=== PATIENT | male | born 1965 | race Caucasian/White ===

== ENCOUNTER → 2023-07-19 06:20 | Day surgery (SDC) | payer OTHER, SELFPAY ==
[2023-07-19 07:23] LABS: Glucose - Point of Care 175 mg/dl (70-99)
== END ==
LOC: GI 06:20
PROVIDERS: ATTENDING PHYSICIAN Internal Medicine Gastroenterology
DX: Z12.11 Encounter for screening for malignant neoplasm of colon (principal); D12.2 Benign neoplasm of ascending colon; D12.3 Benign neoplasm of transverse colon; K57.30 Diverticulosis of large intestine without perforation or abscess without bleeding; K64.8 Other hemorrhoids; Z79.01 Long term (current) use of anticoagulants
CPT/HCPCS: 45385; 88305; 82962

== ENCOUNTER 2024-06-13 08:04 | Emergency (ER) | payer OTHER, SELFPAY ==
[2024-06-13 08:06] VITALS: BP 111/67
--- NOTE | 2024-06-13 08:26 | ED.GENMED ---
Addendum entered and electronically signed by Sadie Hein MD 06/13/24 13:17:
Patient evaluated by hospitalist and oncology. Given that he is on Plavix biopsy cannot be completed inpatient. He does need to hold it for 5 days. Hospitalist gave prescription for outpatient IR biopsy. Patient aware to hold Plavix for 5 days
and to take 81 mg aspirin instead. Will discharge at this time..
Original Note:
History of Present Illness
General
Chief Complaint: Abdominal Pain
Time Seen by Provider: 06/13/24 08:14
History of Present Illness
History of Present Illness:
Patient is a 58-year-old male with history of diabetes, CAD with stent/AICD presenting to the emergency department abdominal pain. Patient states that he traveled back from [place] last week. While he was down there he started develop some vague
abdominal pain. Since then he has not had a bowel movement for the past 5 days. He is not passing gas. No prior abdominal surgeries. He states that the pain is in his right flank and right lower quadrant. He has been having some chills. He did
take Dulcolax without any relief. No issues with constipation. Only drinks 2 bottles of water a day. No new medications. He did take his Mounjaro shot 4 days ago. He has been on it for 1 year. He did notice some trickling of his urine for the
past few days with no dysuria or hematuria. No problems with his thyroid or calcium that he is aware of.
Phy Exam
Physical Exam
Physical Exam:
GENERAL: in no acute distress
HEENT: normocephalic, extraocular movements intact, moist oral mucosa
NECK: normal inspection
RESPIRATORY: no respiratory distress, clear to auscultation bilaterally
CARDIOVASCULAR: regular rate and rhythm
ABDOMEN/: soft, non-distended, mild tenderness right lower quadrant, right flank tenderness no rebound or guarding
EXTREMITIES: non-tender, no edema/swelling
NEUROLOGIC: awake and alert, moves all extremities
SKIN: warm
Course
Orders/Labs/Results
Orders:
Orders
06/13/24 08:24
Complete Blood Count/With Diff Urgent
Comprehensive Metabolic Panel Urgent
Lipase Urgent
Urinalysis Reflex To Culture Urgent
Date Specimen was Collected: 06/13/24
Time Specimen was Collected: 08:09
06/13/24 08:25
CT Abd/pelvis W Iv Cont Urgent
Comment:
Reason For Exam: right flank and RLQ pain
06/13/24 08:33
Ionized Calcium Urgent
Thyroid profile [TSH Reflex To Free T4] Urgent
Abnormal Lab Results
06/13/24
08:24
MCH 25.9 L pg
(27.0-31.0)
MCHC 31.6 L g/dL
(33.0-37.0)
Absolute Neuts (auto) 7.8 H 10^3/uL
(1.4-6.5)
Absolute Monos (auto) 0.8 H 10^3/uL
(0.1-0.6)
Neutrophils % 76.5 H %
(42.2-75.2)
Lymphocytes % 12.4 L %
(20.5-51.1)
Glucose 117 H mg/dl
(70-99)
Total Bilirubin 1.4 H mg/dl
(0.2-1.3)
AST 16 L U/L
(17-59)
Urine Ketones 1+ A
(Negative)
Urine Glucose 4+ A
(Negative)
06/13/24 08:24
06/13/24 08:24
Vital Signs
Initial and Last Documented VS:
Initial Vital Signs
Temp Pulse Resp BP Pulse Ox
97.7 F 83 18 111/67 98
06/13/24 08:06 06/13/24 08:06 06/13/24 08:06 06/13/24 08:06 06/13/24 08:06
Last Documented Vital Signs
Temp Pulse Resp BP Pulse Ox
97.7 F 83 18 110/70 96
06/13/24 08:06 06/13/24 08:06 06/13/24 08:06 06/13/24 09:49 06/13/24 09:50
MDM/Problems Addressed
Differential Diagnosis Includes:
Patient is a 58-year-old man presenting to the emergency department with abdominal pain and 5 days of not having a bowel movement. Vitals unremarkable exam does show tenderness palpation of the right lower quadrant and right flank region.
Differential is broad but consists of your infection versus kidney stone versus metabolic derangement or new onset thyroid problem. Considered obstruction or malignancy. Per chart review patient did have a colonoscopy last year where he did have 2
polyps removed. Will check blood work including thyroid and calcium level, urine and CT scan.
*Critical Care Note
Total Time (30-74mins, 75-104mins- exclusive of procedures): Not Applicable
Update Note
Update Note:
Blood work is otherwise unremarkable. CT scan per my interpretation does show a mass in the right kidney. Per the official read it is highly suspicious for renal cell carcinoma with periaortic and intra aortocaval lymphadenopathy. I did discuss
with oncology regarding the results and they would recommend admission for further evaluation from urology/biopsy. They will also evaluate patient. Discussed with hospitalist who accepted patient to their service.
ED Attending Note
-
Portions of this chart may have been created with voice recognition software.� Occasional wrong word or��sound alike� substitutions may have occurred due to the inherent limitations of voice recognition software.
Discharge Plan
Departure
Patient Disposition: Admit
Date of Disposition: 06/13/24
Time of Disposition: 11:06
Presentation/result/management discussed w/ accepting MD/DO: Hospitalist
Discharge Problem:
Mass of right kidney
Referrals:
Bandar Jimenez MD [Family Provider] -
Interventions
Interventions:
*Risk Screen - Suicide Last Done: 06/13/24 08:06
*General Assessment Last Done: 06/13/24 08:06
*Neglect/Abuse Screening Last Done: 06/13/24 08:06
*ED- Fall Risk Assessment Last Done: 06/13/24 08:29
*ED COVID-19 Vaccine History Last Done: 06/13/24 08:06
CZ-Wfvzuk-Ulatfwalvy Assessment Last Done: 06/13/24 08:29
Discharge Date and Time
Print Language: MALAGASY
[2024-06-13 08:28] VITALS: BP 108/70; BMI 30.6
[2024-06-13 08:32] LABS: % Basophils 0.8 % (0-2); % Eosinophils 2.3 % (0-6); % Immature Granulocytes 0.3 % (0-0.5); % Lymphocytes 12.4 % (20.5-51.1); % Monocytes 7.7 % (1.7-9.3); % Neutrophils 76.5 % (42.2-75.2); Absolute Basophils 0.1 10^3/uL (0-0.2); Absolute Eosinophils 0.2 10^3/uL (0-0.7); Absolute Lymphocytes 1.3 10^3/uL (1.2-3.4); Absolute Monocytes 0.8 10^3/uL (0.1-0.6); Absolute Neutrophils 7.8 10^3/uL (1.4-6.5); Hematocrit 41.5 % (39.0-52.0); Hemoglobin 13.1 g/dL (13.0-18.0); Mean Corp Hgb Conc. 31.6 g/dL (33.0-37.0); Mean Corpuscular Hgb 25.9 pg (27.0-31.0); Mean Corpuscular Volume 82.2 fL (80.0-94.0); Nucleated Red Blood Cells % 0 % (-); Platelet Count 318 10^3/uL (130-400); Red Blood Cell Count 5.05 10^6/uL (4.70-6.10); Red Cell Dist. Width 13.8 % (11.5-14.5); Urine Albumin Negative (Neg - Trace); Urine Bilirubin Negative (Negative); Urine Character Clear (Clear); Urine Color Yellow; Urine Glucose 4+ (Negative); Urine Ketone 1+ (Negative); Urine Leukocyte Negative (Negative); Urine Nitrite Negative (Negative); Urine Occult Blood Negative (Negative); Urine Specific Gravity 1.015 (<1.030); Urine Urobilinogen Negative (Neg - 1+); White Blood Cell Count 10.2 10^3/uL (4.8-10.8)
[2024-06-13 08:44] LABS: ALT (SGPT) 12 U/L (0-50); AST (SGOT) 16 U/L (17-59); Albumin 4.1 g/dl (3.5-5.0); Alkaline Phosphatase 65 U/L (38-126); Blood Urea Nitrogen 19 mg/dl (9-20); Calcium 9.6 mg/dl (8.4-10.2); Carbon Dioxide 24 mmol/L (22-30); Chloride 102 mmol/L (98-107); Estimated Creatinine Clearance 74 ml/min; Glucose 117 mg/dl (70-99); Lipase 40 U/L (23-300); Potassium 4.9 mmol/L (3.5-5.1); Sodium 136 mmol/L (135-145); Total Bilirubin 1.4 mg/dl (0.2-1.3); Total Protein 6.8 g/dl (6.3-8.2); eGFR > 60.00
[2024-06-13 09:26] LABS: TSH Reflex To Free T4 2.12 uIU/ml (0.47-4.68)
[2024-06-13 09:49] VITALS: BP 110/70
[2024-06-13 10:00] VITALS: BP 109/69
--- NOTE | 2024-06-13 11:30 | HPS.HSE ---
Family Physician
-
Family Physician: Bandar Jimenez MD
Chief Complaint
-
Abdominal discomfort for a few days
History of Present Illness
58 years old male came in from home. Patient was not feeling well in last week. He described as abdominal discomfort, intolerance to all her diet. No nausea or vomiting. He also felt constipated and took [id number] Dulcolax, 2 tablets
without passing bowel movement. No fever or chills. No hematuria or dysuria. He presented to the emergency room. CAT scan of the abdomen pelvis showed right kidney mass. No fever or leukocytosis
Medical History
Past Medical History
Past Medical History: Reports Other (Coronary artery disease, status post defibrillator, diabetes, chronic heart failure with reduced ejection fraction, BPH.)
Past Surgical History: Reports Other (No recent major surgery)
Social History
Tobacco: Non-smoker
Alcohol: None
Drug: None
Personal:
Living: With Family
Employment: Employed
Family History
Family History: CAD
Allergies / Home Medications
Allergies reflects when Allergies were last updated in [employer]
Home Medications with original date entered in [employer]
Allergy/Medication List:
Allergies
Allergy/AdvReac Type Severity Reaction Status Date / Time
NKA - No Known Allergies Allergy Unknown Uncoded 06/13/24 08:10
Famotidine
NovoLog
Metoprolol
Bumex
Jardiance
Mounjaro
Flomax
Atorvastatin
Entresto
Review of Systems
-
History Source: Patient
A 12 point ROS was completed and negative except as noted: Yes
Constitutional: Denies Fever or Chills
EENT: Denies Sore Throat
Respiratory: Denies Cough
Cardiac: Denies Chest Pain
Abdomen/GI: Reports Abdominal Pain, Constipated and Anorexia
: Reports Flank Pain (Right); Denies Dysuria
Musculoskeletal: Denies Joint Pain or Joint Swelling
Skin: Denies Rash
Neurological: Denies Numbness
Endocrine: Denies Temp Intolerance
Hematologic/Lymphatic: Denies Bruising
Psych: Denies Panic Disorder
Physical Exam
Vital Signs
Vital Signs
Temp Pulse Resp BP Pulse Ox
97.7 F 83 18 110/70 96
06/13/24 08:06 06/13/24 08:06 06/13/24 08:06 06/13/24 09:49 06/13/24 09:50
Physical Exam
General: No Apparent Distress and Comfortable
HEENT: Anicteric, Moist mucous membranes and Atraumatic
Cardiac: S1/S2 and Regular Rhythm
GI: Soft, Non Tender, Non Distended and Normal Bowel Sounds
Rectal: No Maroon Stools
Genito-urinary: No Pham
Musculoskeletal: No Cyanosis and No Edema
Skin: No Jaundice
Neuro: AO x 3 and Nonfocal/grossly intact
Psych: Calm and Intact Judgment/Insight
Laboratory Results
-
06/13/24 08:24
06/13/24 08:24
Laboratory Results
Total Bilirubin 1.4 mg/dl (0.2-1.3) H 06/13/24 08:24
AST 16 U/L (17-59) L 06/13/24 08:24
ALT 12 U/L (0-50) 06/13/24 08:24
Alkaline Phosphatase 65 U/L (38-126) 06/13/24 08:24
Lipase 40 U/L (23-300) 06/13/24 08:24
Impression/Plan
-
58 years old male presented with right flank pain/abdominal pain
#Right kidney mass with lymphadenopathy
Differential diagnosis include renal cell carcinoma/other
Admit the patient to the hospital
Discussed with urology, appreciate input
Continue with pain control
Consult oncology, appreciate input
# Constipation, low oral intake
Will give IV fluid and laxative regimen. No small bowel obstruction seen on CAT scan
# History of coronary artery disease/chronic heart failure with reduced ejection fraction
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
Patient did not know exactly his medications or dosage
Will try to get records
Patient denied chest pain, palpitations or shortness of breath
# Diabetes, patient takes insulin sliding scale her calorie count. Patient takes Mounjaro.
Will follow-up with insulin sliding scale
# DVT prophylaxis
Total time spent to see the patient, examine the patient, review data and lab results, discuss treatment plan with patient, consultants, ER doctor and nursing staff around 75 minutes
[2024-06-13 11:36] VITALS: BP 107/75
[2024-06-13 12:00] VITALS: BP 118/73
--- NOTE | 2024-06-13 13:01 | CON.ONC ---
Documented by User: [email or web address] Sam 06/13/24 13:13
Impression
Impression
right mid kidney mass 4.2 cmx3.6 cm
Periaortic and interaortocaval lymphadenopathy
splenomegaly 14.2cm
constipation
Plan
Plan
mass is highly suspicious for renal cell carcinoma
IR LN bx next week
Plavix on hold for biopsy
Patient History
History of Present Illness
58yo M presented from home with abdominal discomfort. He reports abdominal discomfort and decreased appetite over the past week. He denies fever, chills, nausea, vomiting, or sick contacts. He has been constipated for which he took a suppository
without relieve which prompted him to seek further evaluation in the ER. His CT ab/pelvis was notable for a mass arising from the medial right mid kidney with periaortic and interaortocaval lymphadenopathy. His CBC and BMP are without significant
abnormalities. His T bili is 1.4 with normal AST, ALT, alk phos.
He reports that he is up to date on routine malginancy screening with last colonoscopy July 2023 showing polyps diagnostic for tubular adenomas.
Afebrile, no hypoxia or hypotension.
Past-Medical/Surgical History
PMH CAD DM2, HFrEF, BPH
PSH ICD
Social non smoker, denies etoh or recreational drugs. lives with
family CAD
Physical Exam
-
General: No Apparent Distress
HEENT: Moist Mucous Membranes; Negative Jaundice
Cardiology: Normal Sinus Rhythm and Other (chest wall defibrillator)
Pulmonary: Other (diminished b/l bases)
GI: Soft
Extremities: Pulses Present; Negative Edema
Neurology: Non Focal
Skin: Warm
Psych: Calm
Labs
Lab Results
WBC 10.2 10^3/uL (4.8-10.8) 06/13/24 08:24
RBC 5.05 10^6/uL (4.70-6.10) 06/13/24 08:24
Hgb 13.1 g/dL (13.0-18.0) 06/13/24 08:24
Hct 41.5 % (39.0-52.0) 06/13/24 08:24
MCV 82.2 fL (80.0-94.0) 06/13/24 08:
MCH 25.9 pg (27.0-31.0) L 06/13/24 08:
MCHC 31.6 g/dL (33.0-37.0) L 06/13/24 08:
RDW 13.8 % (11.5-14.5) 06/13/24 08:
Plt Count 318 10^3/uL (130-400) 06/13/24 08:24
MPV 10.0 fL (7.4-10.4) 06/13/24 08:24
Abs Immat Gran (auto) 0.0 10^3/uL (0-0.05) 06/13/24 08:24
Absolute Neuts (auto) 7.8 10^3/uL (1.4-6.5) H 06/13/24 08:24
Absolute Lymphs (auto) 1.3 10^3/uL (1.2-3.4) 06/13/24 08:24
Absolute Monos (auto) 0.8 10^3/uL (0.1-0.6) H 06/13/24 08:24
Absolute Eos (auto) 0.2 10^3/uL (0-0.7) 06/13/24 08:24
Absolute Basos (auto) 0.1 10^3/uL (0-0.2) 06/13/24 08:
Immature Gran % 0.3 % (0-0.5) 06/13/24 08:
Neutrophils % 76.5 % (42.2-75.2) H 06/13/24 08:
Lymphocytes % 12.4 % (20.5-51.1) L 06/13/24 08:24
Monocytes % 7.7 % (1.7-9.3) 06/13/24 08:24
Eosinophils % 2.3 % (0-6) 06/13/24 08:24
Basophils % 0.8 % (0-2) 06/13/24 08:24
Creatinine 1.2 mg/dL (0.7-1.3) 06/13/24 08:24
Vital Signs
Vital Signs
Temp Pulse Resp BP Pulse Ox
97.7 F 83 18 118/73 98
06/13/24 08:06 06/13/24 08:06 06/13/24 08:06 06/13/24 12:00 06/13/24 12:00

Documented by User: Sherwin Mccoy MD 06/13/24 14:37
Plan
Plan
mass is highly suspicious for renal cell carcinoma
IR LN bx next week
Plavix on hold for biopsy
Oncology Addendum:
Patient seen and evaluated and agree w/ MANAGER OF IT note and plan as outlined
-right kidney mass w/ eriaortic and interaortocaval lymphadenopathy - possible neoplastic lymphadenopathy
-Dr. Damon discussed case w/ urology who felt adenopathy possibly c/w metastatic disease -no role for nephrectomy at this time
-recommend IR guided biopsy of lymph node for pathologic diagnosis
-pt considering outpt biopsy
-will arrange outpt f/u once biopsy has been completed to discuss pathology
-will need additional staging - full CT imaging w/ contrast as well as bone imaging
Will continue to follow with you
--- NOTE | 2024-06-13 13:31 | W.PN.UPDATE ---
Update Note
Progress Note Update
Patient was not admitted to the hospital
Patient felt better after having bowel movement wanted to go home.
Seen by oncologist, outpatient appointment scheduled for for IR to do lymph node biopsy of the abdomen and outpatient appointment with oncologist
Discussed with ER doctor, discharge instructions given to the patient including to hold Plavix and use 81 mg aspirin until the biopsy, patient verbalized understanding
End
== END 2024-06-13 14:27 | disposition home or self-care (01) ==
LOC: EMR 08:04
PROVIDERS: Emergency Medicine; EMERGENCY PHYSICIAN Student in an Organized Health Care Education/Training Program; FAMILY PHYSICIAN Internal Medicine
DX: N28.89 Other specified disorders of kidney and ureter (principal); I25.10 Atherosclerotic heart disease of native coronary artery without angina pectoris; E11.9 Type 2 diabetes mellitus without complications; Z95.810 Presence of automatic (implantable) cardiac defibrillator
CPT/HCPCS: 99284; 74177; 80053; 81003; 82330; 83690; 84443; 85025; Q9967

== ENCOUNTER → 2024-06-19 06:58 | Outpatient (REF) | payer OTHER, SELFPAY ==
[2024-06-19 07:28] LABS: INR 1.12; PT 14.9 Sec (11.4-14.6)
== END ==
LOC: REG 06:58
PROVIDERS: ATTENDING PHYSICIAN Internal Medicine; FAMILY PHYSICIAN Internal Medicine
DX: R59.1 Generalized enlarged lymph nodes (principal)
CPT/HCPCS: 36415; 85610

== ENCOUNTER → 2024-06-23 06:47 | Outpatient (REF) | payer OTHER, SELFPAY ==
[2024-06-23 07:25] VITALS: BP 101/71; BP_SYST 85
[2024-06-23 09:05] VITALS: BP 99/69; BP_SYST 84
[2024-06-23 09:10] VITALS: BP 90/66; BP_SYST 82
[2024-06-23 09:27] VITALS: BP 101/69
== END ==
LOC: RADI 06:47
PROVIDERS: ATTENDING PHYSICIAN Internal Medicine; FAMILY PHYSICIAN Internal Medicine; REFERRING PHYSICIAN Internal Medicine Hematology & Oncology
DX: C77.2 Secondary and unspecified malignant neoplasm of intra-abdominal lymph nodes (principal); C65.1 Malignant neoplasm of right renal pelvis
CPT/HCPCS: 88305; 49180; 77012; 88333; 88341; 88342; 99152; 99153

== ENCOUNTER → 2024-07-07 12:53 | Outpatient (REF) | payer OTHER, SELFPAY | LOC: PET 12:53 | PROVIDERS: ATTENDING PHYSICIAN Nurse Practitioner Acute Care | DX: C80.1 Malignant (primary) neoplasm, unspecified (principal) | CPT/HCPCS: 78815; A9552 ==

== ENCOUNTER → 2024-07-11 08:29 | Outpatient (REF) | payer OTHER, SELFPAY ==
[2024-07-11 09:16] LABS: % Eosinophils 2.7 % (0-6); % Immature Granulocytes 0.7 % (0-0.5); % Lymphocytes 12.9 % (20.5-51.1); % Monocytes 7.6 % (1.7-9.3); % Neutrophils 75.1 % (42.2-75.2); Absolute Basophils 0.1 10^3/uL (0-0.2); Absolute Eosinophils 0.3 10^3/uL (0-0.7); Absolute Immature Granulocytes 0.1 10^3/uL (0-0.05); Absolute Lymphocytes 1.3 10^3/uL (1.2-3.4); Absolute Monocytes 0.7 10^3/uL (0.1-0.6); Absolute Neutrophils 7.3 10^3/uL (1.4-6.5); Hematocrit 35.9 % (39.0-52.0); Hemoglobin 11.4 g/dL (13.0-18.0); Mean Corp Hgb Conc. 31.8 g/dL (33.0-37.0); Mean Corpuscular Hgb 25.4 pg (27.0-31.0); Mean Corpuscular Volume 80.1 fL (80.0-94.0); Mean Platelet Volume 10.7 fL (7.4-10.4); Nucleated Red Blood Cells % 0 % (-); Platelet Count 280 10^3/uL (130-400); Red Blood Cell Count 4.48 10^6/uL (4.70-6.10); Red Cell Dist. Width 14.6 % (11.5-14.5); White Blood Cell Count 9.8 10^3/uL (4.8-10.8)
[2024-07-11 09:57] LABS: ALT (SGPT) 11 U/L (0-50); AST (SGOT) 16 U/L (17-59); Albumin 3.9 g/dl (3.5-5.0); Alkaline Phosphatase 87 U/L (38-126); Blood Urea Nitrogen 24 mg/dl (9-20); Calcium 9.6 mg/dl (8.4-10.2); Carbon Dioxide 22 mmol/L (22-30); Chloride 107 mmol/L (98-107); Glucose 154 mg/dl (70-99); Potassium 4.9 mmol/L (3.5-5.1); Sodium 142 mmol/L (135-145); Total Bilirubin 0.5 mg/dl (0.2-1.3); Total Protein 6.3 g/dl (6.3-8.2); eGFR > 60.00
== END ==
LOC: REG 08:29
PROVIDERS: ATTENDING PHYSICIAN Internal Medicine Hematology & Oncology
DX: C77.5 Secondary and unspecified malignant neoplasm of intrapelvic lymph nodes (principal); D41.11 Neoplasm of uncertain behavior of right renal pelvis; C80.1 Malignant (primary) neoplasm, unspecified
CPT/HCPCS: 36415; 80053; 85025

== ENCOUNTER → 2024-07-21 12:08 | Outpatient (REF) | payer OTHER, SELFPAY ==
[2024-07-21 12:28] VITALS: BP 117/77; BP_SYST 90
[2024-07-21 13:21] VITALS: BP 124/74; BP_SYST 84
== END ==
LOC: RADI 12:08
PROVIDERS: ATTENDING PHYSICIAN Otolaryngology
DX: C77.0 Secondary and unspecified malignant neoplasm of lymph nodes of head, face and neck (principal); C64.9 Malignant neoplasm of unspecified kidney, except renal pelvis
CPT/HCPCS: 88305; 38505; 76942; 88333; 88341; 88342

== ENCOUNTER → 2024-08-13 10:38 | Outpatient (REF) | payer OTHER, SELFPAY ==
[2024-08-13 12:54] LABS: ALT (SGPT) < 10 U/L (0-50); AST (SGOT) 15 U/L (17-59); Alkaline Phosphatase 70 U/L (38-126); Blood Urea Nitrogen 25 mg/dl (9-20); Calcium 9.4 mg/dl (8.4-10.2); Carbon Dioxide 27 mmol/L (22-30); Chloride 98 mmol/L (98-107); Glucose 126 mg/dl (70-99); Potassium 5.5 mmol/L (3.5-5.1); Sodium 137 mmol/L (135-145); Total Bilirubin 0.8 mg/dl (0.2-1.3); Total Protein 6.6 g/dl (6.3-8.2); eGFR > 60.00
[2024-08-14 18:55] LABS: Hepatitis B Surface Antigen Negative (Negative)
[2024-08-14 19:13] LABS: Hepatitis B Core Ab, Total Negative (Negative); Hepatitis B Surface Antibody Negative
[2024-08-15 21:28] LABS: Adrenocorticotropic Hormone 23.9 pg/mL (7.2-63.3)
== END ==
LOC: REG 10:38
PROVIDERS: ATTENDING PHYSICIAN Internal Medicine Hematology & Oncology; FAMILY PHYSICIAN Internal Medicine
DX: C77.5 Secondary and unspecified malignant neoplasm of intrapelvic lymph nodes (principal); D41.11 Neoplasm of uncertain behavior of right renal pelvis; C80.1 Malignant (primary) neoplasm, unspecified; C64.1 Malignant neoplasm of right kidney, except renal pelvis; C77.2 Secondary and unspecified malignant neoplasm of intra-abdominal lymph nodes
CPT/HCPCS: 36415; 80053; 82024; 84443; 86704; 86706; 87340

== ENCOUNTER → 2024-08-22 15:14 | Outpatient (REF) | payer OTHER, SELFPAY | LOC: RAD 15:14 | PROVIDERS: ATTENDING PHYSICIAN Nurse Practitioner Adult Health; FAMILY PHYSICIAN Internal Medicine | DX: C77.5 Secondary and unspecified malignant neoplasm of intrapelvic lymph nodes (principal); D41.11 Neoplasm of uncertain behavior of right renal pelvis; C80.1 Malignant (primary) neoplasm, unspecified; C64.1 Malignant neoplasm of right kidney, except renal pelvis | CPT/HCPCS: 70491; 71260; Q9967 ==

== ENCOUNTER 2024-09-24 18:41 | Inpatient (IN) | payer OTHER, SELFPAY ==
[2024-09-24 13:03] VITALS: BP 129/83
[2024-09-24 13:46] LABS: % Eosinophils 1.9 % (0-6); % Immature Granulocytes 0.5 % (0-0.5); % Lymphocytes 8.1 % (20.5-51.1); % Monocytes 10.3 % (1.7-9.3); % Neutrophils 78.2 % (42.2-75.2); Absolute Basophils 0.1 10^3/uL (0-0.2); Absolute Eosinophils 0.2 10^3/uL (0-0.7); Absolute Immature Granulocytes 0.1 10^3/uL (0-0.05); Absolute Lymphocytes 0.8 10^3/uL (1.2-3.4); Absolute Monocytes 1.1 10^3/uL (0.1-0.6); Absolute Neutrophils 8.2 10^3/uL (1.4-6.5); Hematocrit 35.6 % (39.0-52.0); Hemoglobin 10.8 g/dL (13.0-18.0); Mean Corp Hgb Conc. 30.3 g/dL (33.0-37.0); Mean Corpuscular Hgb 23.1 pg (27.0-31.0); Mean Corpuscular Volume 76.2 fL (80.0-94.0); Mean Platelet Volume 10.5 fL (7.4-10.4); Nucleated Red Blood Cells % 0 % (-); Platelet Count 337 10^3/uL (130-400); Red Blood Cell Count 4.67 10^6/uL (4.70-6.10); Red Cell Dist. Width 16.3 % (11.5-14.5); White Blood Cell Count 10.4 10^3/uL (4.8-10.8)
[2024-09-24 14:06] LABS: ALT (SGPT) < 10 U/L (0-50); AST (SGOT) 16 U/L (17-59); Albumin 3.9 g/dl (3.5-5.0); Alkaline Phosphatase 70 U/L (38-126); Blood Urea Nitrogen 17 mg/dl (9-20); Carbon Dioxide 26 mmol/L (22-30); Chloride 102 mmol/L (98-107); Glucose 164 mg/dl (70-99); Lipase 14 U/L (23-300); Potassium 4.8 mmol/L (3.5-5.1); Sodium 138 mmol/L (135-145); Total Bilirubin 0.9 mg/dl (0.2-1.3); Total Protein 6.8 g/dl (6.3-8.2); eGFR > 60.00
--- NOTE | 2024-09-24 14:36 | ED.GENMED ---
History of Present Illness
General
Chief Complaint: Abdominal Pain
Source: patient
Exam Limitations: none
Time Seen by Provider: 09/24/24 14:17
History of Present Illness
History of Present Illness:
58yoM with a history of renal cell carcinoma receiving chemotherapy, coronary artery disease, and diabetes presenting for evaluation of abdominal pain. He reports generalized abdominal pain for the past week. Pain is described as throbbing. He is
also experiencing pain in his right flank region. He has been vomiting every morning since starting chemotherapy a few months ago. He spoke with his oncologist today who believes he may have a bleeding ulcer so sent him to the ED. Patient denies
any heartburn, blood in stool, melena, fevers, chest pain, shortness of breath. No previous abdominal surgeries. Last chemotherapy treatment was 2 weeks ago.
Phy Exam
General Physical Exam
General Presentation: well appearing and no apparent distress
General Skin: warm and dry
General Habitus: normal
ENT Exam
ENT Exam: normocephalic
Cardiovascular Exam
Cardiovascular Exam: regular rate/rhythm
Pulmonary Exam
Pulmonary Exam: no respiratory distress, no rhonchi, no stridor, no wheezing and other (Bibasilar rales)
Oxygen Status: bagged mask assistance
Gastrointestinal Exam
Gastrointestinal Exam: soft, non distended and other (+Generalized abdominal tenderness. Abdomen soft, non-distended. No rebound or guarding.)
Neurological Exam
Neurological Exam: alert
Coco Coma Scale
Eye Opening: Spontaneous
Verbal Response: Oriented
Motor Response: Obeys Commands
GCS Total Score: 15
Skin Exam
Skin Exam: normal color and warm/dry
Psychiatric Exam
Psychiatric Exam: normal mood/affect
Course
Orders/Labs/Results
Orders:
Orders
09/24/24 13:18
IV Insert/Care/Rem.- Treatment PRN
09/24/24 13:31
Complete Blood Count/With Diff Urgent
Comprehensive Metabolic Panel Urgent
Lipase Urgent
09/24/24 14:35
CT Abd/pelvis W Iv Cont Urgent
Comment:
Reason For Exam: generalized abd pain, R flank pain
0.9% Sodium Chloride 1000 ml [Nss] 1,000 ml IV BOLUS
HYDROmorphone [Dilaudid] 1 mg IV NOW STA
Ondansetron Injectable [Zofran] 4 mg IV NOW STA
09/24/24 Dinner
Cholesterol Lowering
At Your Request: Limited, Universal Grinder Operator Required
Cholesterol Lowering: Sodium, 2 Gram
09/24/24 15:04
Lactate Level [Lactic Acid] Urgent
09/24/24 15:39
CR Chest - 2 Views Urgent
Comment:
Reason For Exam: hypoxia
09/24/24 15:53
Electrocardiogram (*1) Urgent
Reason for Study: Abdominal Pain
EKG- Treatment ONCE
09/24/24 16:17
NT-proBNP Urgent
Troponin I Urgent
09/24/24 17:03
Furosemide [Lasix] 40 mg IV NOW STA
09/24/24 17:19
Urinalysis Reflex To Culture Urgent
Date Specimen was Collected: 09/24/24
Time Specimen was Collected: 17:18
09/24/24 17:21
Admit/Transfer Patient As Directed
Co-Sign Provider:
Level of Care: Inpatient admission
Assign to:: Telemetry
Physician / Group: trevin
Diagnosis: retroperitoneal adenopathy
Reason for Telemetry: Pulmonary Edema
Date to Stop Telemetry: 09/27/24
Time to Stop Telemetry: 11:00
Reason for Hospitalization: retroperitoneal adenopathy
Expected length of stay greater than two midnights?: Yes
ELOS- Estimated Length of Stay in days: 2
I certify the patient meets the requirements for IP care: Yes
09/24/24 17:22
Code Status As Directed
Resuscitation Status: Full Code
PRN Pain Medication Management As Directed
May give lesser potent ordered pain med per pt: Yes
preference::
Protocol:: Medication orders for pain may be administered in a
manner that supports deferring to patient preference
when the pt is:
- Requesting an ordered lesser potent pain medication.
Least to most potent pain medications are defined
as: acetaminophen < NSAID < tramadol < opioids
(morphine, oxycodone, hydromorphone).
- Requesting a lesser dose of the same medication IF
ORDERED.
- Requesting a less intrusive route of administration
if both routes are prescribed by the provider (PO <
IV).
09/24/24 21:09
Dextrose 50%-Water [Dextrose 50% Syringe] 12.5 grams IV [id number] PRN
Glucagon [GlucaGen] 1 mg IM PRN PRN
Heparin 5,000 units SC Q12
09/24/24 21:09
ONCOLOGY CONSULT Routine
Consulting Provider: Pilar Badillo
Was physician already notified: Yes
Activity As Directed
Activity Level: As Tolerated
Bedside Glucose Monitoring As Directed
Frequency: AC&HS
Additional Instructions:: Change to q6h if pt on TPN, tube feeding or not eating
I/O [Intake/ Output] As Directed
Frequency: q12h
Vital Signs As Directed
Frequency: Per unit guidelines
Weight As Directed
Frequency: Daily
DX Deep Vein Thrombosis Video Routine
09/25/24 06:00
Complete Blood Count/With Diff IN AM
Comprehensive Metabolic Panel IN AM
Glycohemoglobin (HgbA1c) IN AM
09/25/24 07:30
Insulin Aspart Corrective Low [Novolog Flexpen-Low Resistance] See Protocol SC AC
09/27/24 11:00
DC Protocol for Telemetry ONCE
Abnormal Lab Results
09/24/24 09/24/24
13:31 17:19
RBC 4.67 L 10^6/uL
(4.70-6.10)
Hgb 10.8 L g/dL
(13.0-18.0)
Hct 35.6 L %
(39.0-52.0)
MCV 76.2 L fL
(80.0-94.0)
MCH 23.1 L pg
(27.0-31.0)
MCHC 30.3 L g/dL
(33.0-37.0)
RDW 16.3 H %
(11.5-14.5)
MPV 10.5 H fL
(7.4-10.4)
Abs Immat Gran (auto) 0.1 H 10^3/uL
(0-0.05)
Absolute Neuts (auto) 8.2 H 10^3/uL
(1.4-6.5)
Absolute Lymphs (auto) 0.8 L 10^3/uL
(1.2-3.4)
Absolute Monos (auto) 1.1 H 10^3/uL
(0.1-0.6)
Neutrophils % 78.2 H %
(42.2-75.2)
Lymphocytes % 8.1 L %
(20.5-51.1)
Monocytes % 10.3 H %
(1.7-9.3)
Glucose 164 H mg/dl
(70-99)
AST 16 L U/L
(17-59)
Lipase 14 L U/L
(23-300)
Urine Ketones 2+ A
(Negative)
Urine Glucose 4+ A
(Negative)
09/24/24 13:31
09/24/24 13:31
Vital Signs
Initial and Last Documented VS:
Initial Vital Signs
Temp Pulse Resp BP Pulse Ox
97.9 F 101 18 129/83 95
09/24/24 13:03 09/24/24 13:03 09/24/24 13:03 09/24/24 13:03 09/24/24 13:03
Last Documented Vital Signs
Temp Pulse Resp BP Pulse Ox
97.9 F 97 21 116/75 93
09/24/24 13:03 09/24/24 21:00 09/24/24 20:00 09/24/24 20:00 09/24/24 20:59
MDM/Problems Addressed
Differential Diagnosis Includes:
58yoM presenting with generalized abd pain and R flank pain x 1 week. Also having intermittent vomiting. Hx of renal cell carcinoma on chemo. VSS. He is non-toxic appearing. No signs of peritonitis on abdominal exam. Differential diagnosis includes
but is not limited to: cancer related pain, pancreatitis, biliary colic, appendicitis, PUD, constipation
Initial ED plan: Labs obtained in triage. White count, renal function, LFTs, lipase unremarkable. Will check lactate and CT abdomen. IV Dilaudid and fluid bolus for symptoms.
*Pulse Oximetry
SaO2: 95
Oxygen Mode of Delivery: Room air
*EKG
Interpreted by ED Provider?: Yes
EKG Intrepretation Date: 09/24/24
Heart Rate: 103
Rate: tachycardiac
Rhythm: sinus
Interval: normal interval
QRS Pattern: right bundle branch block
Ischemia: no ischemia
*Critical Care Note
Total Time (30-74mins, 75-104mins- exclusive of procedures): Not Applicable
Update Note
Update Note:
Lactate WNL. CT shows progressive retroperitoneal lymphadenopathy. There are also small pleural effusions. Patient intermittently hypoxic in the low 80s. He denies any dyspnea or chest pain. He was placed on 2L NC for persistent hypoxemia. BNP added
which is about 6000. 40mg IV Lasix ordered and patient admitted for further management.
ED Attending Note
-
Portions of this chart may have been created with voice recognition software.� Occasional wrong word or��sound alike� substitutions may have occurred due to the inherent limitations of voice recognition software.
Discharge Plan
Departure
Patient Disposition: Admit
Date of Disposition: 09/24/24
Time of Disposition: 17:05
Presentation/result/management discussed w/ accepting MD/DO: Hospitalist
Discharge Problem:
Acute respiratory failure with hypoxia, Bilateral pleural effusion, Abdominal pain
Interventions
Interventions:
*Risk Screen - Suicide Last Done: 09/24/24 13:03
*General Assessment Last Done: 09/24/24 15:33
*Neglect/Abuse Screening Last Done: 09/24/24 13:03
*ED- Fall Risk Assessment Last Done: 09/24/24 15:33
*ED COVID-19 Vaccine History Last Done: 09/24/24 15:33
*Nursing Disposition Last Done: 09/24/24 21:09
ZL-Psgqun-Frzervalzr Assessment Last Done: 09/24/24 20:16
Discharge Date and Time
Discharge Date/Time: 09/24/24 21:10
[2024-09-24] MEDS: NSS 1000 IV (15:05)
[2024-09-24] MEDS: ZOFRAN 4 MG IV (15:05)
[2024-09-24] MEDS: DILAUDID 1 MG IV ×2 (15:06→20:01)
[2024-09-24 15:10] VITALS: BMI 28.5
[2024-09-24 15:31] LABS: Lactic Acid 1.1 mmol/L (0.7-2.0)
[2024-09-24 16:53] LABS: NT-proBNP 6100 pg/ml; Troponin I < 0.012 ng/ml
--- NOTE | 2024-09-24 17:26 | HPS.HSE ---
Family Physician
-
Family Physician: Maru Byers
Chief Complaint
-
abdominal pain
History of Present Illness
58-year-old male past medical history of renal cell carcinoma on chemotherapy, CAD, chronic HFrEF, type 2 diabetes, BPH, presenting with right lower back pain ongoing for the past 2 weeks. Pain is throbbing. Also has some abdominal discomfort that
is generalized with bloating and decreased appetite and dry heaving. No vomiting. He denies any chest pain or shortness of breath or difficulty breathing. He last had chemotherapy 2 weeks ago. Denies constipation.
He denies any blood in the stool or black stool. Denies fevers or chills. Denies any urinary discomfort or burning.
He has lost 20 to 30 pounds recently since being diagnosed with cancer.
His oncologist is Dr. Galeana. His family worker is Dr. Duong from [facility]
He denies smoking or alcohol use.
Medical History
Past Medical History
Past Medical History: Reports Other (renal cell carcinoma on chemotherapy, CAD, chronic HFrEF, type 2 diabetes, BPH,)
Past Surgical History: Reports None
Social History
Tobacco: Non-smoker
Alcohol: None
Drug: None
Family History
Family History: Not pertinent
Allergies / Home Medications
Allergies reflects when Allergies were last updated in [employer]
Home Medications with original date entered in [employer]
Allergy/Medication List:
Allergies
Allergy/AdvReac Type Severity Reaction Status Date / Time
NKA - No Known Allergies Allergy Unknown Uncoded 09/24/24 13:03
Home Medications
atorvastatin 80 mg tablet 80 mg PO HS 06/23/24
clopidogrel 75 mg tablet 75 mg PO DAILY 06/23/24
empagliflozin 25 mg tablet (Jardiance) 25 mg PO DAILY 06/23/24
fenofibrate micronized 200 mg capsule 200 mg PO QPM 06/23/24
repaglinide 2 mg tablet 2 mg PO TID 06/23/24
sacubitril 24 mg-valsartan 26 mg tablet (Entresto) 1 tab PO BID 06/23/24
spironolactone 25 mg tablet 25 mg PO DAILY 06/23/24
tamsulosin 0.4 mg capsule 0.4 mg PO HS 06/23/24
Review of Systems
-
History Source: Patient
A 12 point ROS was completed and negative except as noted: Yes
Constitutional: Reports No Symptoms
EENT: Reports No Symptoms
Respiratory: Reports No Symptoms
Cardiac: Reports No Symptoms
Abdomen/GI: Reports See HPI
: Reports No Symptoms
Musculoskeletal: Reports No Symptoms
Skin: Reports No Symptoms
Neurological: Reports No Symptoms
Endocrine: Reports No Symptoms
Hematologic/Lymphatic: Reports No Symptoms
Psych: Reports No Symptoms
Physical Exam
Vital Signs
Vital Signs
Temp Pulse Resp BP Pulse Ox
97.9 F 102 18 129/83 92
09/24/24 13:03 09/24/24 15:11 09/24/24 13:03 09/24/24 13:03 09/24/24 16:31
Physical Exam
General: Well Developed, Well Nourished and No Apparent Distress
HEENT: NormoCephalic, Moist mucous membranes and Atraumatic
Respiratory: Clear
Cardiac: S1/S2 and Regular Rhythm; No Murmur or Rub
GI: Soft, Non Distended, Normal Bowel Sounds and Tender (diffusely ); No Organomegaly
Rectal: Deferred by Provider
Musculoskeletal: No Clubbing, No Cyanosis and No Edema
Skin: No Rash
Neuro: Nonfocal/grossly intact
Laboratory Results
-
09/24/24 13:31
09/24/24 13:31
Laboratory Results
Lactic Acid 1.1 mmol/L (0.7-2.0) 09/24/24 15:04
Total Bilirubin 0.9 mg/dl (0.2-1.3) 09/24/24 13:31
AST 16 U/L (17-59) L 09/24/24 13:31
ALT < 10 U/L (0-50) 09/24/24 13:31
Alkaline Phosphatase 70 U/L (38-126) 09/24/24 13:31
Troponin I < 0.012 ng/ml 09/24/24 16:17
Lipase 14 U/L (23-300) L 09/24/24 13:31
Data Reviewed
-
Lab Data: Labs Reviewed by me
Old Records: Reviewed
Impression/Plan
-
IMPRESSION:
PLAN:
# Abdominal pain secondary to progressive retroperitoneal adenopathy secondary to renal cell carcinoma
#Renal cell carcinoma on chemotherapy
- CT abdomen pelvis shows progressive retroperitoneal adenopathy, mild slightly increased adenopathy in the portacaval space and kathy hepatis, no significant change in known right renal mass, no obstructive uropathy, slightly small increase
bilateral pleural effusions, mild colonic fecal burden without bowel obstruction
- Oncology consulted
# Mild fluid overload on imaging/CT scan
-Patient without shortness of breath or dyspnea or weight gain so would not diagnose this as CHF exacerbation
- Cardiac BNP of 6000
- Check chest x-ray
- Check I's and O's, daily weights
- 40 IV Lasix given, hold further for now
-Continue dapagliflozin
-Continue Entresto, spironolactone
Chronic anemia
- Hemoglobin stable
CAD
- Continue statin, Plavix
Type 2 diabetes
- Hold repaglinide
- Insulin sliding scale
BPH
- Continue tamsulosin
Hypercholesterolemia
- Continue fenofibrate
Full code
DVT prophylaxis�heparin
Cardiac diet
[2024-09-24 17:27] LABS: Urine Albumin Negative (Neg - Trace); Urine Bilirubin Negative (Negative); Urine Character Clear (Clear); Urine Color Yellow; Urine Glucose 4+ (Negative); Urine Ketone 2+ (Negative); Urine Leukocyte Negative (Negative); Urine Nitrite Negative (Negative); Urine Occult Blood Negative (Negative); Urine Specific Gravity 1.015 (<1.030); Urine Urobilinogen Negative (Neg - 1+)
[2024-09-24] MEDS: LASIX 40 MG IV (18:09)
[2024-09-24 18:10] VITALS: BP 121/74
[2024-09-24 19:00] VITALS: BP 119/74
[2024-09-24 20:00] VITALS: BP 116/75
[2024-09-24 21:45] VITALS: BP 113/68; BMI 29.1
[2024-09-24] MEDS: HEPARIN 5000 UNITS SC (22:21)
[2024-09-24] MEDS: LIPITOR 80 MG PO (22:23)
[2024-09-24] MEDS: FLOMAX 0.4 MG PO (22:24)
[2024-09-24] MEDS: LANTUS 0.14 UNITS SC (22:24)
[2024-09-24 22:31] LABS: Glucose - Point of Care 189 mg/dl (70-99)
[2024-09-24 23:00] VITALS: BP 105/63
[2024-09-25 01:41] VITALS: BP 108/68
[2024-09-25] MEDS: DILAUDID 1 MG IV ×5 (01:46→19:55)
--- NOTE | 2024-09-25 02:23 | PTCARENOTE ---
Patient arrived to [facility] from ED on stretcher. Patient ambulated from stretcher to bed. Patient AAOx3. Patient oriented to room, bed placed in lowest position, call tyler within reach. Will continue to monitor.
[2024-09-25 03:00] VITALS: BP 107/66
[2024-09-25 05:53] LABS: % Basophils 0.6 % (0-2); % Eosinophils 0.7 % (0-6); % Immature Granulocytes 0.5 % (0-0.5); % Monocytes 10.6 % (1.7-9.3); % Neutrophils 80.6 % (42.2-75.2); Absolute Basophils 0.1 10^3/uL (0-0.2); Absolute Eosinophils 0.1 10^3/uL (0-0.7); Absolute Immature Granulocytes 0.1 10^3/uL (0-0.05); Absolute Lymphocytes 0.9 10^3/uL (1.2-3.4); Absolute Monocytes 1.4 10^3/uL (0.1-0.6); Absolute Neutrophils 10.3 10^3/uL (1.4-6.5); Hematocrit 34.1 % (39.0-52.0); Hemoglobin 10.3 g/dL (13.0-18.0); Mean Corp Hgb Conc. 30.2 g/dL (33.0-37.0); Mean Corpuscular Hgb 22.7 pg (27.0-31.0); Mean Corpuscular Volume 75.3 fL (80.0-94.0); Mean Platelet Volume 10.5 fL (7.4-10.4); Nucleated Red Blood Cells % 0 % (-); Platelet Count 315 10^3/uL (130-400); Red Blood Cell Count 4.53 10^6/uL (4.70-6.10); Red Cell Dist. Width 16.3 % (11.5-14.5); White Blood Cell Count 12.8 10^3/uL (4.8-10.8)
[2024-09-25 06:00] VITALS: BMI 28.8
[2024-09-25 06:15] LABS: ALT (SGPT) 10 U/L (0-50); AST (SGOT) 14 U/L (17-59); Albumin 3.8 g/dl (3.5-5.0); Alkaline Phosphatase 69 U/L (38-126); Blood Urea Nitrogen 21 mg/dl (9-20); Calcium 9.9 mg/dl (8.4-10.2); Carbon Dioxide 25 mmol/L (22-30); Chloride 101 mmol/L (98-107); Estimated Creatinine Clearance 79 ml/min; Glucose 158 mg/dl (70-99); Potassium 4.8 mmol/L (3.5-5.1); Sodium 136 mmol/L (135-145); Total Bilirubin 1.1 mg/dl (0.2-1.3); Total Protein 6.6 g/dl (6.3-8.2); eGFR > 60.00
[2024-09-25 07:00] VITALS: BP 103/68
[2024-09-25 07:36] LABS: Glucose - Point of Care 174 mg/dl (70-99)
--- NOTE | 2024-09-25 08:12 | CON.GI ---
Addendum entered and electronically signed by Delmer Griffith MD 09/25/24 16:20:
Cscope Dr. Black 2023 polyps and hemorrhoids
Addendum entered and electronically signed by Delmer Griffith MD 09/25/24 15:43:
The patient was seen and examined by me independently in collaboration with the nurse practitioner.
Past medical history/social history/medications/allergies/family history reviewed.
Lab data and imaging data reviewed.
58-year-old gentleman past medical history renal cell cancer on chemotherapy, AICD, EF 15 to 20%, CAD with history of VA status post stents currently only on aspirin, diabetes presenting with back pain and nausea. There are some reports of
abdominal pain, bloating, decreased appetite but when I asked him today he denied any abdominal pain. He states the nausea was only this morning and the back pain has been going on for the last week. He denies any melena, bright red blood per
rectum, dyspnea on exertion, shortness of breath, chest pain. He was found admission to have slightly worsening of his anemia with hemoglobin 10.3 back in July was 11.4.
Other labs pertinent for normal LFTs, BNP 6100. CT abdomen pelvis shows progressive retroperitoneal adenopathy and mild increased adenopathy in the portacaval space and kathy hepatis, no change in the right renal mass. Mild colonic fecal burden.
During this admission, he has been hypoxic requiring oxygen.
Although it is possible he could have gastritis or peptic ulcer disease, there is no signs or symptoms of overt bleeding at this time. Given the fact that he is high risk for endoscopy given both his cardiac status and pulmonary, I would hold off
on endoscopic procedures unless clinical status changes. I will increase his PPI to twice a day. Okay GI point of view to advance diet as tolerated. Currently on full liquids did have some nausea this morning so we will wait to see if he
tolerates it before advancing in the morning. D/w hospitalist and onc.
Original Note:
Consultation
-
Date/Time Consultation Requested: 09/25/24729
Date/Time Consultation Performed: 6/19/25 0812
Requesting Provider: Dr. Galeana
Performing Provider: Dr. Griffith/SUJIT Tubbs
Reason for Consultation: CARMEN, nausea, gastric inflammation
Medical History
Chief Complaint / HPI
Chief Complaint: Abdominal pain
History of Present Illness:
58-year-old male with past medical history of renal cell carcinoma on chemotherapy, chronic HFpEF, diabetes, BPH, CAD (on aspirin only, stopped Plavix 5-6 weeks ago) presents to the emergency room with abdominal pain, right mid back pain, nausea,
vomiting, decreased appetite and dry heaving. We are asked to evaluate for the same. The patient states that approximately 5-6 weeks ago he started with right mid back pain that would bring on 'nausea with his stomach rolling' without any abdominal
pain. He would have dry heaves and would not be able to eat. The states that at times he would vomit however this would either be the food that he consumes or clear. He would never have any hematemsis or coffee ground material. He has also been
constipated since starting narcotics and anti nausea meds. He denies any F, C, melena, hematochezia, dysphagia or early satiety. He has lost about 20-30 lbs in the past 3 months.
Past Medical History
Past Medical History: CAD (2 years ago s/p stent ([place]) ), Cancer (renal cell Ca), CHF, NIDDM and Other (BPH)
Past Surgical History: None
Social History
Tobacco: Non-Smoker
Alcohol: None
Drug: None
Personal:
Living: With Family
Family History
Family History: Other (No fam hx GI malignancy or IBD)
Allergies / Home Medications
Allergy/AdvReac Type Severity Reaction Status Date / Time
No Known Allergies Allergy Unverified 09/24/24 21:10
�Medication �Instructions �Recorded
atorvastatin 80 mg tablet 80 mg PO HS 06/23/24
empagliflozin 25 mg tablet 25 mg PO DAILY 06/23/24
(Jardiance)
fenofibrate micronized 200 mg 200 mg PO QPM 06/23/24
capsule
repaglinide 2 mg tablet 2 mg PO DAILY 06/23/24
sacubitril 24 mg-valsartan 26 mg 1 tab PO BID 06/23/24
tablet (Entresto)
spironolactone 25 mg tablet 25 mg PO DAILY 06/23/24
tamsulosin 0.4 mg capsule 0.4 mg PO 06/23/24
aspirin 81 mg chewable tablet 81 mg PO DAILY 09/24/24
ergocalciferol (vitamin D2) 1,250 1,250 mcg PO PICKARD 09/24/24
mcg (50,000 unit) capsule
insulin aspart U-100 100 unit/mL 20 sliding scale dose SC AC 09/24/24
(3 mL) subcutaneous pen (Novolog
FlexPen U-100 Insulin aspart)
insulin glargine U-300 conc 300 18 unit SC 09/24/24
unit/mL (3 mL) subcutaneous pen
(Toujeo Max U-300 SoloStar)
repaglinide 2 mg tablet 2 mg PO BID@1200,1700 09/24/24
Review of Systems
-
All other systems: A 12 pt ROS was Negative except as stated above in HPI
Vital Signs
Temp Pulse Resp BP Pulse Ox
98.5 F 103 17 103/68 96
09/25/24 07:00 09/25/24 07:00 09/25/24 07:00 09/25/24 07:00 09/25/24 07:00
Physical Exam
Exam
General: Other (Sitting up in chair, mild dyspnea (no supplemental O2 on, replaced with improvement))
HEENT: Anicteric
Respiratory: Clear (decreased bases B/L R>L )
Cardiac: Regular Rhythm (tachy at 110)
GI: Soft, Non Tender, Non Distended and Normal Bowel Sounds
Musculoskeletal: No Edema
Skin: Warm and Dry
Neuro: Oriented
Psych: Calm
Results
WBC 12.8 10^3/uL (4.8-10.8) H 09/25/24 05:23
Hgb 10.3 g/dL (13.0-18.0) L 09/25/24 05:23
Hct 34.1 % (39.0-52.0) L 09/25/24 05:23
MCV 75.3 fL (80.0-94.0) L 09/25/24 05:23
Plt Count 315 10^3/uL (130-400) 09/25/24 05:23
Absolute Neuts (auto) 10.3 10^3/uL (1.4-6.5) H 09/25/24 05:23
Sodium 136 mmol/L (135-145) 09/25/24 05:23
Potassium 4.8 mmol/L (3.5-5.1) 09/25/24 05:23
Chloride 101 mmol/L (98-107) 09/25/24 05:23
Carbon Dioxide 25 mmol/L (22-30) 09/25/24 05:23
BUN 21 mg/dl (9-20) H 09/25/24 05:23
Creatinine 1.0 mg/dL (0.7-1.3) 09/25/24 05:23
Calcium 9.9 mg/dl (8.4-10.2) 09/25/24 05:23
Total Bilirubin 1.1 mg/dl (0.2-1.3) 09/25/24 05:23
AST 14 U/L (17-59) L 09/25/24 05:23
ALT 10 U/L (0-50) 09/25/24 05:23
Alkaline Phosphatase 69 U/L (38-126) 09/25/24 05:23
Lipase 14 U/L (23-300) L 09/24/24 13:31
Diagnostic Image Results:
CXR 09/25/24:
IMPRESSION:
Tiny bilateral pleural effusions. Associated pneumonia not excluded. Stable.
CT Abd/Pelvis with IV cont 09/24/24:
Progressive retroperitoneal adenopathy. Mild, slightly increased adenopathy in the portacaval space and kathy hepatis.
No significant change in known right renal mass.
No obstructive uropathy.
Small, slightly increased bilateral pleural effusions.
Mild colonic fecal burden. No bowel obstruction.
CT neck and Chest 08/22/24:
IMPRESSION:
1. 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 There are some internal small cystic areas most likely representing necrosis. This exerts mass effect against left carotid and
jugular as above, no thrombosis identified. There is some mass effect against the hypopharynx, larynx, proximal trachea. No signs of advanced airway narrowing. There is additional left cervical, mediastinal, and hilar adenopathy consistent with
metastasis as above.
2. Very small bilateral pleural effusions.
3. Splenomegaly.
Prior GI Procedures:
EGD: never
Colonoscopy: 07/18/24 ([facility]) - One 8 mm polyp in the ascending colon, removed with
a cold snare. Resected and retrieved. Clip was placed.
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 (tubular adenoma)
- One 4 mm polyp in the transverse colon, removed with
a cold snare. Resected and retrieved. (tubular adenoma)
- Diverticulosis in the sigmoid colon.
- Internal hemorrhoids.
Assessment / Plan
-
58-year-old male with past medical history of renal cell carcinoma on chemotherapy, chronic HFpEF, diabetes, BPH, CAD (on aspirin only, stopped Plavix 5-6 weeks ago) presents to the emergency room with abdominal pain, right mid back pain, nausea,
vomiting, decreased appetite and dry heaving. We are asked to evaluate for the same. Patient with nausea, dry heaves, poor po intake with intermittent bilious vomiting or food that he ingested without signs of bleeding that he attributes to his
right mid back pain. Patient also with increased constipation and stool burden with addition of antiemetics and narcotics. Patient on chemo (last dose 2 weeks ago) for past [address] imaging with progressive retroperitoneal adenopathy as
well as around kathy hepatis secondary to RCC. Increase in B/L pleural effusions, decreased O2 sat requiring supplemental oxygen. 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
christy mass. This exerts mass effect against left carotid and jugular. There is some mass effect against the hypopharynx, larynx, proximal trachea. No signs of advanced airway narrowing. There is additional left cervical, mediastinal, and hilar
adenopathy.
Impression:
Nausea/Vomiting
Poor po intake
Weight loss
Constipation
Renal Cell Ca on CTX (last dose 2 weeks ago)
--> progressive retroperitoneal adenopathy, mild slightly increased adenopathy in the portacaval space and kathy hepatis, no significant change in known right renal mass, no obstructive uropathy, slightly small increase bilateral pleural
effusions, mild colonic fecal burden without bowel obstruction. 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 This exerts mass effect against left carotid and jugular. There is
some mass effect against the hypopharynx, larynx, proximal trachea. No signs of advanced airway narrowing. There is additional left cervical, mediastinal, and hilar adenopathy.
Chronic anemia
B/L Pleural effusions
Plan:
-Protonix 40 mg IV daily
-Antiemetics
-Treat constipation, discussed with patient. Would like to start with suppository first. Stool mostly right colon. Will likely need to use enema the trickle Miralax as patient able to take in oral.
-Hold on EGD.
-Patient getting Lasix for fluid overload and supplemental O2.
-Onc consultation pending.
-Further recommendations to be forthcoming.
-
-
Thank you for consultation and allowing me to participate in the patient's care. Please call the inspector repairer [facility] physician during the after hours with any questions or concerns.
--- NOTE | 2024-09-25 09:01 | CON.ONC ---
Consultation
-
Date Consultation Requested: 09/24/24
Date Consultation Performed: 09/25/24
Requesting Provider: Hieu Kulkarni
Performing Provider: Esdras Galeana
Reason for Consultation: Renal cell carcinoma on chemotherapy
Impression
Impression
Renal cell carcinoma on chemo therapy
Hypoxia
Chronic heart failure reduced ejection fraction
History of CAD
Type 2 diabetes
Bilateral small pleural effusion
Plan
Plan
#Renal cell carcinoma on chemotherapy
#Iron deficiency anemia
On chemotherapy with, on Optivo and yervoy, last cycle September 11, did not receive G-CSF at last cycle. Follows Dr. Galeana at [facility]
Unfortunately, while on chemo, CT in ED this visit demonstrated progressive retroperitoneal adenopathy, no significant change in right renal mass. Also demonstrated progressing left supraclavicular mass 6.8 cm likely metastatic confluent christy mass
Will continue to follow along, would like to evaluate chest with imaging in the future
GI consulted for suspected GI bleed as patient is iron deficient on labs in the outpatient setting
Also ordered ultrasound lower extremity to rule out DVT
#Hypoxia
#Small bilateral pleural effusion
Was hypoxic and short of breath, requiring 2 L nasal cannula desatted to 80s in the emergency department
Was noted to be fluid overloaded on CT scan, patient was diuresed with IV Lasix
Not becoming tachycardic and blood pressures are soft. Primary ordered gentle IV fluids at 80 with LR
Also noted to have small bilateral pleural effusions
Patient follows cardiology at [facility], history of heart failure reduced ejection fraction. Cardiology consulted to evaluate if hypoxia is cardiac related
Potential for thoracentesis if fluid is large enough for drainage�would like to evaluate if there are cells present or if it is transudative/exudative in nature
Would like to evaluate lungs/chest with imaging, will hold off as patient recently had scan with IV contrast. Will order CTA after kidneys have time to recover
#Nausea and vomiting
Patient reports constipation, CT demonstrated large stool burden, patient does report passing gas. CT did not demonstrate any bowel obstruction
Intractable nausea and vomiting even with as needed Zofran
Added on as needed Compazine for breakthrough nausea vomiting
Ordered EKG to monitor QT, recommend daily EKGs for QT monitoring
Patient History
History of Present Illness
58-year-old male past medical history CAD, chronic heart failure reduced ejection fraction, type 2 diabetes, BPH, renal cell carcinoma on chemotherapy, on Optivo and yervoy, last cycle September 11. He follows Dr. Galeana at [facility]. He presents
for right lower back pain ongoing the past 2 weeks, throbbing in quality. Patient reports 20-30 pound weight loss since being diagnosed with cancer, nausea and vomiting daily since starting chemo few months prior. He was sent into the emergency
department under suspicion of a bleeding ulcer from his oncologist. In the ED patient received CT abdomen pelvis with IV contrast which demonstrated progressive retroperitoneal adenopathy, slightly increased in the post capsule space and kathy
hepatis. No significant change in known right renal mass, no obstructive uropathy, small slightly increased bilateral pleural effusions, no bone mets. In the ED patient was noted to be hypoxic in the low 80s, found to be fluid overloaded on CT,
elevated BNP�he was admitted for IV Lasix and further management. Oncology was consulted due to his renal cell carcinoma on chemotherapy.
Past-Medical/Surgical History
See HPI
Patient Medication
�Medication �Instructions �Recorded �Confirmed �Last Taken �Type
atorvastatin 80 mg tablet 80 mg PO HS 06/23/24 09/24/24 09/23/24 History
empagliflozin 25 mg tablet 25 mg PO DAILY 06/23/24 09/24/24 09/23/24 History
(Jardiance)
fenofibrate micronized 200 mg 200 mg PO QPM 06/23/24 09/24/24 09/23/24 History
capsule
repaglinide 2 mg tablet 2 mg PO DAILY 06/23/24 09/24/24 09/23/24 History
sacubitril 24 mg-valsartan 26 mg 1 tab PO BID 06/23/24 09/24/24 09/23/24 History
tablet (Entresto)
spironolactone 25 mg tablet 25 mg PO DAILY 06/23/24 09/24/24 09/23/24 History
tamsulosin 0.4 mg capsule 0.4 mg PO HS 06/23/24 09/24/24 09/23/24 History
aspirin 81 mg chewable tablet 81 mg PO DAILY 09/24/24 09/24/24 09/23/24 History
ergocalciferol (vitamin D2) 1,250 1,250 mcg PO PICKARD 09/24/24 09/24/24 09/21/24 History
mcg (50,000 unit) capsule
insulin aspart U-100 100 unit/mL 20 sliding scale dose SC AC 09/24/24 09/24/24 09/23/24 History
(3 mL) subcutaneous pen (Novolog
FlexPen U-100 Insulin aspart)
insulin glargine U-300 conc 300 18 unit SC HS 09/24/24 09/24/24 09/23/24 History
unit/mL (3 mL) subcutaneous pen
(Toujeo Max U-300 SoloStar)
repaglinide 2 mg tablet 2 mg PO BID@1200,1700 09/24/24 09/24/24 09/23/24 History
Active Medications
Generic Name Dose Route Start Last Admin
Trade Name Megaq PRN Reason Stop Dose Admin
Aspirin 81 mg 09/25/24 08:00
Aspirin 81 Mg Chewable Tablet PO 10/23/24 07:59
DAILY RAYMOND
Atorvastatin Calcium 80 mg 09/24/24 22:00 09/24/24 22:23
Atorvastatin (Lipitor) 80 Mg Tablet PO 10/22/24 21:59 80 mg
HS RAYMOND Administration
Dapagliflozin 10 mg 09/25/24 08:00
Dapagliflozin (Farxiga) 10 Mg Tablet PO 10/23/24 07:59
DAILY RAYMOND
Dextrose 12.5 grams 09/24/24 21:09
Dextrose 50% (0.5 Grams/Ml) 50 Ml Syringe IV 10/22/24 21:08
[id number] PRN
hypoglycemia
Protocol
Ergocalciferol 50,000 units 09/28/24 08:00
Ergocalciferol (Vitamin D-2) 86502 Units Capsule PO 10/26/24 07:59
PICKARD RAYMOND
Fenofibrate 145 mg 09/25/24 18:00
Fenofibrate 145 Mg Tablet PO 10/23/24 17:59
QPM RAYMOND
Glucagon 1 mg 09/24/24 21:09
Glucagon 1 Mg Vial IM 10/22/24 21:08
PRN PRN
hypoglycemia
Protocol
Heparin Sodium 5,000 units 09/24/24 21:09 09/24/24 22:21
Heparin 5,000 Units/Ml 1 Ml Vial SC 10/22/24 21:08 5,000 units
Q12 RAYMOND Administration
Hydromorphone HCl 1 mg 09/25/24 01:32 09/25/24 05:54
Hydromorphone 1 Mg/Ml Carpuject IV 10/09/24 01:31 1 mg
Q4HPRN PRN Administration
severe pain
Insulin Glargine 14 units/ 0.14 mls @ 0 mls/hr 09/24/24 22:00 09/24/24 22:24
Device SC 10/22/24 21:59 0.14 mls
HS RAYMOND Administration
As Directed
Insulin Aspart 0 units 09/25/24 07:30
Insulin Aspart Low Resistance 300 Units/3 Ml Pen.Injctr SC 10/23/24 07:29
AC RAYMOND
Protocol
Insulin Aspart 20 units 09/25/24 07:30
Insulin Aspart (Novolog) 100 Units/Ml 3 Ml Flexpen SC 10/23/24 07:29
AC RAYMOND
Sacubitril/Valsartan 1 tab 09/25/24 08:00
Sacubitril 24 Mg/Valsartan 26 Mg (Entresto) Tab PO 10/23/24 07:59
BID RAYMOND
Sodium Chloride 0 flush 09/24/24 22:00
Sodium Chloride 0.9% (Flush) Syringe IV 10/22/24 21:59
PER PROTOCOL RAYMOND
Spironolactone 25 mg 09/25/24 08:00
Spironolactone 25 Mg Tablet PO 10/23/24 07:59
DAILY RAYMOND
Tamsulosin HCl 0.4 mg 09/24/24 22:00 09/24/24 22:24
Tamsulosin 0.4 Mg Capsule PO 10/22/24 21:59 0.4 mg
HS RAYMOND Administration
Review of Systems
-
History Source: Patient
Constitutional: Reports Weight Loss
Respiratory: Reports Trouble Breathing
Cardiac: Reports No Symptoms
GI: Reports Nausea, Vomiting and Constipated
Neuro: Reports No Symptoms
Hematologic/Lymphatic: Reports Other (Left supraclavicular lymphadenopathy)
Physical Exam
-
General: Well Developed, No Apparent Distress and Comfortable
Cardiology: Normal Sinus Rhythm, S1 and S2
Pulmonary: Clear
GI: Soft; Negative Distended
Skin: Warm and Dry
Psych: Calm and Intact Judgement/Insight
Labs
Lab Results
WBC 12.8 10^3/uL (4.8-10.8) H 09/25/24 05:23
RBC 4.53 10^6/uL (4.70-6.10) L 09/25/24 05:23
Hgb 10.3 g/dL (13.0-18.0) L 09/25/24 05:23
Hct 34.1 % (39.0-52.0) L 09/25/24 05:23
MCV 75.3 fL (80.0-94.0) L 09/25/24 05:23
MCH 22.7 pg (27.0-31.0) L 09/25/24 05:23
MCHC 30.2 g/dL (33.0-37.0) L 09/25/24 05:23
RDW 16.3 % (11.5-14.5) H 09/25/24 05:23
Plt Count 315 10^3/uL (130-400) 09/25/24 05:23
MPV 10.5 fL (7.4-10.4) H 09/25/24 05:23
Abs Immat Gran (auto) 0.1 10^3/uL (0-0.05) H 09/25/24 05:23
Absolute Neuts (auto) 10.3 10^3/uL (1.4-6.5) H 09/25/24 05:23
Absolute Lymphs (auto) 0.9 10^3/uL (1.2-3.4) L 09/25/24 05:23
Absolute Monos (auto) 1.4 10^3/uL (0.1-0.6) H 09/25/24 05:23
Absolute Eos (auto) 0.1 10^3/uL (0-0.7) 09/25/24 05:23
Absolute Basos (auto) 0.1 10^3/uL (0-0.2) 09/25/24 05:23
Immature Gran % 0.5 % (0-0.5) 09/25/24 05:23
Neutrophils % 80.6 % (42.2-75.2) H 09/25/24 05:23
Lymphocytes % 7.0 % (20.5-51.1) L 09/25/24 05:23
Monocytes % 10.6 % (1.7-9.3) H 09/25/24 05:23
Eosinophils % 0.7 % (0-6) 09/25/24 05:23
Basophils % 0.6 % (0-2) 09/25/24 05:23
Creatinine 1.0 mg/dL (0.7-1.3) 09/25/24 05:23
Vital Signs
Vital Signs
Temp Pulse Resp BP Pulse Ox
98.5 F 103 17 103/68 96
09/25/24 07:00 09/25/24 07:00 09/25/24 07:00 09/25/24 07:00 09/25/24 07:00
[2024-09-25] MEDS: ZOFRAN 4 MG IV (09:26)
[2024-09-25] MEDS: PROTONIX IV 40 MG IV ×2 (09:27→21:31)
[2024-09-25] MEDS: NSS (PRESERVATIVE FREE) 10 ML IV ×2 (09:27→21:30)
[2024-09-25] MEDS: HEPARIN 5000 UNITS SC ×2 (09:27→21:28)
[2024-09-25] MEDS: NOVOLOG FLEXPEN-LOW RESISTANCE 1 UNITS SC ×3 (09:28→17:57)
[2024-09-25] MEDS: LR 1000 IV (09:29)
[2024-09-25 10:50] LABS: Glycohemoglobin (HgbA1c) 8.6 % (4.0-5.6)
[2024-09-25 11:00] VITALS: BP 105/78
[2024-09-25 11:02] VITALS: BMI 28.8
[2024-09-25] MEDS: COMPAZINE 5 MG IV ×2 (11:07→19:57)
--- NOTE | 2024-09-25 11:23 | CON.CAR ---
Addendum entered and electronically signed by Tyler Menezes MD 09/25/24 13:39:
I saw and examined the patient.
The LEGAL PRACTICE MANAGER's note was reviewed and I agree with the note.
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
evaluation of back pain and abdominal discomfort with nausea. We are consulted due to CHF since patient was hypoxic and received a dose of IV lasix.
Clinically, he does not appear to be in any form of acute heart failure exacerbation. He denies any significant dyspnea on exertion, PND, orthopnea, weight gain, or any significant edema.
Resume heart failure medications.
We will add metoprolol XL 25 twice daily which she can be discharged on.
Original Note:
Consultation
Consultation Request
Date/Time Consultation Requested: 09/25/24 1026
Date/Time Consultation Performed: 09/25/24 1123
Requesting Provider: Jose G Neil
Performing Provider: Alicja BECKETT for Dr. Menezes
Reason for Consultation: CHF
Medical History
-
Chief Complaint: back pain and abominal discomfort/nausea
History of Present Illness:
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
pain and abdominal discomfort with nausea. GI and oncology are both evaluating. We are consulted due to CHF since patient was hypoxic and received a dose of IV lasix. He denies any SOB and appears comfortable on RA to my assessment.
Past Medical History
Past Medical History: CAD, Cancer, CHF and NIDDM
Social History
Tobacco: Non-Smoker
Alcohol: None
Family History
Family History: Reviewed & Not Pertinent
Allergies / Home Medications
Allergy/AdvReac Type Severity Reaction Status Date / Time
No Known Allergies Allergy Unverified 09/24/24 21:10
�Medication �Instructions �Recorded �Confirmed �Type
atorvastatin 80 mg tablet 80 mg PO HS 06/23/24 09/24/24 History
empagliflozin 25 mg tablet 25 mg PO DAILY 06/23/24 09/24/24 History
(Jardiance)
fenofibrate micronized 200 mg 200 mg PO QPM 06/23/24 09/24/24 History
capsule
repaglinide 2 mg tablet 2 mg PO DAILY 06/23/24 09/24/24 History
sacubitril 24 mg-valsartan 26 mg 1 tab PO BID 06/23/24 09/24/24 History
tablet (Entresto)
spironolactone 25 mg tablet 25 mg PO DAILY 06/23/24 09/24/24 History
tamsulosin 0.4 mg capsule 0.4 mg PO HS 06/23/24 09/24/24 History
aspirin 81 mg chewable tablet 81 mg PO DAILY 09/24/24 09/24/24 History
ergocalciferol (vitamin D2) 1,250 1,250 mcg PO PICKARD 09/24/24 09/24/24 History
mcg (50,000 unit) capsule
insulin aspart U-100 100 unit/mL 20 sliding scale dose SC AC 09/24/24 09/24/24 History
(3 mL) subcutaneous pen (Novolog
FlexPen U-100 Insulin aspart)
insulin glargine U-300 conc 300 18 unit SC HS 09/24/24 09/24/24 History
unit/mL (3 mL) subcutaneous pen
(Toujeo Max U-300 SoloStar)
repaglinide 2 mg tablet 2 mg PO BID@1200,1700 09/24/24 09/24/24 History
Review of Systems
-
History Source: Patient
All other systems: Negative unless noted
Abdomen/GI: Abdominal Pain and Nausea
Musculoskeletal: Other (back pain)
Physical Exam
Vital Signs
Temp Pulse Resp BP Pulse Ox
98.5 F 103 17 103/68 96
09/25/24 07:00 09/25/24 07:00 09/25/24 07:00 09/25/24 07:00 09/25/24 07:00
Lab Results
09/25/24 05:23
09/25/24 05:23
Troponin I < 0.012 ng/ml 09/24/24 16:17
Bbe-Q-Wyqlomjwwve Pept 6100 pg/ml 09/24/24 16:17
Physical Exam
General: Well Developed, Well Nourished and No Apparent Distress
HEENT: Normocephalic and Anicteric
Respiratory: Clear and Non Labored Respirations
Cardiac: Regular Rhythm
Musculoskeletal: No Edema
Skin: Warm and Dry
Neuro: AO x 3
Psych: Calm
Impression / Plan
-
Back pain, abdominal discomfort/nausea:
-management per primary, GI, onc
Renal cell carcinoma:
-oncology following
Chronic HFrEF:
-most recent echo available noted
-does not appear volume overloaded to my assessment. He denies SOB, orthopnea, PND, edema. He has been losing weight.
-on Entresto, Jardiance, Spironolactone. Not clear why he's not on BB- team to follow-up on this
-follow-up with OP liner assembler as OP
-BS SQ ICD in place
CAD with hx NC/stenting:
-stable without CP
-continue ASA and statin
Data Reviewed
-
EKG: Tracing Personally Visualized and interpreted (ST RBBB 103 BPM)
Radiology: Report Reviewed by me (CXR: Tiny bilateral pleural effusions. Associated pneumonia not excluded. Stable.)
Medical Tests (Nuc Med, Echo etc): Report Reviewed by me (echo report 11/19/24: EF 15-20%, anteroseptal and apical akinesis, severe global hypokinesis, grade II DD, mild MR, mildly increased RV function, mild TR)
Labs: Labs Reviewed by me
[2024-09-25 12:01] LABS: Glucose - Point of Care 187 mg/dl (70-99)
--- NOTE | 2024-09-25 12:37 | W.PN.HOSP.TC ---
Today's Communication/Plan
-
GI evaluation pending
If nausea improves diet versus procedure per GI
Off oxygen
Assessment / Plan
Assessment / Plan
#Abdominal pain secondary to progressive retroperitoneal adenopathy secondary to renal cell carcinoma
#Persistent nausea and vomiting concern for gastritis versus peptic ulcer disease
#Renal cell carcinoma on chemotherapy
#Constipation
- CT abdomen pelvis shows progressive retroperitoneal adenopathy, mild slightly increased adenopathy in the portacaval space and kathy hepatis, no significant change in known right renal mass, no obstructive uropathy, slightly small increase
bilateral pleural effusions, mild colonic fecal burden without bowel obstruction
-States has not been able to tolerate diet for the past 5 days. Significantly decreased p.o. intake.
-Start patient on PPI. Not able to tolerate even mild mason lydia. Gentle IV fluids which can be stopped later today.
-Dulcolax suppository ordered. If no improvement order enema
- Oncology consulted
- GI consulted
# Chronic HFrEF
-Patient without shortness of breath or dyspnea or weight gain so would not diagnose this as CHF exacerbation
- Cardiac BNP of 6000
- Chest x-ray negative for pulmonary edema.
- Check I's and O's, daily weights
- Oncology consulted cardiology. Will defer diuretics to cardiology. Of note patient has not able to tolerate p.o. intake for the past 5 days.
-Continue dapagliflozin
-Continue Entresto, spironolactone
-Seems to follow-up with Dr. Duong
# Acute hypoxic respiratory insufficiency
O2 sats of 95% on room air during my evaluation
Resolved
Chronic anemia
- Hemoglobin stable
CAD
- Continue statin, Plavix
Type 2 diabetes
- Hold repaglinide
- Insulin sliding scale
BPH
- Continue tamsulosin
Hypercholesterolemia
- Continue fenofibrate
Full code
DVT prophylaxis�heparin
Discussed with spouse at bedside in detail
Discussed with gastroenterology
Anticipated Discharge: > 48 hours
Subjective/Interval History
-
Date of Service: September 25, 2024
States of severe nausea and vomiting
States has been ongoing for the past 5 days maybe longer
Objective Data
-
Labs:
Laboratory Results
09/25/24
05:23
WBC 12.8 H
Hgb 10.3 L
Hct 34.1 L
Plt Count 315
Sodium 136
Potassium 4.8
Chloride 101
Carbon Dioxide 25
BUN 21 H
Creatinine 1.0
Glucose 158 H
Calcium 9.9
Total Bilirubin 1.1
AST 14 L
ALT 10
Alkaline Phosphatase 69
Vital Signs:
Vital Signs
Temp Pulse Resp BP Pulse Ox
97.8 F 102 17 105/78 96
09/25/24 11:00 09/25/24 11:00 09/25/24 11:00 09/25/24 11:00 09/25/24 11:00
I&O
09/24/24 09/25/24 09/26/24
06:59 06:59 06:59
Intake Total 960 / 960
Balance 960 / 960
Physical Exam
-
General: Well Developed and No Apparent Distress
HEENT: Normocephalic, Atraumatic and Moist Mucous Membranes
Respiratory: Clear to Auscultation
Cardiac: Regular Rhythm and S1/S2; Negative Murmur, Rub or Gallop
GI: Soft, Nontender, Nondistended and Normal Bowel Sounds; Negative Organomegaly
Rectal: Deferred by Provider
Musculoskeletal: No Clubbing, No Cyanosis and No Edema
Skin: Negative Rash
Neuro: Awake, AO x 3, No Motor Deficits and Nonfocal/Grossly Intact
Psych: Calm
Data Reviewed
-
Total Time Spent with Patient (in minutes): 55
[2024-09-25] MEDS: ENTRESTO 24 MG/26 MG 1 TAB PO ×2 (13:43→21:27)
[2024-09-25] MEDS: ALDACTONE 25 MG PO (13:44)
[2024-09-25] MEDS: DULCOLAX 10 MG RECTAL (13:44)
[2024-09-25] MEDS: LOW STRENGTH ASPIRIN 81 MG PO (13:44)
[2024-09-25] MEDS: FARXIGA 10 MG PO (13:44)
[2024-09-25 16:35] LABS: Glucose - Point of Care 150 mg/dl (70-99)
[2024-09-25] MEDS: TRICOR 145 MG PO (17:54)
[2024-09-25 19:39] VITALS: BP 121/65
[2024-09-25 20:47] LABS: Glucose - Point of Care 171 mg/dl (70-99)
[2024-09-25] MEDS: TOPROL XL 25 MG PO (21:29)
[2024-09-25] MEDS: LANTUS 0.14 UNITS SC (22:31)
[2024-09-25] MEDS: FLOMAX 0.4 MG PO (22:32)
[2024-09-25] MEDS: LIPITOR 80 MG PO (22:39)
[2024-09-25 23:22] VITALS: BP 103/57
[2024-09-26] MEDS: DILAUDID 1 MG IV ×2 (00:24→04:37)
[2024-09-26 03:08] VITALS: BP 101/59
[2024-09-26] MEDS: COMPAZINE 5 MG IV (04:39)
[2024-09-26 05:48] LABS: % Basophils 0.5 % (0-2); % Immature Granulocytes 0.6 % (0-0.5); % Lymphocytes 8.2 % (20.5-51.1); % Monocytes 10.5 % (1.7-9.3); % Neutrophils 79.2 % (42.2-75.2); Absolute Basophils 0.1 10^3/uL (0-0.2); Absolute Eosinophils 0.1 10^3/uL (0-0.7); Absolute Immature Granulocytes 0.1 10^3/uL (0-0.05); Absolute Lymphocytes 0.9 10^3/uL (1.2-3.4); Absolute Monocytes 1.2 10^3/uL (0.1-0.6); Absolute Neutrophils 8.8 10^3/uL (1.4-6.5); Hematocrit 32.1 % (39.0-52.0); Hemoglobin 9.8 g/dL (13.0-18.0); Mean Corp Hgb Conc. 30.5 g/dL (33.0-37.0); Mean Corpuscular Hgb 22.9 pg (27.0-31.0); Mean Platelet Volume 10.4 fL (7.4-10.4); Nucleated Red Blood Cells % 0 % (-); Platelet Count 304 10^3/uL (130-400); Red Blood Cell Count 4.28 10^6/uL (4.70-6.10); Red Cell Dist. Width 16.4 % (11.5-14.5); White Blood Cell Count 11.1 10^3/uL (4.8-10.8)
[2024-09-26 06:14] LABS: ALT (SGPT) < 10 U/L (0-50); AST (SGOT) 13 U/L (17-59); Albumin 3.4 g/dl (3.5-5.0); Alkaline Phosphatase 67 U/L (38-126); Blood Urea Nitrogen 32 mg/dl (9-20); Calcium 10.1 mg/dl (8.4-10.2); Carbon Dioxide 24 mmol/L (22-30); Chloride 101 mmol/L (98-107); Estimated Creatinine Clearance 65 ml/min; Glucose 146 mg/dl (70-99); Potassium 4.7 mmol/L (3.5-5.1); Sodium 136 mmol/L (135-145); Total Bilirubin 0.9 mg/dl (0.2-1.3); Total Protein 6.1 g/dl (6.3-8.2); eGFR > 60.00
[2024-09-26 06:49] VITALS: BMI 28.7
[2024-09-26 07:00] VITALS: BP 99/56
[2024-09-26 07:30] LABS: Glucose - Point of Care 139 mg/dl (70-99)
[2024-09-26] MEDS: LOW STRENGTH ASPIRIN 81 MG PO (08:24)
[2024-09-26] MEDS: FARXIGA 10 MG PO (08:26)
[2024-09-26] MEDS: HEPARIN 5000 UNITS SC (08:27)
[2024-09-26] MEDS: ENTRESTO 24 MG/26 MG PO (08:30)
[2024-09-26] MEDS: ALDACTONE 25 MG PO (08:31)
[2024-09-26] MEDS: NSS (PRESERVATIVE FREE) 10 ML IV (08:31)
[2024-09-26] MEDS: TOPROL XL PO (08:32)
[2024-09-26] MEDS: PROTONIX IV 40 MG IV (08:32)
[2024-09-26] MEDS: NOVOLOG FLEXPEN-LOW RESISTANCE SC (08:44)
[2024-09-26] MEDS: SENOKOT-S 1 TABLET PO (08:48)
[2024-09-26] MEDS: MIRALAX 17 GRAMS PO (08:48)
[2024-09-26] MEDS: ROXICODONE 10 MG PO ×2 (08:48→15:53)
--- NOTE | 2024-09-26 10:35 | W.PN.ONC2 ---
Documented by User: SUJIT Sam 09/26/24 13:46
Today's Communication / Plan
-
OP follow up with Dr. Galeana upon discharge
Impression
Impression
Renal cell carcinoma on chemo therapy
Hypoxia
Chronic heart failure reduced ejection fraction
History of CAD
Type 2 diabetes
Bilateral small pleural effusion
Plan
Plan
#Renal cell carcinoma on chemotherapy
On Optivo and yervoy, last cycle September 11, Follows Dr. Galeana at [facility]
CT scans retroperitoneal lymph nodes slightly larger with central necrosis suggesting pseudo progression on IO therapy. There is no definitive of evidence of progressive disease. He may need alternate plan to expedite response if no other cause of
discomfort noted. i.e. TKI/Pembro.
#CARMEN
appreciate GI input -holding off on EGD at this time -PPI
#Hypoxia resolved with lasix -hx ICM LVEF 15-20% -appreciate cardiology input
-consider CTA chest if develops recurrent SOB or hypoxia
#Small bilateral pleural effusion-unclear if represents CHF
#Nausea and vomiting, constipation
bowel regimen reviewed
antiemetics prn
at bedside during visit provided updates and questions answered
Subjective/Objective
Subjective
no new complaints
Vital Signs:
Vital Signs
Temp Pulse Resp BP Pulse Ox
99.3 F 96 16 99/56 98
09/26/24 07:00 09/26/24 08:32 09/26/24 07:00 09/26/24 08:32 09/26/24 07:00
Lab Results:
Laboratory Data
WBC 11.1 10^3/uL (4.8-10.8) H 09/26/24 05:26
Hgb 9.8 g/dL (13.0-18.0) L 09/26/24 05:26
Plt Count 304 10^3/uL (130-400) 09/26/24 05:26
eGFR > 60.00 09/26/24 05:26
Physical Exam
HEENT: Moist Mucous Membranes; No Jaundice
Cardiology: Normal Sinus Rhythm and Other (ICD)
Pulmonary: Other (diminished bases)
GI: Soft
Extremities: Pulses Present
Neuro: Non Focal
Orders
Orders
Orders From Last 24 Hours
09/25/24 09:39
Legs, Bilateral US [US Periph Venous LOWER Ext Carlos] Urgent

Documented by User: Lit Mendez MD 09/26/24 16:54
Plan
Plan
#Renal cell carcinoma on chemotherapy
On Optivo and yervoy, last cycle September 11, Follows Dr. Galeana at [facility]
CT scans retroperitoneal lymph nodes slightly larger with central necrosis suggesting pseudo progression on IO therapy. There is no definitive of evidence of progressive disease. He may need alternate plan to expedite response if no other cause of
discomfort noted. i.e. TKI/Pembro.
#CARMEN
appreciate GI input -holding off on EGD at this time -PPI
#Hypoxia resolved with lasix -hx ICM LVEF 15-20% -appreciate cardiology input
-consider CTA chest if develops recurrent SOB or hypoxia
#Small bilateral pleural effusion-unclear if represents CHF
#Nausea and vomiting, constipation
bowel regimen reviewed
antiemetics prn
at bedside during visit provided updates and questions answered
09/26, attending: seen in conjunction with [employer]. Agree with plans.
[2024-09-26 11:24] VITALS: BP 107/65
[2024-09-26 11:49] LABS: Glucose - Point of Care 170 mg/dl (70-99)
--- NOTE | 2024-09-26 12:18 | W.PN.HOSP.TC ---
Today's Communication/Plan
-
Monitor for p.o. diet tolerance
Enema today
Continue with PPI
Await GI recs
Assessment / Plan
Assessment / Plan
#Abdominal pain secondary to progressive retroperitoneal adenopathy secondary to renal cell carcinoma
#Persistent nausea and vomiting concern for gastritis versus peptic ulcer disease
#Renal cell carcinoma on chemotherapy
#Constipation
- CT abdomen pelvis shows progressive retroperitoneal adenopathy, mild slightly increased adenopathy in the portacaval space and kathy hepatis, no significant change in known right renal mass, no obstructive uropathy, slightly small increase
bilateral pleural effusions, mild colonic fecal burden without bowel obstruction
-States has not been able to tolerate diet for the past 5 days. Significantly decreased p.o. intake.
- Was able to tolerate liquids and diets diet advanced
-Dulcolax suppository ordered. Plan for enema today.
- Oncology consulted
- GI consulted
# Chronic HFrEF EF of 15 to 20%
-Patient without shortness of breath or dyspnea or weight gain so would not diagnose this as CHF exacerbation
- Cardiac BNP of 6000
- Chest x-ray negative for pulmonary edema.
- Check I's and O's, daily weights
- Oncology consulted cardiology. Will defer diuretics to cardiology. Of note patient has not able to tolerate p.o. intake for the past 5 days.
-Continue dapagliflozin
-Continue Entresto, spironolactone and Toprol added this admission per cardiology.
-Seems to follow-up with Dr. Duong at [place]
# Acute hypoxic respiratory insufficiency
O2 sats of 95% on room air during my evaluation
Resolved
Chronic anemia
- Hemoglobin stable
CAD status post GUERRERO to LAD
- Continue statin, Plavix
Type 2 diabetes
- Hold repaglinide
- Insulin sliding scale
BPH
- Continue tamsulosin
Hypercholesterolemia
- Continue fenofibrate
Full code
DVT prophylaxis�heparin
Anticipated Discharge: Today
Subjective/Interval History
-
Date of Service: September 26, 2024
Was able to tolerate liquids
Had small BM after suppository yesterday
States the pain has improved
Objective Data
-
Labs:
Laboratory Results
09/26/24
05:26
WBC 11.1 H
Hgb 9.8 L
Hct 32.1 L
Plt Count 304
Sodium 136
Potassium 4.7
Chloride 101
Carbon Dioxide 24
BUN 32 H
Creatinine 1.2
Glucose 146 H
Calcium 10.1
Total Bilirubin 0.9
AST 13 L
ALT < 10
Alkaline Phosphatase 67
Vital Signs:
Vital Signs
Temp Pulse Resp BP Pulse Ox
98.1 F 90 16 107/65 98
09/26/24 11:24 09/26/24 11:24 09/26/24 11:24 09/26/24 11:24 09/26/24 11:24
I&O
09/25/24 09/26/24 09/27/24
06:59 06:59 06:59
Intake Total 960 / 960 1440 / 1440
Balance 960 / 960 1440 / 1440
Physical Exam
-
General: Well Developed and No Apparent Distress
HEENT: Normocephalic, Atraumatic and Moist Mucous Membranes
Respiratory: Clear to Auscultation
Cardiac: Regular Rhythm and S1/S2; Negative Murmur, Rub or Gallop
GI: Soft, Nontender, Nondistended and Normal Bowel Sounds; Negative Organomegaly
Rectal: Deferred by Provider
Musculoskeletal: No Clubbing, No Cyanosis and No Edema
Skin: Negative Rash
Neuro: Awake, AO x 3, No Motor Deficits and Nonfocal/Grossly Intact
Psych: Calm
[2024-09-26] MEDS: NOVOLOG FLEXPEN-LOW RESISTANCE 1 UNITS SC (13:37)
--- NOTE | 2024-09-26 13:56 | W.PN.GI.CBS2 ---
Today's Communication / Plan
-
Okay to advance diet
Continue PPI
Bowel regimen
Assessment / Plan
-
58-year-old male with past medical history of renal cell carcinoma on chemotherapy, chronic HFpEF, diabetes, BPH, CAD (on aspirin only, stopped Plavix 5-6 weeks ago) presents to the emergency room with abdominal pain, right mid back pain, nausea,
vomiting, decreased appetite and dry heaving. We are asked to evaluate for the same. Patient with nausea, dry heaves, poor po intake with intermittent bilious vomiting or food that he ingested without signs of bleeding that he attributes to his
right mid back pain. Patient also with increased constipation and stool burden with addition of antiemetics and narcotics. Patient on chemo (last dose 2 weeks ago) for past [address] imaging with progressive retroperitoneal adenopathy as
well as around kathy hepatis secondary to RCC. Increase in B/L pleural effusions, decreased O2 sat requiring supplemental oxygen. 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
christy mass. This exerts mass effect against left carotid and jugular. There is some mass effect against the hypopharynx, larynx, proximal trachea. No signs of advanced airway narrowing. There is additional left cervical, mediastinal, and hilar
adenopathy.
Impression:
Nausea/Vomiting
Poor po intake
Weight loss
Constipation
Renal Cell Ca on CTX (last dose 2 weeks ago)
--> progressive retroperitoneal adenopathy, mild slightly increased adenopathy in the portacaval space and kathy hepatis, no significant change in known right renal mass, no obstructive uropathy, slightly small increase bilateral pleural
effusions, mild colonic fecal burden without bowel obstruction. 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 This exerts mass effect against left carotid and jugular. There is
some mass effect against the hypopharynx, larynx, proximal trachea. No signs of advanced airway narrowing. There is additional left cervical, mediastinal, and hilar adenopathy.
Chronic anemia
B/L Pleural effusions
Plan:
-Patient is clinically better. Tolerating liquid diet. Okay to advance. No Plan for EGD
-Continue PPI 40 mg twice daily for 4 weeks then daily
-Antiemetics as needed
-Would recommend daily bowel regimen discharge-Metamucil/MiraLAX
-Recommend continue follow-up with oncology
- No further recommendation. Will sign off.
Total Time Spent with Patient (in minutes): 35
Subjective
Subjective
Date of Service: September 26, 2024
Feeling better today. Denies any abdominal pain/nausea/vomiting
Objective
Data Reviewed
Laboratory Data:
Laboratory Results
09/26/24 05:26
09/26/24 05:26
Laboratory Results
Total Bilirubin 0.9 mg/dl (0.2-1.3) 09/26/24 05:26
AST 13 U/L (17-59) L 09/26/24 05:26
ALT < 10 U/L (0-50) 09/26/24 05:26
Alkaline Phosphatase 67 U/L (38-126) 09/26/24 05:26
Lipase 14 U/L (23-300) L 09/24/24 13:31
Vital Signs and I&O:
Vital Signs
Temp Pulse Resp BP Pulse Ox
98.1 F 90 16 107/65 98
09/26/24 11:24 09/26/24 11:24 09/26/24 11:24 09/26/24 11:24 09/26/24 11:24
I&O
09/25/24 09/26/24 09/27/24
06:59 06:59 06:59
Intake Total 960 / 960 1440 / 1440
Balance 960 / 960 1440 / 1440
Physical Exam
Physical Exam
GI: Soft, Non Distended and Non Tender
--- NOTE | 2024-09-26 14:37 | W.DCSUMMARY ---
Discharge Summary
Discharge Data
Date of Admission: 09/24/24
Date of Discharge: 09/26/24
-
Pending Results: No
Hospital Course
59-year-old male past medical history of chronic HFrEF with EF of 15 to 20%, anemia, CAD status post stent, diabetes mellitus, BPH, hyperlipidemia, renal cell carcinoma on chemotherapy is presenting from home with abdominal pain. Patient underwent
CT abdomen pelvis on admission. CT abdomen pelvis shows progressive retroperitoneal adenopathy, mild slightly increased adenopathy in the portacaval space and kathy hepatis, no significant change in known right renal mass, no obstructive uropathy,
slightly small increase bilateral pleural effusions, mild colonic fecal burden without bowel obstruction. Patient was eval by oncology who also consulted gastroenterology and cardiology. Patient with elevated proBNP on admission however patient
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 Patient was not able to tolerate diet for 5 days prior to arrival. Patient received gentle IV fluids. Diet was advanced to full's. Patient was started on PPI. Patient symptomology improved. Liquid diet was advanced to
low-cholesterol. Patient also with constipation and had bowel movement after suppository and enema. Per cardiology no need for additional diuresis as patient received Lasix in the ER. Patient was stable on room air. Toprol was added by
cardiology. Patient was discharged home with recommended to follow-up with his primary oncologist.
Discharge Plan
-
Patient Disposition: Home (Routine Discharge)
Discharge Diagnosis/Procedures: Abdominal pain secondary to progressive retroperitoneal adenopathy secondary to renal cell carcinoma
Persistent nausea and vomiting concern for gastritis versus peptic ulcer disease
Constipation
Acute hypoxic respiratory insuffiency resolved
Condition: Fair
Diet: 2 Gram Sodium and Restrict fluids to 48 oz
Activity: As tolerated
Driving Restrictions: As prior to admission
Referrals:
Maru Byers PA-C [Family Provider, Internal Medicine]
Additional Discharge Medication Instructions: Continue protonix 40 mg twice daily for 4 weeks then daily
Prescriptions:
New
polyethylene glycol 3350 17 gram Powder In Packet
17 g PO DAILY Qty: 30 0RF
psyllium husk [Metamucil] 0.4 gram capsule
0.4 g PO DAILY Qty: 30 0RF
pantoprazole [Protonix] 40 mg tablet,delayed release (DR/EC)
40 mg PO BID Qty: 60 0RF
metoprolol succinate [Toprol XL] 25 mg tablet extended release 24 hr
25 mg PO BID Qty: 60 0RF
Continued
atorvastatin 80 mg Tablet
80 mg PO HS
repaglinide 2 mg Tablet
2 mg PO DAILY
fenofibrate micronized 200 mg Capsule
200 mg PO QPM
spironolactone 25 mg Tablet
25 mg PO DAILY
tamsulosin 0.4 mg Capsule
0.4 mg PO HS
Jardiance 25 mg Tablet
25 mg PO DAILY
Entresto 24-26 mg Tablet
1 tab PO BID
Patient Comments:
no pharmacy fills
repaglinide 2 mg Tablet
2 mg PO BID@1200,1700
aspirin 81 mg Tablet,Chewable
81 mg PO DAILY
ergocalciferol (vitamin D2) 1,250 mcg (50,000 unit) Capsule
1,250 mcg PO PCIKARD
insulin aspart U-100 [Novolog FlexPen U-100 Insulin] 100 unit/mL (3 mL) Insulin Pen
20 sliding scale dose SC AC
insulin glargine U-300 conc [Toujeo Max U-300 SoloStar] 300 unit/mL (3 mL) Insulin Pen
18 unit SC HS
Discharge Orders:
Discharge Patient (As Directed); Ordered 09/26/24
Ordered By: Wicho Zuñiga
Discharge Date and Time
Print Language: ALBANIAN
[2024-09-26 15:00] VITALS: BP 133/65
--- NOTE | 2024-09-26 15:51 | W.[place]-PDMP ---
[place]-PDMP
-
Checked the [place]- Prescription Drug Monitoring Program website, no red flags identified; safe to proceed with prescription.
--- NOTE | 2024-09-26 16:46 | CM ---
CM met with Cong to complete IA. Cong has renal cell carcinoma, currently receiving chemotherapy.
Cong is (I) amb and adls. He lives with his in a 1 story home with 2 entry steps. No hx of SNF, VN, no DME in the home.
Plan: Pt will follow up with Dr. Galeana as an outpatient.
== END 2024-09-26 16:29 | disposition home or self-care (01) | DRG 187 ==
LOC: 3 WEST ACU 18:41
PROVIDERS: Physician Assistant; ADMITTING PHYSICIAN Hospitalist; ATTENDING PHYSICIAN Hospitalist; CONSULT PHYSICIAN Internal Medicine Cardiovascular Disease; CONSULT PHYSICIAN Internal Medicine Gastroenterology; EMERGENCY PHYSICIAN Emergency Medicine; FAMILY PHYSICIAN Physician Assistant; OTHER PHYSICIAN Internal Medicine Hematology & Oncology
DX: J90 Pleural effusion, not elsewhere classified (principal); C64.9 Malignant neoplasm of unspecified kidney, except renal pelvis; I50.22 Chronic systolic (congestive) heart failure; K59.03 Drug induced constipation; T40.605A Adverse effect of unspecified narcotics, initial encounter; R09.02 Hypoxemia; D50.9 Iron deficiency anemia, unspecified; Z95.5 Presence of coronary angioplasty implant and graft; I25.10 Atherosclerotic heart disease of native coronary artery without angina pectoris; E11.9 Type 2 diabetes mellitus without complications; N40.0 Benign prostatic hyperplasia without lower urinary tract symptoms; E78.00 Pure hypercholesterolemia, unspecified; D64.81 Anemia due to antineoplastic chemotherapy; T45.1X5A Adverse effect of antineoplastic and immunosuppressive drugs, initial encounter; I25.2 Old myocardial infarction; Z79.4 Long term (current) use of insulin; Z79.82 Long term (current) use of aspirin; Z79.84 Long term (current) use of oral hypoglycemic drugs; G89.3 Neoplasm related pain (acute) (chronic)
CPT/HCPCS: 71046; 74177; 80053; 81003; 82962; 83036; 83605; 83690; 83880; 84484; 85025; 93005; 93970; 96361; 96374; 96375; 99285; Q9967

== ENCOUNTER → 2024-10-02 13:59 | Outpatient (REF) | payer OTHER, SELFPAY ==
[2024-10-02 09:59] LABS: % Basophils 0.2 % (0-2); % Eosinophils 1.2 % (0-6); % Immature Granulocytes 0.6 % (0-0.5); % Lymphocytes 6.2 % (20.5-51.1); % Monocytes 8.9 % (1.7-9.3); % Neutrophils 82.9 % (42.2-75.2); Absolute Eosinophils 0.1 10^3/uL (0-0.7); Absolute Immature Granulocytes 0.1 10^3/uL (0-0.05); Absolute Lymphocytes 0.6 10^3/uL (1.2-3.4); Absolute Monocytes 0.9 10^3/uL (0.1-0.6); Absolute Neutrophils 8.4 10^3/uL (1.4-6.5); Hemoglobin 11.3 g/dL (13.0-18.0); Mean Corp Hgb Conc. 30.5 g/dL (33.0-37.0); Mean Corpuscular Hgb 22.5 pg (27.0-31.0); Mean Corpuscular Volume 73.6 fL (80.0-94.0); Mean Platelet Volume 9.9 fL (7.4-10.4); Platelet Count 354 10^3/uL (130-400); Red Blood Cell Count 5.03 10^6/uL (4.70-6.10); Red Cell Dist. Width 15.7 % (11.5-14.5); White Blood Cell Count 10.2 10^3/uL (4.8-10.8)
== END ==
LOC: OIDL 13:59
PROVIDERS: ATTENDING PHYSICIAN Internal Medicine Hematology & Oncology
DX: C77.5 Secondary and unspecified malignant neoplasm of intrapelvic lymph nodes (principal); D41.11 Neoplasm of uncertain behavior of right renal pelvis; C80.1 Malignant (primary) neoplasm, unspecified; C64.1 Malignant neoplasm of right kidney, except renal pelvis; C77.2 Secondary and unspecified malignant neoplasm of intra-abdominal lymph nodes; D50.0 Iron deficiency anemia secondary to blood loss (chronic)
CPT/HCPCS: 85025

== ENCOUNTER 2024-10-06 01:42 | Inpatient (IN) | payer OTHER, SELFPAY ==
[2024-10-05 20:58] VITALS: BP 142/96
[2024-10-05 21:35] LABS: Hematocrit 37.5 % (39.0-52.0); Hemoglobin 11.8 g/dL (13.0-18.0); Mean Corp Hgb Conc. 31.5 g/dL (33.0-37.0); Mean Corpuscular Volume 73.5 fL (80.0-94.0); Nucleated Red Blood Cells % 0 % (-); Platelet Count 390 10^3/uL (130-400); Red Cell Dist. Width 15.9 % (11.5-14.5)
[2024-10-05 21:55] LABS: AST (SGOT) 13 U/L (17-59); Albumin 3.6 g/dl (3.5-5.0); Alkaline Phosphatase 80 U/L (38-126); Blood Urea Nitrogen 28 mg/dl (9-20); Calcium 10.1 mg/dl (8.4-10.2); Carbon Dioxide 25 mmol/L (22-30); Chloride 99 mmol/L (98-107); Glucose 283 mg/dl (70-99); Total Protein 6.5 g/dl (6.3-8.2); eGFR > 60.00
[2024-10-05 22:05] LABS: ALT (SGPT) < 10 U/L (0-50); Potassium 5.0 mmol/L (3.5-5.1); Sodium 131 mmol/L (135-145)
--- NOTE | 2024-10-05 23:15 | ED.GENMED ---
History of Present Illness
General
Chief Complaint: Abdominal Symptoms
Time Seen by Provider: 10/05/24 22:45
History of Present Illness
History of Present Illness:
Patient is a 59-year-old male with a history of heart failure with reduced ejection fraction, anemia, CAD, diabetes, renal cell carcinoma on immunotherapy. He presents from home with nausea vomiting and diarrhea. Patient was recently admitted for
similar symptoms. He was discharged after feeling better, however symptoms have returned. Him and his note that he is not able to keep any food down and vomits up after everything. Also is having numerous bouts of diarrhea daily. There has
been some streaks of blood in his stool. Denies abdominal pain. On last admission he did have a CT abdomen pelvis which showed progressive retroperitoneal adenopathy with increased adenopathy in the portacaval space without any significant changes
in the right renal mass and he had bilateral small pleural effusions. Denies fevers or chills.
Phy Exam
Physical Exam
Physical Exam:
GENERAL APPEARANCE: NAD, well developed/ well nourished
EYES lids/conjunctiva normal
EARS/NOSE/THROAT Mucous membranes moist, uvula midline without oral pharyngeal erythema, exudate or swelling
HEAD/NECK normocephalic atraumatic, neck is supple.
RESPIRATORY respiratory effort normal, speaks in full sentences, no accessory muscle use. Lungs clear to auscultation without rhonchi, wheezes, rales
CARDIAC Regular rate and rhythm, no edema.
ABDOMINAL Soft, ND/NT. No pulsatile masses on exam, rebound tenderness, Gerard sign or pain over Mcburney's point.
MUSCLES/EXTREMITIES No abnormal range of motion, no swelling.
SKIN Warm, pink and dry. No rashes
NEUROLOGICAL Speech is clear and appropriate. Normal level of consciousness. 5/5 strength in all extremities.
PSYCH Normal mood and affect. Judgement/competence is appropriate
Course
Orders/Labs/Results
Orders:
Orders
10/05/24 21:22
CMP [Comprehensive Metabolic Panel] Urgent
Complete Blood Count/With Diff Urgent
10/05/24 23:11
0.9% Sodium Chloride 500 ml [Nss] 500 ml IV BOLUS
Ondansetron Injectable [Zofran] 4 mg IV NOW STA
Abnormal Lab Results
10/05/24
21:22
Hgb 11.8 L g/dL
(13.0-18.0)
Hct 37.5 L %
(39.0-52.0)
MCV 73.5 L fL
(80.0-94.0)
MCH 23.1 L pg
(27.0-31.0)
MCHC 31.5 L g/dL
(33.0-37.0)
RDW 15.9 H %
(11.5-14.5)
Abs Immat Gran (auto) 0.1 H 10^3/uL
(0-0.05)
Absolute Neuts (auto) 7.5 H 10^3/uL
(1.4-6.5)
Absolute Lymphs (auto) 0.9 L 10^3/uL
(1.2-3.4)
Absolute Monos (auto) 1.1 H 10^3/uL
(0.1-0.6)
Immature Gran % 1.4 H %
(0-0.5)
Neutrophils % 75.7 H %
(42.2-75.2)
Lymphocytes % 9.1 L %
(20.5-51.1)
Monocytes % 11.3 H %
(1.7-9.3)
Sodium 131 L mmol/L
(135-145)
BUN 28 H mg/dl
(9-20)
Glucose 283 H mg/dl
(70-99)
AST 13 L U/L
(17-59)
10/05/24 21:22
10/05/24 21:22
Vital Signs
Initial and Last Documented VS:
Initial Vital Signs
Temp Pulse Resp BP Pulse Ox
97.9 F 104 20 142/96 98
10/05/24 20:58 10/05/24 20:58 10/05/24 20:58 10/05/24 20:58 10/05/24 20:58
Last Documented Vital Signs
Temp Pulse Resp BP Pulse Ox
97.9 F 81 16 94/61 100
10/05/24 20:58 10/05/24 23:28 10/05/24 23:28 10/05/24 23:28 10/05/24 23:28
*Pulse Oximetry
SaO2: 98
Oxygen Mode of Delivery: Room air
Patient hypoxic: no
*Critical Care Note
Total Time (30-74mins, 75-104mins- exclusive of procedures): Not Applicable
ED Attending Note
ED Attending Note
ED Attending Note:
hx of HFrEF, CAD, DM, renal cell carcinoma on immunotherapy
here with persistent nausea/vomiting/diarrhea
was admitted for same symptoms last week. Had CT scan that was negative for acute pathology -- showed some worsening adenopathy and stool burden
he was feeling better and was discharged
since then he has been unable to tolerate PO and having diarrhea. Has been losing weight, and feels generally unwell
given IVF, IV zofran. He is still not feeling well. Had 1 episode of vomiting in the ER
labs are reassuring
do not feel he needs another CT scan without any new pain or symptoms
will admit for symptomatic relief, gentle rehydration in the setting of CHF
-
Portions of this chart may have been created with voice recognition software.� Occasional wrong word or��sound alike� substitutions may have occurred due to the inherent limitations of voice recognition software.
Discharge Plan
Departure
Prescriptions:
No Action
atorvastatin 80 mg Tablet
80 mg PO HS
repaglinide 2 mg Tablet
2 mg PO DAILY
fenofibrate micronized 200 mg Capsule
200 mg PO QPM
spironolactone 25 mg Tablet
25 mg PO DAILY
tamsulosin 0.4 mg Capsule
0.4 mg PO HS
Jardiance 25 mg Tablet
25 mg PO DAILY
Entresto 24-26 mg Tablet
1 tab PO BID
Patient Comments:
no pharmacy fills
repaglinide 2 mg Tablet
2 mg PO BID@1200,1700
aspirin 81 mg Tablet,Chewable
81 mg PO DAILY
ergocalciferol (vitamin D2) 1,250 mcg (50,000 unit) Capsule
1,250 mcg PO PICKARD
insulin aspart U-100 [Novolog FlexPen U-100 Insulin] 100 unit/mL (3 mL) Insulin Pen
20 sliding scale dose SC AC
insulin glargine U-300 conc [Toujeo Max U-300 SoloStar] 300 unit/mL (3 mL) Insulin Pen
18 unit SC HS
polyethylene glycol 3350 17 gram Powder In Packet
17 g PO DAILY Qty: 30 0RF
psyllium husk [Metamucil] 0.4 gram capsule
0.4 g PO DAILY Qty: 30 0RF
pantoprazole [Protonix] 40 mg tablet,delayed release (DR/EC)
40 mg PO BID Qty: 60 0RF
metoprolol succinate [Toprol XL] 25 mg tablet extended release 24 hr
25 mg PO BID Qty: 60 0RF
oxycodone 5 mg tablet
5 mg PO BID PRN (Reason: severe pain) Qty: 10 0RF
Referrals:
Bandar Jimenez MD [Family Provider, Internal Medicine]
Interventions
Interventions:
*Risk Screen - Suicide Last Done: 10/05/24 23:26
*General Assessment Last Done: 10/05/24 20:58
*Neglect/Abuse Screening Last Done: 10/05/24 23:26
*ED- Fall Risk Assessment Last Done: 10/05/24 23:26
*ED COVID-19 Vaccine History Last Done: 10/05/24 23:26
BY-Uqzyfq-Sbcffbjhuj Assessment Last Done: 10/05/24 23:26
Discharge Date and Time
Print Language: ECUADOREAN
[2024-10-05 23:26] VITALS: BMI 26.1
[2024-10-05 23:28] VITALS: BP 94/61
[2024-10-05] MEDS: NSS 500 IV (23:34)
[2024-10-05] MEDS: ZOFRAN 4 MG IV (23:34)
[2024-10-06] VITALS (10 sets, daily range): BP systolic 90–115; BP diastolic 58–77; PULSE 85–112; BMI 26.0
--- NOTE | 2024-10-06 01:24 | HPS.HSE ---
Family Physician
-
Family Physician: Bandar Jimenez MD
Chief Complaint
-
N/V, Fatigue
History of Present Illness
Patient is a 59y M with PMH significant for ASCVD, HFrEF and renal cell carcinoma on chemotherapy who presents to ED complaining of N/V, anorexia, weight loss and fatigue. Patient was admitted here with similar symptoms 09/24 - 09/26. He was
treated with IVFs and antiemetics and states that he felt improved at discharge. Patient states that he felt fairly well for about 1/2 day before his symptoms returned. Since then he has had continued nausea, anorexia, intermittent emesis (either
food or dry heaves). He notes marked fatigue / generalized weakness. he also reports frequent, very small volume loose stools. He reports streaks of BRB in the stool. No abdominal pain. No rectal pain / burning / etc.
He denies any fevers / chills. No urinary symptoms.
Patient notes that he has not been taking his usual medications at home due to his persistent N/V, etc.
Medical History
Past Medical History
Past Medical History: Reports Other
Additional Past Medical History:
ASCVD
Chronic HFrEF
Paroxysmal Atrial Fibrillation
DM-II
Past Surgical History: Reports Other
Additional Past Surgical History:
PTCA with Stent
AICD Placement
Renal Biopsy
Social History
Tobacco: Non-smoker
Alcohol: None
Drug: None
Family History
Family History: Not pertinent
Allergies / Home Medications
Allergies reflects when Allergies were last updated in [email or web address].
Home Medications with original date entered in [email or web address]
Allergy/Medication List:
Allergies
Allergy/AdvReac Type Severity Reaction Status Date / Time
No Known Allergies Allergy Verified 10/05/24 20:58
Home Medications
empagliflozin 25 mg tablet (Jardiance) 25 mg PO DAILY 06/23/24
fenofibrate micronized 200 mg capsule 200 mg PO QPM 06/23/24
sacubitril 24 mg-valsartan 26 mg tablet (Entresto) 1 tab PO BID 06/23/24
aspirin 81 mg chewable tablet 81 mg PO DAILY 09/24/24
ergocalciferol (vitamin D2) 1,250 mcg (50,000 unit) capsule 1,250 mcg PO PICKARD 09/24/24
insulin aspart U-100 100 unit/mL (3 mL) subcutaneous pen (Novolog FlexPen U-100 Insulin aspart) 20 sliding scale dose SC AC 09/24/24
insulin glargine U-300 conc 300 unit/mL (3 mL) subcutaneous pen (Toujeo Max U-300 SoloStar) 18 unit SC HS 09/24/24
repaglinide 2 mg tablet 2 mg PO BID@1200,1700 09/24/24
metoprolol succinate 25 mg tablet,extended release 24 hr (Toprol XL) 25 mg PO BID #60 tabs 09/26/24
oxycodone 5 mg tablet 5 mg PO BID PRN severe pain #10 tabs 09/26/24
psyllium husk 0.4 gram capsule (Metamucil) 0.4 g PO DAILY #30 caps 09/26/24
Review of Systems
-
History Source: Patient
A 12 point ROS was completed and negative except as noted: Yes
Constitutional: Reports Weight Loss and Fatigue; Denies Fever or Chills
EENT: Denies Sore Throat
Respiratory: Denies Cough or Trouble Breathing
Cardiac: Denies Chest Pain or Palpitations
Abdomen/GI: Reports Nausea, Vomiting, Diarrhea, Bloody Stools and Anorexia; Denies Abdominal Pain or Black Stools
: Denies Dysuria or Frequency
Musculoskeletal: Denies Joint Pain or Edema
Neurological: Reports Dizzy; Denies Headache
Psych: Denies Depression or Anxiety
Physical Exam
Vital Signs
Vital Signs
Temp Pulse Resp BP Pulse Ox
97.9 F 81 16 94/61 100
10/05/24 20:58 10/05/24 23:28 10/05/24 23:28 10/05/24 23:28 10/05/24 23:28
Physical Exam
General: Other (59y M in no acute distress.)
HEENT: Other (Dry MM. Neck supple.)
Respiratory: Clear; No Wheezes, Rales or Rhonchi
Cardiac: S1/S2 and Regular Rhythm; No Murmur
GI: Soft, Non Tender, Non Distended and Normal Bowel Sounds
Musculoskeletal: No Clubbing, No Cyanosis and No Edema
Neuro: AO x 3
Laboratory Results
-
10/05/24 21:22
10/05/24 21:22
Laboratory Results
Total Bilirubin 0.6 mg/dl (0.2-1.3) 10/05/24 21:22
AST 13 U/L (17-59) L 10/05/24 21:22
ALT < 10 U/L (0-50) 10/05/24 21:22
Alkaline Phosphatase 80 U/L (38-126) 10/05/24 21:22
Impression/Plan
-
A/P: Patient is a 59y M with PMH significant for ASCVD, HFrEF and renal cell carcinoma on chemotherapy who presents to ED complaining of intractable N/V.
Intractable N/V
Anorexia
Weight Loss
- Admit for further evaluation and treatment.
- ? symptoms secondary to progressive adenopathy seen on recent CT / sequelae of renal cell carcinoma?
- No similar prior issues with chemotherapy in the past and no changes to chemo regimen per patient.
- Temporary improvement with supportive meds during recent admission.
- IV antiemetics. Gentle IVF support.
- PO diet as tolerated.
- Follow for clinical improvement.
- GI re-evaluation.
BRBPR
- Patient reports streaks of blood in stool / diarrhea x multiple episodes daily - but very small volume.
- Hold ASA acutely.
- IV PPI BID.
- GI eval as noted above.
ASCVD
Chronic HFrEF
- Patient with continued / significant weight loss from last visit.
- Hold diuretic regimen (hold most outpatient meds acutely).
- Follow I/Os, daily weights, etc.
DM-II
- Stable. Hold insulin / repaglinide acutely given poor PO intake, N/V, etc.
- Follow glucose and cover with SSI as needed.
- A1C during recent admission was 8.6%.
Renal Cell Carcinoma
- On chemotherapy with most recent dose on September 11.
- ? if current symptoms are secondary to progressive adenopathy as noted on recent CT (09/24)?
- Follow-up with Oncology after discharge.
DVT Prophylaxis: SCDs
Code Status: Full
[2024-10-06] MEDS: NSS 1000 IV ×2 (02:50→20:25)
[2024-10-06 06:22] LABS: Hematocrit 35.7 % (39.0-52.0); Hemoglobin 10.9 g/dL (13.0-18.0); Mean Corp Hgb Conc. 30.5 g/dL (33.0-37.0); Mean Corpuscular Volume 73.5 fL (80.0-94.0); Platelet Count 349 10^3/uL (130-400); Red Cell Dist. Width 16.0 % (11.5-14.5)
[2024-10-06 06:54] LABS: Blood Urea Nitrogen 23 mg/dl (9-20); Calcium 9.7 mg/dl (8.4-10.2); Carbon Dioxide 23 mmol/L (22-30); Chloride 102 mmol/L (98-107); Estimated Creatinine Clearance 86 ml/min; Glucose 201 mg/dl (70-99); Potassium 4.7 mmol/L (3.5-5.1); Sodium 132 mmol/L (135-145); eGFR > 60.00
[2024-10-06] MEDS: PROTONIX IV 40 MG IV ×2 (08:42→20:06)
[2024-10-06] MEDS: NSS (PRESERVATIVE FREE) 10 ML IV ×2 (08:42→20:06)
[2024-10-06 08:58] LABS: Glucose - Point of Care 209 mg/dl (70-99)
[2024-10-06] MEDS: NOVOLOG FLEXPEN-LOW RESISTANCE SC (09:42)
--- NOTE | 2024-10-06 10:26 | PTCARENOTE ---
pt is aaox within the room. self in the room as well. pt from home and states he is still having intermittent nausea this morning. refused prn antiemetic at this time. pt states no vomiting or diarrhea as well. on clear liquid diet as of now and GI
consulted. pt with no concerns at this time.
--- NOTE | 2024-10-06 11:26 | CM ---
CM following re: discharge planning.
Reviewed pt's chart, met with pt.
Pt is a 59 year old male, admitted with primary dx of GIB, N/V
Pt reports he lives with girlfriend 2SH, 1 step to enter, has 3 supportive children. Pt described himself as independent in all areas [employer], drives, works
PCP: Bandar Jimenez MD
Pharmacy: [facility]
D/C plan: home with anticipated no needs.
CM will follow with discharge plan updates as hospitalization progresses
[2024-10-06 11:47] LABS: Glucose - Point of Care 210 mg/dl (70-99)
[2024-10-06] MEDS: NOVOLOG FLEXPEN-LOW RESISTANCE 2 UNITS SC ×2 (11:55→17:11)
--- NOTE | 2024-10-06 12:19 | W.PN.HOSP.TC ---
Today's Communication/Plan
-
Monitor vital signs see plan
Check stool studies
GI evaluation
Restart insulin at low-dose
Maintain clears for now
Nonbillable note
Assessment / Plan
Assessment / Plan
General:in no acute distress
HEENT: Anicteric, pink conjunctiva
Respiratory: Clear; No Wheezes, Rales or Rhonchi
Cardiac: S1/S2 and Regular Rhythm; No Murmur
GI: Soft, Non Tender, Non Distended and Normal Bowel Sounds
Musculoskeletal: No Edema
Neuro: AO x 3
Intractable N/V
Anorexia
Weight Loss
- ? symptoms secondary to progressive adenopathy seen on recent CT / sequelae of renal cell carcinoma?
- Temporary improvement with supportive meds during recent admission.
- IV antiemetics. Gentle IVF support.
- PO diet as tolerated.
- Follow for clinical improvement.
- GI re-evaluation.
Check stool studies for diarrhea
Per patient Imodium was not effective
BRBPR
- Patient reports streaks of blood in stool / diarrhea x multiple episodes daily - but very small volume.
- Hold ASA acutely. Restart if okay with GI
- IV PPI BID.
- GI eval as noted above.
Maintain clears for now
ASCVD
Chronic HFrEF
- Patient with continued / significant weight loss from last visit.
- Hold diuretic regimen (hold most outpatient meds acutely).
Restart metoprolol with holding parameter
Hyponatremia
Monitor
DM-II
- Stable. Hold repaglinide acutely given poor PO intake, N/V, etc.
Restart insulin at lower dose, Accu-Chek
- A1C during recent admission was 8.6%.
Renal Cell Carcinoma
- On chemotherapy with most recent dose on September 11.
- ? if current symptoms are secondary to progressive adenopathy as noted on recent CT (09/24)?
- Follow-up with Oncology after discharge.
DVT Prophylaxis: SCDs
Code Status: Full
Anticipated Discharge: Within 24 hours
Subjective/Interval History
-
Date of Service: October 06, 2024
has diarrhea
Objective Data
-
Labs:
Laboratory Results
10/06/24
05:48
WBC 8.0
Hgb 10.9 L
Hct 35.7 L
Plt Count 349
Sodium 132 L
Potassium 4.7
Chloride 102
Carbon Dioxide 23
BUN 23 H
Creatinine 0.9
Glucose 201 H
Calcium 9.7
Vital Signs:
Vital Signs
Temp Pulse Resp BP Pulse Ox
98.2 F 83 16 112/69 98
10/06/24 11:10 10/06/24 11:10 10/06/24 11:10 10/06/24 11:10 10/06/24 11:10
I&O
10/05/24 10/06/24 10/07/24
06:59 06:59 06:59
Intake Total 420 / 420
Balance 420 / 420
--- NOTE | 2024-10-06 15:33 | CON.GI ---
Addendum entered and electronically signed by Liliana Munson DO 10/06/24 17:20:
Patient seen and examined early this morning. I agree with ELEONORA Manzo's note with my additions below
Cong is a 59-year-old male with history of renal cell with last chemotherapy on September [address] Galeana, systolic heart failure with an EF of 15% to 20%, CAD with history of RI with LAD 100% occlusion in 2022 status post stenting who presented
with no nausea but instant vomiting with any p.o. intake as well as recurrent diarrhea. Patient was just discharged on 09/26/2024 when he was here for abdominal pain which showed progressive retroperitoneal adenopathy. During that time he had
constipation now he is with diarrhea. He did see some blood streaks in his stools as well.
He was given Zofran and had significant improvement in the symptoms. He has not vomited. He is now on clear liquids and tolerating them well, he has no abdominal cramping. His bowels have also slowed down. Stool studies thus far are negative for
C. difficile and norovirus. Cultures pending. He has many WBCs in the stool.
# Intermittent dry heaving, anorexia without nausea -currently doing well, will advance diet as tolerated
--Did well with Zofran
-- States even pills would come up.
-- Food would come up, but it would be over 30 minutes after eating and looked semidigested
-- If symptoms persist would consider small bowel follow-through to see if the adenopathy is potentially causing obstruction
-- No prior EGD. Last admission his EGD was deferred due to his cardiac/pulmonary status according to the notes. Lungs are clear he has no edema currently. More on the dry side
# Diarrhea -multiple small stools with urgency and even accidents with streaks of blood
-- Culture pending, many WBCs
--Last admission had constipation
-- Last colonoscopy in July with Dr. Black with no signs of inflammation at that time. Small polyps removed
Original Note:
Consultation
-
Date/Time Consultation Requested: 10/06/24 0228
Date/Time Consultation Performed: 10/06/24 3780
Requesting Provider: Dr Montenegro
Performing Provider: Dr Munson / Arti Sebastian PA-C
Reason for Consultation: intractable nausea/vomiting; diarrhea
Medical History
Chief Complaint / HPI
Chief Complaint: Abdominal pain
History of Present Illness:
This is a 58-year-old male with a past medical history of renal cell carcinoma (currently on chemotherapy), chronic HFpEF (with EF 15-20%), DM, BPH, CAD (on aspirin) recently admitted at 09/24-09/26 for abdominal pain, nausea, vomiting who
unfortunately returns complaining of the same symptoms. He did feel better for about a day after discharge, but that his same symptoms did recur. Now in addition to the nausea and vomiting, he has had some loose stools and also reports a few
episodes of bloody diarrhea. No fever, chills. He currently denies any abdominal pain. No sick contacts or recent antibiotic use. Patient endorses a 20-30 lb weight loss in the past 3 months. During his last admission, he had a CT scan of the
abdomen/pelvis which showed progressive retroperitoneal lymphadenopathy and mild, slightly increased adenopathy in the portacaval space and kathy hepatis. Also noted then was mild colonic stool burden. He denies any recent changes in his medications
or chemotherapy regimen. He is followed by Oncology, Dr. Galeana.
During his prior admission, GI was consulted. EGD deferred initially due to his cardiac/pulmonary status. He then improved clinically on twice daily PPI and tolerated diet with resolution of the nausea/vomiting. Of note, he has never had an
endoscopy.
Stool studies have been ordered: negative for C difficile and norovirus, other cx still pending.
Past Medical History
Past Medical History: CAD (2 years ago s/p stent ([place]) ), Cancer (renal cell Ca), CHF, NIDDM and Other (BPH)
Past Surgical History: None
Social History
Tobacco: Non-Smoker
Alcohol: None
Drug: None
Personal:
Living: With Family
Family History
Family History: Other (No fam hx GI malignancy or IBD)
Allergies / Home Medications
Allergy/AdvReac Type Severity Reaction Status Date / Time
No Known Allergies Allergy Verified 10/05/24 20:58
�Medication �Instructions �Recorded
empagliflozin 25 mg tablet 25 mg PO DAILY 06/23/24
(Jardiance)
fenofibrate micronized 200 mg 200 mg PO QPM 06/23/24
capsule
sacubitril 24 mg-valsartan 26 mg 1 tab PO BID 06/23/24
tablet (Entresto)
aspirin 81 mg chewable tablet 81 mg PO DAILY 09/24/24
ergocalciferol (vitamin D2) 1,250 1,250 mcg PO PICKARD 09/24/24
mcg (50,000 unit) capsule
insulin aspart U-100 100 unit/mL 20 sliding scale dose SC AC 09/24/24
(3 mL) subcutaneous pen (Novolog
FlexPen U-100 Insulin aspart)
insulin glargine U-300 conc 300 18 unit SC HS 09/24/24
unit/mL (3 mL) subcutaneous pen
(Toujeo Max U-300 SoloStar)
repaglinide 2 mg tablet 2 mg PO BID@1200,1700 09/24/24
metoprolol succinate 25 mg 25 mg PO BID #60 tabs 09/26/24
tablet,extended release 24 hr
(Toprol XL)
oxycodone 5 mg tablet 5 mg PO BID PRN severe pain #10 09/26/24
tabs
psyllium husk 0.4 gram capsule 0.4 g PO DAILY #30 caps 09/26/24
(Metamucil)
atorvastatin 80 mg tablet mg 10/06/24
mesalamine 10/06/24
ondansetron 8 mg disintegrating 8 mg PO Q12H 10/06/24
tablet
pantoprazole 40 mg tablet,delayed mg PO 10/06/24
release
sucralfate 1 gram tablet 1 g PO AC 10/06/24
Review of Systems
-
History Source: Patient
All other systems: A 12 pt ROS was Negative except as stated above in HPI
Vital Signs
Temp Pulse Resp BP Pulse Ox
98.2 F 83 16 112/69 98
10/06/24 11:10 10/06/24 11:10 10/06/24 11:10 10/06/24 11:10 10/06/24 11:10
Physical Exam
Exam
General: Well Developed, Well Nourished and No Apparent Distress
Respiratory: Clear
Cardiac: Regular Rhythm
GI: Soft, Non Tender, Non Distended and Normal Bowel Sounds
Skin: Warm and Dry
Neuro: AO x 3
Psych: Calm
Results
WBC 8.0 10^3/uL (4.8-10.8) 10/06/24 05:48
Hgb 10.9 g/dL (13.0-18.0) L 10/06/24 05:48
Hct 35.7 % (39.0-52.0) L 10/06/24 05:48
MCV 73.5 fL (80.0-94.0) L 10/06/24 05:48
Plt Count 349 10^3/uL (130-400) 10/06/24 05:48
Absolute Neuts (auto) 7.5 10^3/uL (1.4-6.5) H 10/05/24 21:22
Sodium 132 mmol/L (135-145) L 10/06/24 05:48
Potassium 4.7 mmol/L (3.5-5.1) 10/06/24 05:48
Chloride 102 mmol/L (98-107) 10/06/24 05:48
Carbon Dioxide 23 mmol/L (22-30) 10/06/24 05:48
BUN 23 mg/dl (9-20) H 10/06/24 05:48
Creatinine 0.9 mg/dL (0.7-1.3) 10/06/24 05:48
Calcium 9.7 mg/dl (8.4-10.2) 10/06/24 05:48
Total Bilirubin 0.6 mg/dl (0.2-1.3) 10/05/24 21:22
AST 13 U/L (17-59) L 10/05/24 21:22
ALT < 10 U/L (0-50) 10/05/24 21:22
Alkaline Phosphatase 80 U/L (38-126) 10/05/24 21:22
Diagnostic Image Results:
CT Abdomen/Pelvis 09/24/2024:
Progressive retroperitoneal adenopathy. Mild, slightly increased adenopathy in the portacaval space and kathy hepatis.
No significant change in known right renal mass.
No obstructive uropathy.
Small, slightly increased bilateral pleural effusions.
Mild colonic fecal burden. No bowel obstruction.
CT neck and Chest 08/22/24:
1. 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 There are some internal small cystic areas most likely representing necrosis. This exerts mass effect against left carotid and
jugular as above, no thrombosis identified. There is some mass effect against the hypopharynx, larynx, proximal trachea. No signs of advanced airway narrowing. There is additional left cervical, mediastinal, and hilar adenopathy consistent with
metastasis as above.
2. Very small bilateral pleural effusions.
Prior GI Procedures:
EGD: Never
Colonoscopy:
07/18/24 (Dr Black) - One 8 mm polyp in the ascending colon, removed with
a cold snare. Resected and retrieved. Clip was placed.
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 (tubular adenoma)
- One 4 mm polyp in the transverse colon, removed with
a cold snare. Resected and retrieved. (tubular adenoma)
- Diverticulosis in the sigmoid colon.
- Internal hemorrhoids.
Assessment / Plan
-
58-year-old male with a history of renal cell carcinoma (currently on chemotherapy), chronic HFpEF (with EF 15-20%), DM, BPH, CAD (on aspirin) recently admitted at 09/24-09/26 for abdominal pain, nausea, vomiting who unfortunately returns
complaining of the same symptoms. He did feel better for about a day after discharge, but then states his same symptoms recurred. Now in addition to the nausea and vomiting, he has had some loose stools and also reports a few episodes of bloody
diarrhea. No fever, chills. He currently denies any abdominal pain. No sick contacts or recent antibiotic use. Patient endorses a 20-30 lb weight loss in the past 3 months. During his last admission, he had a CT scan of the abdomen/pelvis which
showed progressive retroperitoneal lymphadenopathy and mild, slightly increased adenopathy in the portacaval space and kathy hepatis. Mild colonic stool burden also noted. No recent medication changes. His chemotherapy regimen remains the same,
followed by Oncology, Dr. Galeana.
During his prior admission, GI was consulted. EGD deferred initially due to his cardiac/pulmonary status. He then improved clinically on twice daily PPI and tolerated diet with resolution of the nausea/vomiting. Patient never had an endoscopy. Stool
studies ordered: negative for C difficile and norovirus, other cx still pending.
IMPRESSION / PLAN:
Intractable nausea, vomiting
- improved with antiemetics
- etiology secondary to adverse effects of chemotherapy vs progressive adenopathy vs gastritis vs PUD vs other
- continue IV fluids
- continue PPI BID
- advance diet as tolerated. He did tolerate clears today.
- will hold on endoscopy at this time as before with significant cardiac/pulmonary risk factors, and with symptomatic improvement -- to discuss further w/ Dr Munson.
- Consider upper GI series with SBFT if the vomiting recurs.
Diarrhea
- await stool cultures
- he did note some episodes of bloody diarrhea; continue to monitor stools closely
- trend Hgb, currently stable at 10.9
Other medical issues managed as per hospitalist. We will follow.
-
-
Thank you for consultation and allowing me to participate in the patient's care. Please call the power station operator GI physician during the after hours with any questions or concerns.
[2024-10-06 16:59] LABS: Glucose - Point of Care 212 mg/dl (70-99)
[2024-10-06] MEDS: NOVOLOG FLEXPEN 3 UNITS SC (17:11)
[2024-10-06] MEDS: CARAFATE 1 GRAM PO (17:12)
[2024-10-06] MEDS: ZOFRAN 4 MG IV ×2 (17:13→23:23)
[2024-10-06 21:48] LABS: Glucose - Point of Care 191 mg/dl (70-99)
[2024-10-06] MEDS: LANTUS 0.1 UNITS SC (22:46)
[2024-10-07] VITALS (7 sets, daily range): BP systolic 97–124; BP diastolic 64–80; PULSE 89–112; BMI 26.0
[2024-10-07 06:50] LABS: Glucose - Point of Care 199 mg/dl (70-99)
[2024-10-07 07:38] LABS: Hematocrit 39.3 % (39.0-52.0); Hemoglobin 11.8 g/dL (13.0-18.0); Mean Corp Hgb Conc. 30.0 g/dL (33.0-37.0); Mean Corpuscular Volume 73.9 fL (80.0-94.0); Nucleated Red Blood Cells % 0 % (-); Platelet Count 400 10^3/uL (130-400); Red Cell Dist. Width 16.3 % (11.5-14.5)
[2024-10-07 07:54] LABS: APTT 31.8 Sec (23.4-35.0); INR 1.21; PT 15.6 Sec (11.4-14.6)
[2024-10-07] MEDS: CARAFATE PO ×2 (07:55→11:21)
[2024-10-07] MEDS: NOVOLOG FLEXPEN-LOW RESISTANCE SC ×2 (07:55→11:30)
[2024-10-07] MEDS: NOVOLOG FLEXPEN SC ×2 (07:55→11:21)
[2024-10-07] MEDS: NSS (PRESERVATIVE FREE) 10 ML IV ×2 (07:58→20:03)
[2024-10-07] MEDS: PROTONIX IV 40 MG IV ×2 (07:58→20:03)
[2024-10-07 08:23] LABS: Blood Urea Nitrogen 18 mg/dl (9-20); Calcium 9.6 mg/dl (8.4-10.2); Carbon Dioxide 20 mmol/L (22-30); Chloride 104 mmol/L (98-107); Estimated Creatinine Clearance 86 ml/min; Glucose 193 mg/dl (70-99); Potassium 5.0 mmol/L (3.5-5.1); Sodium 133 mmol/L (135-145); eGFR > 60.00
--- NOTE | 2024-10-07 10:43 | PTCARENOTE ---
pt npo since midnight. went down this AM for Upper GI series. states he had about 3 episodes of vomiting overnight and about 10 liquid bms. pt was receiving IVF throughout the night and continuously through [facility]. significant other updated on pt going
down this morning.
[2024-10-07 12:27] LABS: Glucose - Point of Care 221 mg/dl (70-99)
--- NOTE | 2024-10-07 12:56 | W.PN.HOSP.TC ---
Today's Communication/Plan
-
Monitor vital signs see plan
Persistent GI symptoms, upper GI series today
Continue to follow stool culture
GI following
NPO
Assessment / Plan
Assessment / Plan
General:in no acute distress
HEENT: Anicteric, pink conjunctiva
Respiratory: Clear; No Wheezes, Rales or Rhonchi
Cardiac: S1/S2 and Regular Rhythm; No Murmur
GI: Soft, Non Tender, Non Distended and Normal Bowel Sounds
Musculoskeletal: No Edema
Neuro: AO x 3
Intractable N/V
Anorexia
Weight Loss
- ? symptoms secondary to progressive adenopathy seen on recent CT / sequelae of renal cell carcinoma?
- Temporary improvement with supportive meds during recent admission.
- IV antiemetics. Gentle IVF support.
- PO diet as tolerated.
- Continues to have diarrhea and nausea with vomiting. Stool studies with many WBC, culture pending. Negative C. difficile, norovirus
- GI following
Plan for upper GI series today
Might need EGD
Per patient Imodium was not effective
BRBPR
- Patient reports streaks of blood in stool / diarrhea x multiple episodes daily - but very small volume.
- Hold ASA acutely. Restart if okay with GI
- IV PPI BID.
- GI eval as noted above.
N.p.o. for now
ASCVD
Chronic HFrEF
- Patient with continued / significant weight loss from last visit.
- Hold diuretic regimen (hold most outpatient meds acutely).
Restart metoprolol with holding parameter
Hyponatremia
Monitor
DM-II
- Stable. Hold repaglinide acutely given poor PO intake, N/V, etc.
Restart insulin at lower dose, Accu-Chek
- A1C during recent admission was 8.6%.
Renal Cell Carcinoma
- On chemotherapy with most recent dose on September 11.
- ? if current symptoms are secondary to progressive adenopathy as noted on recent CT (09/24)?
- Follow-up with Oncology after discharge.
DVT Prophylaxis: SCDs
Code Status: Full
Anticipated Discharge: > 48 hours
Subjective/Interval History
-
Date of Service: October 07, 2024
Could continues to vomit and has diarrhea
Objective Data
-
Labs:
Laboratory Results
10/07/24 10/07/24
06:41 06:42
WBC 9.0
Hgb 11.8 L
Hct 39.3
Plt Count 400
PT 15.6 H
INR 1.21
APTT 31.8
Sodium 133 L
Potassium 5.0
Chloride 104
Carbon Dioxide 20 L
BUN 18
Creatinine 0.9
Glucose 193 H
Calcium 9.6
Vital Signs:
Vital Signs
Temp Pulse Resp BP Pulse Ox
98.3 F 92 16 124/78 98
10/07/24 07:15 10/07/24 07:15 10/07/24 07:15 10/07/24 07:15 10/07/24 07:15
I&O
10/06/24 10/07/24 10/08/24
06:59 06:59 06:59
Intake Total 420 / 420 2650 / 2650
Balance 420 / 420 2650 / 2650
--- NOTE | 2024-10-07 13:57 | W.PN.GI.CBS2 ---
Addendum entered and electronically signed by Joy Kim MD 10/07/24 19:35:
I saw and examined the patient.
The TUBE ROLLER or PA's note was reviewed and I agree with the note.
Comment:
Pt with continued watery diarrhea, intermittent nausea, retching, weight loss.
abd: soft, nontender
UGI SBFT essentiall normal with some slow transit in duodenum
Impression
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
nausea
weight loss
slow duodenal emptying
plan:
egd with flex sig tomorrow (can't tolerate prep)
antiemetics
await stool studies
d/w pt and fiance
Original Note:
Today's Communication / Plan
-
Await stool culture
Await results UGI SBFT
Assessment / Plan
-
58-year-old male with a history of renal cell carcinoma (currently on chemotherapy), chronic HFpEF (with EF 15-20%), DM, BPH, CAD (on aspirin) recently admitted at 09/24-09/26 for abdominal pain, nausea, vomiting who unfortunately returns
complaining of the same symptoms. He did feel better for about a day after discharge, but then states his same symptoms recurred. Now in addition to the nausea and vomiting, he has had some loose stools and also reports a few episodes of bloody
diarrhea. No fever, chills. He currently denies any abdominal pain. No sick contacts or recent antibiotic use. Patient endorses a 20-30 lb weight loss in the past 3 months. During his last admission, he had a CT scan of the abdomen/pelvis which
showed progressive retroperitoneal lymphadenopathy and mild, slightly increased adenopathy in the portacaval space and kathy hepatis. Mild colonic stool burden also noted. No recent medication changes. His chemotherapy regimen remains the same,
followed by Oncology, Dr. Galeana.
During his prior admission, GI was consulted. EGD deferred initially due to his cardiac/pulmonary status. He then improved clinically on twice daily PPI and tolerated diet with resolution of the nausea/vomiting. Patient never had an endoscopy. Stool
studies ordered: negative for C difficile and norovirus, other cx still pending.
IMPRESSION / PLAN:
Intractable nausea, vomiting
- Patient with 3 episodes overnight.
- etiology secondary to adverse effects of chemotherapy vs progressive adenopathy vs gastritis vs PUD vs other
- continue IV fluids
- continue antiemetics
- will hold on endoscopy at this time as before with significant cardiac/pulmonary risk factors
- Await upper GI series with SBFT
Diarrhea
- await stool cultures
-C Diff and norovirus negative
-Bloody diarrhea resolved. Last colonoscopy in July with Dr. Black with no signs of inflammation at that time. Small polyps removed
Subjective
Subjective
Date of Service: October 07, 2024
Patient with 3 episodes of vomiting overnight and 10 episodes of diarrhea. Stool culture pending. CDiff and norovirus negative. Patient returned from UGI with SBFT. Results pending. Some dry heaves, no vomiting after. No BM either.
Objective
Data Reviewed
Laboratory Data:
Laboratory Results
10/07/24 06:41
10/07/24 06:42
Laboratory Results
PT 15.6 Sec (11.4-14.6) H 10/07/24 06:42
INR 1.21 10/07/24 06:42
APTT 31.8 Sec (23.4-35.0) 10/07/24 06:42
Total Bilirubin 0.6 mg/dl (0.2-1.3) 10/05/24 21:22
AST 13 U/L (17-59) L 10/05/24 21:22
ALT < 10 U/L (0-50) 10/05/24 21:22
Alkaline Phosphatase 80 U/L (38-126) 10/05/24 21:22
Vital Signs and I&O:
Vital Signs
Temp Pulse Resp BP Pulse Ox
98.3 F 92 16 124/78 98
10/07/24 07:15 10/07/24 07:15 10/07/24 07:15 10/07/24 07:15 10/07/24 07:15
I&O
10/06/24 10/07/24 10/08/24
06:59 06:59 06:59
Intake Total 420 / 420 2650 / 2650
Balance 420 / 420 2650 / 2650
Physical Exam
Physical Exam
HEENT: Anicteric
Cardiology: Normal Sinus Rhythm
Pulmonary: Clear
GI: Soft, Non Distended, Non Tender and Normal Bowel Sounds
Neuro: Non Focal
--- NOTE | 2024-10-07 15:38 | CM ---
Chart reviewed: Anticipated Discharge: > 48 hours.
Case Management will continue to monitor for needs/services when disposition determined
[2024-10-07] MEDS: NSS 1000 IV (16:22)
[2024-10-07] MEDS: ZOFRAN 4 MG IV ×2 (16:24→22:57)
[2024-10-07 17:27] LABS: Glucose - Point of Care 225 mg/dl (70-99)
[2024-10-07] MEDS: NOVOLOG FLEXPEN-LOW RESISTANCE 2 UNITS SC (18:25)
[2024-10-07] MEDS: NOVOLOG FLEXPEN 3 UNITS SC (18:26)
[2024-10-07] MEDS: CARAFATE 1 GRAM PO (18:27)
[2024-10-07 22:02] LABS: Glucose - Point of Care 143 mg/dl (70-99)
[2024-10-07] MEDS: LANTUS 0.1 UNITS SC (22:56)
[2024-10-08] VITALS (11 sets, daily range): BP systolic 19–109; BP diastolic 59–69; PULSE 80–105; BMI 25.9
[2024-10-08 07:00] LABS: Glucose - Point of Care 175 mg/dl (70-99)
[2024-10-08] MEDS: CARAFATE PO ×4 (07:08→16:08)
[2024-10-08] MEDS: NOVOLOG FLEXPEN SC (07:08)
[2024-10-08 08:15] LABS: Hematocrit 36.2 % (39.0-52.0); Hemoglobin 10.9 g/dL (13.0-18.0); Mean Corp Hgb Conc. 30.1 g/dL (33.0-37.0); Mean Corpuscular Volume 74.3 fL (80.0-94.0); Nucleated Red Blood Cells % 0 % (-); Platelet Count 317 10^3/uL (130-400); Red Cell Dist. Width 16.3 % (11.5-14.5)
[2024-10-08] MEDS: NSS 1000 IV (08:21)
[2024-10-08] MEDS: NOVOLOG FLEXPEN-LOW RESISTANCE 1 UNITS SC ×2 (08:23→12:23)
[2024-10-08] MEDS: NSS (PRESERVATIVE FREE) 10 ML IV ×2 (08:25→20:40)
[2024-10-08] MEDS: PROTONIX IV 40 MG IV ×2 (08:25→20:40)
[2024-10-08 08:33] LABS: Blood Urea Nitrogen 18 mg/dl (9-20); Calcium 9.9 mg/dl (8.4-10.2); Carbon Dioxide 24 mmol/L (22-30); Chloride 103 mmol/L (98-107); Estimated Creatinine Clearance 78 ml/min; Glucose 180 mg/dl (70-99); Potassium 4.7 mmol/L (3.5-5.1); Sodium 133 mmol/L (135-145); eGFR > 60.00
--- NOTE | 2024-10-08 10:17 | W.PN.UPDATE ---
Update Note
Progress Note Update
colonoscopy showed diffuse colitis, biopsied for path and cmv. Probably related to immunotherapy:
plan:
wait for biopsies
oncology consult
if ok with oncology would start IV steroids
[2024-10-08 10:21] LABS: Glucose - Point of Care 166 mg/dl (70-99)
--- NOTE | 2024-10-08 10:31 | CON.ONC ---
Documented by User: [email or web address] Sam 10/08/24 13:24
Consultation
-
Date Consultation Requested: 10/08/24
Date Consultation Performed: 10/08/24
Requesting Provider: Dr. Rogers Stringer
Performing Provider: Dr. Sherwin Mccoy
Reason for Consultation: RCC
Impression
Impression
a/w Intractable nausea, vomiting, diarrhea
Renal cell carcinoma, last immunotherapy 09/11/2024
Chronic HFrEF
History of CAD
Type 2 diabetes
Bilateral small pleural effusion
anemia -Hgb at baseline ~11g/dL
Plan
Plan
Renal cell carcinoma on chemotherapy
On Optivo and yervoy, last cycle September [address] scans retroperitoneal lymph nodes slightly larger with central necrosis suggesting pseudo progression on IO therapy. There is no definitive of evidence of progressive disease.
pain management
OP follow up with Dr. Galeana
Diarrhea
infectious evaluation negative for C. diff, norovirus. Salmonella/shigella, Campylobacter, and Ecoli pending.
EGD with extrinsic compression in the hypopharynx 2 cm proximal to the vocal cords, non-obstructive. Gastritis, biopsied.
Colonoscopy showed diffuse moderate inflammation was found in the entire examined colon. Biopsied.
If infectious work up negative then would treat for IO colitis with prednisone 1mg/kg/day reviewed with pt
appreciate GI assist
Patient History
History of Present Illness
59-year-old male known to Dr. Galeana for management of metastatic renal cell carcinoma on on Optivo and yervoy, last cycle September 11 who presents with intractable nausea, vomiting, and diarrhea. Patient reports 20-30 pound weight loss since being
diagnosed with cancer.
In brief, he was initially diagnosed with RCC June 2024. Staging with a PET CT showed hypermetabolic right renal mass and adenopathy involving the retroperitoneum, posterior mediastium, and left supraclavicular region. His CT CAP September 24, [address] Galeana was suspicious for pseudo progression in the setting of starting immunotherapy 07/31/2024. Since starting immunotherpy, he has developed suspected endocriopathy with a low hyperthyroid and diarrhea.
Past-Medical/Surgical History
PMH CAD, chronic heart failure reduced ejection fraction, type 2 diabetes, BPH, renal cell carcinoma
PSH cyst removal 2023, Defibulation 2023
Social never smoker, denies ETOH or recreational drug use. 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 Lives with significant other
Family non contributory
Patient Medication
�Medication �Instructions �Recorded �Confirmed �Last Taken �Type
empagliflozin 25 mg tablet 25 mg PO DAILY Diabetes 06/23/24 10/06/24 09/29/24 History
(Jardiance)
fenofibrate micronized 200 mg 200 mg PO QPM High Cholesterol 06/23/24 10/06/24 09/29/24 History
capsule
sacubitril 24 mg-valsartan 26 mg 1 tab PO BID Heart 06/23/24 10/06/24 09/29/24 History
tablet (Entresto) Disease/Condition
aspirin 81 mg chewable tablet 81 mg PO DAILY Blood Clot 09/24/24 10/06/24 09/29/24 History
Prevention/Tx
ergocalciferol (vitamin D2) 1,250 1,250 mcg PO PICKARD Supplement 09/24/24 10/06/24 09/29/24 History
mcg (50,000 unit) capsule
insulin aspart U-100 100 unit/mL 20 sliding scale dose SC AC 09/24/24 10/06/24 10/05/24 History
(3 mL) subcutaneous pen (Novolog Diabetes
FlexPen U-100 Insulin aspart)
insulin glargine U-300 conc 300 18 unit SC HS Diabetes 09/24/24 10/06/24 10/05/24 History
unit/mL (3 mL) subcutaneous pen
(Toujeo Max U-300 SoloStar)
repaglinide 2 mg tablet 2 mg PO BID@1200,1700 Diabetes 09/24/24 10/06/2425 History
metoprolol succinate 25 mg 25 mg PO BID #60 tabs 09/26/24 10/06/24 09/29/24 Rx
tablet,extended release 24 hr
(Toprol XL)
oxycodone 5 mg tablet 5 mg PO BID PRN severe pain #10 09/26/24 10/06/24 Unknown Rx
tabs
psyllium husk 0.4 gram capsule 0.4 g PO DAILY #30 caps 09/26/24 10/06/24 Unknown Rx
(Metamucil)
atorvastatin 80 mg tablet mg 10/06/24 09/29/24 History
mesalamine 10/06/24 09/29/24 History
ondansetron 8 mg disintegrating 8 mg PO Q12H N/V 10/06/24 10/06/24 09/29/24 History
tablet
pantoprazole 40 mg tablet,delayed mg PO 10/06/24 09/29/24 History
release
sucralfate 1 gram tablet 1 g PO AC Gastrointestinal Issue 10/06/24 10/06/24 09/29/24 History
Active Medications
Generic Name Dose Route Start Last Admin
Trade Name Freq PRN Reason Stop Dose Admin
Acetaminophen 650 mg 10/06/24 02:28
Acetaminophen 325 Mg Tablet PO 11/03/24 02:27
Q4HPRN PRN
Mild Pain / Temp > 101
Dextrose 12.5 grams 10/06/24 02:28
Dextrose 50% (0.5 Grams/Ml) 50 Ml Syringe IV 11/03/24 02:27
[id number] PRN
hypoglycemia
Protocol
Glucagon 1 mg 10/06/24 02:28
Glucagon 1 Mg Vial IM 11/03/24 02:27
PRN PRN
hypoglycemia
Protocol
Sodium Chloride 1,000 mls @ 60 mls/hr 10/06/24 02:28 10/08/24 08:21
Nss IV 1,000 mls
.[id number] RAYMOND Administration
Insulin Glargine 10 units/ 0.1 mls @ 0 mls/hr 10/06/24 22:00 10/07/24 22:56
Device SC 11/03/24 21:59 0.1 mls
HS RAYMOND Administration
As Directed
Insulin Aspart 0 units 10/06/24 07:30 10/08/24 08:23
Insulin Aspart Low Resistance 300 Units/3 Ml Pen.Injctr SC 11/03/24 07:29 1 units
AC RAYMOND Administration
Protocol
Insulin Aspart 3 units 10/06/24 16:30 10/08/24 07:08
Insulin Aspart (Novolog) 100 Units/Ml 3 Ml Flexpen SC 11/03/24 16:29 Not Given
AC RAYMOND
Metoprolol Succinate 25 mg 10/06/24 20:00 10/08/24 08:24
Metoprolol 25 Mg Extended Release Tablet PO 11/03/24 19:59 Not Given
BID RAYMOND
Ondansetron HCl 4 mg 10/06/24 02:28 10/07/24 22:57
Ondansetron 4 Mg/2 Ml Vial IV 11/03/24 02:27 4 mg
Q6HPRN PRN Administration
nausea and vomiting
Pantoprazole Sodium 40 mg 10/06/24 08:00 10/08/24 08:25
Pantoprazole Sodium 40 Mg/10 Ml Vial IV 11/03/24 07:59 40 mg
BID RAYMOND Administration
Sodium Chloride 0 flush 10/06/24 03:00
Sodium Chloride 0.9% (Flush) Syringe IV 11/03/24 02:59
PER PROTOCOL RAYMOND
Sodium Chloride 10 ml 10/06/24 08:00 10/08/24 08:25
Sodium Chloride 0.9% (Preservative Free) 10 Ml Vial IV 11/03/24 07:59 10 ml
BID RAYMOND Administration
Sucralfate 1 gram 10/06/24 16:30 10/08/24 07:08
Sucralfate 1 Gram Tablet PO 11/03/24 16:29 Not Given
AC RAYMOND
Review of Systems
-
ROS is notable for HPI, otherwise negative
Physical Exam
-
General: Well Developed, No Apparent Distress and Comfortable
Cardiology: Normal Sinus Rhythm, S1 and S2
Pulmonary: diminished b/l bases
GI: Soft; Negative Distended
Skin: Warm and Dry
Psych: Calm and Intact Judgement/Insight
Labs
Lab Results
WBC 6.7 10^3/uL (4.8-10.8) 10/08/24 06:50
RBC 4.87 10^6/uL (4.70-6.10) 10/08/24 06:50
Hgb 10.9 g/dL (13.0-18.0) L 10/08/24 06:50
Hct 36.2 % (39.0-52.0) L 10/08/24 06:50
MCV 74.3 fL (80.0-94.0) L 10/08/24 06:50
MCH 22.4 pg (27.0-31.0) L 10/08/24 06:50
MCHC 30.1 g/dL (33.0-37.0) L 10/08/24 06:50
RDW 16.3 % (11.5-14.5) H 10/08/24 06:50
Plt Count 317 10^3/uL (130-400) D 10/08/24 06:50
MPV 10.2 fL (7.4-10.4) 10/08/24 06:50
Abs Immat Gran (auto) 0.1 10^3/uL (0-0.05) H 10/08/24 06:50
Absolute Neuts (auto) 4.3 10^3/uL (1.4-6.5) 10/08/24 06:50
Absolute Lymphs (auto) 1.0 10^3/uL (1.2-3.4) L 10/08/24 06:50
Absolute Monos (auto) 1.0 10^3/uL (0.1-0.6) H 10/08/24 06:50
Absolute Eos (auto) 0.3 10^3/uL (0-0.7) 10/08/24 06:50
Absolute Basos (auto) 0.1 10^3/uL (0-0.2) 10/08/24 06:50
Immature Gran % 0.9 % (0-0.5) H 10/08/24 06:50
Neutrophils % 63.7 % (42.2-75.2) 10/08/24 06:50
Lymphocytes % 15.0 % (20.5-51.1) L 10/08/24 06:50
Monocytes % 14.9 % (1.7-9.3) H 10/08/24 06:50
Eosinophils % 4.1 % (0-6) 10/08/24 06:50
Basophils % 1.4 % (0-2) 10/08/24 06:50
Creatinine 1.0 mg/dL (0.7-1.3) 10/08/24 06:50
Vital Signs
Vital Signs
Temp Pulse Resp BP Pulse Ox
98.3 F 75 20 101/65 96
10/08/24 10:28 10/08/24 10:28 10/08/24 10:28 10/08/24 10:28 10/08/24 10:28

Documented by User: Sherwin Mccoy MD 10/08/24 13:57
Plan
Plan
Renal cell carcinoma on chemotherapy
On Optivo and yervoy, last cycle September [address] scans retroperitoneal lymph nodes slightly larger with central necrosis suggesting pseudo progression on IO therapy. There is no definitive of evidence of progressive disease.
pain management
OP follow up with Dr. Galeana
Diarrhea
infectious evaluation negative for C. diff, norovirus. Salmonella/shigella, Campylobacter, and Ecoli pending.
EGD with extrinsic compression in the hypopharynx 2 cm proximal to the vocal cords, non-obstructive. Gastritis, biopsied.
Colonoscopy showed diffuse moderate inflammation was found in the entire examined colon. Biopsied.
If infectious work up negative then would treat for IO colitis with prednisone 1mg/kg/day reviewed with pt
appreciate GI assist
Oncology Addendum:
Patient seen and evaluated and agree w/ RATING SPECIALIST note and plan as outlined
-infectious w/u for diarrhea pending
-if infectious w/u negative - steroids tx would seem reasonable - prednisone 1mg/kg/day
Will continue to follow with you.
[2024-10-08 11:43] LABS: Glucose - Point of Care 167 mg/dl (70-99)
--- NOTE | 2024-10-08 11:58 | W.PN.HOSP.TC ---
Today's Communication/Plan
-
Monitor vital signs and see plan
Ccope with colitis; defer steroids to GI
Oncology consulted
Continue with fulls
Assessment / Plan
Assessment / Plan
General:in no acute distress
HEENT: Anicteric, pink conjunctiva
Respiratory: Clear; No Wheezes, Rales or Rhonchi
Cardiac: S1/S2 and Regular Rhythm; No Murmur
GI: Soft, Non Tender, Non Distended and Normal Bowel Sounds
Musculoskeletal: No Edema
Neuro: AO x 3
Intractable N/V
Anorexia
Weight Loss
- ? symptoms secondary to progressive adenopathy seen on recent CT / sequelae of renal cell carcinoma?
- Temporary improvement with supportive meds during recent admission.
- IV antiemetics. Gentle IVF support.
- PO diet as tolerated.
- Continues to have diarrhea and nausea with vomiting. Stool studies with many WBC, culture pending. Negative C. difficile, norovirus
- GI following
Upper GI series noted, 10/08 EGD with flex sig consistent with diffuse colitis. Could be secondary to immunotherapy. Oncology consulted. Defer steroids to GI
BRBPR
- Patient reports streaks of blood in stool / diarrhea x multiple episodes daily - but very small volume.
- Hold ASA acutely. Restart if okay with GI
- IV PPI BID.
- GI eval as noted above.
ASCVD
Chronic HFrEF
- Patient with continued / significant weight loss from last visit.
- Hold diuretic regimen (hold most outpatient meds acutely).
Restart metoprolol with holding parameter
Hyponatremia
Monitor
DM-II
- Stable. Hold repaglinide acutely given poor PO intake, N/V, etc.
Restart insulin at lower dose, Accu-Chek
- A1C during recent admission was 8.6%.
Renal Cell Carcinoma
- On chemotherapy with most recent dose on Dianna 5.
- ? if current symptoms are secondary to progressive adenopathy as noted on recent CT (09/24)?
Oncology consult
DVT Prophylaxis: SCDs
Code Status: Full
Anticipated Discharge: > 48 hours
Subjective/Interval History
-
Date of Service: October 08, 2024
Does have diarrhea
Objective Data
-
Labs:
Laboratory Results
10/08/24
06:50
WBC 6.7
Hgb 10.9 L
Hct 36.2 L
Plt Count 317 D
Sodium 133 L
Potassium 4.7
Chloride 103
Carbon Dioxide 24
BUN 18
Creatinine 1.0
Glucose 180 H
Calcium 9.9
Vital Signs:
Vital Signs
Temp Pulse Resp BP Pulse Ox
98.2 F 90 18 98/60 97
10/08/24 11:22 10/08/24 11:22 10/08/24 11:22 10/08/24 11:22 10/08/24 11:22
I&O
10/07/24 10/08/24 10/09/24
06:59 06:59 06:59
Intake Total 2650 / 2650 3020 / 3020
Balance 2650 / 2650 3020 / 3020
[2024-10-08 12:12] LABS: Total Iron Binding Capacity 218 ug/dl (261-462)
[2024-10-08 12:14] LABS: Iron < 20 ug/dl (49-181)
[2024-10-08] MEDS: NOVOLOG FLEXPEN 3 UNITS SC ×2 (12:23→17:36)
[2024-10-08 12:35] LABS: Ferritin 344.0 ng/ml (17.9-464.0)
[2024-10-08] MEDS: SOLU-MEDROL PF 20 MG IV (16:03)
[2024-10-08 17:37] LABS: Glucose - Point of Care 204 mg/dl (70-99)
[2024-10-08] MEDS: NOVOLOG FLEXPEN-LOW RESISTANCE 2 UNITS SC (17:38)
--- NOTE | 2024-10-08 19:46 | PTCARENOTE ---
Patient tolerating full liquid diet s/p EGD this AM, states occ nausea throughout shift with no vomiting, no abd pain but frequent diarrhea, states 8 small loose brown BMs in bathroom throughout this shift. IVF infusing, patient ambulatory in room,
orthos negative, patient denies lightheadedness/dizziness with position changes. First dose of IV solumedrol given this afternoon - see MAR. Patient and patient's partner updated on plan of care at bedside.
[2024-10-08 21:52] LABS: Glucose - Point of Care 222 mg/dl (70-99)
[2024-10-08] MEDS: LANTUS 0.1 UNITS SC (21:56)
[2024-10-09] VITALS (8 sets, daily range): BP systolic 91–109; BP diastolic 56–70; PULSE 74–93; BMI 26.2
[2024-10-09] MEDS: SOLU-MEDROL PF 20 MG IV ×3 (00:25→16:31)
[2024-10-09] MEDS: NSS 1000 IV (05:11)
[2024-10-09 06:48] LABS: Hematocrit 34.9 % (39.0-52.0); Hemoglobin 10.8 g/dL (13.0-18.0); Mean Corp Hgb Conc. 30.9 g/dL (33.0-37.0); Mean Corpuscular Volume 74.1 fL (80.0-94.0); Platelet Count 330 10^3/uL (130-400); Red Cell Dist. Width 16.2 % (11.5-14.5)
[2024-10-09 07:12] LABS: Nucleated Red Blood Cells % 0 % (-)
[2024-10-09 07:20] LABS: Blood Urea Nitrogen 16 mg/dl (9-20); Calcium 9.7 mg/dl (8.4-10.2); Carbon Dioxide 21 mmol/L (22-30); Chloride 102 mmol/L (98-107); Estimated Creatinine Clearance 78 ml/min; Glucose 214 mg/dl (70-99); Potassium 5.1 mmol/L (3.5-5.1); Sodium 132 mmol/L (135-145); eGFR > 60.00
[2024-10-09 07:28] LABS: Glucose - Point of Care 214 mg/dl (70-99)
[2024-10-09] MEDS: CARAFATE PO ×3 (08:30→16:30)
[2024-10-09] MEDS: NOVOLOG FLEXPEN 3 UNITS SC ×2 (08:31→12:41)
[2024-10-09] MEDS: NOVOLOG FLEXPEN-LOW RESISTANCE 2 UNITS SC ×2 (08:32→17:27)
[2024-10-09] MEDS: NSS (PRESERVATIVE FREE) 10 ML IV ×2 (08:33→20:11)
[2024-10-09] MEDS: PROTONIX IV 40 MG IV ×2 (08:33→20:11)
--- NOTE | 2024-10-09 11:18 | W.PN.ONC ---
Today's Communication / Plan
-
Unfortunately appears to be toxicities related to IO therapy
Initiated steroids
Continue PPI
Iron replaced in the office
Continue to monitor CBC which shows microcytosis and anemia
Convert to prednisone 60 mg daily with PPI
May need Remicade if diarrhea persists
Continue to monitor CBC and electrolytes
Impression
Impression
Pangastritis
Pancolitis
Renal cell carcinoma, last immunotherapy 09/11/2024
Chronic HFrEF
Iron deficiency anemia
History of CAD
Type 2 diabetes
Bilateral small pleural effusion
Subjective/Objective
Subjective/Objective
Stool frequency somewhat improved. Less nausea.
Vital Signs:
Vital Signs
Temp Pulse Resp BP Pulse Ox
97.8 F 90 16 109/70 97
10/09/24 07:20 10/09/24 08:35 10/09/24 07:20 10/09/24 08:35 10/09/24 10:49
Physical exam remarkable for improvement in the left supraclavicular mass
Lab Results:
Laboratory Data
WBC 6.9 10^3/uL (4.8-10.8) 10/09/24 05:57
Hgb 10.8 g/dL (13.0-18.0) L 10/09/24 05:57
Plt Count 330 10^3/uL (130-400) 10/09/24 05:57
PT 15.6 Sec (11.4-14.6) H 10/07/24 06:42
INR 1.21 10/07/24 06:42
APTT 31.8 Sec (23.4-35.0) 10/07/24 06:42
eGFR > 60.00 10/09/24 05:57
[2024-10-09 11:22] LABS: Glucose - Point of Care 257 mg/dl (70-99)
--- NOTE | 2024-10-09 11:31 | W.PN.GI.CBS2 ---
Today's Communication / Plan
-
continue steroids
Assessment / Plan
-
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 EGD essentially normal with just gastritis.
IMPRESSION / PLAN:
- f/u biopsies
- advance diet to low residue
- IV steroids and conversion to oral steroids as per oncology. he has improved quickly and hopefully won't need infliximab
- PPI
will sign off call with questions
Subjective
Subjective
Date of Service: October 09, 2024
Pt feels remarkably better after less than a day of IV steroids, hungry, much less diarrhea
Objective
Data Reviewed
Laboratory Data:
Laboratory Results
10/09/24 05:57
10/09/24 05:57
Laboratory Results
PT 15.6 Sec (11.4-14.6) H 10/07/24 06:42
INR 1.21 10/07/24 06:42
APTT 31.8 Sec (23.4-35.0) 10/07/24 06:42
Total Bilirubin 0.6 mg/dl (0.2-1.3) 10/05/24 21:22
AST 13 U/L (17-59) L 10/05/24 21:22
ALT < 10 U/L (0-50) 10/05/24 21:22
Alkaline Phosphatase 80 U/L (38-126) 10/05/24 21:22
Vital Signs and I&O:
Vital Signs
Temp Pulse Resp BP Pulse Ox
98.2 F 74 16 94/56 95
10/09/24 11:10 10/09/24 11:10 10/09/24 11:10 10/09/24 11:10 10/09/24 11:10
I&O
10/08/24 10/09/24 10/10/24
06:59 06:59 06:59
Intake Total 3020 / 3020 3360 / 3360
Balance 3020 / 3020 3360 / 3360
Physical Exam
Physical Exam
HEENT: No Lymphadenopathy (left neck lymph node less pronounced)
GI: Soft, Non Distended and Non Tender
[2024-10-09] MEDS: NOVOLOG FLEXPEN-LOW RESISTANCE 3 UNITS SC (12:41)
--- NOTE | 2024-10-09 12:41 | W.PN.HOSP.TC ---
Today's Communication/Plan
-
Monitor vital signs see plan
Increase insulin
Continue with Solu-Medrol
Continue PPI
Transition to p.o. prednisone when okay with oncology
Monitor diarrhea
IV iron
Assessment / Plan
Assessment / Plan
General:in no acute distress
HEENT: Anicteric, pink conjunctiva
Respiratory: Clear; No Wheezes, Rales or Rhonchi
Cardiac: S1/S2 and Regular Rhythm; No Murmur
GI: Soft, Non Tender, Non Distended and Normal Bowel Sounds
Musculoskeletal: No Edema
Neuro: AO x 3
Intractable N/V
Anorexia
Weight Loss
- ? symptoms secondary to progressive adenopathy seen on recent CT / sequelae of renal cell carcinoma?
- Temporary improvement with supportive meds during recent admission.
- IV antiemetics. Gentle IVF support.
- PO diet as tolerated.
- Continues to have diarrhea and nausea with vomiting. Stool studies with many WBC, culture negative for Salmonella, Shigella. Negative C. difficile, norovirus
- GI following
Upper GI series noted, 10/08 EGD with flex sig consistent with diffuse colitis. Could be secondary to immunotherapy. Oncology following. Started on IV Solu-Medrol. Transition to p.o. prednisone when okay with oncology
BRBPR
- Patient reports streaks of blood in stool / diarrhea x multiple episodes daily - but very small volume.
- Hold ASA acutely. Restart if okay with GI
- IV PPI BID.
- GI eval as noted above.
ASCVD
Chronic HFrEF
- Patient with continued / significant weight loss from last visit.
- Hold diuretic regimen (hold most outpatient meds acutely).
Restart metoprolol with holding parameter
Iron deficiency anemia
Chronic IV iron with hematology
Give IV iron today
Hyponatremia
Monitor
DM-II
- Stable. Hold repaglinide acutely given poor PO intake, N/V, etc.
Restart insulin at lower dose, Accu-Chek
- A1C during recent admission was 8.6%.
Renal Cell Carcinoma
- On chemotherapy with most recent dose on September 11.
- ? if current symptoms are secondary to progressive adenopathy as noted on recent CT (09/24)?
Oncology consult
DVT Prophylaxis: SCDs
Code Status: Full
I spent a total of 52 minutes with the patient or on the floor. More than 50% of this time involved counseling and coordination of care.
Anticipated Discharge: 24 - 48 hours
Subjective/Interval History
-
Date of Service: October 09, 2024
Denies nausea however still has diarrhea
Objective Data
-
Labs:
Laboratory Results
10/09/24
05:57
WBC 6.9
Hgb 10.8 L
Hct 34.9 L
Plt Count 330
Sodium 132 L
Potassium 5.1
Chloride 102
Carbon Dioxide 21 L
BUN 16
Creatinine 1.0
Glucose 214 H
Calcium 9.7
Vital Signs:
Vital Signs
Temp Pulse Resp BP Pulse Ox
98.2 F 74 16 94/56 95
10/09/24 11:10 10/09/24 11:10 10/09/24 11:10 10/09/24 11:10 10/09/24 11:10
I&O
10/08/24 10/09/24 10/10/24
06:59 06:59 06:59
Intake Total 3020 / 3020 3360 / 3360
Balance 3020 / 3020 3360 / 3360
--- NOTE | 2024-10-09 12:57 | PTCARENOTE ---
Patient tolerating low residue well. Po intake 90-100%. denies nausea/pain at this time. plan of care ongoing.
[2024-10-09] MEDS: FERRLECIT 110 MG IV (13:35)
--- NOTE | 2024-10-09 14:08 | PN.CDI ---
CDI
- -
CDI:
Physician Documentation Request
Admit Date: 10/06/24 01:42
Dear Doctor Myke,
Please review the following and provide your response in the progress notes.
Clinical Indicators:
Management Analyst, 10/09
#Review of records shows weight of 194 lbs 8 oz from 09-26-24; 176 lbs 3 oz on 10-07-24;
#...pt appears to have lost 18 lbs (>5% in 1 month)-significant.
#...Weight on 10-09=177 lbs 2 oz (BMI 26.2-overwt)-will monitor.
#Due to weight loss of >5% in 1 month and decreased intakes of less than or equal
#...to 50% estimated energy needs for >5 days, pt meeting criteria for
#...severe protein/calorie malnutrition (ASPEN/AND guidelines, acute illness).
Based on the above information and your clinical assessment, which of the following most accurately represents the patient's nutritional status?
Severe Protein Calorie Malnutrition of acute illness
Other (please specify)
[place] Criteria (ACP Hospitalist 2017)
2 or more criteria must be present for either
non severe or severe malnutrition
Note that the criteria differs related to the
presence of an acute or chronic illness
Acute Illness
Energy Intake Non Severe: <75% for >7 days
Severe: <50% for >5 days
Weight Loss Non Severe: 1-2% over 1 week
5% over 1 month
7.5% over 3 months
1 year N/A
Severe: >2% over 1 week
>5% over 1 month
>7.5% over 3 months
1 year N/A
Body Fat Non Severe: Mild Decrease
Severe: Moderate Decrease
Muscle Mass Non Severe: Mild Decrease
Severe: Moderate Decrease
Use of terms such as suspected, likely, concern for, or probable (associated with a specific diagnosis that is being evaluated, monitored, or treated as if it exists) are acceptable and can be coded in the inpatient setting, when documented at the
time of discharge.
Thank you,
Monae Tinoco RN BSN CCDS
CDI Specialist
Please contact via tiger text
Please use your independent medical judgment in providing your response.
--- NOTE | 2024-10-09 14:17 | PN.CDI ---
CDI
- -
CDI:
Physician Documentation Request
Admit Date: 10/06/24 01:42
Dear Doctor Myke,
Please review the following and provide your response in the progress notes.
Clinical Indicators:
PN, 10/09
#BRBPR
#...- Patient reports streaks of blood in stool / diarrhea x multiple episodes daily
#.../- but very small volume.
#- Hold ASA acutely.
#...Restart if okay with GI
Laboratory Tests
10/07/24
06:42
PT 15.6 H
INR 1.21
APTT 31.8
Please clarify the relationship, if any, between these conditions:
Yes, BRBPR is contributed to/associated with/due to ASA.
No, BRBPR is not contributed to/associated with/due to ASA but it is due to ___. (Please specify)
Other (please specify)
Use of terms such as suspected, likely, concern for, or probable (associated with a specific diagnosis that is being evaluated, monitored, or treated as if it exists) are acceptable and can be coded in the inpatient setting, when documented at the
time of discharge.
Thank you,
Monae Tinoco RN BSN CCDS
CDI Specialist
Please contact via tiger text
Please use your independent medical judgment in providing your response.
--- NOTE | 2024-10-09 14:59 | CM ---
CM following re: discharge planning.
Reviewed pt's chart, met with pt.
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
D/C plan: home with anticipated no needs.
CM will follow with discharge plan updates as hospitalization progresses
[2024-10-09 16:37] LABS: Glucose - Point of Care 237 mg/dl (70-99)
[2024-10-09] MEDS: NOVOLOG FLEXPEN 5 UNITS SC (17:27)
[2024-10-09 21:41] LABS: Glucose - Point of Care 320 mg/dl (70-99)
[2024-10-09] MEDS: LANTUS 0.15 UNITS SC (22:08)
[2024-10-09] MEDS: NOVOLOG FLEXPEN 4 UNITS SC (22:08)
[2024-10-10] MEDS: SOLU-MEDROL PF 20 MG IV ×2 (00:01→07:21)
--- NOTE | 2024-10-10 00:07 | PTCARENOTE ---
Patients blood sugar at 21:39 was 320. Messaged SCIENTIFIC PROGRAMMER ANALYST. 4 Units Novolog given at 22:08. Also given scheduled 15 Units of Lantus. At 00:05 accu check 238.
[2024-10-10 00:08] LABS: Glucose - Point of Care 238 mg/dl (70-99)
[2024-10-10 03:39] VITALS: BP 92/57
[2024-10-10 05:29] VITALS: BMI 26.2
[2024-10-10 07:19] LABS: Glucose - Point of Care 232 mg/dl (70-99)
[2024-10-10] MEDS: CARAFATE PO ×2 (07:21→12:09)
[2024-10-10] MEDS: PROTONIX IV 40 MG IV (07:22)
[2024-10-10] MEDS: LOW STRENGTH ASPIRIN 81 MG PO (07:22)
[2024-10-10] MEDS: NSS (PRESERVATIVE FREE) 10 ML IV (07:22)
[2024-10-10] MEDS: NOVOLOG FLEXPEN 5 UNITS SC (07:23)
[2024-10-10] MEDS: NOVOLOG FLEXPEN-LOW RESISTANCE 2 UNITS SC (07:24)
[2024-10-10 07:25] VITALS: BP 109/75
[2024-10-10 07:28] LABS: Hematocrit 35.7 % (39.0-52.0); Hemoglobin 11.0 g/dL (13.0-18.0); Mean Corp Hgb Conc. 30.8 g/dL (33.0-37.0); Mean Corpuscular Volume 72.7 fL (80.0-94.0); Nucleated Red Blood Cells % 0 % (-); Platelet Count 363 10^3/uL (130-400); Red Cell Dist. Width 16.3 % (11.5-14.5)
[2024-10-10 08:01] LABS: Blood Urea Nitrogen 19 mg/dl (9-20); Calcium 10.0 mg/dl (8.4-10.2); Carbon Dioxide 24 mmol/L (22-30); Chloride 100 mmol/L (98-107); Estimated Creatinine Clearance 86 ml/min; Glucose 246 mg/dl (70-99); Potassium 4.6 mmol/L (3.5-5.1); Sodium 132 mmol/L (135-145); eGFR > 60.00
--- NOTE | 2024-10-10 10:31 | W.PN.HOSP.TC ---
Addendum entered and electronically signed by Rogers Stringer MD 10/10/24 11:16:
Discussed with oncology. They sent prednisone and Protonix prescription to the pharmacy. Patient for discharge today
Time of discharge 38 minutes
Original Note:
Today's Communication/Plan
-
Monitor vital signs see plan
Slowly improving; still with some loose stools however no nausea and vomiting
Transition to prednisone when okay with oncology
Possible discharge today if okayed by oncology
Increase insulin
Assessment / Plan
Assessment / Plan
General:in no acute distress
HEENT: Anicteric, pink conjunctiva
Respiratory: Clear; No Wheezes, Rales or Rhonchi
Cardiac: S1/S2 and Regular Rhythm; No Murmur
GI: Soft, Non Tender, Non Distended and Normal Bowel Sounds
Musculoskeletal: No Edema
Neuro: AO x 3
Intractable N/V
Anorexia
Weight Loss
- ? symptoms secondary to progressive adenopathy seen on recent CT / sequelae of renal cell carcinoma?
- Temporary improvement with supportive meds during recent admission.
- IV antiemetics prn
- No low res
- Continues to have diarrhea which is improved however no nausea and vomiting anymore. Stool studies with many WBC, culture negative for Salmonella, Shigella. Negative C. difficile, norovirus
- GI following
Upper GI series noted, 10/08 EGD with flex sig consistent with diffuse colitis. Could be secondary to immunotherapy. Oncology following. Started on IV Solu-Medrol. Transition to p.o. prednisone when okay with oncology.
BRBPR likely secondary to colitis
No bright red blood per rectum is not associated due to aspirin
- Patient reports streaks of blood in stool / diarrhea x multiple episodes daily - but very small volume.
- Asthma restart
- PPI BID.
- GI eval as noted above.
ASCVD
Chronic HFrEF
- Patient with continued / significant weight loss from last visit.
- Hold diuretic regimen (hold most outpatient meds acutely).
Restart metoprolol with holding parameter
Iron deficiency anemia
Chronic IV iron with hematology
IV iron
Hyponatremia
Monitor
DM-II
- Stable. Hold repaglinide acutely given poor PO intake, N/V, etc.
Restart insulin at lower dose, Accu-Chek
- A1C during recent admission was 8.6%.
Renal Cell Carcinoma
- On chemotherapy with most recent dose on September 11.
- ? if current symptoms are secondary to progressive adenopathy as noted on recent CT (09/24)?
Oncology consult
Severe Protein Calorie Malnutrition of acute illness
DVT Prophylaxis: SCDs
Code Status: Full
Anticipated Discharge: Today
Subjective/Interval History
-
Date of Service: October 10, 2024
feeling better
Objective Data
-
Labs:
Laboratory Results
10/10/24
06:47
WBC 9.9
Hgb 11.0 L
Hct 35.7 L
Plt Count 363
Sodium 132 L
Potassium 4.6
Chloride 100
Carbon Dioxide 24
BUN 19
Creatinine 0.9
Glucose 246 H
Calcium 10.0
Vital Signs:
Vital Signs
Temp Pulse Resp BP Pulse Ox
98.3 F 89 16 109/75 98
10/10/24 07:25 10/10/24 07:25 10/10/24 07:25 10/10/24 07:25 10/10/24 07:25
I&O
10/09/24 10/10/24 10/11/24
06:59 06:59 06:59
Intake Total 3360 / 3360 1560 / 1560
Balance 3360 / 3360 1560 / 1560
--- NOTE | 2024-10-10 11:05 | W.PN.ONC ---
Today's Communication / Plan
-
Continue steroids for immune colitis/diarrhea
Rx sent to his [facility] for Pred 60mg/d x5days, then 40mg/d until tapered further
Rx sent for Protonix 40mg/d
Discussed risks for gastritis/ulcers on Pred, and the need for PPI.
Told to watch for thrush on pred
Monitor sugars, ISS
Will arrange f/u with Dr. Galeana to plan further mgmt
Okay for d/c
Impression
Impression
Pangastritis
Pancolitis
Renal cell carcinoma, last immunotherapy 09/11/2024
Chronic HFrEF
Iron deficiency anemia
History of CAD
Type 2 diabetes
Bilateral small pleural effusion
Plan
Plan
Continue steroids for immune colitis/diarrhea
Rx sent to his [facility] for Pred 60mg/d x5days, then 40mg/d until tapered further
Rx sent for Protonix 40mg/d
Discussed risks for gastritis/ulcers on Pred, and the need for PPI.
Told to watch for thrush on pred
Monitor sugars, ISS
Will arrange f/u with Dr. Galeana to plan further mgmt
Okay for d/c
Subjective/Objective
Subjective/Objective
feelig better, diarrhea much improved, eager to go home
Vital Signs:
Vital Signs
Temp Pulse Resp BP Pulse Ox
98.3 F 89 16 109/75 98
10/10/24 07:25 10/10/24 07:25 10/10/24 07:25 10/10/24 07:25 10/10/24 07:25
Lab Results:
Laboratory Data
WBC 9.9 10^3/uL (4.8-10.8) 10/10/24 06:47
Hgb 11.0 g/dL (13.0-18.0) L 10/10/24 06:47
Plt Count 363 10^3/uL (130-400) 10/10/24 06:47
PT 15.6 Sec (11.4-14.6) H 10/07/24 06:42
INR 1.21 10/07/24 06:42
APTT 31.8 Sec (23.4-35.0) 10/07/24 06:42
eGFR > 60.00 10/10/24 06:47
--- NOTE | 2024-10-10 11:15 | W.DCSUMMARY ---
Discharge Summary
Discharge Data
Date of Admission: 10/06/24
Date of Discharge: 10/10/24
-
Pending Results: Yes
Hospital Course
59-year-old male with past medical history of diabetes mellitus, renal cell carcinoma came to the hospital with intractable nausea vomiting and diarrhea secondary to colitis. Patient was initially seen by GI who performed a colonoscopy which showed
colitis. It was determined the patient colitis likely was secondary to immunotherapy. Bacterial cultures were negative. Patient was then started on IV steroids which was transitioned to p.o. prednisone per oncology recommendation on discharge.
Over time patient symptoms continue to improve after initiation of steroids and he was able to tolerate low residue diet. Since his symptoms improved, he was then discharged home with instructions to follow-up with all his physicians outpatient.
Discharge Plan
-
Patient Disposition: Home (Routine Discharge)
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
Gastritis
Iron deficiency anemia
Hyponatremia
Diabetes mellitus
Diet: Low Residue and Diabetic, Carb Controlled
Activity: As tolerated
Driving Restrictions: As prior to admission
Bathing Restrictions: None
Activity Restrictions/Additional Instructions:
Pred 60mg/d x5days, then 40mg/d until tapered further by oncology
Per oncology:
Rx sent to his [facility] for Pred 60mg/d x5days, then 40mg/d until tapered further
Rx sent for Protonix 40mg/d
Referrals:
Esdras Galeana DO [Active, Hematology / Oncology] - in one week
Bandar Jimenez MD [Family Provider, Internal Medicine] - in less than 1 week
Liliana Munson DO [Active, Gastroenterology]
Prescriptions:
New
prednisone 10 mg tablet
60 mg PO DAILY Qty: 1 0RF
Continued
fenofibrate micronized 200 mg Capsule
200 mg PO QPM
Jardiance 25 mg Tablet
25 mg PO DAILY
Entresto 24-26 mg Tablet
1 tab PO BID
Patient Comments:
no pharmacy fills
repaglinide 2 mg Tablet
2 mg PO BID@1200,1700
aspirin 81 mg Tablet,Chewable
81 mg PO DAILY
ergocalciferol (vitamin D2) 1,250 mcg (50,000 unit) Capsule
1,250 mcg PO PICKARD
insulin glargine U-300 conc [Toujeo Max U-300 SoloStar] 300 unit/mL (3 mL) Insulin Pen
18 unit SC HS
metoprolol succinate [Toprol XL] 25 mg tablet extended release 24 hr
25 mg PO BID Qty: 60 0RF
oxycodone 5 mg tablet
5 mg PO BID PRN (Reason: severe pain) Qty: 10 0RF
atorvastatin 80 mg Tablet
pantoprazole 40 mg Tablet,Delayed Release (Dr/Ec)
PO
sucralfate 1 gram Tablet
1 g PO AC
ondansetron 8 mg Tablet,Disintegrating
8 mg PO Q12H
mesalamine
Changed
insulin aspart U-100 [Novolog FlexPen U-100 Insulin] 100 unit/mL (3 mL) Insulin Pen
12 sliding scale dose SC AC Qty: 0 0RF
Held
psyllium husk [Metamucil] 0.4 gram capsule
0.4 g PO DAILY Qty: 30 0RF
Hold Instructions: Until instructed to retake by physician
Discharge Orders:
Discharge Patient (As Directed); Ordered 10/10/24
Ordered By: Rogers Stringer
Discharge Date and Time
Discharge Date/Time: 10/10/24 12:50
Print Language: JAPANESE
[2024-10-10 11:26] VITALS: BP 105/70
[2024-10-10 11:43] LABS: Glucose - Point of Care 269 mg/dl (70-99)
[2024-10-10] MEDS: NOVOLOG FLEXPEN-LOW RESISTANCE 3 UNITS SC (12:08)
[2024-10-10] MEDS: NOVOLOG FLEXPEN 7 UNITS SC (12:08)
== END 2024-10-10 12:50 | disposition home or self-care (01) | DRG 686 ==
LOC: 2 NORTH 01:42
PROVIDERS: Emergency Medicine; Internal Medicine; ADMITTING PHYSICIAN Hospitalist; ATTENDING PHYSICIAN Internal Medicine; CONSULT PHYSICIAN Internal Medicine; CONSULT PHYSICIAN Internal Medicine Hematology & Oncology; EMERGENCY PHYSICIAN Emergency Medicine; FAMILY PHYSICIAN Internal Medicine
PROC: 0DB68ZX Excision of Stomach, Via Natural or Artificial Opening Endoscopic, Diagnostic (ICD-10-PCS; 2024-10-08)
PROC: 0DBE8ZX Excision of Large Intestine, Via Natural or Artificial Opening Endoscopic, Diagnostic (ICD-10-PCS; 2024-10-08)
PROC: 0DB98ZX Excision of Duodenum, Via Natural or Artificial Opening Endoscopic, Diagnostic (ICD-10-PCS; 2024-10-08)
DX: C64.9 Malignant neoplasm of unspecified kidney, except renal pelvis (principal); E43 Unspecified severe protein-calorie malnutrition; E87.1 Hypo-osmolality and hyponatremia; I50.22 Chronic systolic (congestive) heart failure; K52.9 Noninfective gastroenteritis and colitis, unspecified; K29.70 Gastritis, unspecified, without bleeding; D50.9 Iron deficiency anemia, unspecified; E11.9 Type 2 diabetes mellitus without complications; Z79.84 Long term (current) use of oral hypoglycemic drugs; Z79.4 Long term (current) use of insulin; Z79.899 Other long term (current) drug therapy; I25.10 Atherosclerotic heart disease of native coronary artery without angina pectoris; I48.0 Paroxysmal atrial fibrillation; Z95.810 Presence of automatic (implantable) cardiac defibrillator; Z95.5 Presence of coronary angioplasty implant and graft; Z79.82 Long term (current) use of aspirin; E78.00 Pure hypercholesterolemia, unspecified; N40.0 Benign prostatic hyperplasia without lower urinary tract symptoms; Z68.26 Body mass index [BMI] 26.0-26.9, adult; R59.0 Localized enlarged lymph nodes
CPT/HCPCS: 74240; 74248; 80048; 80053; 82728; 82962; 83540; 83550; 85025; 85027; 85610; 85730; 87045; 87046; 87324; 87427; 87449; 87798; 88305; 88342; 89055; 99285; J2916

== ENCOUNTER → 2024-10-21 11:05 | Outpatient (REF) | payer OTHER, SELFPAY | LOC: RAD 11:05 | PROVIDERS: ATTENDING PHYSICIAN Internal Medicine Hematology & Oncology | DX: C77.5 Secondary and unspecified malignant neoplasm of intrapelvic lymph nodes (principal); D41.11 Neoplasm of uncertain behavior of right renal pelvis; C80.1 Malignant (primary) neoplasm, unspecified; C64.1 Malignant neoplasm of right kidney, except renal pelvis; C77.2 Secondary and unspecified malignant neoplasm of intra-abdominal lymph nodes | CPT/HCPCS: 93971 ==

== ENCOUNTER → 2024-10-24 11:12 | Outpatient (REF) | payer OTHER, SELFPAY ==
[2024-10-24 11:22] LABS: Hematocrit 35.9 % (39.0-52.0); Hemoglobin 11.0 g/dL (13.0-18.0); Mean Corp Hgb Conc. 30.6 g/dL (33.0-37.0); Mean Corpuscular Volume 74.8 fL (80.0-94.0); Platelet Count 278 10^3/uL (130-400); Red Cell Dist. Width 18.6 % (11.5-14.5)
[2024-10-24 11:23] LABS: Nucleated Red Blood Cells % 0 % (-)
== END ==
LOC: CLAB 11:12
PROVIDERS: ATTENDING PHYSICIAN Internal Medicine Hematology & Oncology
DX: C77.5 Secondary and unspecified malignant neoplasm of intrapelvic lymph nodes (principal); D41.11 Neoplasm of uncertain behavior of right renal pelvis; C80.1 Malignant (primary) neoplasm, unspecified; C64.1 Malignant neoplasm of right kidney, except renal pelvis; C77.2 Secondary and unspecified malignant neoplasm of intra-abdominal lymph nodes; D50.0 Iron deficiency anemia secondary to blood loss (chronic); K51.90 Ulcerative colitis, unspecified, without complications
CPT/HCPCS: 36415; 85025

== ENCOUNTER → 2024-11-25 15:04 | Outpatient (REF) | payer OTHER, SELFPAY | LOC: RAD 15:04 | PROVIDERS: ATTENDING PHYSICIAN Internal Medicine; FAMILY PHYSICIAN Internal Medicine | DX: C77.5 Secondary and unspecified malignant neoplasm of intrapelvic lymph nodes (principal); D41.11 Neoplasm of uncertain behavior of right renal pelvis; C80.1 Malignant (primary) neoplasm, unspecified; C64.1 Malignant neoplasm of right kidney, except renal pelvis | CPT/HCPCS: 70491; 71260; 74177; Q9967 ==

== ENCOUNTER 2025-02-05 15:27 | Inpatient (IN) | payer OTHER, SELFPAY ==
[2025-02-05] VITALS (7 sets, daily range): BP systolic 110–140; BP diastolic 68–93; BMI 32.6; BMI 31.1
--- NOTE | 2025-02-05 10:01 | ED.GENMED ---
History of Present Illness
<Damien Xiao PA-C - Last Filed: 02/05/25 14:02>
General
Chief Complaint: Abdominal Symptoms
Source: patient
Exam Limitations: none
Time Seen by Provider: 02/05/25 09:48
History of Present Illness
History of Present Illness:
59-year-old male with history of renal cell cancer stopped his daily chemotherapy about 1 to 2 weeks ago as he thought he was developing symptoms from it. He was developing nausea fluid retention abdominal distention and weight gain. He notes he
has gained 20 pounds in about a week. He notes shortness of breath. He denies chest pain. He denies significant abdominal pain other than a bloated sensation. He notes decreased urine output. No fevers. No other complaints at this time.
Phy Exam
<Damien Xiao PA-C - Last Filed: 02/05/25 14:02>
Physical Exam
Physical Exam:
General: Well-appearing male no acute respiratory distress
HEENT normal cephalic atraumatic
Heart: Regular rate and rhythm no audible rubs
Lungs clear no wheeze or rails abdomen is distended but nontender with fluid wave noted
Extremities significant edema bilateral lower extremities
Skin is warm no rash
Course
<Damien Xiao PA-C - Last Filed: 02/05/25 14:02>
Orders/Labs/Results
Orders:
Orders
02/05/25 09:58
Bladder Scan- Treatment ONCE
CR Chest - 2 Views Urgent
Comment:
Reason For Exam: sob
US Abdomen Complete/Upper Urgent
Comment:
Reason For Exam: distention, history of renal CA
02/05/25 10:19
Complete Blood Count/With Diff Urgent
Comprehensive Metabolic Panel Urgent
PTT Urgent
Prothrombin Time Urgent
02/05/25 11:07
NT-proBNP Urgent
Abnormal Lab Results
02/05/25
10:19
MCHC 31.0 L g/dL
(33.0-37.0)
RDW 18.0 H %
(11.5-14.5)
Absolute Lymphs (auto) 1.1 L 10^3/uL
(1.2-3.4)
Lymphocytes % 16.3 L %
(20.5-51.1)
Sodium 134 L mmol/L
(135-145)
Carbon Dioxide 32 H mmol/L
(22-30)
BUN 21 H mg/dl
(9-20)
Glucose 147 H mg/dl
(70-99)
Total Protein 5.6 L g/dl
(6.3-8.2)
Albumin 3.1 L g/dl
(3.5-5.0)
02/05/25 10:19
02/05/25 10:19
Vital Signs
Initial and Last Documented VS:
Initial Vital Signs
Temp Pulse Resp BP Pulse Ox
98.7 F 90 16 130/87 98
02/05/25 09:10 02/05/25 09:10 02/05/25 09:10 02/05/25 09:10 02/05/25 09:10
Last Documented Vital Signs
Temp Pulse Resp BP Pulse Ox
98.7 F 92 19 132/82 98
02/05/25 09:10 02/05/25 10:30 02/05/25 10:30 02/05/25 10:00 02/05/25 10:30
<Carmenza Martins, DO - Last Filed: 02/05/25 14:23>
Orders/Labs/Results
Orders:
Orders
02/05/25 09:58
Bladder Scan- Treatment ONCE
CR Chest - 2 Views Urgent
Comment:
Reason For Exam: sob
US Abdomen Complete/Upper Urgent
Comment:
Reason For Exam: distention, history of renal CA
02/05/25 10:19
Complete Blood Count/With Diff Urgent
Comprehensive Metabolic Panel Urgent
PTT Urgent
Prothrombin Time Urgent
02/05/25 11:07
NT-proBNP Urgent
Abnormal Lab Results
02/05/25
10:19
MCHC 31.0 L g/dL
(33.0-37.0)
RDW 18.0 H %
(11.5-14.5)
Absolute Lymphs (auto) 1.1 L 10^3/uL
(1.2-3.4)
Lymphocytes % 16.3 L %
(20.5-51.1)
Sodium 134 L mmol/L
(135-145)
Carbon Dioxide 32 H mmol/L
(22-30)
BUN 21 H mg/dl
(9-20)
Glucose 147 H mg/dl
(70-99)
Total Protein 5.6 L g/dl
(6.3-8.2)
Albumin 3.1 L g/dl
(3.5-5.0)
02/05/25 10:19
02/05/25 10:19
Vital Signs
Initial and Last Documented VS:
Initial Vital Signs
Temp Pulse Resp BP Pulse Ox
98.7 F 90 16 130/87 98
02/05/25 09:10 02/05/25 09:10 02/05/25 09:10 02/05/25 09:10 02/05/25 09:10
Last Documented Vital Signs
Temp Pulse Resp BP Pulse Ox
98.7 F 92 19 132/82 98
02/05/25 09:10 02/05/25 10:30 02/05/25 10:30 02/05/25 10:00 02/05/25 10:30
<Damien Xiao PA-C - Last Filed: 02/05/25 14:02>
MDM/Problems Addressed
Differential Diagnosis Includes:
Fluid retention and weight gain. Question medication side effect versus liver dysfunction versus heart failure versus progression of underlying illness.
Check labs. Ultrasound ordered of the abdomen x-ray ordered of the chest.
<Damien Xiao PA-C - Last Filed: 02/05/25 14:02>
*Pulse Oximetry
SaO2: 98
Oxygen Mode of Delivery: Room air
Patient hypoxic: no
*Critical Care Note
Total Time (30-74mins, 75-104mins- exclusive of procedures): Not Applicable
<Damien Xiao PA-C - Last Filed: 02/05/25 14:02>
Update Note
Update Note:
Ultrasound demonstrates ascites with bilateral pleural effusions and known renal mass. Chest x-ray shows pulmonary edema. BNP over 2100. Patient has gained 20 pounds in just over a week. Discussed with emergency room attending. Will admit for
volume overload
ED Attending Note
<Damien Xiao PA-C - Last Filed: 02/05/25 14:02>
-
Portions of this chart may have been created with voice recognition software.� Occasional wrong word or��sound alike� substitutions may have occurred due to the inherent limitations of voice recognition software.
<Carmenza Martins DO - Last Filed: 02/05/25 14:23>
ED Attending Note
Patient seen and examined by attending physician: Yes
I performed the substantive portion of visit, reviewed & personally made and approve the management plan that is documented in note by myself or DAVI.: Yes
I performed a history and physical exam of patient and discussed management with resident, I reviewed resident's note and agree with documented findings and plan of care.: Yes
ED Attending Note:
59-year-old male with prior history of renal cell carcinoma presenting to the emergency department for concern of dyspnea and weight gain. Patient notes that he was recently started on new oral chemotherapeutic agent about 2 months ago. However
medication was stopped 2 weeks ago with concern for fluid retention. He reports that he started to develop nausea, abdominal distention, weight gain. Reports that he has gained about 20 pounds in the past week with associated dyspnea. Denies any
chest pain or fever.
Vital signs on arrival are normal. On exam, patient in no acute respiratory distress. Minimal crackles at the bases of the lungs. Mild abdominal distention without focal reproducible tenderness. Bilateral lower extremity pitting edema. Concern
for volume overloaded state, likely medication reaction. Patient had laboratory analysis obtained prior to my assessment. Labs unremarkable. Patient however also had an ultrasound which shows new ascites and bilateral pleural effusions,
consistent with volume overload. At this time feel patient warrants admission for symptomatic volume overload. Likely plan for diuresis, possible therapeutic paracentesis
Discharge Plan
Departure
Patient Disposition: Admit
Date of Disposition: 02/05/25
Time of Disposition: 14:02
Presentation/result/management discussed w/ accepting MD/DO: Hospitalist
Discharge Problem:
Volume overload
Prescriptions:
No Action
Jardiance 25 mg Tablet
25 mg PO DAILY
repaglinide 2 mg Tablet
2 mg PO AC
aspirin 81 mg Tablet,Chewable
81 mg PO DAILY
ergocalciferol (vitamin D2) 1,250 mcg (50,000 unit) Capsule
1,250 mcg PO TUTH
insulin glargine U-300 conc [Toujeo Max U-300 SoloStar] 300 unit/mL (3 mL) Insulin Pen
20 unit SC HS
atorvastatin 80 mg Tablet
80 mg PO QPM
pantoprazole 40 mg Tablet,Delayed Release (Dr/Ec)
40 mg PO DAILY
bumetanide [Bumex] 2 mg Tablet
2 mg PO DAILY
tamsulosin [Flomax] 0.4 mg Capsule
0.4 mg PO HS
Cabometyx 40 mg Tablet
40 mg PO DAILY
insulin aspart U-100 [Novolog FlexPen U-100 Insulin] 100 unit/mL (3 mL) insulin pen
10 sliding scale dose SC AC
Referrals:
Bandar Jimenez MD [Family Provider, Internal Medicine]
Interventions
Interventions:
*Risk Screen - Suicide Last Done: 02/05/25 09:12
*General Assessment Last Done: 02/05/25 10:05
*Neglect/Abuse Screening Last Done: 02/05/25 09:12
*ED- Fall Risk Assessment Last Done: 02/05/25 10:05
*ED COVID-19 Vaccine History Last Done: 02/05/25 10:05
*ED Influenza Vaccine History Last Done: 02/05/25 10:05
PJ-Lyxhkl-Zyxjaqcdyi Assessment Last Done: 02/05/25 10:05
Discharge Date and Time
Print Language: NAMIBIAN
[2025-02-05 10:32] LABS: Hematocrit 43.2 % (39.0-52.0); Hemoglobin 13.4 g/dL (13.0-18.0); Mean Corp Hgb Conc. 31.0 g/dL (33.0-37.0); Mean Corpuscular Volume 90.0 fL (80.0-94.0); Nucleated Red Blood Cells % 0 % (-); Platelet Count 171 10^3/uL (130-400); Red Cell Dist. Width 18.0 % (11.5-14.5)
[2025-02-05 10:42] LABS: INR 1.01; PT 13.8 Sec (11.4-14.6)
[2025-02-05 10:43] LABS: APTT 29.0 Sec (23.4-35.0)
[2025-02-05 10:49] LABS: ALT (SGPT) 12 U/L (0-50); AST (SGOT) 18 U/L (17-59); Albumin 3.1 g/dl (3.5-5.0); Alkaline Phosphatase 59 U/L (38-126); Blood Urea Nitrogen 21 mg/dl (9-20); Calcium 8.5 mg/dl (8.4-10.2); Carbon Dioxide 32 mmol/L (22-30); Chloride 103 mmol/L (98-107); Estimated Creatinine Clearance 90 ml/min; Glucose 147 mg/dl (70-99); Potassium 4.4 mmol/L (3.5-5.1); Sodium 134 mmol/L (135-145); Total Protein 5.6 g/dl (6.3-8.2); eGFR > 60.00
--- NOTE | 2025-02-05 14:05 | HPS.HSE ---
Addendum entered and electronically signed by Hieu Kulkarni MD 02/05/25 16:43:
This is an addendum to H&P written by Aury Juarez on 02/05/2025. �Patient seen and examined independently with HUMAN RELATIONS MANAGER.
59-year-old male past medical history of type 2 diabetes, renal cell carc on chemotherapy, iron deficiency anemia, CAD, Afib, chronic HFrEF, hyponatremia, presenting with nausea, fluid retention with abdominal distention and weight gain. �He gained
20 pounds in 1 week. �He has shortness of breath and increased lower extremity inomaedema. �Denies chest pain. �Denies abdominal pain. �He has decreased urine output. �No fever.
Started new chemotherapy 2 months ago cabozantinib and stopped taking all of his medications 2 weeks ago including Bumex which she takes as needed and diabetic medications.
Vital signs unremarkable. �Bladder scan protocol revealed 800 cc but 50 cc urine came out.
Labs show cardiac BNP of 2100.
Abdominal ultrasound shows small amount of intraperitoneal ascites, largest pocket within the right lower quadrant measuring 9 x 8.5 x 6.6 cm. �Bilateral pleural effusions. �Solid mass in the mid pole of the right kidney measuring 4.8 cm.
Chest x-ray pending.
Patient with volume overload/ascites/bilateral pleural effusions likely secondary to cabozantinib which is a known side effect versus CHF related to chemotherapy.
Bumex 2 mg IV daily. �Check I's and O's, bladder scan protocol. �Consider thoracentesis. �Check echocardiogram, cardiology consulted. �Hold diabetic medications for now, insulin sliding scale.
Original Note:
Family Physician
-
Family Physician: Bandar Jimenez MD
Chief Complaint
-
abdominal bloating and exertional dyspnea
History of Present Illness
Patient is a 59-year-old male with past medical history significant for ASCVD, chronic HFrEF, paroxysmal atrial fibrillation, DM-II and CKD III who presented to [facility] ED for evaluation of abdominal bloating and exertional dyspnea. Patient reports
that he has had abdominal bloating slowly increasing over the past 2 weeks with exertional dyspnea. Stating he can not take another ounce in because of the discomfort. Patient reports minimal urine output over the past week. He has had nausea and
vomiting in the mornings since starting new chemo medication approximately 2 months ago. He stated that he stopped all his medications approximately 1-2 weeks ago thinking it would help him feel better. Denies fever, chills, cough, chest pain,
palpitations, constipation or diarrhea.
Medical History
Past Medical History
Past Medical History: Reports Other
Additional Past Medical History:
ASCVD
Chronic HFrEF
Paroxysmal Atrial Fibrillation
DM-II
CKD III
Past Surgical History: Reports Other
Additional Past Surgical History:
PTCA with Stent
AICD Placement
Renal Biopsy
Social History
Tobacco: Non-smoker
Alcohol: None
Drug: None
Family History
Family History: Not pertinent
Allergies / Home Medications
Allergies reflects when Allergies were last updated in [employer].
Home Medications with original date entered in [employer]
Allergy/Medication List:
Allergies
Allergy/AdvReac Type Severity Reaction Status Date / Time
No Known Allergies Allergy Verified 02/05/25 09:12
Home Medications
empagliflozin 25 mg tablet (Jardiance) 25 mg PO DAILY Diabetes 06/23/24
aspirin 81 mg chewable tablet 81 mg PO DAILY Blood Clot Prevention/Tx 09/24/24
ergocalciferol (vitamin D2) 1,250 mcg (50,000 unit) capsule 1,250 mcg PO TUTH Supplement 09/24/24
insulin glargine U-300 conc 300 unit/mL (3 mL) subcutaneous pen (Toujeo Max U-300 SoloStar) 20 unit SC HS Diabetes 09/24/24
repaglinide 2 mg tablet 2 mg PO AC Diabetes 09/24/24
atorvastatin 80 mg tablet 80 mg PO QPM High Cholesterol 10/06/24
pantoprazole 40 mg tablet,delayed release 40 mg PO DAILY gerd 10/06/24
bumetanide 2 mg tablet 2 mg PO DAILY Fluid Retention/Swelling 02/05/25
cabozantinib 40 mg tablet (Cabometyx) 40 mg PO DAILY 02/05/25
insulin aspart U-100 100 unit/mL (3 mL) subcutaneous pen (Novolog FlexPen U-100 Insulin aspart) 10 sliding scale dose SC AC Diabetes 02/05/25
tamsulosin 0.4 mg capsule (Flomax) 0.4 mg PO HS Urinary Issue 02/05/25
Review of Systems
-
History Source: Patient
Constitutional: Reports Weight Gain (20 pounds ); Denies Fever or Chills
EENT: Denies Sore Throat
Respiratory: Reports Trouble Breathing (exertional dyspnea ); Denies Cough or Hemoptysis
Cardiac: Denies Chest Pain or Palpitations
Abdomen/GI: Reports Other (abdominal bloating and distention ); Denies Abdominal Pain, Nausea, Vomiting or Diarrhea
: Reports Difficulty Voiding (voiding only small amounts ); Denies Dysuria, Frequency or Urgency
Skin: Denies Rash
Neurological: Denies Dizzy, Headache, Weakness or Numbness
Endocrine: Denies Polyuria or Polydipsia
Hematologic/Lymphatic: Denies Bleeding
Physical Exam
Vital Signs
Vital Signs
Temp Pulse Resp BP Pulse Ox
98.7 F 92 19 132/82 98
02/05/25 09:10 02/05/25 10:30 02/05/25 10:30 02/05/25 10:00 02/05/25 10:30
Physical Exam
General: Well Developed, Well Nourished, Comfortable and Conversant
HEENT: NormoCephalic, PERRLA, Nose Appears Normal and Ears Appear Normal
Respiratory: Clear and Non Labored Respirations
Cardiac: S1/S2, Regular Rhythm and Peripheral Edema (mild BLLE edema ); No Murmur
GI: Soft, Non Tender, Normal Bowel Sounds and Distended
Musculoskeletal: No Clubbing and No Cyanosis
Skin: Warm and IV/Catheter Site
Neuro: Awake and AO x 3
Psych: Calm
Laboratory Results
-
02/05/25 10:19
02/05/25 10:19
Laboratory Results
PT 13.8 Sec (11.4-14.6) 02/05/25 10:19
INR 1.01 02/05/25 10:19
APTT 29.0 Sec (23.4-35.0) 02/05/25 10:19
APTT Cancelled 02/05/25 10:19
Total Bilirubin 1.0 mg/dl (0.2-1.3) 02/05/25 10:19
AST 18 U/L (17-59) 02/05/25 10:19
ALT 12 U/L (0-50) 02/05/25 10:19
Alkaline Phosphatase 59 U/L (38-126) 02/05/25 10:19
Data Reviewed
-
Ultrasound: Report Reviewed by me (Abd: 1. Small amount of intraperitoneal ascites. Largest pocket is within the right lower quadrant, measuring 9.1 x 8.5 x 6.6 cm. 2. Bilateral pleural effusions. 3. Solid mass within the midpole of the right
kidney, measuring 4.8 cm in diameter, likely corresponding to the patient's known renal cell)
Lab Data: Labs Reviewed by me (pBNP 2169)
Impression/Plan
-
IMPRESSION/PLAN:
#fluid overload likely 2/2 cabozantinib (known side effect)
pBNP 2169
CXR: Findings suggestive of mild central pulmonary vascular congestion.
ABD US: 1. Small amount of intraperitoneal ascites. Largest pocket is within the right lower quadrant, measuring 9.1 x 8.5 x 6.6 cm.
2. Bilateral pleural effusions.
3. Solid mass within the midpole of the right kidney, measuring 4.8 cm in diameter, likely corresponding to the patient's known renal cell carcinoma.
- Admit to telemetry
- IV Bumex 2mg
- consider thoracentesis
#Acute on Chronic HFrEF
- daily weights
- I & Os
- IV Bumex 2mg daily
- Consult cardiology
- ECHO
#renal cell carcinoma
Patient follows at [place], Dr. Vu
- hold cabozantinib as patient has not been taking
#left eye stye
- warm compress PRN
#ASCVD
- continue aspirin and atorvastatin
#Paroxysmal Atrial Fibrillation
#DM-II
- AccuCheck AC & HS
- SSI
- hold insulin glargine, Jardiance and repaglinide as patient has not been taking
#CKD III
BUN 21, creat 1.0, est CrCl 90, eGFR >60.00
- stable, monitor BMP
Code status: full code
DVT prophylaxis: Lovenox sq
--- NOTE | 2025-02-05 15:22 | CON.CAR ---
Addendum entered and electronically signed by Manuel Parker MD 02/05/25 17:31:
I saw and examined the patient independently and performed majority of MDM.
The FILTERER's note was reviewed and I agree with the note with changes/additions below.
Comment: 59 yo male chronic HFrEF, ICM EF 15-20% admitted with 20lb weight gain.No chest pain. Exam with RRR, no murmurs, distended abdomen, trace LE edema. Cr 1.0. Tele: sinus 80s.
Acute on chronic HFrEF. Severe, requiring IV lasix and close monitoring of labs and tele. Was only taking bumex as needed at home. Start lasix 40mg IV bid.
ICM EF 15-20%. Echo. Add back GDMT as tolerated.
Original Note:
Consultation
Consultation Request
Date/Time Consultation Requested: 02/05/25 1517
Date/Time Consultation Performed: 02/05/25 1530
Requesting Provider: Shirin Juarez FILTERER
Performing Provider: Alicja BECKETT for Dr. Parker
Reason for Consultation: CHF
Medical History
-
Chief Complaint: abdominal distension
History of Present Illness:
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 He was started on a
chemotherapy agent (cabometyx) about 2.5 months ago and since then has been having issues with nausea, vomiting, abdominal distension, and weight gain. His oncologist had him hold off on it for the past two weeks, but symptoms continued. He reports
a 20 lb weight gain over the week. He does have some SHIN. He is in no distress at the time of my assessment. He started taking bumex, which he only uses PRN over the past few days, but it did not help. Notably, when we saw him last, he was on GDMT
with Entresto and spironolactone, and we added metoprolol. He is not on any of those now. He does not think he has had any issues, they just 'fell off' he thinks.
Past Medical History
Past Medical History: CAD, Cancer, CHF and NIDDM
Social History
Tobacco: Non-Smoker
Alcohol: None
Family History
Family History: Reviewed & Not Pertinent
Allergies / Home Medications
Allergy/AdvReac Type Severity Reaction Status Date / Time
No Known Allergies Allergy Verified 02/05/25 09:12
�Medication �Instructions �Recorded �Confirmed �Type
empagliflozin 25 mg tablet 25 mg PO DAILY Diabetes 06/23/24 02/05/25 History
(Jardiance)
aspirin 81 mg chewable tablet 81 mg PO DAILY Blood Clot 09/24/24 02/05/25 History
Prevention/Tx
ergocalciferol (vitamin D2) 1,250 1,250 mcg PO TUTH Supplement 09/24/24 02/05/25 History
mcg (50,000 unit) capsule
insulin glargine U-300 conc 300 20 unit SC HS Diabetes 09/24/24 02/05/25 History
unit/mL (3 mL) subcutaneous pen
(Toujeo Max U-300 SoloStar)
repaglinide 2 mg tablet 2 mg PO AC Diabetes 09/24/24 02/05/25 History
atorvastatin 80 mg tablet 80 mg PO QPM High Cholesterol 10/06/24 02/05/25 History
pantoprazole 40 mg tablet,delayed 40 mg PO DAILY gerd 10/06/24 02/05/25 History
release
bumetanide 2 mg tablet 2 mg PO DAILY Fluid 02/05/25 02/05/25 History
Retention/Swelling
cabozantinib 40 mg tablet 40 mg PO DAILY 02/05/25 02/05/25 History
(Cabometyx)
insulin aspart U-100 100 unit/mL 10 sliding scale dose SC AC 02/05/25 02/05/25 History
(3 mL) subcutaneous pen (Novolog Diabetes
FlexPen U-100 Insulin aspart)
tamsulosin 0.4 mg capsule (Flomax) 0.4 mg PO HS Urinary Issue 02/05/25 02/05/25 History
Review of Systems
-
History Source: Patient
Constitutional: Weight Gain
Respiratory: Trouble Breathing
Abdomen/GI: Nausea, Vomiting and Other (abdominal distention)
Physical Exam
Vital Signs
Temp Pulse Resp BP Pulse Ox
98.7 F 90 22 117/76 95
02/05/25 09:10 02/05/25 15:11 02/05/25 15:11 02/05/25 15:06 02/05/25 15:11
Lab Results
02/05/25 10:19
02/05/25 10:19
Pga-H-Hnlypqdmlvs Pept 2170 pg/ml 02/05/25 11:07
Physical Exam
General: Well Developed, Well Nourished and No Apparent Distress
HEENT: Normocephalic and Anicteric
Respiratory: Crackles (b/l bases) and Non Labored Respirations
Cardiac: Regular Rhythm
GI: Distended
Musculoskeletal: Edema (mild BLE edema)
Skin: Warm and Dry
Neuro: AO x 3
Psych: Calm
Impression / Plan
-
Zpwnz-ce-Zuczhbq HFrEF:
-severe, requiring hospitalization
-most recent echo available noted EF 15-20%- see below- will update
-IV diuresis, which requires intensive monitoring. Of note, only takes PRN Bumex as OP.
-on Jardiance. Was formerly on metoprolol, Entresto, and spironolactone- does not think he had trouble with these meds and thinks they just 'fell off'- will try and layer back on this admit. Needs to follow-up with his cardiologists as OP.
-Hx BS SQ ICD- should follow-up with his OP device clinic
CAD with hx IA/stenting:
-stable without CP
-continue ASA and statin
Renal cell carcinoma:
-follows with oncology
Nausea/vomiting:
-per primary
Data Reviewed
-
EKG: Tracing Personally Visualized and interpreted (NSR with RBBB 87 BPM)
Radiology: Report Reviewed by me (CXR: Findings suggestive of mild central pulmonary vascular congestion.)
Ultrasound: Report Reviewed by me (Small amount of intraperitoneal ascites. Largest pocket is within the right lower quadrant, measuring 9.1 x 8.5 x 6.6 cm. 2. Bilateral pleural effusions. 3. Solid mass within the midpole of the right kidney,
measuring 4.8 cm in diameter, likely corresponding to the patient's known renal cell carcin)
Medical Tests (Nuc Med, Echo etc): Report Reviewed by me (echo report 11/20/23: EF 15-20%, anteroseptal and apical akinesis, severe global hypokinesis, grade II DD, mild MR, mildly increased RV function, mild TR)
Labs: Labs Reviewed by me
[2025-02-05] MEDS: LASIX 40 MG IV (17:35)
[2025-02-05] MEDS: LIPITOR 80 MG PO (17:36)
[2025-02-05] MEDS: ALDACTONE 25 MG PO (17:36)
[2025-02-05] MEDS: LOVENOX 40 MG SC (17:37)
--- NOTE | 2025-02-05 17:44 | PTCARENOTE ---
pt new admission from ED via stretcher. pt is AAO*3, Vss, room air. pt denies any pain or sob. HF packet provided. pt is oriented to the room. call tyler within the reach. plan of care ongoing.
[2025-02-05] MEDS: FLOMAX 0.4 MG PO (20:26)
[2025-02-06 03:46] VITALS: BP 104/65
[2025-02-06 06:00] VITALS: BMI 30.9
[2025-02-06 07:00] VITALS: BP 111/74
[2025-02-06 07:23] LABS: Blood Urea Nitrogen 22 mg/dl (9-20); Calcium 8.4 mg/dl (8.4-10.2); Carbon Dioxide 31 mmol/L (22-30); Chloride 101 mmol/L (98-107); Estimated Creatinine Clearance 88 ml/min; Glucose 157 mg/dl (70-99); Potassium 4.2 mmol/L (3.5-5.1); Sodium 133 mmol/L (135-145); eGFR > 60.00
--- NOTE | 2025-02-06 08:16 | W.PN.CD ---
Today's Communication / Plan
-
Increase lasix to 80 bid
Add farxiga and metop
Consider Entresto tomorrow
Impression / Plan
-
Xwkus-xk-Epjglwz HFrEF:
-severe, requiring hospitalization
-most recent echo available noted EF 15-20%- see below- will update
-IV diuresis, which requires intensive monitoring. Of note, only takes PRN Bumex as OP.
-GDMT: Was formerly on metoprolol, Entresto, and spironolactone- does not think he had trouble with these meds and thinks they just 'fell off'- will try and layer back on this admit. Needs to follow-up with his cardiologists as OP.
- add farxiga today --> TOOK JARDIANCE at home
- add metop today
- if BP OK low-dose Entresto tomorrow
-Hx BS SQ ICD- should follow-up with his OP device clinic
CAD with hx GA/stenting:
-stable without CP
-continue ASA and statin
Renal cell carcinoma:
-follows with oncology
Nausea/vomiting:
-per primary
Subjective: abdominal bloating
Physical Exam
Vital Signs/Labs
Vital Signs
Temp Pulse Resp BP Pulse Ox
98 F 85 16 111/74 97
02/06/25 07:00 02/06/25 07:00 02/06/25 07:00 02/06/25 07:00 02/06/25 07:00
02/05/25 02/06/25 02/07/25
06:59 06:59 06:59
Actual Weight 209 lb 3 oz
02/05/25 10:19
02/06/25 06:34
PT 13.8 Sec (11.4-14.6) 02/05/25 10:19
INR 1.01 02/05/25 10:19
APTT 29.0 Sec (23.4-35.0) 02/05/25 10:19
APTT Cancelled 02/05/25 10:19
02/05/25
11:07
Ojj-Z-Bbesugpwdra Pept 2170
Physical Exam
Constitutional: No acute distress
EENT: Anicteric
Cardiovascular: Rhythm & rate is regular and Pedal edema present
Respiratory: Respiratory effort normal and Crackles Present
GI: Soft
Neuro/Psych: AO x 3
Data Reviewed
-
Date of Service: February 06, 2025
EKG: Tracing Personally Visualized and interpreted (sr)
Echo: Report Reviewed by me
Labs: Labs Reviewed by me
--- NOTE | 2025-02-06 08:42 | CON.ONC ---
Documented by User: SUJIT Sam 02/06/25 12:14
Consultation
-
Date Consultation Requested: 02/06/25
Date Consultation Performed: 02/06/25
Requesting Provider: Dr. Miles Damon
Performing Provider: Dr. Sherwin Mccoy
Reason for Consultation: RCC
Impression
Impression
a/w acute on chronic HFrEF
Renal cell carcinoma on Cabometyx x 2 months, however, held for the past 2 weeks d/t n/v, edema, and abdominal distention
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
pain management
continue to hold Cabometyx until OP follow up with Dr. Vu
Plan
Plan
HFrEF per cardiology
continue to hold Cabometyx until OP follow up with Dr. Vu
Patient History
History of Present Illness
59-year-old male with metastatic renal cell carcinoma on Cabometyx who presents with nausea, peripheral edema, 20lb weight gain, and abdominal distention. His symptoms have not improved since holding his Cabometyx for the past 2 weeks. His CBC and
shows no significant abnormalities. His BMP is 2170. His ab US showed Small amount of intraperitoneal ascites, Bilateral pleural effusions, and known right RCC. CXR showed mild central pulmonary vascular congestion. He has been admitted for
management of acute on chronic HFrEF, ICM EF 15-20%. Echo pending.
In brief, he was initially diagnosed with RCC June 2024. Staging with a PET CT showed hypermetabolic right renal mass and adenopathy involving the retroperitoneum, posterior mediastinum, and left supraclavicular region. His CT CAP September 24, 2024 was
suspicious for pseudo progression in the setting of starting immunotherapy 07/31/2024. His immunotherapy course was complicated by endocrinopathy with a low TSH and diarrhea. He was hospitalized in October 2024 and treated with steroid for immune
mediated colitis. He did not have an adequate response to steroids so has been receiving Remicade since November 2024.
Afebrile, no hypoxia or hypotension.
Past-Medical/Surgical History
PMH CAD, chronic heart failure reduced ejection fraction, type 2 diabetes, BPH, renal cell carcinoma
PSH cyst removal 2023, Defibulation 2023
Social never smoker, denies ETOH or recreational drug use. 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 Lives with significant other
Family non contributory
Patient Medication
�Medication �Instructions �Recorded �Confirmed �Last Taken �Type
empagliflozin 25 mg tablet 25 mg PO DAILY Diabetes 06/23/24 02/05/25 7 Days Ago History
(Jardiance) ~01/29/25
aspirin 81 mg chewable tablet 81 mg PO DAILY Blood Clot 09/24/24 02/05/25 7 Days Ago History
Prevention/Tx ~01/29/25
ergocalciferol (vitamin D2) 1,250 1,250 mcg PO TUTH Supplement 09/24/24 02/05/25 09/29/24 History
mcg (50,000 unit) capsule
insulin glargine U-300 conc 300 20 unit SC HS Diabetes 09/24/24 02/05/25 02/04/25 History
unit/mL (3 mL) subcutaneous pen
(Toujeo Max U-300 SoloStar)
repaglinide 2 mg tablet 2 mg PO AC Diabetes 09/24/24 02/05/25 7 Days Ago History
~01/29/25
atorvastatin 80 mg tablet 80 mg PO QPM High Cholesterol 10/06/24 02/05/25 7 Days Ago History
~01/29/25
pantoprazole 40 mg tablet,delayed 40 mg PO DAILY gerd 10/06/24 02/05/25 7 Days Ago History
release ~01/29/25
bumetanide 2 mg tablet 2 mg PO DAILY Fluid 02/05/25 02/05/25 7 Days Ago History
Retention/Swelling ~01/29/25
cabozantinib 40 mg tablet 40 mg PO DAILY 02/05/25 02/05/25 7 Days Ago History
(Cabometyx) ~01/29/25
insulin aspart U-100 100 unit/mL 10 sliding scale dose SC AC 02/05/25 02/05/25 02/04/25 History
(3 mL) subcutaneous pen (Novolog Diabetes
FlexPen U-100 Insulin aspart)
tamsulosin 0.4 mg capsule (Flomax) 0.4 mg PO HS Urinary Issue 02/05/25 02/05/25 7 Days Ago History
~01/29/25
Active Medications
Generic Name Dose Route Start Last Admin
Trade Name Freq PRN Reason Stop Dose Admin
Aspirin 81 mg 02/06/25 08:00
Aspirin 81 Mg Chewable Tablet PO 03/06/25 07:59
DAILY RAYMOND
Atorvastatin Calcium 80 mg 02/05/25 18:00 02/05/25 17:36
Atorvastatin (Lipitor) 80 Mg Tablet PO 03/05/25 17:59 80 mg
QPM RAYMOND Administration
Enoxaparin Sodium 40 mg 02/05/25 18:00 02/05/25 17:37
Enoxaparin Sodium 40 Mg/0.4 Ml Syringe SC 03/05/25 17:59 40 mg
QPM RAYMOND Administration
Furosemide 40 mg 02/05/25 17:00 02/05/25 17:35
Furosemide 40 Mg (10 Mg/Ml) 4 Ml Vial IV 03/05/25 16:59 40 mg
BID AT 0800,1600 RAYMOND Administration
Ondansetron HCl 4 mg 02/05/25 16:24
Ondansetron 4 Mg/2 Ml Vial IV 03/05/25 16:23
Q6HPRN PRN
NAUSEA/VOMITING
Pantoprazole Sodium 40 mg 02/06/25 08:00
Pantoprazole 40 Mg Delayed Release Tablet PO 03/06/25 07:59
DAILY RAYMOND
Sodium Chloride 0 flush 02/05/25 17:00
Sodium Chloride 0.9% (Flush) Syringe IV 03/05/25 16:59
PER PROTOCOL RAYMOND
Spironolactone 25 mg 02/05/25 17:00 02/05/25 17:36
Spironolactone 25 Mg Tablet PO 03/05/25 16:59 25 mg
DAILY RAYOMND Administration
Tamsulosin HCl 0.4 mg 02/05/25 22:00 02/05/25 20:26
Tamsulosin 0.4 Mg Capsule PO 03/05/25 21:59 0.4 mg
HS RAYMOND Administration
Review of Systems
-
ROS is notable for HPI, otherwise negative
Physical Exam
-
General: Well Developed, No Apparent Distress and Comfortable
Cardiology: Normal Sinus Rhythm, S1 and S2
Pulmonary: diminished b/l bases
GI: Soft; Negative Distended
Skin: Warm and Dry
Psych: Calm and Intact Judgement/Insight
Labs
Lab Results
WBC 6.6 10^3/uL (4.8-10.8) 02/05/25 10:19
RBC 4.80 10^6/uL (4.70-6.10) 02/05/25 10:19
Hgb 13.4 g/dL (13.0-18.0) 02/05/25 10:19
Hct 43.2 % (39.0-52.0) 02/05/25 10:19
MCV 90.0 fL (80.0-94.0) 02/05/25 10:19
MCH 27.9 pg (27.0-31.0) 02/05/25 10:19
MCHC 31.0 g/dL (33.0-37.0) L 02/05/25 10:19
RDW 18.0 % (11.5-14.5) H 02/05/25 10:19
Plt Count 171 10^3/uL (130-400) 02/05/25 10:19
MPV 9.3 fL (7.4-10.4) 02/05/25 10:19
Abs Immat Gran (auto) 0.0 10^3/uL (0-0.05) 02/05/25 10:19
Absolute Neuts (auto) 4.6 10^3/uL (1.4-6.5) 02/05/25 10:19
Absolute Lymphs (auto) 1.1 10^3/uL (1.2-3.4) L 02/05/25 10:19
Absolute Monos (auto) 0.5 10^3/uL (0.1-0.6) 02/05/25 10:19
Absolute Eos (auto) 0.3 10^3/uL (0-0.7) 02/05/25 10:19
Absolute Basos (auto) 0.1 10^3/uL (0-0.2) 02/05/25 10:19
Immature Gran % 0.5 % (0-0.5) 02/05/25 10:19
Neutrophils % 69.8 % (42.2-75.2) 02/05/25 10:19
Lymphocytes % 16.3 % (20.5-51.1) L 02/05/25 10:19
Monocytes % 7.9 % (1.7-9.3) 02/05/25 10:19
Eosinophils % 4.7 % (0-6) 02/05/25 10:19
Basophils % 0.8 % (0-2) 02/05/25 10:19
Creatinine 1.0 mg/dL (0.7-1.3) 02/06/25 06:34
Vital Signs
Vital Signs
Temp Pulse Resp BP Pulse Ox
98 F 85 16 111/74 97
02/06/25 07:00 02/06/25 07:00 02/06/25 07:00 02/06/25 07:00 02/06/25 07:00

Documented by User: Sherwin Mccoy MD 02/06/25 13:33
Plan
Plan
HFrEF per cardiology
continue to hold Cabometyx until OP follow up with Dr. Vu
Oncology Addendum:
Patient seen and evaluated and agree w/ SAW SUPERINTENDENT note and plan as outlined
-renal cell carcinoma - cabometyx on hold
-heart failure management as per cardiology
f/u w/ med onc - Dr. Vu as outpt
[2025-02-06] MEDS: ALDACTONE 25 MG PO (09:00)
[2025-02-06] MEDS: LASIX 40 MG IV (09:00)
[2025-02-06] MEDS: FLUSH (NSS) 2 FLUSH IV (09:01)
[2025-02-06] MEDS: PROTONIX 40 MG PO (09:01)
[2025-02-06] MEDS: LOW STRENGTH ASPIRIN 81 MG PO (09:01)
--- NOTE | 2025-02-06 09:32 | W.PN.HOSP.TC ---
Today's Communication/Plan
-
IV diuretics
f/w cardiology recommendations
Echo
Assessment / Plan
Assessment / Plan
Physical Exam
General: Well Developed, Well Nourished, Comfortable and Conversant
HEENT: NormoCephalic, PERRLA, Nose Appears Normal and Ears Appear Normal
Respiratory: Clear and Non Labored Respirations
Cardiac: S1/S2, Regular Rhythm and Peripheral Edema (mild BLLE edema ); No Murmur
GI: Soft, Non Tender, Normal Bowel Sounds and Distended
Musculoskeletal: No Clubbing and No Cyanosis
Skin: Warm and IV/Catheter Site
Neuro: Awake and AO x 3
Psych: Calm
#Lysuc-qn-Qiushbp HFrEF:
He still feels bloated
No son while sitting but exertional
No chest pain
c/w IV Lasix
f/w echo
will titrate up medications for GDMT for HF as BP/ renal function tolerate
Appreciate cardiology help
#renal cell carcinoma
Patient follows at [place], Dr. Vu
- hold cabozantinib as patient has not been taking
Consult oncology
# hyponatremia
mild, no confusion
#CAD
No chest pain
- continue aspirin and atorvastatin
# Paroxysmal Atrial Fibrillation
#DM-II
- AccuCheck AC & HS
- SSI
- hold insulin glargine, Jardiance and repaglinide as patient has not been taking
#CKD IIIb
BUN 21, creat 1.0, est CrCl 90, eGFR >60.00
- stable, monitor BMP
Code status: full code
DVT prophylaxis: Lovenox sq
Total time spent to see the patient, examine the patient, review data and lab results, discuss treatment plan with patient, nursing staff around 55 minutes
Anticipated Discharge: > 48 hours
Subjective/Interval History
-
Date of Service: February 06, 2025
No chest pain
no sob
He feels bloated
Objective Data
-
Labs:
Laboratory Results
02/06/25
06:34
Sodium 133 L
Potassium 4.2
Chloride 101
Carbon Dioxide 31 H
BUN 22 H
Creatinine 1.0
Glucose 157 H
Calcium 8.4
Vital Signs:
Vital Signs
Temp Pulse Resp BP Pulse Ox
98 F 85 16 111/74 97
02/06/25 07:00 02/06/25 09:00 02/06/25 07:00 02/06/25 09:00 02/06/25 07:00
I&O
02/05/25 02/06/25 02/07/25
06:59 06:59 06:59
Output Total 750 / 750
Balance -750 / -750
[2025-02-06] MEDS: TOPROL XL 50 MG PO (10:55)
[2025-02-06] MEDS: FARXIGA 10 MG PO (10:56)
[2025-02-06 11:05] VITALS: BP 110/73
[2025-02-06 15:00] VITALS: BP 101/64
[2025-02-06] MEDS: LASIX 80 MG IV (15:49)
--- NOTE | 2025-02-06 16:13 | CM ---
IA completed. Met with pt at bedside. Reviewed chart. Pt lives in 2 story home with 2 steps at the entrance. Lives with his . Independent in ADLs and IADLs. No hx of DME, home O2, SNF or HH. No insecurities identified. Confirmed PCP, RX,
insurance and drug plan.
PCP: Bandar Roach
RX: [facility]
Plan: HOme with no needs
[2025-02-06] MEDS: LOVENOX 40 MG SC (18:12)
[2025-02-06] MEDS: LIPITOR 80 MG PO (18:12)
[2025-02-06 19:38] VITALS: BP 104/65
[2025-02-06] MEDS: FLOMAX 0.4 MG PO (19:46)
[2025-02-06 23:07] VITALS: BP 105/62
[2025-02-07 04:00] VITALS: BP 98/70
[2025-02-07 06:00] VITALS: BMI 30.6
[2025-02-07 06:53] LABS: Blood Urea Nitrogen 25 mg/dl (9-20); Calcium 8.5 mg/dl (8.4-10.2); Carbon Dioxide 34 mmol/L (22-30); Chloride 100 mmol/L (98-107); Estimated Creatinine Clearance 73 ml/min; Glucose 170 mg/dl (70-99); Magnesium 1.9 mg/dl (1.6-2.3); Potassium 4.9 mmol/L (3.5-5.1); Sodium 136 mmol/L (135-145); eGFR > 60.00
[2025-02-07 07:43] VITALS: BP 92/64
[2025-02-07 08:17] LABS: Glucose - Point of Care 217 mg/dl (70-99)
--- NOTE | 2025-02-07 09:29 | W.PN.HOSP.TC ---
Today's Communication/Plan
-
- Resume insulin glargine, pre-meal insulin.
IV Lasix. Seems challenging to use GDMT with low BP
Assessment / Plan
Assessment / Plan
Physical Exam
General: Well Developed, Well Nourished, Comfortable and Conversant
HEENT: NormoCephalic, PERRLA, Nose Appears Normal and Ears Appear Normal
Respiratory: Clear and Non Labored Respirations
Cardiac: S1/S2, Regular Rhythm and Peripheral Edema (mild BLLE edema ); No Murmur
GI: Soft, Non Tender, Normal Bowel Sounds and still Distended
Musculoskeletal: No Clubbing and No Cyanosis
Skin: Warm and IV/Catheter Site
Neuro: Awake and AO x 3
Psych: Calm
#Kicfp-ed-Rvjhhcw HFrEF:
He still feels less bloated
No SOB while sitting but exertional
No chest pain
c/w IV Lasix. Lost weight since admission.
Echo 02/06 showed LVEF 15 to 20%, mild to moderate TR, estimated PAP 41 mmHg.
will titrate up medications for GDMT for HF as BP/ renal function tolerate.
Appreciate cardiology help
#renal cell carcinoma
Patient follows at [place], Dr. Vu
- hold cabozantinib as patient has not been taking
Consulted oncology : continue to hold Cabometyx until OP follow up with Dr. Vu
# hyponatremia
mild, no confusion
#CAD
No chest pain
- continue aspirin and atorvastatin
# Paroxysmal Atrial Fibrillation
#DM-II
- AccuCheck AC & HS
- SSI
- Resume insulin glargine, pre-meal insulin.
#CKD IIIb
monitor BMP while on IV Lasix.
Code status: full code
DVT prophylaxis: Lovenox sq
Total time spent to see the patient, examine the patient, review data and lab results, discuss treatment plan with patient, nursing staff around 55 minutes
Anticipated Discharge: > 48 hours
Subjective/Interval History
-
Date of Service: February 07, 2025
No chest pain
No sob, he feels better, less bloated/ abd distension
Objective Data
-
Labs:
Laboratory Results
02/07/25
05:32
Sodium 136
Potassium 4.9
Chloride 100
Carbon Dioxide 34 H
BUN 25 H
Creatinine 1.2
Glucose 170 H
Calcium 8.5
Vital Signs:
Vital Signs
Temp Pulse Resp BP Pulse Ox
98.6 F 80 16 92/64 92
02/07/25 07:43 02/07/25 07:43 02/07/25 07:43 02/07/25 07:43 02/07/25 07:43
I&O
02/06/25 02/07/25 02/08/25
06:59 06:59 05:59
Intake Total 1260 / 1260
Output Total 750 / 750 2900 / 2900
Balance -750 / -750 -1640 / -1640
[2025-02-07] MEDS: LOW STRENGTH ASPIRIN 81 MG PO (09:50)
[2025-02-07] MEDS: FARXIGA 10 MG PO (09:50)
[2025-02-07] MEDS: ALDACTONE PO (10:22)
[2025-02-07] MEDS: LASIX 80 MG IV ×2 (10:30→17:22)
[2025-02-07 11:00] VITALS: BP 106/70
[2025-02-07 11:00] LABS: Glucose - Point of Care 185 mg/dl (70-99)
[2025-02-07] MEDS: NOVOLOG FLEXPEN-MODERATE RESISTANCE 1 UNITS SC ×2 (12:49→17:25)
[2025-02-07] MEDS: PROTONIX 40 MG PO (12:49)
[2025-02-07] MEDS: NOVOLOG FLEXPEN 10 UNITS SC ×2 (12:49→17:24)
--- NOTE | 2025-02-07 14:40 | W.PN.CD ---
Today's Communication / Plan
-
SOB improving. Patient with abdominal distention but only a small amoun tof ascites by US
Continue diuresis and montior renal function
Impression / Plan
-
Hmmdn-me-Ouodmmi HFrEF:
-severe, requiring hospitalization
-most recent echo available noted EF 15-20%- see below- will update
-IV diuresis, which requires intensive monitoring. Of note, only takes PRN Bumex as OP.
-GDMT: Was formerly on metoprolol, Entresto, and spironolactone- does not think he had trouble with these meds and thinks they just 'fell off'- will try and layer back on this admit. Needs to follow-up with his cardiologists as OP.
- add farxiga today --> TOOK JARDIANCE at home
- add metop today
- BP limitting addtion of Entresto at this time
-Hx BS SQ ICD- should follow-up with his OP device clinic
abdmoinal distension
US abdomen with small amount of ascities
CAD with hx KS/stenting:
-stable without CP
-continue ASA and statin
Renal cell carcinoma:
-follows with oncology
Physical Exam
Vital Signs/Labs
Vital Signs
Temp Pulse Resp BP Pulse Ox
98.8 F 77 16 106/70 94
02/07/25 11:00 02/07/25 11:00 02/07/25 11:00 02/07/25 11:00 02/07/25 11:00
02/06/25 02/07/25 02/08/25
06:59 06:59 05:59
Actual Weight 94.886 kg 94.064 kg
02/05/25 10:19
02/07/25 05:32
PT 13.8 Sec (11.4-14.6) 02/05/25 10:19
INR 1.01 10/30/25 10:19
APTT 29.0 Sec (23.4-35.0) 02/05/25 10:19
APTT Cancelled 02/05/25 10:19
Magnesium 1.9 mg/dl (1.6-2.3) 02/07/25 05:32
02/05/25
11:07
Ovj-Z-Xhlhwnorchf Pept 2170
Physical Exam
Constitutional: No acute distress
Cardiovascular: Rhythm & rate is regular
Respiratory: Wheeze Absent, Rhonchi Absent and Other (few crackles at bases )
GI: Soft, Non tender and Other (disctended abdomen. no mass detected )
Neuro/Psych: Alert
Data Reviewed
-
Date of Service: February 07, 2025
Medical Decision Making: Reviewed Test Results
X-Ray/CT/US/MRI/NUC/PET: Report Reviewed by me
Medical Tests (PFT, Pathology etc): Report Reviewed by me
Labs: Labs Reviewed by me
[2025-02-07 15:18] VITALS: BP 96/67
[2025-02-07 16:52] LABS: Glucose - Point of Care 161 mg/dl (70-99)
[2025-02-07] MEDS: LOVENOX 40 MG SC (17:24)
[2025-02-07] MEDS: LIPITOR 80 MG PO (17:24)
[2025-02-07 19:42] VITALS: BP 111/69
[2025-02-07] MEDS: KCL 20 MEQ PO (21:00)
[2025-02-07 21:21] LABS: Glucose - Point of Care 129 mg/dl (70-99)
[2025-02-07] MEDS: FLOMAX 0.4 MG PO (21:30)
--- NOTE | 2025-02-07 21:39 | PTCARENOTE ---
Patient had a PM blood sugar of 129 and 20 units of lantus ordered for his evening dose. Pt. is refusing the 20 units, saying that the dose is too high for that blood sugar reading and is requesting to take only 10 units of lantus this evening.
Provider notified, awaiting new orders.
[2025-02-07] MEDS: LANTUS 0.1 UNITS SC (22:15)
[2025-02-07 23:21] VITALS: BP 104/69
[2025-02-08 03:40] VITALS: BP 103/70
[2025-02-08 06:00] VITALS: BMI 30.3
[2025-02-08 07:29] VITALS: BP 105/72
[2025-02-08] MEDS: NOVOLOG FLEXPEN-MODERATE RESISTANCE SC ×2 (08:53→13:00)
[2025-02-08 08:54] LABS: Glucose - Point of Care 147 mg/dl (70-99)
[2025-02-08] MEDS: LOW STRENGTH ASPIRIN 81 MG PO (08:55)
[2025-02-08] MEDS: NOVOLOG FLEXPEN 10 UNITS SC ×3 (08:55→18:06)
[2025-02-08] MEDS: ALDACTONE 25 MG PO (08:55)
[2025-02-08 08:56] LABS: Hematocrit 43.0 % (39.0-52.0); Hemoglobin 13.6 g/dL (13.0-18.0); Mean Corp Hgb Conc. 31.6 g/dL (33.0-37.0); Mean Corpuscular Volume 90.3 fL (80.0-94.0); Platelet Count 182 10^3/uL (130-400); Red Cell Dist. Width 17.0 % (11.5-14.5)
[2025-02-08] MEDS: LASIX 80 MG IV ×2 (08:56→18:05)
[2025-02-08] MEDS: PROTONIX 40 MG PO (08:56)
[2025-02-08] MEDS: FARXIGA 10 MG PO (08:56)
[2025-02-08] MEDS: KCL 20 MEQ PO ×2 (08:56→19:48)
--- NOTE | 2025-02-08 09:25 | W.PN.HOSP.TC ---
Addendum entered and electronically signed by Miles Damon MD 02/08/25 14:20:
Addendum
I was notified that patient might be having hematuria. Patient is voiding well but seems bloody. Patient denied prior history of hematuria. He has renal cell cancer. HGB this morning was stable. No pain issues/ no dysuria. BP & HR are normal.
Will hold subcu Lovenox. Will recheck hemoglobin today. If he continues to have hematuria, will consult urology.
d/w nursing staff
End
Original Note:
Today's Communication/Plan
-
IV Lasix
Will consult IR on Sunday for paracentesis
lower Lantus dose
Assessment / Plan
Assessment / Plan
Physical Exam
General: Well Developed, Well Nourished, Comfortable and Conversant
HEENT: NormoCephalic, PERRLA, Nose Appears Normal and Ears Appear Normal
Respiratory: Clear and Non Labored Respirations
Cardiac: S1/S2, Regular Rhythm and Peripheral Edema (mild BLLE edema ); No Murmur
GI: Soft, Non Tender, Normal Bowel Sounds and still Distended
Musculoskeletal: No Clubbing and No Cyanosis
Skin: Warm and IV/Catheter Site
Neuro: Awake and AO x 3
Psych: Calm
#Ajtlo-yt-Kxdjibe HFrEF:
Ischemic CMP. Had PR while vacationing in [place] 2 years ago.
Primary toolmaker helper Dr Duong at [facility]
No sob but abdomen is distended
No SOB while sitting but exertional
No chest pain
c/w IV Lasix. Lost weight since admission.
Echo 02/06 showed LVEF 15 to 20%, mild to moderate TR, estimated PAP 41 mmHg.
will titrate up medications for GDMT for HF as BP/ renal function tolerate. Seems challenging to use GDMT with low BP
Appreciate cardiology help
# Mild ascites
Abdominal distention did not improve. Patient still feels uncomfortable and bloated. Will consult IR on Sunday for paracentesis
#renal cell carcinoma
Patient follows at [facility], Dr. Vu
- hold cabozantinib as patient has not been taking
Consulted oncology : continue to hold Cabometyx until OP follow up with Dr. Vu
# hyponatremia
mild, no confusion
#CAD
No chest pain
- continue aspirin and atorvastatin
# Paroxysmal Atrial Fibrillation
#DM-II
- AccuCheck AC & HS
- SSI
- Resume insulin glargine but pt wanted to lower it to 10 from 20 , pre-meal insulin.
#CKD IIIb
monitor BMP while on IV Lasix.
Code status: full code
DVT prophylaxis: Lovenox sq
Total time spent to see the patient, examine the patient, review data and lab results, discuss treatment plan with patient, nursing staff around 55 minutes
Anticipated Discharge: > 48 hours
Subjective/Interval History
-
Date of Service: February 08, 2025
Feels abd is distended, no pain or nausea
No chest pain or sob
Objective Data
-
Labs:
Laboratory Results
02/08/25
07:19
WBC 6.9
Hgb 13.6
Hct 43.0
Plt Count 182
Sodium Pending
Potassium Pending
Chloride Pending
Carbon Dioxide Pending
BUN Pending
Creatinine Pending
Glucose Pending
Calcium Pending
Vital Signs:
Vital Signs
Temp Pulse Resp BP Pulse Ox
98.1 F 87 16 105/72 94
02/08/25 07:29 02/08/25 07:29 02/08/25 07:29 02/08/25 07:29 02/08/25 07:29
I&O
02/07/25 02/08/25 02/09/25
06:59 05:59 06:59
Intake Total 1260 / 1260 720 / 720
Output Total 2900 / 2900 2325 / 2325
Balance -1640 / -1640 -1605 / -1605
[2025-02-08 09:31] LABS: Blood Urea Nitrogen 29 mg/dl (9-20); Calcium 8.4 mg/dl (8.4-10.2); Carbon Dioxide 32 mmol/L (22-30); Chloride 98 mmol/L (98-107); Estimated Creatinine Clearance 73 ml/min; Glucose 132 mg/dl (70-99); Potassium 4.7 mmol/L (3.5-5.1); Sodium 134 mmol/L (135-145); eGFR > 60.00
[2025-02-08 11:16] LABS: Glycohemoglobin (HgbA1c) 7.5 % (4.0-5.9)
[2025-02-08 11:33] VITALS: BP 119/75
[2025-02-08 12:14] LABS: Glucose - Point of Care 136 mg/dl (70-99)
--- NOTE | 2025-02-08 14:18 | PTCARENOTE ---
Patient voided 900ml of bloody urine in urinal. When emptied into the toilette there were multiple small blood clots. Patient has no c/o pain and no difficulty voiding. Patient states, 'My urine was yellow yesterday.' RN asked patient if he has had
bloody urine before. Patient states, 'I have never had blood in my urine.' Physician made aware.
[2025-02-08 15:38] VITALS: BP 114/71
--- NOTE | 2025-02-08 15:56 | W.PN.CD ---
Today's Communication / Plan
-
Respiratory status stable.
Optimizing GDMT as BP tolerates.
Consider transition to oral diuretic in a.m.
Impression / Plan
-
Zdxjc-uy-Ohgmall HFrEF:
-severe, requiring hospitalization
-most recent echo available noted EF 15-20%- see below- will update
-IV diuresis, which requires intensive monitoring. Of note, only takes PRN Bumex as OP.
-GDMT: Was formerly on metoprolol, Entresto, and spironolactone- does not think he had trouble with these meds and thinks they just 'fell off'- will try and layer back on this admit. Needs to follow-up with his cardiologists as OP.
- add farxiga this admit--> TOOK JARDIANCE at home
- add metoprolol this admit.
- BP was limitting addtion of Entresto. BP appears a bit better. Will add low-dose valsartan
-Hx BS SQ ICD- should follow-up with his OP device clinic
abdmoinal distension
US abdomen with small amount of ascities
CAD with hx [place]/stenting:
-stable without CP
-continue ASA and statin
Renal cell carcinoma:
-follows with oncology
.
Hematuria. Patient had reported dark urine. Reviewed hospitalist note suspicion for some degree of hematuria. Apoorva ISLAS'derrick Will be followed by hospitalist.
Physical Exam
Vital Signs/Labs
Vital Signs
Temp Pulse Resp BP Pulse Ox
98.2 F 88 16 119/75 96
02/08/25 11:33 02/08/25 11:33 02/08/25 11:33 02/08/25 11:33 02/08/25 11:33
02/07/25 02/08/25 02/09/25
06:59 05:59 06:59
Actual Weight 94.064 kg 93.015 kg
02/08/25 07:19
PT 13.8 Sec (11.4-14.6) 02/05/25 10:19
INR 1.01 02/05/25 10:19
APTT 29.0 Sec (23.4-35.0) 02/05/25 10:19
APTT Cancelled 02/05/25 10:19
Magnesium 1.9 mg/dl (1.6-2.3) 02/07/25 05:32
02/05/25
11:07
Wnm-N-Nyqxybxftgj Pept 2170
Physical Exam
Constitutional: No acute distress
Cardiovascular: Rhythm & rate is regular
Respiratory: Wheeze Absent and Rhonchi Absent
GI: Soft and Other (Distended. Nontender)
Neuro/Psych: Alert
Other: Other (Mild residual edema)
Data Reviewed
-
Date of Service: February 08, 2025
Medical Decision Making: Reviewed Test Results
X-Ray/CT/US/MRI/NUC/PET: Report Reviewed by me
Medical Tests (PFT, Pathology etc): Report Reviewed by me
Labs: Labs Reviewed by me
[2025-02-08] MEDS: DIOVAN 20 MG PO (18:04)
[2025-02-08] MEDS: LIPITOR 80 MG PO (18:04)
[2025-02-08 18:07] LABS: Glucose - Point of Care 197 mg/dl (70-99)
[2025-02-08] MEDS: NOVOLOG FLEXPEN-MODERATE RESISTANCE 1 UNITS SC (18:16)
[2025-02-08 19:35] VITALS: BP 112/70
[2025-02-08] MEDS: FLOMAX 0.4 MG PO (19:48)
[2025-02-08 20:04] LABS: Hemoglobin 14.2 g/dL (13.0-18.0)
[2025-02-08 21:19] LABS: Glucose - Point of Care 140 mg/dl (70-99)
[2025-02-08] MEDS: LANTUS SC (22:55)
[2025-02-08 23:36] VITALS: BP 93/65
[2025-02-09] VITALS (12 sets, daily range): BP systolic 83–97; BP diastolic 52–64; BMI 30.2
[2025-02-09 07:15] LABS: ALT (SGPT) < 10 U/L (0-50); AST (SGOT) 15 U/L (17-59); Albumin 3.0 g/dl (3.5-5.0); Alkaline Phosphatase 57 U/L (38-126); Blood Urea Nitrogen 29 mg/dl (9-20); Calcium 8.3 mg/dl (8.4-10.2); Carbon Dioxide 32 mmol/L (22-30); Chloride 99 mmol/L (98-107); Estimated Creatinine Clearance 67 ml/min; Glucose 154 mg/dl (70-99); Sodium 136 mmol/L (135-145); Total Protein 5.3 g/dl (6.3-8.2); eGFR > 60.00
[2025-02-09 07:20] LABS: Potassium 4.3 mmol/L (3.5-5.1)
[2025-02-09 07:34] LABS: Glucose - Point of Care 145 mg/dl (70-99)
[2025-02-09] MEDS: NOVOLOG FLEXPEN-MODERATE RESISTANCE SC ×2 (09:04→11:58)
[2025-02-09] MEDS: NOVOLOG FLEXPEN 10 UNITS SC ×3 (09:04→17:10)
[2025-02-09] MEDS: LASIX 80 MG IV ×2 (09:07→17:26)
[2025-02-09] MEDS: FARXIGA 10 MG PO (09:08)
[2025-02-09] MEDS: ALDACTONE 25 MG PO (09:08)
[2025-02-09] MEDS: KCL 20 MEQ PO (09:08)
[2025-02-09] MEDS: PROTONIX 40 MG PO (09:08)
[2025-02-09] MEDS: DIOVAN 20 MG PO (09:09)
[2025-02-09] MEDS: LOW STRENGTH ASPIRIN 81 MG PO (09:09)
--- NOTE | 2025-02-09 09:19 | PTCARENOTE ---
Spoke with Dr. Zamudio on the phone, ordered to administer 80 of IV lasix with BP of 93/63. Dr. Zamudio to adjust parameters.
--- NOTE | 2025-02-09 11:37 | W.PN.CD ---
Today's Communication / Plan
-
IV diuresis
Dx/therapeutic paracentesis
Slowly increase GDMT
Impression / Plan
-
Card: [facility]
Rcxtg-py-Jtqqqyl HFrEF, severe LV dysfunction from an ischemic cardiomyopathy s/p -maker [place] (per pt)
- Adding back and increasing GDMT
- Going for diagnostic and therapeutic paracentesis
ICD in place, [employer] subcutaneous device
CAD with hx [place]/stenting, no angina, on secondary prevention
Renal cell carcinoma:
- follows with oncology
- On study here this admit: Solid mass within the midpole of the right kidney, measuring 4.8 cm in diameter
Suspected hematuria, off Lovenox, per hospitalist, given renal cell Ca hx should have elective urologic evaluation
Mixed hyperlipidemia: Statin
Subjective: Still with leg edema and abdominal distension
Data:
Echo 02/09/2025:
SUMMARY
1. Contrast was used.
2. Severely reduced LV systolic function. Ejection fraction is 15-20% by Zapien's method of discs.
3. Mild/moderate tricuspid regurgitation. Estimated pulmonary artery pressure of 41 mmHg assuming a right atrial pressure of 3 mmHg. Mildly elevated PASP.
4. No prior study for comparison.
Abdominal U/S 02/05/2025:
IMPRESSION:
1. Small amount of intraperitoneal ascites. Largest pocket is within the right lower quadrant, measuring 9.1 x 8.5 x 6.6 cm.
2. Bilateral pleural effusions.
3. Solid mass within the midpole of the right kidney, measuring 4.8 cm in diameter, likely corresponding to the patient's known renal cell carcinoma.
Physical Exam
Vital Signs/Labs
Vital Signs
Temp Pulse Resp BP Pulse Ox
98.1 F 85 18 85/63 94
02/09/25 11:32 02/09/25 11:32 02/09/25 11:32 02/09/25 11:32 02/09/25 11:32
02/08/25 02/09/25 02/10/25
05:59 06:59 06:59
Actual Weight 93.015 kg 92.675 kg
02/08/25 19:42
02/09/25 06:22
PT 13.8 Sec (11.4-14.6) 02/05/25 10:19
INR 1.01 02/05/25 10:19
APTT 29.0 Sec (23.4-35.0) 02/05/25 10:19
APTT Cancelled 02/05/25 10:19
Magnesium 1.9 mg/dl (1.6-2.3) 02/07/25 05:32
02/05/25
11:07
Trb-X-Uvkxgskurbv Pept 2170
Physical Exam
Constitutional: No acute distress
EENT: Anicteric
Cardiovascular: Rhythm & rate is regular and Pedal edema present
Respiratory: Respiratory effort normal and Lungs clear to auscul.
GI: Soft, Distention absent and Distention present
Neuro/Psych: AO x 3
Data Reviewed
-
Date of Service: February 09, 2025
[2025-02-09 11:47] LABS: Glucose - Point of Care 149 mg/dl (70-99)
--- NOTE | 2025-02-09 14:19 | W.PN.HOSP.TC ---
Today's Communication/Plan
-
continue diuresis
Tx/Dx paracentesis today
Assessment / Plan
Assessment / Plan
Assessment:
Jsgts-gn-Ssfkjiu HFrEF
- hx of ICD and ischemic cardiomyopathy
- Echo 02/06 showed LVEF 15 to 20%, mild to moderate TR, estimated PAP 41 mmHg.
- continue IV Lasix; requires intensive monitoring of I/Os, weights, lytes
- GMDT per Cardiology
- appreciate CBC Cardiology
Mild ascites
- Abd distention
- for diagnostic/therapeutic paracentesis today
renal cell carcinoma
Patient follows at [facility], Dr. Vu
- hold cabozantinib as patient has not been taking; appreciate Oncology input
hyponatremia
- mild, no confusion
CAD with hx [place]/stenting
- No chest pain
- continue aspirin and atorvastatin
Paroxysmal Atrial Fibrillation
DM-II
- AccuCheck AC & HS
- SSI
- Resume insulin glargine but pt wanted to lower it to 10 from 20 , pre-meal insulin.
CKD IIIb
- monitor BMP while on IV Lasix.
Hematuria likely in setting of Lovenox (underlying hx of RCC)
- monitor
DVT ppx: Lovenox
Code: Full
Anticipated Discharge: > 48 hours
Subjective/Interval History
-
Date of Service: February 09, 2025
reports abd distention, LE edema (which is improving)
Objective Data
-
Labs:
Laboratory Results
02/09/25
06:22
Sodium 136
Potassium 4.3
Chloride 99
Carbon Dioxide 32 H
BUN 29 H
Creatinine 1.3
Glucose 154 H
Calcium 8.3 L
Total Bilirubin 0.9
AST 15 L
ALT < 10
Alkaline Phosphatase 57
Vital Signs:
Vital Signs
Temp Pulse Resp BP Pulse Ox
97.6 F 83 18 83/52 96
02/09/25 14:00 02/09/25 14:00 02/09/25 14:00 02/09/25 14:00 02/09/25 14:00
I&O
02/08/25 02/09/25 02/10/25
05:59 06:59 06:59
Intake Total 720 / 720 1140 / 1140
Output Total 2325 / 2325 2550 / 2550
Balance -1605 / -1605 -1410 / -1410
Physical Exam
-
General: No Apparent Distress
HEENT: Normocephalic and Atraumatic
Respiratory: Negative Wheezes
Cardiac: Regular Rhythm and S1/S2
GI: Distended
Musculoskeletal: Edema, Right Lower Extrem and Edema, Left Lower Extrem
Neuro: AO x 3
Psych: Calm
Data Reviewed
-
Total Time Spent with Patient (in minutes): 51
Labs: Labs Reviewed by me
[2025-02-09 15:14] LABS: Body Fluid Second Tech FB
--- NOTE | 2025-02-09 15:32 | PTCARENOTE ---
Return to floor post paracentesis with band aid to RLQ intact. Patient reports he is 'feeling so much better.' BP is low 88/53. Instructed to ring for assistance standing.
--- NOTE | 2025-02-09 16:28 | CM ---
Chart reviewed. Met with pt bedside. Continues on IV lasix and is on room air.
Plan: Home with no needs
[2025-02-09 16:50] LABS: Glucose - Point of Care 159 mg/dl (70-99)
[2025-02-09] MEDS: FLEXBUMIN 100 IV ×3 (16:54→23:51)
[2025-02-09] MEDS: NOVOLOG FLEXPEN-MODERATE RESISTANCE 1 UNITS SC (17:12)
[2025-02-09] MEDS: LIPITOR 80 MG PO (17:14)
[2025-02-09] MEDS: STERILE WATER FOR INJECTION 20 ML IV (17:16)
[2025-02-09] MEDS: ROCEPHIN 2000 MG IV (17:17)
[2025-02-09] MEDS: FLOMAX 0.4 MG PO (20:09)
[2025-02-09 21:52] LABS: Glucose - Point of Care 132 mg/dl (70-99)
[2025-02-09] MEDS: LANTUS SC (22:27)
[2025-02-09] MEDS: LANTUS 0.05 UNITS SC (22:41)
[2025-02-10] VITALS (12 sets, daily range): BP systolic 90–116; BP diastolic 51–73; BMI 29.3
[2025-02-10] MEDS: FLEXBUMIN 100 IV ×3 (03:58→12:49)
[2025-02-10 08:12] LABS: Glucose - Point of Care 149 mg/dl (70-99)
[2025-02-10 08:25] LABS: Hematocrit 37.2 % (39.0-52.0); Hemoglobin 11.8 g/dL (13.0-18.0); Mean Corp Hgb Conc. 31.7 g/dL (33.0-37.0); Mean Corpuscular Volume 88.8 fL (80.0-94.0); Platelet Count 165 10^3/uL (130-400); Red Cell Dist. Width 16.9 % (11.5-14.5)
[2025-02-10] MEDS: NOVOLOG FLEXPEN-MODERATE RESISTANCE SC ×3 (08:48→16:43)
[2025-02-10] MEDS: LOW STRENGTH ASPIRIN 81 MG PO (08:49)
[2025-02-10] MEDS: PROTONIX 40 MG PO (08:49)
[2025-02-10] MEDS: FARXIGA 10 MG PO (08:49)
[2025-02-10] MEDS: NOVOLOG FLEXPEN 10 UNITS SC ×3 (08:52→16:37)
[2025-02-10 08:53] LABS: ALT (SGPT) < 10 U/L (0-50); AST (SGOT) 15 U/L (17-59); Albumin 3.7 g/dl (3.5-5.0); Alkaline Phosphatase 44 U/L (38-126); Blood Urea Nitrogen 28 mg/dl (9-20); Calcium 8.5 mg/dl (8.4-10.2); Carbon Dioxide 32 mmol/L (22-30); Chloride 99 mmol/L (98-107); Estimated Creatinine Clearance 78 ml/min; Glucose 149 mg/dl (70-99); Potassium 4.4 mmol/L (3.5-5.1); Sodium 136 mmol/L (135-145); Total Protein 5.7 g/dl (6.3-8.2); eGFR > 60.00
[2025-02-10] MEDS: DIOVAN 20 MG PO (09:09)
[2025-02-10] MEDS: ALDACTONE 25 MG PO (09:11)
[2025-02-10] MEDS: LASIX 80 MG IV (09:14)
--- NOTE | 2025-02-10 09:27 | W.PN.CD ---
Today's Communication / Plan
-
Stop IV Lasix
Move to PO diuretic tomorrow
I added serum LDH but ascites seems EXUDATIVE
Consider if Oncology input or GI input will be helpful
Cardiology will sign off
He should see his corporate officer at [facility] within 1 week
Impression / Plan
-
Card: [facility]
Oncologist: at [facility]
Ojsxy-oq-Xnyxgzc HFrEF, severe LV dysfunction from an ischemic cardiomyopathy s/p -maker [place] (per pt)
- Adding back and increasing GDMT Now on Aldactone 25 daily, valsartan 20 mg daily, dapagliflozin 10 mg daily, and moving to PO Lasix 80 mg one time daily.
- Later increase valsartan and add HF BB, not now
- Still with IV diuresis underway
- Had diagnostic and therapeutic paracentesis on 02/09/2025 for 3 L of clear sarita ascitic fluid => sent for analysis
- Cabozantinib is on hold per patient
Ascites
- Analysis c/w EXUDATE => Pathology pending
ICD in place, [employer] subcutaneous device
CAD with hx [place]/stenting, no angina, on secondary prevention
Renal cell carcinoma:
- follows with oncology at [facility] and he is no Cabozantinib (a TKI, tyrosine kinase inhibitor that also blocks VEGF), currently on hold
- On study here this admit: Solid mass within the midpole of the right kidney, measuring 4.8 cm in diameter
Suspected hematuria, off Lovenox, per hospitalist, given renal cell Ca hx should have elective urologic evaluation
Mixed hyperlipidemia: Statin
Subjective: Edema improved. Feels much better
Data:
Echo 02/09/2025:
SUMMARY
1. Contrast was used.
2. Severely reduced LV systolic function. Ejection fraction is 15-20% by Zapien's method of discs.
3. Mild/moderate tricuspid regurgitation. Estimated pulmonary artery pressure of 41 mmHg assuming a right atrial pressure of 3 mmHg. Mildly elevated PASP.
4. No prior study for comparison.
Abdominal U/S 02/05/2025:
IMPRESSION:
1. Small amount of intraperitoneal ascites. Largest pocket is within the right lower quadrant, measuring 9.1 x 8.5 x 6.6 cm.
2. Bilateral pleural effusions.
3. Solid mass within the midpole of the right kidney, measuring 4.8 cm in diameter, likely corresponding to the patient's known renal cell carcinoma.
Physical Exam
Vital Signs/Labs
Vital Signs
Temp Pulse Resp BP Pulse Ox
98.2 F 74 18 98/60 95
02/10/25 07:53 02/10/25 09:09 02/10/25 07:53 02/10/25 09:09 02/10/25 07:53
02/09/25 02/10/25 02/11/25
06:59 06:59 06:59
Actual Weight 92.675 kg 89.981 kg 90.066 kg
02/10/25 07:37
02/10/25 07:37
PT 13.8 Sec (11.4-14.6) 02/05/25 10:19
INR 1.01 02/05/25 10:19
APTT 29.0 Sec (23.4-35.0) 02/05/25 10:19
APTT Cancelled 02/05/25 10:19
Magnesium 1.9 mg/dl (1.6-2.3) 02/07/25 05:32
02/05/25
11:07
Gru-V-Hvstqlgikqq Pept 2170
Physical Exam
Constitutional: No acute distress
EENT: Anicteric
Cardiovascular: Rhythm & rate is regular, Pedal edema present (improved) and S1S2 is normal
Respiratory: Respiratory effort normal and Lungs clear to auscul.
GI: Soft and Distention present (much improved s/p 3 L paracentesis yesterday)
Data Reviewed
-
Date of Service: February 10, 2025
--- NOTE | 2025-02-10 09:48 | W.PN.HOSP.TC ---
Today's Communication/Plan
-
continue Rocephin, day 2
continue Albumin sequence for SBP
oral Lasix
dc planning in 24 hours
Assessment / Plan
Assessment / Plan
Assessment:
Loaub-fb-Pfmfaqv HFrEF
- hx of ICD and ischemic cardiomyopathy
- Echo 02/06 showed LVEF 15 to 20%, mild to moderate TR, estimated PAP 41 mmHg.
- s/p IV Lasix course; transition to Lasix 80mg daily tomorrow
- GMDT per Cardiology (Aldactone/Farxiga/Valsartan)
- outpatient f/u with Dr. Ad Trevizo with BMP in 1 week
Mild ascites
- Abd distention
- s/p paracentesis 02/09 with 3L removed
- SBP by analysis; start Rocephin x 7 total days
- Albumin day 1 and 3 - dosing reviewed and entered with pharmacy assistance
- path pending; patients oncologist will need to follow this up
renal cell carcinoma
Patient follows at [place], Dr. Vu
- hold cabozantinib as patient has not been taking; appreciate Oncology input
hyponatremia
- mild, no confusion
CAD with hx PR/stenting
- No chest pain
- continue aspirin and atorvastatin
Paroxysmal Atrial Fibrillation
DM-II
- AccuCheck AC & HS
- SSI
- Resume insulin glargine but pt wanted to lower it to 10 from 20 pre-meal insulin.
- A1c 7.5%
CKD IIIb
- BMP stable
Hematuria likely in setting of Lovenox (underlying hx of RCC)
- monitor
DVT ppx: SCDs
Code: Full
Anticipated Discharge: Within 24 hours
Subjective/Interval History
-
Date of Service: February 10, 2025
feels much improved after 3L fluid removed
path pending
Objective Data
-
Labs:
Laboratory Results
02/10/25
07:37
WBC 6.1
Hgb 11.8 L
Hct 37.2 L
Plt Count 165
Sodium 136
Potassium 4.4
Chloride 99
Carbon Dioxide 32 H
BUN 28 H
Creatinine 1.0
Glucose 149 H
Calcium 8.5
Total Bilirubin 1.0
AST 15 L
ALT < 10
Alkaline Phosphatase 44
Vital Signs:
Vital Signs
Temp Pulse Resp BP Pulse Ox
98.2 F 74 18 98/60 95
02/10/25 07:53 02/10/25 09:09 02/10/25 07:53 02/10/25 09:09 02/10/25 07:53
I&O
02/09/25 02/10/25 02/11/25
06:59 06:59 06:59
Intake Total 1140 / 1140 720 / 720 240 / 240
Output Total 2550 / 2550 650 / 650 1375 / 1375
Balance -1410 / -1410 70 / 70 -1135 / -1135
Physical Exam
-
General: No Apparent Distress
HEENT: Normocephalic and Atraumatic
Respiratory: Negative Wheezes
Cardiac: Regular Rhythm and S1/S2
GI: Soft and Nontender
Neuro: AO x 3
Psych: Calm
Data Reviewed
-
Total Time Spent with Patient (in minutes): 45
Labs: Labs Reviewed by me
[2025-02-10 10:23] LABS: LDH 173 U/L (120-246)
[2025-02-10 12:02] LABS: Glucose - Point of Care 142 mg/dl (70-99)
[2025-02-10] MEDS: ROCEPHIN 2000 MG IV (12:21)
[2025-02-10] MEDS: STERILE WATER FOR INJECTION 20 ML IV (12:22)
[2025-02-10 16:23] LABS: Glucose - Point of Care 128 mg/dl (70-99)
--- NOTE | 2025-02-10 16:32 | CM ---
Spoke with patient in room.
He said he will be discharge tomorrow.
His son Carlos Enrique will drive him home at dc.
Offered Vn he declined need.
PLAN Home no needs
[2025-02-10] MEDS: LIPITOR 80 MG PO (17:03)
[2025-02-10] MEDS: FLOMAX 0.4 MG PO (19:48)
[2025-02-10 21:05] LABS: Glucose - Point of Care 211 mg/dl (70-99)
[2025-02-10] MEDS: LANTUS 0.1 UNITS SC (21:11)
[2025-02-11] VITALS (8 sets, daily range): BP systolic 86–114; BP diastolic 56–71; BMI 29.1
[2025-02-11 07:06] LABS: Hematocrit 42.6 % (39.0-52.0); Hemoglobin 13.2 g/dL (13.0-18.0); Mean Corp Hgb Conc. 31.0 g/dL (33.0-37.0); Mean Corpuscular Volume 93.0 fL (80.0-94.0); Platelet Count 187 10^3/uL (130-400); Red Cell Dist. Width 16.4 % (11.5-14.5)
[2025-02-11 07:23] LABS: ALT (SGPT) < 10 U/L (0-50); AST (SGOT) 17 U/L (17-59); Albumin 3.8 g/dl (3.5-5.0); Alkaline Phosphatase 44 U/L (38-126); Blood Urea Nitrogen 28 mg/dl (9-20); Calcium 9.0 mg/dl (8.4-10.2); Carbon Dioxide 35 mmol/L (22-30); Chloride 99 mmol/L (98-107); Estimated Creatinine Clearance 65 ml/min; Glucose 168 mg/dl (70-99); Potassium 4.6 mmol/L (3.5-5.1); Sodium 138 mmol/L (135-145); Total Protein 5.8 g/dl (6.3-8.2); eGFR > 60.00
[2025-02-11 07:41] LABS: Glucose - Point of Care 163 mg/dl (70-99)
[2025-02-11] MEDS: NOVOLOG FLEXPEN-MODERATE RESISTANCE 1 UNITS SC (08:14)
[2025-02-11] MEDS: NOVOLOG FLEXPEN 10 UNITS SC ×3 (08:14→17:17)
[2025-02-11] MEDS: LOW STRENGTH ASPIRIN 81 MG PO (08:16)
[2025-02-11] MEDS: PROTONIX 40 MG PO (08:16)
[2025-02-11] MEDS: FARXIGA 10 MG PO (08:16)
[2025-02-11] MEDS: DIOVAN 20 MG PO (08:17)
[2025-02-11] MEDS: ALDACTONE 25 MG PO (08:18)
[2025-02-11] MEDS: LASIX 80 MG PO (08:19)
--- NOTE | 2025-02-11 09:50 | W.PN.HOSP.TC ---
Today's Communication/Plan
-
dc after 3rd Albumin bag this evening
Assessment / Plan
Assessment / Plan
Assessment:
Llymq-al-Xlzjnqv HFrEF
- hx of ICD and ischemic cardiomyopathy
- Echo 02/06 showed LVEF 15 to 20%, mild to moderate TR, estimated PAP 41 mmHg.
- s/p IV Lasix course; continue Lasix 80mg daily tomorrow
- GMDT per Cardiology (Aldactone/Farxiga/Valsartan)
- outpatient f/u with Dr. Ad Trevizo with BMP in 1 week
Mild ascites
- Abd distention
- s/p paracentesis 02/09 with 3L removed
- SBP by analysis; dc on Cefdinir to complete 4 further days
- Albumin day 1 and 3 - dosing reviewed and entered with pharmacy assistance
- path pending; patients oncologist will need to follow this up; he has an appointment with Dr. Vu on 02/19
renal cell carcinoma
Patient follows at [place], Dr. Vu
- hold cabozantinib as patient has not been taking; appreciate Oncology input
hyponatremia
- mild, no confusion
CAD with hx [place]/stenting
- No chest pain
- continue aspirin and atorvastatin
Paroxysmal Atrial Fibrillation
DM-II
- AccuCheck AC & HS
- SSI
- Resume insulin glargine but pt wanted to lower it to 10 from 20 pre-meal insulin.
- A1c 7.5%
CKD IIIb
- BMP stable
Hematuria likely in setting of Lovenox (underlying hx of RCC)
- monitor
DVT ppx: SCDs
Code: Full
Anticipated Discharge: Today
Subjective/Interval History
-
Date of Service: February 11, 2025
resting comfortably, no complaints
Objective Data
-
Labs:
Laboratory Results
02/11/25
06:39
WBC 6.6
Hgb 13.2
Hct 42.6
Plt Count 187
Sodium 138
Potassium 4.6
Chloride 99
Carbon Dioxide 35 H
BUN 28 H
Creatinine 1.2
Glucose 168 H
Calcium 9.0
Total Bilirubin 0.7
AST 17
ALT < 10
Alkaline Phosphatase 44
Vital Signs:
Vital Signs
Temp Pulse Resp BP Pulse Ox
97.9 F 89 18 105/64 93
02/11/25 03:57 02/11/25 08:17 02/11/25 03:57 02/11/25 08:17 02/11/25 03:57
I&O
02/10/25 02/11/25 02/12/25
06:59 06:59 06:59
Intake Total 720 / 720 480 / 480
Output Total 650 / 650 2275 / 2275
Balance 70 / 70 -1795 / -1795
Physical Exam
-
General: No Apparent Distress
HEENT: Normocephalic and Atraumatic
Respiratory: Negative Wheezes
Cardiac: Regular Rhythm and S1/S2
GI: Soft
Genito-urinary: No Costovertebral Tender
Neuro: AO x 3
Psych: Calm
Data Reviewed
-
Total Time Spent with Patient (in minutes): 42
Labs: Labs Reviewed by me
--- NOTE | 2025-02-11 09:52 | W.DCSUMMARY ---
Discharge Summary
Discharge Data
Date of Admission: 02/05/25
Date of Discharge: 02/11/25
-
Pending Results: No
Hospital Course
59 y/o M, type 2 diabetes, renal cell carc on chemotherapy, iron deficiency anemia, CAD, Afib, chronic HFrEF, hyponatremia presented to ER on 02/05 with Abd distention and 20 lbs weight gain along with SOB And LE edema. He ruled in for acute CHF. HE
was evaluated by Cardiology and started on IV Diuretics. He also had a paracentesis on 02/09 with finding of SBP and received Rocephin x 3 days (7 total days planned at discharge) along with Albumin on day 1 and 3. Pathology/cytology from ascites
fluid is still pending. He was discharged home on oral Lasix and follow up with his Vending Route Driver (Dr. Duong) in 1 week with repeat BMP.
He will follow up with Oncologist (Dr. Vu) next week.
He was discharged home on 02/11.
Discharge Plan
-
Patient Disposition: Home (Routine Discharge)
Discharge Diagnosis/Procedures: acute on chronic CHF, ascites requiring paracentesis on 02/09. SBP requiring antibiotics and albumin course. hx of RCC
Condition: Fair
Diet: Low Cholesterol, 2 Gram Sodium and Restrict fluids to 48 oz
Activity: As tolerated
Blood Work: repeat BMP in 1 week - script given
Instructions: *PCP/Other Vending Route Driver Heart Failure Instructions
Referrals:
Bandar Jimenez MD [Family Provider, Internal Medicine]
Watson Duong MD [Non-Admitting Privileges, Internal Medicine] - 02/23/25
Boy Vu MD [Non-Admitting Privileges, Hematology / Oncology] - 02/19/25
Prescriptions:
New
cefdinir 300 mg capsule
300 mg PO BID Qty: 8 0RF
Rx Instructions:
start 11/6 AM
spironolactone 25 mg Tablet
25 mg PO DAILY Qty: 30 0RF
furosemide 80 mg Tablet
80 mg PO DAILY Qty: 30 0RF
valsartan 40 mg Tablet
20 mg PO DAILY Qty: 30 0RF
Continued
Jardiance 25 mg Tablet
25 mg PO DAILY
repaglinide 2 mg Tablet
2 mg PO AC
aspirin 81 mg Tablet,Chewable
81 mg PO DAILY
ergocalciferol (vitamin D2) 1,250 mcg (50,000 unit) Capsule
1,250 mcg PO TUTH
insulin glargine U-300 conc [Toujeo Max U-300 SoloStar] 300 unit/mL (3 mL) Insulin Pen
20 unit SC HS
atorvastatin 80 mg Tablet
80 mg PO QPM
pantoprazole 40 mg Tablet,Delayed Release (Dr/Ec)
40 mg PO DAILY
tamsulosin [Flomax] 0.4 mg Capsule
0.4 mg PO HS
insulin aspart U-100 [Novolog FlexPen U-100 Insulin] 100 unit/mL (3 mL) insulin pen
10 sliding scale dose SC AC
Held
Cabometyx 40 mg Tablet
40 mg PO DAILY
Hold Instructions: discuss with Oncologist about resumption date
Discontinued
bumetanide [Bumex] 2 mg Tablet
2 mg PO DAILY
Discharge Orders:
Discharge Patient (As Directed); Ordered 02/11/25
Ordered By: Gallo Hussein
Discharge Date and Time
Print Language: ETHIOPIAN
[2025-02-11] MEDS: FLEXBUMIN 100 IV ×3 (10:00→17:18)
--- NOTE | 2025-02-11 10:47 | CM ---
Pt discharged home, no needs. Son will transport patient,
[2025-02-11] MEDS: ROCEPHIN 2000 MG IV (11:20)
[2025-02-11] MEDS: STERILE WATER FOR INJECTION 20 ML IV (11:20)
[2025-02-11 12:11] LABS: Glucose - Point of Care 91 mg/dl (70-99)
[2025-02-11] MEDS: NOVOLOG FLEXPEN-MODERATE RESISTANCE SC (12:23)
[2025-02-11] MEDS: LASIX 20 MG IV (15:50)
[2025-02-11 16:54] LABS: Glucose - Point of Care 202 mg/dl (70-99)
[2025-02-11] MEDS: NOVOLOG FLEXPEN-MODERATE RESISTANCE 3 UNITS SC (17:17)
[2025-02-11] MEDS: LIPITOR 80 MG PO (17:17)
== END 2025-02-11 19:22 | disposition home or self-care (01) | DRG 291 ==
LOC: 4 EAST ACU 15:27
PROVIDERS: Internal Medicine; Nurse Practitioner Family; Physician Assistant; Radiology Diagnostic Radiology; ADMITTING PHYSICIAN Hospitalist; ATTENDING PHYSICIAN Internal Medicine; CONSULT PHYSICIAN Internal Medicine; EMERGENCY PHYSICIAN Student in an Organized Health Care Education/Training Program; FAMILY PHYSICIAN Internal Medicine; OTHER PHYSICIAN Internal Medicine Hematology & Oncology
PROC: 0W9G3ZZ Drainage of Peritoneal Cavity, Percutaneous Approach (ICD-10-PCS; 2025-02-09)
DX: I50.23 Acute on chronic systolic (congestive) heart failure (principal); K65.2 Spontaneous bacterial peritonitis; C64.9 Malignant neoplasm of unspecified kidney, except renal pelvis; R18.8 Other ascites; E87.1 Hypo-osmolality and hyponatremia; J90 Pleural effusion, not elsewhere classified; I25.10 Atherosclerotic heart disease of native coronary artery without angina pectoris; I48.0 Paroxysmal atrial fibrillation; E11.22 Type 2 diabetes mellitus with diabetic chronic kidney disease; Z79.84 Long term (current) use of oral hypoglycemic drugs; Z79.82 Long term (current) use of aspirin; N18.32 Chronic kidney disease, stage 3b; Z79.899 Other long term (current) drug therapy; Z91.128 Patient's intentional underdosing of medication regimen for other reason; Z92.21 Personal history of antineoplastic chemotherapy; E87.70 Fluid overload, unspecified
CPT/HCPCS: 49083; 51701; 51798; 71046; 76700; 80048; 80053; 82042; 82150; 82962; 83036; 83615; 83735; 83880; 84157; 85018; 85025; 85027; 85610; 85730; 87205; 88112; 88305; 88342; 89051; 93005; 93306; 99285; P9047; Q9950

== ENCOUNTER 2025-02-16 15:40 | Inpatient (IN) | payer OTHER, SELFPAY ==
[2025-02-16] VITALS (14 sets, daily range): BP systolic 76–118; BP diastolic 51–98; BMI 32.2; BMI 29.2
--- NOTE | 2025-02-16 09:55 | ED.GENMED ---
History of Present Illness
<Segundo Pedro PA-C - Last Filed: 02/16/25 14:25>
General
Chief Complaint: Abdominal Symptoms
Source: patient and records
Time Seen by Provider: 02/16/25 09:37
History of Present Illness
History of Present Illness:
59-year-old male with past medical history renal cell carcinoma status post recent admission here for volume overload/ascites status post paracentesis diagnosis of SBP, previous AR status postcardiac arrest, insulin-dependent diabetes presenting to
the emergency department for reevaluation of a 12 pound weight gain over the last 4 days associated with increased abdominal distention. Patient completed the IV antibiotics for SBP without difficulty. He endorses some mild shortness of breath and
fatigue. Denies fevers, chills, rigors, nausea, vomiting but does state he has had a lack of p.o. intake to both solids and liquid. Last chemo regimen was about 3 weeks ago, he states that he has not had this due to complications from his ascites.
No other concerns presently.
Past History
<Segundo Pedro PA-C - Last Filed: 02/16/25 14:25>
Past History
ED Past Medical History: Cancer, IDDM and AR
ED Past Surgical History: Cardiac
Social History
Tobacco: Non-smoker
Alcohol: None
Drug: None
Personal:
Living: with family
Review of Systems
<Segundo Pedro PA-C - Last Filed: 02/16/25 14:25>
Review of Systems
All Other Systems: ROS reviewed and negative except as documented in HPI and ROS
Phy Exam
<Segundo Pedro PA-C - Last Filed: 02/16/25 14:25>
Physical Exam
Physical Exam:
GENERAL: Alert , in no apparent distress
HEAD: Normocephalic atraumatic
EYE: Clear conjunctiva, anicteric
NECK: Supple
ENT: o/p clr, mmm.
CARDIAC: Regular rate and rhythm .
LUNGS: Clear breath sounds bilaterally, no acute respiratory distress, no wheezes/rales/rhonchi
ABDOMEN: Firm, distended, no focal tenderness, positive fluid wave
NEUROLOGICAL: Alert and oriented
SKIN: Warm and dry, skin intact.
MUSCULOSKELETAL: Trace ankle edema bilateral, well perfused.
PSYCH: Normal and appropriate interaction.
Scores
<Segundo Pedro PA-C - Last Filed: 02/16/25 14:25>
Heart Failure Risk
Heart Failure Risk Score: Not Applicable
Heart Score for Chest Pain Patients
STEMI patient?: Not applicable
Withdrawal Assessment of Alcohol
Withdrawal Assessment Completed?: Not applicable
Course
<Segundo Pedro PA-C - Last Filed: 02/16/25 14:25>
Orders/Labs/Results
Orders:
Orders
02/16/25 09:51
[facility] CONSULT Routine
Consulting Provider: Jay Gregory
Was physician already notified: Yes
Procedure being ordered, including laterality if applicable: Paracentesis
Acknowledgement that appropriate orders are entered: Yes
02/16/25 09:53
Complete Blood Count/With Diff Urgent
Comprehensive Metabolic Panel Urgent
NT-proBNP Urgent
PTT Urgent
Prothrombin Time Urgent
Serum Osmolality Urgent
Comment: ADD ON
02/16/25 11:18
Body Fluid Cell Count Routine
What is the Body Fluid: peritoneal fluid
Date Specimen was Collected: 02/16/25
Time Specimen was Collected: 11:17
Comment: post procedure
Body Fluid LDH Routine
Fluid Source: Peritoneal (Ascites)
Date Specimen was Collected: 02/16/25
Time Specimen was Collected: 11:17
Body Fluid Protein Routine
Fluid Source: Peritoneal (Ascites)
Date Specimen was Collected: 02/16/25
Time Specimen was Collected: 11:17
Fluid Culture with Gram Stain Routine
TOMI Source: Peritoneal Fluid
Specimen Description:
Date Specimen was Collected: 02/16/25
Time Specimen was Collected: 11:17
Comment: Post Procedure
02/16/25 12:56
CefTRIAXone [Rocephin] 1,000 mg IV NOW STA
02/16/25 13:40
Urinalysis Reflex To Culture Urgent
Date Specimen was Collected: 02/16/25
Time Specimen was Collected: 13:35
Urine Microscopic Reflex Cult Urgent
Urine Culture Urgent
TOMI Source: U
Specimen Description:
Date Specimen was Collected: 02/16/25
Time Specimen was Collected: 13:35
02/16/25 14:01
Albumin Human 25% 100 ml [Flexbumin] 25 grams in 100 ml IV TODAY
02/16/25 14:05
Add On- LAB Stat
Tests Added?: serum Osm
Urine Osmolality Random [Osmolality, Random Urine] Stat
Urine Sodium Stat
Abnormal Lab Results
02/16/25 02/16/25
09:53 13:40
MCHC 31.3 L g/dL
(33.0-37.0)
RDW 15.9 H %
(11.5-14.5)
Abs Immat Gran (auto) 0.1 H 10^3/uL
(0-0.05)
Absolute Neuts (auto) 6.9 H 10^3/uL
(1.4-6.5)
Absolute Monos (auto) 1.1 H 10^3/uL
(0.1-0.6)
Immature Gran % 0.6 H %
(0-0.5)
Lymphocytes % 12.5 L %
(20.5-51.1)
Monocytes % 11.6 H %
(1.7-9.3)
Sodium 128 L mmol/L
(135-145)
Chloride 93 L mmol/L
(98-107)
BUN 44 H mg/dl
(9-20)
Creatinine 1.8 H mg/dL
(0.7-1.3)
Glucose 232 H mg/dl
(70-99)
Urine Ketones 1+ A
(Negative)
Ur Occult Blood Reflex 4+ A
(Negative)
Leukocyte Esterase Rfl 1+ A
(Negative)
Urine RBC 90-100 A /HPF
(0-2)
Urine Bacteria (Reflex) Few A
(Negative)
Urine Glucose 4+ A
(Negative)
Urine Albumin (Reflex) 3+ A
(Neg - Trace)
02/16/25 09:53
02/16/25 09:53
Vital Signs
Initial and Last Documented VS:
Initial Vital Signs
Temp Pulse Resp BP Pulse Ox
98.0 F 90 16 100/61 98
02/16/25 09:26 02/16/25 09:26 02/16/25 09:26 02/16/25 09:26 02/16/25 09:26
Last Documented Vital Signs
Temp Pulse Resp BP Pulse Ox
98 F 75 15 92/58 94
02/16/25 10:58 02/16/25 13:00 02/16/25 11:51 02/16/25 13:00 02/16/25 13:00
<Christos Tolliver, DO - Last Filed: 02/16/25 13:13>
Orders/Labs/Results
Orders:
Orders
02/16/25 09:51
[facility] CONSULT Routine
Consulting Provider: Jay Gregory
Was physician already notified: Yes
Procedure being ordered, including laterality if applicable: Paracentesis
Acknowledgement that appropriate orders are entered: Yes
02/16/25 09:53
Complete Blood Count/With Diff Urgent
Comprehensive Metabolic Panel Urgent
NT-proBNP Urgent
PTT Urgent
Prothrombin Time Urgent
Serum Osmolality Urgent
Comment: ADD ON
02/16/25 11:18
Body Fluid Cell Count Routine
What is the Body Fluid: peritoneal fluid
Date Specimen was Collected: 02/16/25
Time Specimen was Collected: 11:17
Comment: post procedure
Body Fluid LDH Routine
Fluid Source: Peritoneal (Ascites)
Date Specimen was Collected: 02/16/25
Time Specimen was Collected: 11:17
Body Fluid Protein Routine
Fluid Source: Peritoneal (Ascites)
Date Specimen was Collected: 02/16/25
Time Specimen was Collected: 11:17
Fluid Culture with Gram Stain Routine
TOMI Source: Peritoneal Fluid
Specimen Description:
Date Specimen was Collected: 02/16/25
Time Specimen was Collected: 11:17
Comment: Post Procedure
02/16/25 12:56
CefTRIAXone [Rocephin] 1,000 mg IV NOW STA
02/16/25 13:40
Urinalysis Reflex To Culture Urgent
Date Specimen was Collected: 02/16/25
Time Specimen was Collected: 13:35
Urine Microscopic Reflex Cult Urgent
Urine Culture Urgent
TOMI Source: U
Specimen Description:
Date Specimen was Collected: 02/16/25
Time Specimen was Collected: 13:35
02/16/25 14:01
Albumin Human 25% 100 ml [Flexbumin] 25 grams in 100 ml IV TODAY
02/16/25 14:05
Add On- LAB Stat
Tests Added?: serum Osm
Urine Osmolality Random [Osmolality, Random Urine] Stat
Urine Sodium Stat
Abnormal Lab Results
02/16/25 02/16/25
09:53 13:40
MCHC 31.3 L g/dL
(33.0-37.0)
RDW 15.9 H %
(11.5-14.5)
Abs Immat Gran (auto) 0.1 H 10^3/uL
(0-0.05)
Absolute Neuts (auto) 6.9 H 10^3/uL
(1.4-6.5)
Absolute Monos (auto) 1.1 H 10^3/uL
(0.1-0.6)
Immature Gran % 0.6 H %
(0-0.5)
Lymphocytes % 12.5 L %
(20.5-51.1)
Monocytes % 11.6 H %
(1.7-9.3)
Sodium 128 L mmol/L
(135-145)
Chloride 93 L mmol/L
(98-107)
BUN 44 H mg/dl
(9-20)
Creatinine 1.8 H mg/dL
(0.7-1.3)
Glucose 232 H mg/dl
(70-99)
Urine Ketones 1+ A
(Negative)
Ur Occult Blood Reflex 4+ A
(Negative)
Leukocyte Esterase Rfl 1+ A
(Negative)
Urine RBC 90-100 A /HPF
(0-2)
Urine Bacteria (Reflex) Few A
(Negative)
Urine Glucose 4+ A
(Negative)
Urine Albumin (Reflex) 3+ A
(Neg - Trace)
02/16/25 09:53
02/16/25 09:53
Vital Signs
Initial and Last Documented VS:
Initial Vital Signs
Temp Pulse Resp BP Pulse Ox
98.0 F 90 16 100/61 98
02/16/25 09:26 02/16/25 09:26 02/16/25 09:26 02/16/25 09:26 02/16/25 09:26
Last Documented Vital Signs
Temp Pulse Resp BP Pulse Ox
98 F 75 15 92/58 94
02/16/25 10:58 02/16/25 13:00 02/16/25 11:51 02/16/25 13:00 02/16/25 13:00
<Segundo Pedro PA-C - Last Filed: 02/16/25 14:25>
MDM/Problems Addressed
Differential Diagnosis Includes:
Recurring SBP
Recurring Ascites 2/2 known cancer
Bowel perforation/obstruction
Volume overload
Electrolyte imbalance
JOSEPH/CKD
MDM/Problems Addressed:
59-year-old male presenting back to the emergency department for reevaluation of 12 pound weight gain, abdominal distention, concern for recurring ascites. Recent admission here where he was diagnosed with SBP after paracentesis was performed. He
received Rocephin IV while here and completed additional days at home, also received albumin on day 1 and day 3. He is afebrile here and in no acute distress., Hemodynamically stable. Will recheck labs, consult with interventional radiology about
repeat paracentesis. Will order labs assuming paracentesis able to be completed today. Disposition pending.
Chronic conditions affecting care: Cancer
Acute Exacerbation and/or Progression of Chronic Illness: Cancer
<Segundo Pedro PA-C - Last Filed: 02/16/25 14:25>
*Pulse Oximetry
SaO2: 95
Oxygen Mode of Delivery: Room air
Patient hypoxic: no
*Critical Care Note
Total Time (30-74mins, 75-104mins- exclusive of procedures): Not Applicable
Data Reviewed
Review of Other/Old Records Reveals: Labs, Records, Radiology Studies and Discharge Summary
<Segundo Pedro PA-C - Last Filed: 02/16/25 14:25>
Patient Management
Discussion with other providers: Hospitalist
Escalation/DeEscalation of care consider admission/obs:
Patient had 5-1/2 L of ascites drained off the abdomen. Patient's ascitic fluid And cytology Concerning for continued SBP. Will reinitiate patient on IV antibiotics with plan to admit back to the hospital. Hospitalist team notified and accepts.
Additional albumin also ordered.
ED Attending Note
<Segundo Pedro PA-C - Last Filed: 02/16/25 14:25>
-
Portions of this chart may have been created with voice recognition software.� Occasional wrong word or��sound alike� substitutions may have occurred due to the inherent limitations of voice recognition software.
<Christos Tolliver DO - Last Filed: 02/16/25 13:13>
ED Attending Note
Patient seen and examined by attending physician: Yes
ED Attending Note:
I have reviewed and agree with history treatment plan by Chavez Myles PA-C. My exam revealed 59-year-old male with ascites. Concerning for SBP. Increased leukocytes in peritoneal fluid. IV Rocephin given. Admit to hospitalist
Discharge Plan
Departure
Patient Disposition: Admit
Date of Disposition: 02/16/25
Time of Disposition: 12:56
Presentation/result/management discussed w/ accepting MD/DO: Hospitalist
Discharge Problem:
Abdominal ascites
Prescriptions:
No Action
Jardiance 25 mg Tablet
25 mg PO DAILY
repaglinide 2 mg Tablet
2 mg PO AC
aspirin 81 mg Tablet,Chewable
81 mg PO DAILY
ergocalciferol (vitamin D2) 1,250 mcg (50,000 unit) Capsule
1,250 mcg PO TUTH
insulin glargine U-300 conc [Toujeo Max U-300 SoloStar] 300 unit/mL (3 mL) Insulin Pen
20 unit SC HS
atorvastatin 80 mg Tablet
80 mg PO QPM
pantoprazole 40 mg Tablet,Delayed Release (Dr/Ec)
40 mg PO DAILY
insulin aspart U-100 [Novolog FlexPen U-100 Insulin] 100 unit/mL (3 mL) insulin pen
10 sliding scale dose SC AC
spironolactone 25 mg Tablet
25 mg PO DAILY Qty: 30 0RF
furosemide 80 mg Tablet
80 mg PO DAILY Qty: 30 0RF
valsartan 40 mg Tablet
20 mg PO DAILY Qty: 30 0RF
Cabometyx 40 mg Tablet
40 mg PO DAILY
tamsulosin [Flomax] 0.4 mg Capsule
0.4 mg PO HS
morphine 15 mg Tablet Extended Release
15 mg PO [id number] PRN (Reason: severe pains)
Referrals:
Bandar Jimenez MD [Family Provider, Internal Medicine]
Interventions
Interventions:
*Risk Screen - Suicide Last Done: 02/16/25 09:26
*General Assessment Last Done: 02/16/25 09:26
*Neglect/Abuse Screening Last Done: 02/16/25 09:26
*ED- Fall Risk Assessment Last Done: 02/16/25 09:38
*ED COVID-19 Vaccine History Last Done: 02/16/25 09:38
*ED Influenza Vaccine History Last Done: 02/16/25 09:38
XF-Qcaons-Wtdhwtpcto Assessment Last Done: 02/16/25 09:38
Discharge Date and Time
Print Language: LITHUANIAN
[2025-02-16 10:00] LABS: Hematocrit 42.2 % (39.0-52.0); Hemoglobin 13.2 g/dL (13.0-18.0); Mean Corp Hgb Conc. 31.3 g/dL (33.0-37.0); Mean Corpuscular Volume 89.8 fL (80.0-94.0); Nucleated Red Blood Cells % 0 % (-); Platelet Count 259 10^3/uL (130-400); Red Cell Dist. Width 15.9 % (11.5-14.5)
[2025-02-16 10:14] LABS: APTT 29.5 Sec (23.4-35.0); INR 1.07; PT 14.2 Sec (11.4-14.6)
[2025-02-16 10:45] LABS: ALT (SGPT) 13 U/L (0-50); AST (SGOT) 18 U/L (17-59); Albumin 3.8 g/dl (3.5-5.0); Alkaline Phosphatase 55 U/L (38-126); Blood Urea Nitrogen 44 mg/dl (9-20); Calcium 8.7 mg/dl (8.4-10.2); Carbon Dioxide 26 mmol/L (22-30); Chloride 93 mmol/L (98-107); Estimated Creatinine Clearance 50 ml/min; Glucose 232 mg/dl (70-99); Potassium 4.6 mmol/L (3.5-5.1); Sodium 128 mmol/L (135-145); Total Protein 6.3 g/dl (6.3-8.2); eGFR 42.30
[2025-02-16 12:49] LABS: Body Fluid Second Tech CF
[2025-02-16] MEDS: ROCEPHIN 1000 MG IV (13:35)
--- NOTE | 2025-02-16 13:41 | W.PN.UPDATE ---
Update Note
Progress Note Update
I personally performed a history and physical exam of the patient and discussed management with the resident. I reviewed the resident's note and agree with the documented findings and plan of care HPI/CC.
92.58, 75, 15, 98.0 F, 94% RA
Gen: NAD, AAOx3.
Eyes: EOMI, PERRLA, no scleral icterus.
Neck: supple.
CV: RRR, +S1/S2, no m/r/g.
Resp: CTAB, no rales, wheezes, or rhonchi.
Abd: +BS, soft, NT, moderate distention with ascites
Skin: No rashes.
Neuro: CN 2-12 intact, non-focal.
Psych: Normal mood and affect.
Allergies
Allergy/AdvReac Type Severity Reaction Status Date / Time
No Known Allergies Allergy Verified 02/05/25 09:12
Home Medications
empagliflozin 25 mg tablet (Jardiance) 25 mg PO DAILY Diabetes 06/23/24
aspirin 81 mg chewable tablet 81 mg PO DAILY Blood Clot Prevention/Tx 09/24/24
ergocalciferol (vitamin D2) 1,250 mcg (50,000 unit) capsule 1,250 mcg PO TUTH Supplement 09/24/24
insulin glargine U-300 conc 300 unit/mL (3 mL) subcutaneous pen (Toujeo Max U-300 SoloStar) 20 unit SC HS Diabetes 09/24/24
repaglinide 2 mg tablet 2 mg PO AC Diabetes 09/24/24
atorvastatin 80 mg tablet 80 mg PO QPM High Cholesterol 10/06/24
pantoprazole 40 mg tablet,delayed release 40 mg PO DAILY gerd 10/06/24
insulin aspart U-100 100 unit/mL (3 mL) subcutaneous pen (Novolog FlexPen U-100 Insulin aspart) 10 sliding scale dose SC AC Diabetes 02/05/25
furosemide 80 mg tablet 80 mg PO DAILY #30 tabs 02/11/25
spironolactone 25 mg tablet 25 mg PO DAILY #30 tabs 02/11/25
valsartan 40 mg tablet 20 mg (1/2 x 40 mg) PO DAILY #30 tabs 02/11/25
cabozantinib 40 mg tablet (Cabometyx) 40 mg PO DAILY 02/16/25
morphine 15 mg tablet,extended release 15 mg PO [id number] PRN severe pains 02/16/25
tamsulosin 0.4 mg capsule 0.4 mg PO HS Urinary Issue 02/16/25
Lab Results
02/16/25 02/16/25
09:53 11:18
WBC 9.6
RBC 4.70
Hgb 13.2
Hct 42.2
MCV 89.8
MCH 28.1
MCHC 31.3 L
RDW 15.9 H
Plt Count 259 D
MPV 10.2
Abs Immat Gran (auto) 0.1 H
Absolute Neuts (auto) 6.9 H
Absolute Lymphs (auto) 1.2
Absolute Monos (auto) 1.1 H
Absolute Eos (auto) 0.2
Absolute Basos (auto) 0.1
Immature Gran % 0.6 H
Neutrophils % 72.3
Lymphocytes % 12.5 L
Monocytes % 11.6 H
Eosinophils % 2.3
Basophils % 0.7
Nucleated RBC % 0
PT 14.2
INR 1.07
APTT 29.5
Sodium 128 L
Potassium 4.6
Chloride 93 L
Carbon Dioxide 26
BUN 44 H
Creatinine 1.8 H
Estimated Creat Clear 50
eGFR 42.30
Glucose 232 H
Calcium 8.7
Total Bilirubin 0.7
AST 18
ALT 13
Alkaline Phosphatase 55
Omk-G-Zeiigovlvzk Pept 2009
Total Protein 6.3
Albumin 3.8
Fluid WBC 1123
Fluid Mononuclear Cell 60.1
Fl Polymorphonucl Cell 39.9
Fluid Other Cells Not Reportable
Fluid Diff Path Review Not Reportable
Fluid Total Protein 5.1
Fluid LDH 762
Possible recurrent SBP:
-recently discharge 02/11/25 on Cefdinir to complete 4 further days (pt was compliant)
-paracentesis today for 5.5L with 1123 WBC
-give 25g IV albumin
-Rocephin started in ER
-follow FCx
-cytology from paracentesis 02/10 positive for malignancy, metastatic carcinoma. At this point I suspect the elevated WBC in the pt's ascitic fluid is more likely related to malignant ascites as opposed to recurrent SBP. Will ask infectious disease
to weigh in.
Hyponatremia:
-check serum/urine Osm, Ana María
-FR 1200cc/day
Hypotension:
-start Midodrine 5mg TID
-hold Jardiance/lasix/aldactone/ARB
JOSEPH:
-c/s renal
-trend Cr s/p paracentesis
-difficult to give volume with chronic HFrEF and recurrent ascites
-hold Jardiance/lasix/aldactone/ARB until seen by renal (also with hypotension)
Other problems:
Chronic HFrEF: hold Jardiance/lasix/aldactone/ARB. FR/daily wts/I/Os
RCC
CAD with h/o AR/stenting: cont ASA/statin
PAF: not on AC [employer]
DM2: cont Lantus/premeal Novolog/SSI/accuchecks/diabetic diet
Considering the pt's malignancy and advanced HFrEF in the setting of JOSEPH and possible recurrent SBP, reasonable to c/s palliative care.
[2025-02-16 13:52] LABS: Urine Character Cloudy (Clear)
[2025-02-16] MEDS: FLEXBUMIN 100 IV ×2 (14:10→19:57)
[2025-02-16 14:16] LABS: Urine Red Blood Cell 90-100 /HPF (0-2); Urine Squamous Cell 0-2 /LPF (Few); Urine White Cell 0-2 /HPF (0-5)
--- NOTE | 2025-02-16 14:43 | HPS.HSE ---
Family Physician
-
Family Physician: Bandar Jimenez MD
Chief Complaint
-
Abdominal fullness due to ascites reaccumulation
History of Present Illness
Mr. Cong Pennington is a 59-year-old man with PMH notable for metastatic renal cell carcinoma, myocardial infarction (s/p stents), HFrEF (EF 15 to 20%), IDDM, and recurrent hyponatremia, who presents with abdominal distention and for 12 pound weight
gain shortly after discharge for spontaneous bacterial peritonitis 5 days prior.
Patient said that he felt the fluid reaccumulate in his abdomen shortly after discharge. He was admitted 02/05/25 to 02/11/2025 and was found to have spontaneous bacterial peritonitis. He was treated with Rocephin and discharged on cefdinir for a
combined total of 7 days. He had just finished his antibiotic course.
Since discharge, he has also had decreased appetite due to the abdominal ascension. He has had nausea and vomiting. In the morning, he said he he feels nauseous and will dry heave as he does not have stomach contents to vomit.
He also states he feels short of breath, which he believes is due to the abdominal surgeon pressing up on his diaphragm.
Medical History
Past Medical History
Past Medical History: Reports CAD, Cancer (Metastatic renal cell carcinoma), CHF (HFrEF with EF 15-20%), Hypercholesterolemia, IDDM, [place] (Status post stents) and Other (BPH)
Past Surgical History: Reports Cardiac (Stents, defibrillator placement, cardiac catheterization)
Social History
Tobacco: Non-smoker
Alcohol: None
Drug: None
Personal:
Living: With Family
Family History
Family History: Cancer (Ovarian cancer in aunt)
Allergies / Home Medications
Allergies reflects when Allergies were last updated in [facility].
Home Medications with original date entered in [facility]
Allergy/Medication List:
Allergies
Allergy/AdvReac Type Severity Reaction Status Date / Time
No Known Allergies Allergy Verified 02/05/25 09:12
Home Medications
empagliflozin 25 mg tablet (Jardiance) 25 mg PO DAILY Diabetes 06/23/24
aspirin 81 mg chewable tablet 81 mg PO DAILY Blood Clot Prevention/Tx 09/24/24
ergocalciferol (vitamin D2) 1,250 mcg (50,000 unit) capsule 1,250 mcg PO TUTH Supplement 09/24/24
insulin glargine U-300 conc 300 unit/mL (3 mL) subcutaneous pen (Toujeo Max U-300 SoloStar) 20 unit SC HS Diabetes 09/24/24
repaglinide 2 mg tablet 2 mg PO AC Diabetes 09/24/24
atorvastatin 80 mg tablet 80 mg PO QPM High Cholesterol 10/06/24
pantoprazole 40 mg tablet,delayed release 40 mg PO DAILY gerd 10/06/24
insulin aspart U-100 100 unit/mL (3 mL) subcutaneous pen (Novolog FlexPen U-100 Insulin aspart) 10 sliding scale dose SC AC Diabetes 02/05/25
furosemide 80 mg tablet 80 mg PO DAILY #30 tabs 02/11/25
spironolactone 25 mg tablet 25 mg PO DAILY #30 tabs 02/11/25
valsartan 40 mg tablet 20 mg (1/2 x 40 mg) PO DAILY #30 tabs 02/11/25
cabozantinib 40 mg tablet (Cabometyx) 40 mg PO DAILY 02/16/25
morphine 15 mg tablet,extended release 15 mg PO [id number] PRN severe pains 02/16/25
tamsulosin 0.4 mg capsule 0.4 mg PO HS Urinary Issue 02/16/25
Review of Systems
-
History Source: Patient
A 12 point ROS was completed and negative except as noted: Yes
Constitutional: Reports Weight Gain; Denies Fever or Chills
Respiratory: Reports Trouble Breathing
Cardiac: Denies Chest Pain, Palpitations or Syncope
Abdomen/GI: Reports Nausea, Vomiting and Constipated; Denies Abdominal Pain or Bloody Stools
: Reports Bleeding (2 days before admission and in the middle of last admission a week ago)
Neurological: Denies Dizzy
Psych: Reports Calm
Physical Exam
Vital Signs
Vital Signs
Temp Pulse Resp BP Pulse Ox
98 F 90 15 82/51 96
02/16/25 10:58 02/16/25 14:12 02/16/25 11:51 02/16/25 14:12 02/16/25 14:12
Physical Exam
General: Well Developed, Well Nourished, No Apparent Distress, Comfortable and Conversant
HEENT: NormoCephalic, Anicteric, Atraumatic, No Ptosis, Nose Appears Normal and Ears Appear Normal; No Oxygen
Respiratory: Clear
Cardiac: S1/S2 and Regular Rhythm
GI: Soft, Non Tender, Normal Bowel Sounds and Distended
Musculoskeletal: Clubbing, No Clubbing, Edema, Left Lower Extremity (Minimal bilateral lower extremity edema) and Edema, Right Lower Extremity (Minimal)
Skin: Warm and Dry
Neuro: Awake, Alert, Nonfocal/grossly intact and No Sensory Deficits
Psych: Calm and Intact Judgment/Insight
Laboratory Results
-
02/16/25 09:53
02/16/25 09:53
Laboratory Results
PT 14.2 Sec (11.4-14.6) 02/16/25 09:53
INR 1.07 02/16/25 09:53
APTT 29.5 Sec (23.4-35.0) 02/16/25 09:53
Total Bilirubin 0.7 mg/dl (0.2-1.3) 02/16/25 09:53
AST 18 U/L (17-59) 02/16/25 09:53
ALT 13 U/L (0-50) 02/16/25 09:53
Alkaline Phosphatase 55 U/L (38-126) 02/16/25 09:53
Impression/Plan
-
IMPRESSION:
Mr. Cong Pennington is a 59-year-old man with PMH notable for metastatic renal cell carcinoma, myocardial infarction (s/p stents), HFrEF (EF 15 to 20%), IDDM, and recurrent hyponatremia, who presents with abdominal distention and for 12 pound weight
gain shortly after discharge for spontaneous bacterial peritonitis 5 days prior.
Patient said that he felt the fluid reaccumulate in his abdomen shortly after discharge. He was admitted 02/05/25 to 02/11/2025 and was found to have spontaneous bacterial peritonitis. He was treated with Rocephin and discharged on cefdinir for a
combined total of 7 days. He had just finished his antibiotic course. Since discharge, he has also had decreased appetite due to the abdominal ascension. He has had nausea and vomiting. In the morning, he said he he feels nauseous and will dry
heave as he does not have stomach contents to vomit. He also states he feels short of breath, which he believes is due to the abdominal surgeon pressing up on his diaphragm.
ED COURSE:
CBC unremarkable
CMP with hyponatremia to 128, creatinine 1.8 (baseline 1-1.2), BUN 44, chloride 93 glucose 232
proBNP 2009
UA with 0-2 squamous epithelial cells, 0-2 WBCs, few bacteria, 90-100 RBCs, 4+ occult blood, leukocyte Estrace positive, nitrite negative, 4+ glucose, 3+ albumin
Paracentesis: 5.5 L ascites fluid
� 1123 WBCs: 40% PMNs (4-50 PMNs), 60% Pitkin sites
� Total protein 5.1. Serum protein 6.3. SAAG 0.8, <1.1. Ascites due to portal hypertension, consistent with malignant ascites.
� LDH 762
Rocephin x 1
Albumin 25g
PLAN:
#JOSEPH
� Hold furosemide 80 mg p.o. daily, spironolactone 25 mg p.o. daily, valsartan 20 mg p.o. daily, Jardiance 25 mg p.o. daily
� Trend creatinine
Nephrology consulted
#Ascites, more likely from malignancy than SBP
#Nausea and vomiting
#Recent Dx SBP
Cytology from paracentesis 03/03 positive for malignancy/metastatic carcinoma
Paracentesis 02/16/2025: 5.5 L ascites fluid
:: 1123 WBCs: 40% PMNs (4-50 PMNs), 60% Pitkin sites
:: Total protein 5.1. Serum protein 6.3. SAAG 0.8, <1.1. Ascites due to portal hypertension, consistent with malignant ascites.
:: LDH 762
:: Ascitic fluid analysis consistent with malignant ascites or continued or new SBP. Afebrile/no constitutional symptoms of infection
� S/p 25 g albumin 02/16/2025
� Rocephin IV 2 g every 24 hours
� Zofran IV. QTc 505 ms on 02/05/2025
ID consulted: As this is continued, new, or no SBP?
#Hyponatremia
:: NA 128 on admission
� Fluid restriction 1200 cc/day
Pending serum osmolality, urine osmolality, urine sodium
#Metastatic renal cell carcinoma
#Hematuria (off-and-on)
#Constipation on as needed opioid
� Bowel regimen started
� Palliative care consult for symptomatic management of pain and constipation
#IDDM
� Hold Jardiance 25 mg p.o. daily until JOSEPH resolves
� Continue home glargine 20 units nightly and 10 units SSI AC
Diabetes MANUSCRIPTS ARCHIVIST consulted
#HFrEF
EF 15-20% 02/06/2025
BNP 2010. 2170 on 02/05/2025. 6100 on 09/24/2024
� Hold furosemide 80 mg p.o. daily, spironolactone 25 mg p.o. daily, valsartan 20 mg p.o. daily, Jardiance 25 mg p.o. daily until JOSEPH resolves
#Hx myocardial infarction s/p stent
� Continue aspirin 81 mg p.o. daily
#HLD
� Continue atorvastatin 80 mg every afternoon
#BPH
� Continue tamsulosin 0.4 mg nightly
A-fib: Although A-fib is noted in his diagnoses and in some notes, patient may not have it. He is not on anticoagulation and does not recall hearing he has A-fib. He was in sinus rhythm on exam. He denies palpitations, tachycardia, chest pain,
syncope/presyncope.
DVT prophylaxis: Enoxaparin 40 mg subcutaneous every afternoon
CODE STATUS: Full code
Diet: Diabetic, 1200 cc/day fluid restriction, low-cholesterol
--- NOTE | 2025-02-16 15:10 | CON.ID ---
Consultation
-
Date/Time Consultation Requested: February 16, 2025 1500
Date/Time Consultation Performed: February 16, 2025 1510
Requesting Provider: Dr. Myron Frances
Performing Provider: Dr. Jasmina Pickett
Reason for Consultation: Malignant ascites versus SBP
Chief Complaint / Past History
Chief Complaint
Increased abdominal distention
History of Present Illness
59-year-old male with history of diabetes mellitus, CAD, heart failure/AICD, metastatic renal cell carcinoma on Cabometyx last received 3 weeks ago who presented to the ED today due to rapid recurrence of abdominal distention. Patient was recently
hospitalized February 05 to February 11 with weight gain, increased abdominal girth. Ultrasound showed ascites. February 09, he underwent paracentesis 3 L, fluid showed 270 polys, cytology pending at the time. He received 3 days of IV ceftriaxone
then discharged on cefdinir for another 4 days. While at home patient gained 4 pounds each day unintentionally. He was on fluid restriction. His abdomen became very distended. No fevers or chills. No abdominal pain or diarrhea. Positive lower
extremity edema. In ER afebrile, no leukocytosis. Today he underwent paracentesis 5.5 L sarita ascitic fluid; 1123 white blood cells, 60% monos, 40% polys. He received a dose of ceftriaxone in the ER. Patient feels much improved after large
paracentesis. He was unaware until I told him that the February 09 ascitic fluid was positive for malignant cells consistent with metastatic carcinoma.
Past History
Additional Past Medical History:
R Renal cell carcinoma with metastases to retroperitoneal, mediastinal and supraclavicular lymph nodes, peritoneum, on Cabometyx
Diabetes mellitus
CADs/p stent
Paroxysmal atrial fibrillation
HFrEF s/p AICD
CKD 3
BPH
Allergy History:
No Known Allergies Allergy (Verified 02/05/25 09:12)
Medications Reviewed: Yes
Current Antibiotics:
Ceftriaxone x 1
Social History
Tobacco: Non-Smoker
Alcohol: None
Drug: None
Personal:
Living: With Family
Family History
Family History: Not Pertinent
Review of Systems
Review of Systems
General: Negative Fever, Chills or Change in Appetite
HEENT: Negative Sinus Problems or Headache
Cardiovascular: Negative Chest Pain or Dyspnea
Respiratory: Negative Dyspnea or Cough
Gasteroenterology: Negative Nausea, Vomiting or Diarrhea
Genital / Urological: Negative Dysuria or Flank Pain
Endocrine: Negative Weakness
Neurological: Negative Dizziness
All systems: All other systems were reviewed and were negative
Vital Signs
Temp Pulse Resp BP Pulse Ox
98 F 90 15 82/51 96
02/16/25 10:58 02/16/25 14:12 02/16/25 11:51 02/16/25 14:12 02/16/25 14:12
Physical Exam
Physical Exam
Constitutional: No Acute Distress and Comfortable
Head: Other (No sinus tenderness)
Eyes: No Conjunctival Hemorrhage and Sclera Anicteric
Cardiovascular: Regular Rate and S1/S2
Pulmonary: Clear
Gastrointestinal: Soft, Non Tender, Distended (mild-mod) and Normal Bowel Sounds
Extremities: Edema (1+BLE)
Skin: Negative Jaundice
Neurological: AO x 3
Lab / Diagnostic Study Results
02/16/25 09:53
02/16/25 09:53
Abs Immat Gran (auto) 0.1 10^3/uL (0-0.05) H 02/16/25 09:53
Absolute Neuts (auto) 6.9 10^3/uL (1.4-6.5) H 02/16/25 09:53
Absolute Lymphs (auto) 1.2 10^3/uL (1.2-3.4) 02/16/25 09:53
Absolute Monos (auto) 1.1 10^3/uL (0.1-0.6) H 02/16/25 09:53
Absolute Basos (auto) 0.1 10^3/uL (0-0.2) 02/16/25 09:53
Immature Gran % 0.6 % (0-0.5) H 02/16/25 09:53
Neutrophils % 72.3 % (42.2-75.2) 02/16/25 09:53
Lymphocytes % 12.5 % (20.5-51.1) L 02/16/25 09:53
Monocytes % 11.6 % (1.7-9.3) H 02/16/25 09:53
Eosinophils % 2.3 % (0-6) 02/16/25 09:53
Basophils % 0.7 % (0-2) 02/16/25 09:53
PT 14.2 Sec (11.4-14.6) 02/16/25 09:53
INR 1.07 02/16/25 09:53
Ur Squamous Epith Cells 0-2 /LPF (Few) 02/16/25 13:40
Microbiology Results
Micro:
02/16/25 11:18 Body Fluid Culture - Pending
Peritoneal Fluid Gram Stain - Preliminary
02/16/25 13:40 Urine Culture - Pending
Urine
Assessment / Plan
# Malignant ascites with rapid reaccumulation ascites
# Metastatic R RCC on chemo last received 3 weeks ago
-02/09/25 Ascites 845wbc, 68% mono, 32% polys (270), gram stain neg, cytology +malignant cell s/p 7d abx
-02/16/25 Ascites 1123 WBC, 60%mono, 40% polys (449), cx pending.
- Elevated WBC/polys in ascites is not unusual in setting of malignant peritoneal carcinomatous.
- Favor malignant ascites over SBP (no F/C/abd pain/leukocytosis)
- Recommend observe off abx.
ID will sign off.
Conditions present on admission:
R Renal cell carcinoma with metastases to retroperitoneal, mediastinal and supraclavicular lymph nodes, peritoneum on Cabometyx
Diabetes mellitus
CADs/p stent
Paroxysmal atrial fibrillation
HFrEF s/p AICD
CKD 3
BPH
--- NOTE | 2025-02-16 15:18 | CM ---
Chart reviewed and spoke with patient at ED bedside
Was here at for ascities . Chemo on hold
Lives with in [address] [facility] Independent with ADLs
no DME
PCP Dr. Bandar Espitia
Pharmacy Save on
no hx of VN nor SNF
DCP is to return home
will continue to follow up for any dcp needs
--- NOTE | 2025-02-16 16:55 | W.CON.NEPH ---
Consultation
-
Date/Time Consultation Requested: 02/16/25 1530
Date/Time Consultation Performed: 02/16/25 1700
Requesting Provider: Myron Palafox
Performing Provider: Tatiana Vazquez
Reason for Consultation: JOSEPH
Medical History
-
Chief Complaint: SOB, abd distension
History of Present Illness:
59-year-old man with PMH notable for metastatic renal cell carcinoma on Carbometyx, chr anemia, myocardial infarction (s/p stents), HFrEF (EF 15 to 20%) on lasix and spironolactone, Low-dose valsartan, IDDM on Jardiance,repaglinide, hyperlipidemia
on high-dose atorvastatin, chronic pain on morphine,BPH on Flomax, and recurrent hyponatremia, who presents with abdominal distention and for 12 pound weight gain in 3days shortly after discharge for spontaneous bacterial peritonitis 5 days prior on
02/11.
Patient said that he felt the fluid reaccumulate in his abdomen shortly after discharge. He was admitted 02/05/25 to 02/11/2025 and was found to have spontaneous bacterial peritonitis. He was treated with Rocephin and discharged on cefdinir for a
combined total of 7 days. He had just finished his antibiotic course. Since discharge, Reports compliant with the medications however urine output has not been great. he has also had decreased appetite, Mild shortness of breath due to the
abdominal ascension. He has had nausea and vomiting. no diarrhea.
Today he had 5.5 L of paracentesis and feels much better, no shortness of breath currently. No chest pain. No reported fever or chills.
His creatinine noted to be at 1.8 with a baseline of 1-1.3, Sodium is also low at 128, blood sugar 232, corrected 131 hence nephrology consulted. he denies use of NSAIDs. he reports compliant with a 48 ounces of fluid restriction.
Past Medical History
Reports CAD, Metastatic renal cell carcinoma, CHF (HFrEF with EF 15-20%), Hypercholesterolemia, IDDM, [place] (Status post stents) and Other (BPH)
Past Surgical History: Other (Stents, defibrillator placement, cardiac catheterization)
Social History
Tobacco: Non-Smoker
Alcohol: None
Drug: None
Personal:
Living: With Family
Family History
no CKD
Allergies / Home Medications
Allergy/AdvReac Type Severity Reaction Status Date / Time
No Known Allergies Allergy Verified 02/05/25 09:12
�Medication �Instructions �Recorded �Confirmed �Type
empagliflozin 25 mg tablet 25 mg PO DAILY Diabetes 06/23/24 02/16/25 History
(Jardiance)
aspirin 81 mg chewable tablet 81 mg PO DAILY Blood Clot 09/24/24 02/16/25 History
Prevention/Tx
ergocalciferol (vitamin D2) 1,250 1,250 mcg PO TUTH Supplement 09/24/24 02/16/25 History
mcg (50,000 unit) capsule
insulin glargine U-300 conc 300 20 unit SC HS Diabetes 09/24/24 02/16/25 History
unit/mL (3 mL) subcutaneous pen
(Toujeo Max U-300 SoloStar)
repaglinide 2 mg tablet 2 mg PO AC Diabetes 09/24/24 02/16/25 History
atorvastatin 80 mg tablet 80 mg PO QPM High Cholesterol 10/06/24 02/16/25 History
pantoprazole 40 mg tablet,delayed 40 mg PO DAILY gerd 10/06/24 02/16/25 History
release
insulin aspart U-100 100 unit/mL 10 sliding scale dose SC AC 02/05/25 02/16/25 History
(3 mL) subcutaneous pen (Novolog Diabetes
FlexPen U-100 Insulin aspart)
furosemide 80 mg tablet 80 mg PO DAILY #30 tabs 02/11/25 02/16/25 Rx
spironolactone 25 mg tablet 25 mg PO DAILY #30 tabs 02/11/25 02/16/25 Rx
valsartan 40 mg tablet 20 mg (1/2 x 40 mg) PO DAILY #30 02/11/25 02/16/25 Rx
tabs
cabozantinib 40 mg tablet 40 mg PO DAILY 02/16/25 02/16/25 History
(Cabometyx)
morphine 15 mg tablet,extended 15 mg PO [id number] PRN severe pains 02/16/25 02/16/25 History
release
tamsulosin 0.4 mg capsule 0.4 mg PO HS Urinary Issue 02/16/25 02/16/25 History
Review of Systems
-
All other systems: Negative unless noted
Physical Exam
Vital Signs
Vital Signs
Temp Pulse Resp BP Pulse Ox
98 F 79 15 103/66 94
02/16/25 10:58 02/16/25 15:01 02/16/25 11:51 02/16/25 16:00 02/16/25 15:00
Lab Results
WBC 9.6 10^3/uL (4.8-10.8) 02/16/25 09:53
RBC 4.70 10^6/uL (4.70-6.10) 02/16/25 09:53
Hgb 13.2 g/dL (13.0-18.0) 02/16/25 09:53
Hct 42.2 % (39.0-52.0) 02/16/25 09:53
Plt Count 259 10^3/uL (130-400) D 02/16/25 09:53
Sodium 128 mmol/L (135-145) L 02/16/25 09:53
Potassium 4.6 mmol/L (3.5-5.1) 02/16/25 09:53
Chloride 93 mmol/L (98-107) L 02/16/25 09:53
Carbon Dioxide 26 mmol/L (22-30) 02/16/25 09:53
BUN 44 mg/dl (9-20) H 02/16/25 09:53
Creatinine 1.8 mg/dL (0.7-1.3) H 02/16/25 09:53
eGFR 42.30 02/16/25 09:53
Glucose 232 mg/dl (70-99) H 02/16/25 09:53
Calcium 8.7 mg/dl (8.4-10.2) 02/16/25 09:53
Jai-W-Wljnqeafxkz Pept 2010 pg/ml 02/16/25 09:53
Albumin 3.8 g/dl (3.5-5.0) 02/16/25 09:53
Physical Exam
General: Awake, Alert, Oriented, AOx3 and No Distress
HEENT: EOMI, Conjunctivae Clear, Dentition Intact and Facial Symmetry
Respiratory: Normal Excursion, Nonlabored Respirations and Other ( Decreased breath sounds)
Cardiac: S1/S2 and Regular Rate/Rhythm
Breast: Deferred by me
Abdomen: Soft, Nontender and Other ( mild distention)
Rectal: Deferred by Provider
Musculoskeletal: No Cyanosis and Edema ( trace)
Skin: No Rash
Neuro: Nonfocal/Grossly Intact
Psych: Mood/afflect pleasant, Insight/judgement good and Appropriate
Data Reviewed
-
Labs: Labs Reviewed by me and Discussed with Patient
Assessment/Plan
-
IMP:
Abd distension and sob from ascites
h/o SBP
JOSEPH-baseline cr 1-1.3
Hyponatremia
Hypotension
Chronic HFrEF
RCC-Patient follows at [facility], Dr. Vu
CAD with h/o NC/stenting
PAF
DM2
Plan:
A/w sob, worsening ascites causing sob -now s/p 5.5 lit of paracentesis
recent d/c with diuretics and abx for SBP
JOSEPH-suspect hemodynamic related with low BPs, diuretics, ascites
UA microhematuria with known RCC, check U PCR for 3+alb
US on 02/05 shows no hydro, 4.8cm right renal mass, follow bladder scan and cotn flomax
agree with holding diuretics, JArdiance and Valsartan, avoid nephrotoxins
will start Alb course and cont midodrine
Hyponatremia likely hypervolemia, check U osmo. corrected sodium 131
labs in am
d/w pt
[2025-02-16 17:54] LABS: Glucose - Point of Care 144 mg/dl (70-99)
[2025-02-16] MEDS: NOVOLOG FLEXPEN 10 UNITS SC (18:15)
[2025-02-16] MEDS: PRANDIN 2 MG PO (18:15)
[2025-02-16] MEDS: LIPITOR 80 MG PO (18:16)
[2025-02-16] MEDS: LOVENOX 40 MG SC (18:16)
[2025-02-16 20:51] LABS: Glucose - Point of Care 132 mg/dl (70-99)
[2025-02-16] MEDS: FLOMAX 0.4 MG PO (22:36)
[2025-02-16] MEDS: LANTUS 0.16 UNITS SC (22:36)
[2025-02-17] MEDS: FLEXBUMIN 100 IV ×2 (03:12→12:57)
[2025-02-17 06:00] VITALS: BMI 29.3
[2025-02-17 07:43] VITALS: BP 100/66
[2025-02-17 07:43] LABS: Glucose - Point of Care 133 mg/dl (70-99)
[2025-02-17] MEDS: PROTONIX 40 MG PO (07:44)
[2025-02-17] MEDS: NOVOLOG FLEXPEN 10 UNITS SC ×2 (07:44→12:19)
[2025-02-17] MEDS: PRANDIN 2 MG PO ×2 (07:44→12:21)
[2025-02-17] MEDS: LOW STRENGTH ASPIRIN 81 MG PO (07:45)
--- NOTE | 2025-02-17 07:52 | W.PN.HOSP.TC ---
Today's Communication/Plan
-
Patient's creatinine improved from 1.8-1.5. JOSEPH is resolving. He is tolerating p.o. intake much better after the paracentesis.
Since ascites seems to be due to in the malignancy based on the ascitic fluid analysis, antibiotics were discontinued.
Discharging patient with midodrine 3 times daily and resumption of Lasix, but holding Jardiance, spironolactone, and valsartan. Instructed the patient to keep his appointment on Sunday with his director corporate compliance to monitor the resolution of his JOSEPH and
discuss when to restart GDMT meds. Also started the patient to follow-up with his PCP in 1 to 2 days to get a basic metabolic panel in 2 days to follow-up on JOSEPH resolution.
Assessment / Plan
Assessment / Plan
IMPRESSION:
Mr. Cong Pennington is a 59-year-old man with PMH notable for metastatic renal cell carcinoma, myocardial infarction (s/p stents), HFrEF (EF 15 to 20%), IDDM, and recurrent hyponatremia, who presents with abdominal distention and for 12 pound weight
gain shortly after discharge for spontaneous bacterial peritonitis 5 days prior.
Patient said that he felt the fluid reaccumulate in his abdomen shortly after discharge. He was admitted 02/05/25 to 02/11/2025 and was found to have spontaneous bacterial peritonitis. He was treated with Rocephin and discharged on cefdinir for a
combined total of 7 days. He had just finished his antibiotic course. Since discharge, he has also had decreased appetite due to the abdominal ascension. He has had nausea and vomiting. In the morning, he said he he feels nauseous and will dry
heave as he does not have stomach contents to vomit. He also states he feels short of breath, which he believes is due to the abdominal surgeon pressing up on his diaphragm.
ED COURSE:
CBC unremarkable
CMP with hyponatremia to 128, creatinine 1.8 (baseline 1-1.2), BUN 44, chloride 93 glucose 232
proBNP 2009
UA with 0-2 squamous epithelial cells, 0-2 WBCs, few bacteria, 90-100 RBCs, 4+ occult blood, leukocyte Estrace positive, nitrite negative, 4+ glucose, 3+ albumin
Paracentesis: 5.5 L ascites fluid
� 1123 WBCs: 40% PMNs (4-50 PMNs), 60% [place] sites
� Total protein 5.1. Serum protein 6.3. SAAG 0.8, <1.1. Ascites due to portal hypertension, consistent with malignant ascites.
� LDH 762
Rocephin x 1
Albumin 25g
PLAN:
#JOSEPH
� Hold furosemide 80 mg p.o. daily, spironolactone 25 mg p.o. daily, valsartan 20 mg p.o. daily, Jardiance 25 mg p.o. daily
� Trend creatinine
Nephrology consulted:
- recent d/c with diuretics and abx for SBP
- JOSEPH-suspect hemodynamic related with low BPs, diuretics, ascites
- UA microhematuria with known RCC, check U PCR for 3+alb
- US on 02/05 shows no hydro, 4.8cm right renal mass, follow bladder scan and cotn flomax
- agree with holding diuretics, JArdiance and Valsartan, avoid nephrotoxins
- will start Alb course and cont midodrine
- Hyponatremia likely hypervolemia, check U osmo. corrected sodium 131
#Soft blood pressures
� Started midodrine 5 mg p.o. 3 times daily
#Ascites, more likely from malignancy than SBP
#Nausea and vomiting
#Recent Dx SBP
Cytology from paracentesis 03/03 positive for malignancy/metastatic carcinoma
Paracentesis 02/16/2025: 5.5 L ascites fluid
:: 1123 WBCs: 40% PMNs (4-50 PMNs), 60% Monocytes
:: Total protein 5.1. Serum protein 6.3. SAAG 0.8, <1.1. Ascites due to portal hypertension, consistent with malignant ascites.
:: LDH 762
:: Ascitic fluid analysis consistent with malignant ascites or continued or new SBP. Afebrile/no constitutional symptoms of infection
� S/p 25 g albumin 02/16/2025
� Planned to continue Rocephin IV 2 g every 24 hours in case of SBP, but discontinued it per IDs recommendations.
� If continued nausea/vomiting after paracentesis, consider Zofran 4 mg IV every 6 as needed. QTc 505 ms on 02/05/2025
ID consulted: Believe there is malignant ascites. Recommended discontinuing antibiotics and signed off
#Hyponatremia
:: NA 128 on admission
:: Serum normotonic 297. urine osmolality, urine sodium pending
� Fluid restriction 1200 cc/day
#Metastatic renal cell carcinoma
#Hematuria (off-and-on)
#Constipation on as needed opioid
� Bowel regimen started
� Palliative care consult for symptomatic management of pain and constipation
#IDDM
� Hold Jardiance 25 mg p.o. daily until JOSEPH resolves
� Continue home glargine 20 units nightly and 10 units SSI AC
Diabetes ETHICS OFFICER consulted
#HFrEF
EF 15-20% 02/06/2025
BNP 2010. 2170 on 02/05/2025. 6100 on 09/24/2024
� Hold furosemide 80 mg p.o. daily, spironolactone 25 mg p.o. daily, valsartan 20 mg p.o. daily, Jardiance 25 mg p.o. daily until JOSEPH resolves
#Hx myocardial infarction s/p stent
� Continue aspirin 81 mg p.o. daily
#HLD
� Continue atorvastatin 80 mg every afternoon
#BPH
� Continue tamsulosin 0.4 mg nightly
A-fib: Although A-fib is noted in his diagnoses and in some notes, patient may not have it. He is not on anticoagulation and does not recall hearing he has A-fib. He was in sinus rhythm on exam. He denies palpitations, tachycardia, chest pain,
syncope/presyncope.
DVT prophylaxis: Enoxaparin 40 mg subcutaneous every afternoon
CODE STATUS: Full code
Diet: Diabetic, 1200 cc/day fluid restriction, low-cholesterol
Anticipated Discharge: Today
Subjective/Interval History
-
Date of Service: February 17, 2025
No acute events overnight. Patient had dry heaves again this morning. He tolerated his breakfast, which included solid foods, without nausea or vomiting.
Objective Data
-
Labs:
Microbiology Results - Entire Visit
02/16/25 13:40 Urine Urine Culture - Final
NO GROWTH
02/16/25 11:18 Peritoneal Fluid Body Fluid Culture - Preliminary
No Growth After 18-24 Hours
02/16/25 11:18 Peritoneal Fluid Gram Stain - Preliminary
Hematology and Coagulation - Last 24 hours
02/17/25 Range/Units
07:20
WBC 8.4 (4.8-10.8) 10^3/uL
RBC 4.22 L (4.70-6.10) 10^6/uL
Hgb 11.9 L (13.0-18.0) g/dL
Hct 36.8 L (39.0-52.0) %
MCV 87.2 (80.0-94.0) fL
MCH 28.2 (27.0-31.0) pg
MCHC 32.3 L (33.0-37.0) g/dL
RDW 15.7 H (11.5-14.5) %
Plt Count 215 (130-400) 10^3/uL
MPV 10.6 H (7.4-10.4) fL
Abs Immat Gran (auto) 0.1 H (0-0.05) 10^3/uL
Absolute Neuts (auto) 5.8 (1.4-6.5) 10^3/uL
Absolute Lymphs (auto) 1.2 (1.2-3.4) 10^3/uL
Absolute Monos (auto) 1.0 H (0.1-0.6) 10^3/uL
Absolute Eos (auto) 0.3 (0-0.7) 10^3/uL
Absolute Basos (auto) 0.1 (0-0.2) 10^3/uL
Immature Gran % 0.7 H (0-0.5) %
Neutrophils % 69.2 (42.2-75.2) %
Lymphocytes % 14.2 L (20.5-51.1) %
Monocytes % 11.7 H (1.7-9.3) %
Eosinophils % 3.3 (0-6) %
Basophils % 0.9 (0-2) %
Nucleated RBC % 0 (-) %
Blood Gas and Chemistry - Last 24 hours
02/16/25 02/17/25 Range/Units
09:53 07:20
Sodium 131 L (135-145) mmol/L
Potassium 4.9 (3.5-5.1) mmol/L
Chloride 97 L (98-107) mmol/L
Carbon Dioxide 29 (22-30) mmol/L
BUN 44 H (9-20) mg/dl
Creatinine 1.5 H (0.7-1.3) mg/dL
Estimated Creat Clear 52 ml/min
eGFR 52.64
Glucose 126 H (70-99) mg/dl
Serum Osmolality 297 (275-300) mOsm/kg
Calcium 8.4 (8.4-10.2) mg/dl
Magnesium 2.4 H (1.6-2.3) mg/dl
Total Bilirubin 0.8 (0.2-1.3) mg/dl
AST 18 (17-59) U/L
ALT 11 (0-50) U/L
Alkaline Phosphatase 38 (38-126) U/L
Total Protein 5.3 L (6.3-8.2) g/dl
Albumin 3.5 (3.5-5.0) g/dl
Other lab results - Last 24 hours
02/16/25 02/16/25 02/17/25 Range/Units
11:18 13:40 09:47
Urine Color Brown
Urine Clarity Cloudy (Clear)
Urine pH 5.0 (5.0-9.0)
Ur Specific [place] 1.020 (<1.030)
Urine Ketones 1+ A (Negative)
Ur Occult Blood Reflex 4+ A (Negative)
Urine Nitrite (Reflex) Negative (Negative)
Urine Bilirubin Negative (Negative)
Urine Urobilinogen Negative (Neg - 1+)
Leukocyte Esterase Rfl 1+ A (Negative)
Urine RBC 90-100 A (0-2) /HPF
Urine WBC (Reflex) 0-2 (0-5) /HPF
Ur Squamous Epith Cells 0-2 (Few) /LPF
Urine Bacteria (Reflex) Few A (Negative)
Urine Osmolality 601 (300-900) mOsm/kg
U Random Total Protein 142 mg/dl
Urine Creatinine mg/dl
Urine Creatinine 2 mg/dl
Protein/Creatinin Ratio
Urine Sodium (30-90) mmol/L
Urine Glucose 4+ A (Negative)
Urine Albumin (Reflex) 3+ A (Neg - Trace)
Fluid Total Protein 5.1 g/dl
Fluid LDH 762 U/L
02/17/25 02/17/25 02/17/25 Range/Units
09:47 09:47 09:47
Urine Color
Urine Clarity (Clear)
Urine pH (5.0-9.0)
Ur Specific [place] (<1.030)
Urine Ketones (Negative)
Ur Occult Blood Reflex (Negative)
Urine Nitrite (Reflex) (Negative)
Urine Bilirubin (Negative)
Urine Urobilinogen (Neg - 1+)
Leukocyte Esterase Rfl (Negative)
Urine RBC (0-2) /HPF
Urine WBC (Reflex) (0-5) /HPF
Ur Squamous Epith Cells (Few) /LPF
Urine Bacteria (Reflex) (Negative)
Urine Osmolality (300-900) mOsm/kg
U Random Total Protein Cancelled mg/dl
Urine Creatinine 168.200 Cancelled mg/dl
Urine Creatinine 2 168.200 Cancelled mg/dl
Protein/Creatinin Ratio 0.8
Urine Sodium (30-90) mmol/L
Urine Glucose (Negative)
Urine Albumin (Reflex) (Neg - Trace)
Fluid Total Protein g/dl
Fluid LDH U/L
02/17/25 Range/Units
09:47
Urine Color
Urine Clarity (Clear)
Urine pH (5.0-9.0)
Ur Specific [place] (<1.030)
Urine Ketones (Negative)
Ur Occult Blood Reflex (Negative)
Urine Nitrite (Reflex) (Negative)
Urine Bilirubin (Negative)
Urine Urobilinogen (Neg - 1+)
Leukocyte Esterase Rfl (Negative)
Urine RBC (0-2) /HPF
Urine WBC (Reflex) (0-5) /HPF
Ur Squamous Epith Cells (Few) /LPF
Urine Bacteria (Reflex) (Negative)
Urine Osmolality (300-900) mOsm/kg
U Random Total Protein mg/dl
Urine Creatinine mg/dl
Urine Creatinine 2 mg/dl
Protein/Creatinin Ratio Cancelled
Urine Sodium 18 L (30-90) mmol/L
Urine Glucose (Negative)
Urine Albumin (Reflex) (Neg - Trace)
Fluid Total Protein g/dl
Fluid LDH U/L
Miscellaneous Lab Results - Last 24 hours
02/16/25 02/16/25 02/17/25 Range/Units
17:52 20:50 07:41
POC Glucose 144 H 132 H 133 H (70-99) mg/dl
02/17/25 Range/Units
11:44
POC Glucose 92 (70-99) mg/dl
Vital Signs:
Vital Signs
Temp Pulse Resp BP Pulse Ox
98.3 F 83 20 100/66 99
02/17/25 07:43 02/17/25 07:43 02/17/25 07:43 02/17/25 07:43 02/17/25 07:43
Review of Systems
-
History Source: Patient
All other systems: Reviewed and negative
Cardiac: Denies Chest Pain or Palpitations
Physical Exam
-
General: Well Developed, Well Nourished, No Apparent Distress, Comfortable and Conversant
HEENT: Normocephalic, Atraumatic, Anicteric, No Ptosis, Nose Appears Normal and Ears Appear Normal
Respiratory: Clear to Auscultation
Cardiac: S1/S2 and Irregular Rhythm (Sounded like PVCs)
[2025-02-17 07:54] LABS: Hematocrit 36.8 % (39.0-52.0); Hemoglobin 11.9 g/dL (13.0-18.0); Mean Corp Hgb Conc. 32.3 g/dL (33.0-37.0); Mean Corpuscular Volume 87.2 fL (80.0-94.0); Nucleated Red Blood Cells % 0 % (-); Platelet Count 215 10^3/uL (130-400); Red Cell Dist. Width 15.7 % (11.5-14.5)
[2025-02-17 08:25] LABS: ALT (SGPT) 11 U/L (0-50); AST (SGOT) 18 U/L (17-59); Albumin 3.5 g/dl (3.5-5.0); Blood Urea Nitrogen 44 mg/dl (9-20); Carbon Dioxide 29 mmol/L (22-30); Chloride 97 mmol/L (98-107); Estimated Creatinine Clearance 52 ml/min; Glucose 126 mg/dl (70-99); Magnesium 2.4 mg/dl (1.6-2.3); Potassium 4.9 mmol/L (3.5-5.1); Total Protein 5.3 g/dl (6.3-8.2); eGFR 52.64
[2025-02-17 08:34] LABS: Alkaline Phosphatase 38 U/L (38-126); Calcium 8.4 mg/dl (8.4-10.2); Sodium 131 mmol/L (135-145)
--- NOTE | 2025-02-17 09:56 | W.PN.UPDATE ---
Addendum entered and electronically signed by Myron Frances MD 02/17/25 12:01:
Total time spent on d/c = 34 min. This included today's physical exam, progress note, review of laboratory and diagnostic data, preparation of discharge documents and prescriptions, and discussions about the pt's hospital course and discharge plan
with the patient and other medical lab specialist involved in the patient's care.
Original Note:
Update Note
Progress Note Update
I saw and evaluated the patient. I reviewed the resident�s note and agree with findings and plan as documented in the resident�s note.
No new complaints.
Gen: NAD, AAOx3.
Eyes: EOMI, PERRLA, no scleral icterus.
Neck: supple.
CV: remains RRR, +S1/S2, no m/r/g.
Resp: CTAB anteriorly, no rales, wheezes, or rhonchi.
Abd: remains +BS, soft, NT, moderate distention with ascites
Skin: No rashes.
Neuro: CN 2-12 intact, non-focal.
Psych: Normal mood and affect.
Elevated WBCs in ascitic fluid:
-recently discharge 02/11/25 on Cefdinir to complete 4 further days (pt was compliant)
-paracentesis 02/16 for 5.5L with 1123 WBC
-given 25g IV albumin
-Rocephin started in ER
-cytology from paracentesis 02/10 positive for malignancy, metastatic carcinoma. At this point I suspect the elevated WBC in the pt's ascitic fluid is more likely related to malignant ascites as opposed to recurrent SBP. As per ID unlikely to be SBP
and abx stopped.
Hyponatremia:
-serum Osm 297
-UOsm/Ana María pending
-FR 1200cc/day
-improving
Hypotension:
-started on Midodrine 5mg TID
-holding Jardiance/lasix/aldactone/ARB
JOSEPH:
-renal following
-Cr improving s/p paracentesis and initiation of midodrine
-Jardiance/lasix/aldactone/ARB held with hypotension
Other problems:
Chronic HFrEF: holding Jardiance/lasix/aldactone/ARB as above. FR/daily wts/I/Os
RCC, noted
CAD with h/o [place]/stenting: cont ASA/statin
PAF: not on AC ACID FILLER
DM2: cont Lantus/premeal Novolog/SSI/accuchecks/diabetic diet
Considering the pt's malignancy and advanced HFrEF in the setting of JOSEPH and possible recurrent SBP, reasonable to c/s palliative care.
Medically cleared for d/c.
--- NOTE | 2025-02-17 11:39 | CM ---
Patient to return to home when stable.
Plan; Home no needs
[2025-02-17 11:45] LABS: Glucose - Point of Care 92 mg/dl (70-99)
--- NOTE | 2025-02-17 12:18 | W.CON.PAL ---
Consultation
-
Date/Time Consultation Requested: 02/16
Date/Time Consultation Performed: 02/17
Requesting Provider: Ronni Frances
Performing Provider: Halima Felder
Reason for Consult: Goals of Care Discussion
Primary Diagnosis: metastatic rcc
Reason for Admission
Illness Course/HPI
59 year old M with metastatic RCC on treatment admitted with ascites. Recent admit last week for same s/p paracentesis and treated for possible SBP. Returns with rapid reaccumulation s/p para. Cytology positive for malignant cells.
Follows [facility] for cancer therapy - initial treatment not tolerated and now on new treatment and tolerating well per patient. Due for PET scan after Thanks. Planned for dc home today.
Seen at bedside with no family. Introduced role of PCS. He is treatment oriented at this time and states he is tolerating current treatment with plans for PET after Thanks. I gave him our office contact info if he is interested in seeing us as
an outpatient. At this time there are no unmanaged symptoms. He will call us if he is interested in starting services.
Objective Data
-
Objective Data:
Vital Signs
Temp Pulse Resp BP Pulse Ox
98.3 F 83 20 100/66 99
02/17/25 07:43 02/17/25 07:43 02/17/25 07:43 02/17/25 07:43 02/17/25 07:43
Laboratory Results
02/17/25 07:20
02/17/25 07:20
PT 14.2 Sec (11.4-14.6) 02/16/25 09:53
INR 1.07 02/16/25 09:53
APTT 29.5 Sec (23.4-35.0) 02/16/25 09:53
Total Protein 5.3 g/dl (6.3-8.2) L 02/17/25 07:20
Albumin 3.5 g/dl (3.5-5.0) 02/17/25 07:20
Urine Color Brown 02/16/25 13:40
Urine Clarity Cloudy (Clear) 02/16/25 13:40
Urine pH 5.0 (5.0-9.0) 02/16/25 13:40
Ur Specific [place] 1.020 (<1.030) 02/16/25 13:40
Urine Ketones 1+ (Negative) A 02/16/25 13:40
Urine Bilirubin Negative (Negative) 02/16/25 13:40
Palliative Performance Scale
Palliative Performance Scale:
PPS Level Ambulation Activity & Evidence of Disease Self Care Intake Conscious Level
100% Full Normal Activity & Work; Full Intake Full
No Evidence of Disease
90% Full Normal Activity & Work; Full Normal Full
Some Evidence of Disease
80% Full Normal Activity with Effort Full Normal or Full
Some Evidence of Disease Reduced
70% Reduced Unable Normal Job/Work Full Normal or Full
Significant Disease Reduced
60% Reduced Unable Hobby/Housework Occasional Normal or Full or Confusion
Significant Disease Assistance Reduced
50% Mainly Sit/Lie Unable to do Any Work Considerable Normal or Full or Confusion
Extensive Disease Assistance Req'd Reduced
40% Mainly in Bed Unable to do Most Activity Mainly Assistance Normal or Full or Drowsy;
Extensive Disease Reduced +/- Confusion
30% Totally Bed Unable to do Any Activity Total Care Normal or Full or Drowsy;
Bound Extensive Disease Reduced +/- Confusion
20% Totally Bed Bound Unable to do Any Activity Total Care Minimal to Full or Drowsy;
Extensive Disease Sips +/- Confusion
10% Totally Bed Bound Unable to do Any Activity Total Care Mouth Care Drowsy or Coma;
Extensive Disease Only +/- Confusion
0%
PPS Score Level:
Physical Exam
-
General: No Apparent Distress and Comfortable
HEENT: Normocephalic
Respiratory: Clear to Auscultation
Cardiac: Regular Rhythm
Peripheral Vascular: No Edema
GI: Soft and Nondistended
Skin: Warm
Neuro: AO x 3
Psych: Calm
Assessment / Plan
-
Assessment/Plan:
59 year old M with metastatic rcc admitted with ascites s/p para
- currently on treatment for metastatic rcc with [facility]
- goals are treatment oriented and wishes to be a full code at ths time
- planned for PET after thanksgiving
- contact info for our office given if interested in seeing us outpatient - right now no unmanaged symptoms
Care Reviewed
Data Reviewed
Echocardiogram: Report Reviewed
Radiology procedure: Report Reviewed
Reviewed with: Patient and Family
[2025-02-17] MEDS: ZOFRAN 4 MG IV (12:19)
--- NOTE | 2025-02-17 13:03 | PN.DE.MGMTRT ---
Insulin Management
- -
02/17/2025 Diabetes management Consult
Patient admitted 02/16 with abdominal distention and 12 pound weight gain shortly after discharge for spontaneous bacterial peritonitis 5 days ago. PMH metastatic renal cell carcinoma, myocardial infarction (s/p stents), cardiac arrest, HFrEF (EF
15 to 20%), IDDM, and recurrent hyponatremia, paracentesis last admission. Prior to admission was taking novolog 10 units AC, Toujeo 20 units @ HS, Jardiance 25 mg daily and repaglinide 2 mg AC. A1C 7.5%, cr 1.5, eGFR 52.64.
Patient is awake alert and oriented able to discuss diabetes care. States he has had diabetes ~ 15 years and sees jannette Garcia for ongoing diabetes care. He uses the Xopik CGM.
Patient received 16 units lantus @ hs with novolog 10 units AC and repaglinide 2 mg AC. Glucose range yesterday 132 to 144, fasting glucose today 133. Will make no change to current regimen.
Discussed with nurse.
Will follow.
Diabetes History
- -
Type of Diabetes: 2 requiring insulin
Pre-Admission Diabetes Regimen
02/17/25
07:20
Creatinine 1.5 H
Insulin Pump Settings
IP Diabetes Regimen
02/16/25 02/16/25 02/17/25
17:52 20:50 07:20
Glucose 126 H
POC Glucose 144 H 132 H
02/17/25 02/17/25
07:41 11:44
Glucose
POC Glucose 133 H 92
Meal type: Breakfast
Amount consumed: 100%
Patient Education
--- NOTE | 2025-02-17 13:33 | W.PN.NEPH.PH ---
Today's Communication / Plan
-
see plan
Assessment/Plan
-
IMP:
Abd distension and sob from ascites
h/o SBP
JOSEPH-baseline cr 1-1.3
Hyponatremia
Hypotension
Chronic HFrEF
RCC-Patient follows at [facility], Dr. Vu
CAD with h/o [place]/stenting
PAF
DM2
Plan:
A/w sob, worsening ascites causing sob - s/p 5.5 lit of paracentesis
recent d/c with diuretics and abx for SBP
JOSEPH-suspect hemodynamic related with low BPs, diuretics, ascites
UA microhematuria with known RCC, U PCR 0.8gm/gm of cr possible from DM, Fena is low
US on 02/05 shows no hydro, 4.8cm right renal mass, follow bladder scan and cotn flomax
cr better today at 1.5 s/p IV alb
ok to resume lasix, hold Aldactone, JArdiance and Valsartan, avoid nephrotoxins
Hyponatremia likely hypervolemia, U osmo 601. na low 18-prerenal
primary team plan to d/c , follow labs this week with his oncologist at [facility]
he is been off chemo almost 3weeks now
Bp stable on midodirne and off ARB
d/w pt in detail
nephro f/u if needed
-
-
Date of Service: February 17, 2025
CC / HPI / ROS
-
Chief Complaint:
JOSEPH
History of Present Illness:
cr better at 1.5
BP stable on midodrine
still with hematuria
sodium better at 131
Review of Systems:
feels well
no n/v
no cp or sob
Labs
-
Labs:
WBC 8.4 10^3/uL (4.8-10.8) 02/17/25 07:20
RBC 4.22 10^6/uL (4.70-6.10) L 02/17/25 07:20
Hgb 11.9 g/dL (13.0-18.0) L 02/17/25 07:20
Hct 36.8 % (39.0-52.0) L 02/17/25 07:20
Plt Count 215 10^3/uL (130-400) 02/17/25 07:20
Sodium 131 mmol/L (135-145) L 02/17/25 07:20
Potassium 4.9 mmol/L (3.5-5.1) 02/17/25 07:20
Chloride 97 mmol/L (98-107) L 02/17/25 07:20
Carbon Dioxide 29 mmol/L (22-30) 02/17/25 07:20
BUN 44 mg/dl (9-20) H 02/17/25 07:20
Creatinine 1.5 mg/dL (0.7-1.3) H 02/17/25 07:20
eGFR 52.64 02/17/25 07:20
Glucose 126 mg/dl (70-99) H 02/17/25 07:20
Calcium 8.4 mg/dl (8.4-10.2) 02/17/25 07:20
Nul-S-Ilkijjtkciq Pept 2010 pg/ml 02/16/25 09:53
Albumin 3.5 g/dl (3.5-5.0) 02/17/25 07:20
Physical Exam
-
Vital Signs:
Vital Signs
Temp Pulse Resp BP Pulse Ox
98.3 F 83 20 100/66 99
02/17/25 07:43 02/17/25 07:43 02/17/25 07:43 02/17/25 07:43 02/17/25 07:43
Cardiovascular:: Regular rate and rhythm
Lung Excursion:: Normal
Abdomen:: Distended (mild), Nontender and Soft
Extremity Edema:: None: Bilateral:
Pham Catheter: No
--- NOTE | 2025-02-17 14:08 | W.DCSUMMARY ---
Discharge Summary
Discharge Data
Date of Admission: 02/16/25
Date of Discharge: 02/17/25
-
Pending Results: No
Hospital Course
Discharging Physician : Dr. Frances and Dr. Loyd
Disposition : Home
Primary care physician : Dr. Jimenez
Principal Discharge diagnosis : JOSEPH
Chronic Discharge diagnosis : Ascites due to metastatic renal cell carcinoma, insulin-dependent diabetes mellitus, hypertension, hyponatremia, HFrEF, history of myocardial infarction, HLD, BPH
Hospital Course :
Mr. Cong Pennington is a 59-year-old man with PMH notable for metastatic renal cell carcinoma, myocardial infarction (s/p stents), HFrEF (EF 15 to 20%), IDDM, and recurrent hyponatremia, who presents with abdominal distention and for 12 pound weight
gain shortly after discharge for spontaneous bacterial peritonitis 5 days prior.
Patient said that he felt the fluid reaccumulate in his abdomen shortly after discharge. He was admitted 02/05/25 to 02/11/2025 and was found to have spontaneous bacterial peritonitis. He was treated with Rocephin and discharged on cefdinir for a
combined total of 7 days. He had just finished his antibiotic course. Since discharge, he has also had decreased appetite due to the abdominal ascension. He has had nausea and vomiting. In the morning, he said he he feels nauseous and will dry
heave as he does not have stomach contents to vomit. He also states he feels short of breath, which he believes is due to the abdominal surgeon pressing up on his diaphragm.
ED COURSE:
CBC unremarkable
CMP with hyponatremia to 128, creatinine 1.8 (baseline 1-1.2), BUN 44, chloride 93 glucose 232
proBNP 2009
UA with 0-2 squamous epithelial cells, 0-2 WBCs, few bacteria, 90-100 RBCs, 4+ occult blood, leukocyte Estrace positive, nitrite negative, 4+ glucose, 3+ albumin
Paracentesis: 5.5 L ascites fluid
� 1123 WBCs: 40% PMNs (4-50 PMNs), 60% Hidalgo sites
� Total protein 5.1. Serum protein 6.3. SAAG 0.8, <1.1. Ascites due to portal hypertension, consistent with malignant ascites.
� LDH 762
Rocephin x 1
Albumin 25g
Problem #1: Ascites due to metastatic renal cell carcinoma
He received a paracentesis in the ED, that drained 5.5 L of fluid. The ascitic fluid analysis suggested malignant etiology, versus recurrent/continued SBP. ID was consulted for the question whether this is recurrent/continue SBP. ID believe this
was due to malignancy, and recommended discontinue antibiotics. Rocephin was discontinued after 1 dose in the ED.
The patient stated he felt much better after the paracentesis. He had less abdominal distention, which helped increase his appetite.
He still had dry heaves upon waking a day after the paracentesis. He was given 1 dose of Zofran. He has a prolonged QTc of 505 ms, per his EKG during his last recent mission 1 week ago.
He received albumin in the ED.
Problem #2: JOSEPH
Creatinine was 1.8 on admission, his baseline creatinine has been 1 to 1.2. Furosemide, spironolactone, valsartan, and Jardiance were held. Nephrology was consulted.
Creatinine decreased to 1.5 the following day. He tolerated his breakfast which included solids and liquids. He he felt less nauseous after the paracentesis.
He was discharged with instructions to obtain a basic metabolic panel 2 days after discharge with his PCP or oncologist. He was instructed to resume furosemide 80 mg p.o. daily on discharge, and stop taking spironolactone, valsartan, and Jardiance
while his JOSEPH is resolving.
Problem #3: Chronic HFrEF
Since his spironolactone, valsartan, and Jardiance are being held while his JOSEPH is resolving, he instructed to keep his appointment with his insecticide mixer on Sunday and monitor for when he is JOSEPH has resolved, such that he can resume some/all of his
GDMT medications.
He was started and discharged on midodrine 5 mg p.o. 3 times daily, due to soft blood pressures in the 90s over 50s
Problem #4: Hyponatremia
Sodium improved from 128-131. His hyponatremia is likely due to hypervolemia with a normal serum osmolality 297, urine osmolality of 601, and low urine sodium of 18.
He was placed on a fluid restriction of 1200 ml per day.
Problem #5: IDDM
No changes were made to his insulin regimen. His Jardiance was stopped at discharge due to his JOSEPH still resolving.
Important imaging findings : See paracentesis/procedure findings
Procedure findings :
Paracentesis 02/16/2025
5500 cc of clear sarita ascitic fluid was evacuated. Samples sent for analysis as requested.
Successful ultrasound guided diagnostic and therapeutic paracentesis.
Discharge Plan
-
Patient Disposition: Home (Routine Discharge)
Discharge Diagnosis/Procedures: JOSEPH
Malignant ascites
Metastatic renal cell carcinoma
Nausea vomiting
Hypotension
History of myocardial infarction
HFrEF
Insulin-dependent diabetes mellitus
Condition: Fair
Diet: Low Cholesterol, Low Sodium, Diabetic, Carb Controlled and Restrict fluids to 48 oz
Activity: As tolerated
Driving Restrictions: As prior to admission
Bathing Restrictions: None
Specialty Instructions: Weigh Daily- Call MD for wt gain/loss 3 lbs overnight/5 lbs in 1 week
Referrals:
Bandar Jimenez MD [Family Provider, Internal Medicine] - in one to two days
Referral Note: Please follow-up with your PCP regarding your hospitalization for an acute kidney injury, as well as ascites. Please get your blood drawn for labs 2 days after discharge. Please ask your PCP for a BMP lab order.
Watson Duong MD [Non-Admitting Privileges] - in three to four days
Referral Note: Please keep your Sunday appointment with your insecticide mixer Dr. Duong to discuss the heart failure medication changes (whether you should resume some GDMT that were stopped due to JOSEPH).
Boy Vu MD [Non-Admitting Privileges, Hematology / Oncology] - in one to two weeks
Referral Note: Recurrent malignant ascites
Additional Discharge Medication Instructions: Please follow-up with your PCP Dr. Jimenez in 1 to 2 days for this hospitalization for an JOSEPH and recurrent ascites.
Please keep your Sunday02/20/2025 appointment with your insecticide mixer Dr. Duong at [facility] to discuss the heart failure medication changes (whether you should resume some GDMT that were stopped due to JOSEPH). Please continue taking furosemide, but
stop taking spironolactone, valsartan, and Jardiance until your insecticide mixer decides whether you should resume any of them.
You may also follow-up with your oncologist regarding your ascites returning.
Prescriptions:
New
midodrine 5 mg Tablet
5 mg PO TID@0800,1300,1800 Qty: 12 0RF
Continued
repaglinide 2 mg Tablet
2 mg PO AC
aspirin 81 mg Tablet,Chewable
81 mg PO DAILY
ergocalciferol (vitamin D2) 1,250 mcg (50,000 unit) Capsule
1,250 mcg PO TUTH
insulin glargine U-300 conc [Toujeo Max U-300 SoloStar] 300 unit/mL (3 mL) Insulin Pen
20 unit SC HS
atorvastatin 80 mg Tablet
80 mg PO QPM
pantoprazole 40 mg Tablet,Delayed Release (Dr/Ec)
40 mg PO DAILY
insulin aspart U-100 [Novolog FlexPen U-100 Insulin] 100 unit/mL (3 mL) insulin pen
10 sliding scale dose SC AC
furosemide 80 mg Tablet
80 mg PO DAILY Qty: 30 0RF
Cabometyx 40 mg Tablet
40 mg PO DAILY
tamsulosin 0.4 mg Capsule
0.4 mg PO HS
morphine 15 mg Tablet Extended Release
15 mg PO [id number] PRN (Reason: severe pains)
Discontinued
Jardiance 25 mg Tablet
25 mg PO DAILY
spironolactone 25 mg Tablet
25 mg PO DAILY Qty: 30 0RF
valsartan 40 mg Tablet
20 mg PO DAILY Qty: 30 0RF
Discharge Orders:
Discharge Patient (As Directed); Ordered 02/17/25
Ordered By: Myron Frances
Discharge Date and Time
Print Language: [id number]
== END 2025-02-17 15:00 | disposition home or self-care (01) | DRG 683 ==
LOC: 4 WEST ACU 15:40
PROVIDERS: Physician Assistant Medical; Radiology Vascular & Interventional Radiology; ADMITTING PHYSICIAN Internal Medicine; EMERGENCY PHYSICIAN Emergency Medicine; FAMILY PHYSICIAN Internal Medicine; OTHER PHYSICIAN Internal Medicine Infectious Disease
PROC: 0W9G3ZZ Drainage of Peritoneal Cavity, Percutaneous Approach (ICD-10-PCS; 2025-02-16)
DX: N17.9 Acute kidney failure, unspecified (principal); C64.1 Malignant neoplasm of right kidney, except renal pelvis; R18.0 Malignant ascites; C78.6 Secondary malignant neoplasm of retroperitoneum and peritoneum; E87.1 Hypo-osmolality and hyponatremia; I50.22 Chronic systolic (congestive) heart failure; K76.6 Portal hypertension; E11.22 Type 2 diabetes mellitus with diabetic chronic kidney disease; N18.30 Chronic kidney disease, stage 3 unspecified; N40.0 Benign prostatic hyperplasia without lower urinary tract symptoms; I95.9 Hypotension, unspecified; I25.10 Atherosclerotic heart disease of native coronary artery without angina pectoris; I48.0 Paroxysmal atrial fibrillation; R31.29 Other microscopic hematuria; K59.00 Constipation, unspecified; Z79.4 Long term (current) use of insulin; Z79.82 Long term (current) use of aspirin; Z79.84 Long term (current) use of oral hypoglycemic drugs; Z79.899 Other long term (current) drug therapy; Z95.810 Presence of automatic (implantable) cardiac defibrillator
CPT/HCPCS: 49083; 80053; 81003; 81015; 82570; 82962; 83615; 83735; 83880; 83930; 83935; 84156; 84157; 84300; 85025; 85610; 85730; 87015; 87070; 87086; 87205; 89051; 96365; 96366; 96375; 99285; P9047

== ENCOUNTER 2025-02-24 04:08 | Inpatient (IN) | payer OTHER, SELFPAY ==
[2025-02-23 22:44] VITALS: BP 104/64
[2025-02-23 23:11] LABS: Hematocrit 43.1 % (39.0-52.0); Hemoglobin 13.7 g/dL (13.0-18.0); Mean Corp Hgb Conc. 31.8 g/dL (33.0-37.0); Mean Corpuscular Volume 88.9 fL (80.0-94.0); Nucleated Red Blood Cells % 0 % (-); Platelet Count 318 10^3/uL (130-400); Red Cell Dist. Width 15.1 % (11.5-14.5)
[2025-02-23 23:23] VITALS: BP 95/62
[2025-02-23 23:37] LABS: ALT (SGPT) 16 U/L (0-50); AST (SGOT) 20 U/L (17-59); Albumin 3.3 g/dl (3.5-5.0); Alkaline Phosphatase 76 U/L (38-126); Blood Urea Nitrogen 81 mg/dl (9-20); Calcium 8.7 mg/dl (8.4-10.2); Carbon Dioxide 26 mmol/L (22-30); Chloride 87 mmol/L (98-107); Glucose 236 mg/dl (70-99); Lipase 21 U/L (23-300); Potassium 6.2 mmol/L (3.5-5.1); Sodium 118 mmol/L (135-145); Total Protein 5.8 g/dl (6.3-8.2); eGFR 11.32
--- NOTE | 2025-02-23 23:41 | ED.GENMED ---
History of Present Illness
<Mai Arguello PA-C - Last Filed: 02/24/25 12:17>
General
Chief Complaint: Abdominal Symptoms
Source: patient
Exam Limitations: none
Time Seen by Provider: 02/23/25 23:37
Nursing documentation reviewed up to this point in time: agreed with
History of Present Illness
History of Present Illness:
Note:
CHIEF COMPLAINT(S)
Urinary retention and abdominal discomfort.
HISTORY OF PRESENT ILLNESS
The patient is a 59-year-old male with a history of renal cancer, insulin dependent diabetes, who presents with urinary retention and abdominal discomfort. The urinary retention began shortly after the last paracentesis, which was performed on
. The patient typically undergoes weekly paracenteses to manage malignant ascites. The patient reports this is the first occurrence of urinary retention. He experiences abdominal discomfort that worsens when the abdomen is full, attributing
it to pressure. The patient describes recent nausea but denies fever denies vomiting. Notably, there was recent cessation of treatment for renal cancer approximately three weeks ago. Shortness of breath is also reported. The patient was previously
hospitalized, discharged on the , and reports initially he felt well but than had a decrease in overall well-being since discharge. The patient has experienced recurrent hyponatremia in the past. The patient is at risk for complications such as
seizures due to hyponatremia and requires hospitalization for correction. The onset of blood in his urine a few days ago is noted, although no history of kidney stones is present. He denies prior episodes of urinary retention or a history of
catheter use, except during a heart attack two and a half years ago. The patient has been on Midodrine three times a day post-discharge and has recently stopped several medications, including Jardiance and Valsartan, Lasix.
PAST MEDICAL AND SURGICAL HISTORY
- Renal cancer (chemotherapy stopped three weeks prior).
- History of heart attack (two and a half years ago).
ADDITIONAL HISTORY OBTAINED FROM SOURCES OTHER THAN THE PATIENT
Per the conversation with the nursing staff, a bladder scan indicated over 500 milliliters of fluid; however, ultrasound evaluation is pending to determine if urinary retention is secondary to ascitic fluid rather than a true bladder obstruction.
CHRONIC MEDICAL CONDITIONS SIGNIFICANTLY AFFECTING CARE
- Hyponatremia
- Renal cancer
SOCIAL DETERMINANTS AFFECTING HEALTH
The patient reports cessation of several medications following recent hospitalization
ALLERGIES
No known drug allergies reported.
MEDICATIONS
- Midodrine three times a day (current)
- Previously on Jardiance and Valsartan (stopped post-discharge).
REVIEW OF SYSTEMS
- Gastrointestinal: Abdominal discomfort, nausea.
- Genitourinary: Urinary retention, blood in urine.
- Respiratory: Shortness of breath.
- Neurological: No recent seizures reported.
PHYSICAL EXAM
General: Alert, no acute distress.
Skin: Warm, dry.
Head: Normocephalic, atraumatic.
Neck: Supple, trachea midline.
Eye, Ears, Nose, Mouth and Throat: Oral mucosa moist.
Cardiovascular: Normal peripheral perfusion, no edema.
Respiratory: Respirations are non-labored.
Gastrointestinal: Distended abdomen with positive fluid wave.
Back: Normal range of motion, normal alignment.
Musculoskeletal: Normal range of motion, normal strength.
Neurological: Alert and oriented to person, place, time, and situation, no focal neurological deficit observed.
Psychiatric: Cooperative, appropriate mood & affect.
PROBLEM LIST
Acute Problems:
- Urinary retention
- Hyponatremia
- Nausea
Chronic Problems:
- Recurrent hyponatremia
- Renal cancer
PLAN
- Hospital admission to manage severe hyponatremia, severe JOSEPH.
- Bedside ultrasound to evaluate bladder
- Possible CT scan to rule out obstruction in the urinary tract.
- Ensure continued monitoring and appropriate adjustment of medications.
DIFFERENTIAL DIAGNOSIS
The Differential Diagnosis includes, in no particular order and is not limited to:
1. Bladder outlet obstruction
2. Renal failure
3. Urinary tract infection
4. Cancer recurrence or metastasis
5. Ascites-related compression
6. Medication side effects
7. Prostate enlargement
8. Neurological bladder dysfunction
9. Electrolyte imbalance
10. Post-operative retention related to recent hospitalization
CONSULTS
Discussed case with Dr. Velez, regulatory affairs director assistant director of plant operations. He recommended holding off on 3% saline at this time given he is volume overloaded and to try lasix 40 mg first
CHART REVIEW
02/17/25: Patient was discharged from the hospital.
He was admitted for volume overload. There was initially concern for recurrent SBP however, it was thought that he elevated WBC in the pt's ascitic fluid is more likely related to malignant ascites as opposed to recurrent SBP. As per ID unlikely to
be SBP and abx stopped
He was instructed to resume furosemide 80 mg p.o. daily on discharge, and stop taking spironolactone, valsartan, and Jardiance while his JOSEPH is resolving however patient had stopped taking lasix entirely.
02/11/25: Discharged after treatment for CHF and SBP
MDM/DISPOSITION
The patient is a 59-year-old male with a history of renal cancer, insulin dependent diabetes, who presents with urinary retention and abdominal discomfort. The urinary retention began shortly after the last paracentesis, which was performed on
.
Labs reveal significant hyponatremia at 118, acute severe kidney injury with creatinine of 5.4�significant uptrend from 1.5 just 6 days ago.
Will repeat BMP to ensure accuracy.
Repeat BMP reveals again severe hyperkalemia and hyponatremia
Discussed case with ED attending who advised holding off on CT scan of the abdomen at this time.
Insulin, albuterol, calcium gluconate, lasix, given for hyperkalemia. Will hold off on sodium bicarb at this time as patient is not acidotic.
Case discussed with hospitalist for admission
Past History
Demetriuslt;Mai Arguello PA-C - Last Filed: 02/24/25 12:17>
Past History
ED Past Medical History: Cancer, IDDM and [place]
ED Past Surgical History: Cardiac
Social History
Tobacco: Non-smoker
Alcohol: None
Drug: None
Personal:
Living: with family
Phy Exam
<Mai Arguello PA-C - Last Filed: 02/24/25 12:17>
Physical Exam
Physical Exam:
see hpi
Sepsis
<Mai Arguello PA-C - Last Filed: 02/24/25 12:17>
Sepsis Screening
Sepsis Assessment: Sepsis Ruled Out
Sepsis Screen
Sepsis Screen: Sepsis Ruled Out
Date: 02/24/25
Time: 12:17
Course
<Mai Arguello PA-C - Last Filed: 02/24/25 12:17>
Orders/Labs/Results
Orders:
Orders
02/23/25 22:52
Complete Blood Count/With Diff Urgent
Comprehensive Metabolic Panel Urgent
Lipase Urgent
02/23/25 23:06
Urinalysis Routine
02/23/25 23:40
Cardiac Monitoring- Treatment ONCE
02/23/25 23:45
EKG [Electrocardiogram (*1)] Urgent
Reason for Study: Abdominal Pain
02/23/25 23:46
EKG- Treatment ONCE
02/23/25 23:56
Basic Metabolic Panel Urgent
02/24/25 00:53
Calcium Gluconate 1,000 mg IV NOW STA
Dextrose 50%-Water [Dextrose 50% Syringe] 12.5 grams IV [id number] PRN
Dextrose 50%-Water [Dextrose 50% Syringe] 25 grams IV NOW STA
Furosemide [Lasix] 40 mg IV NOW STA
Insulin Human Regular [Novolin R] 5 units IV NOW STA
Bedside Glucose PRE IV Insulin- HyperK+ NOW
02/24/25 00:58
Albuterol Nebs [Ventolin Nebules] 2.5 mg INH R NOW STA
02/24/25 02:14
Midodrine [ProAmatine] 5 mg PO NOW STA
02/24/25 02:23
Bedside Glucose POST IV Insulin- HyperK+ Q1HX2,Q2HX2
02/24/25 03:19
Potassium Urgent
Comment: draw 2 hours after regular insulin IV administration
02/24/25 03:39
Straight Cath As Directed
Frequency: One time now
Additional Instructions: Send urine studies as ordered. Record total volume obtained.
02/24/25 03:42
Admit/Transfer Patient As Directed
Co-Sign Provider:
Level of Care: Inpatient admission
Assign to:: IMU- Intermediate Care
Physician / Group: Lan
Diagnosis: JOSEPH, Hyperkalemia, Renal Cell Cancer, Malignant Ascites
Reason for Hospitalization: JOSEPH, Hyperkalemia, Renal Cell Cancer, Malignant Ascites
Expected length of stay greater than two midnights?: Yes
ELOS- Estimated Length of Stay in days: 4
I certify the patient meets the requirements for IP care: Yes
PRN Pain Medication Management As Directed
May give lesser potent ordered pain med per pt: Yes
preference::
Protocol:: Medication orders for pain may be administered in a
manner that supports deferring to patient preference
when the pt is:
- Requesting an ordered lesser potent pain medication.
Least to most potent pain medications are defined
as: acetaminophen < NSAID < tramadol < opioids
(morphine, oxycodone, hydromorphone).
- Requesting a lesser dose of the same medication IF
ORDERED.
- Requesting a less intrusive route of administration
if both routes are prescribed by the provider (PO <
IV).
02/24/25 03:44
Code Status As Directed
Resuscitation Status: Full Code
02/24/25 03:54
Dextrose 50%-Water [Dextrose 50% Syringe] 25 grams IV NOW STA
Insulin Human Regular [Novolin R] 5 units IV NOW STA
Sodium Bicarbonate 50 meq IV NOW STA
02/24/25 03:56
Bedside Glucose PRE IV Insulin- HyperK+ NOW
02/24/25 04:04
Urine Microscopic Routine
02/24/25 04:51
Acetaminophen [Tylenol] 650 mg PO Q4HPRN PRN
Dextrose 50%-Water [Dextrose 50% Syringe] 12.5 grams IV [id number] PRN
Glucagon [GlucaGen] 1 mg IM PRN PRN
Morphine Sulfate Extended Rel. [Ms Contin (Extended Release)] 15 mg PO [id number] PRN severe pains
02/24/25 04:51
Consult Notification Routine
Specialty to Notify: IRAD (Interventional Radiology)
Date consulting provider notified: 02/24/25
Time consulting provider notified: 07:13
Notified:: Provider
IRAD CONSULT Routine
Consulting Provider: Aryan Nugent
Was physician already notified: No
Procedure being ordered, including laterality if applicable: Paracentesis
Acknowledgement that appropriate orders are entered: Yes
NEPHROLOGY CONSULT Routine
Consulting Provider: Dwight Velez V.
Was physician already notified: Yes
Reason for consult: JOSEPH, Hyperkalemia, Hyponatremia
Activity As Directed
Activity Level: Ambulate
With Assistance
Bedside Glucose Monitoring As Directed
Frequency: AC&HS
Additional Instructions:: Change to q6h if pt on TPN, tube feeding or not eating
Bladder Scan As Directed
Follow Bladder Retention/Intermittent Cath Algorithm?: Yes
PRN if no void in __ hours: 6
Frequency: Per Retention Algorithm
If Bladder Scan Result >: 400
then:: Straight cath
EKG with chest pain [ECG as needed] As Directed
ECG as needed for:: Chest Pain
I/O [Intake/ Output] As Directed
Frequency: Per unit guidelines
Straight Cath As Directed
Frequency: Per Retention Algorithm
Additional Instructions: straight cath as needed per acute urinary retention algorithm for 24 hrs
Additional Instructions: for bladder scan greater than 400 mL
Vital Signs As Directed
Frequency: Per unit guidelines
Weight As Directed
Frequency: Daily
Bedside Cytology Routine
Source: Peritoneal Fluid
Clinical Impression: Malignant Ascites
History of Malignancy: RCC
Oxygen Therapy [O2 Therapy] [RESP] Routine
Titrate/Wean O2 to maintain O2 sat greater than (%): 94
DX Deep Vein Thrombosis Video Routine
02/24/25 05:26
Bedside Glucose POST IV Insulin- HyperK+ Q1HX2,Q2HX2
02/24/25 06:00
EKG [Electrocardiogram (*1)] IN AM
Reason for Study: Chest Pain
NPO
Allow oral meds: Yes
Allow clear liquids: Sips of Clears
02/24/25 06:13
Basic Metabolic Panel IN AM
Complete Blood Count/No Diff IN AM
LFT [[id number]-[id number]-Voahqud] IN AM
Magnesium IN AM
Phosphorus IN AM
02/24/25 07:30
Insulin Aspart Corrective Low [Novolog Flexpen-Low Resistance] See Protocol SC AC
02/24/25 08:00
Aspirin Chewable [Low Strength Aspirin] 81 mg PO DAILY
Heparin 5,000 units SC Q8
Midodrine [ProAmatine] 5 mg PO TID@0800,1300,1800
cabozantinib [Cabometyx] 40 mg PO DAILY
02/24/25 08:13
Urine Sodium Routine
Date Specimen was Collected: 02/24/25
Time Specimen was Collected: 08:12
02/24/25 09:44
Body Fluid Albumin Routine
Fluid Source: Peritoneal (Ascites)
Date Specimen was Collected: 02/24/25
Time Specimen was Collected: 09:39
Body Fluid Cell Count Routine
What is the Body Fluid: peritoneal fluid
Date Specimen was Collected: 02/24/25
Time Specimen was Collected: 09:39
Comment: post procedure
Body Fluid LDH Routine
Fluid Source: Peritoneal (Ascites)
Date Specimen was Collected: 02/24/25
Time Specimen was Collected: 09:39
Body Fluid Protein Routine
Fluid Source: Peritoneal (Ascites)
Date Specimen was Collected: 02/24/25
Time Specimen was Collected: 09:39
Fluid Culture with Gram Stain Routine
TOMI Source: Peritoneal Fluid
Specimen Description:
Date Specimen was Collected: 02/24/25
Time Specimen was Collected: 09:39
Comment: Post Procedure
02/24/25 22:00
Tamsulosin [Flomax] 0.4 mg PO HS
Abnormal Lab Results
02/23/25 02/24/25 02/24/25
22:52 00:05 01:06
WBC 13.6 H 10^3/uL
(4.8-10.8)
MCHC 31.8 L g/dL
(33.0-37.0)
RDW 15.1 H %
(11.5-14.5)
Abs Immat Gran (auto) 0.1 H 10^3/uL
(0-0.05)
Absolute Neuts (auto) 10.9 H 10^3/uL
(1.4-6.5)
Absolute Monos (auto) 1.1 H 10^3/uL
(0.1-0.6)
Immature Gran % 0.9 H %
(0-0.5)
Neutrophils % 79.9 H %
(42.2-75.2)
Lymphocytes % 9.3 L %
(20.5-51.1)
Sodium 118 L* mmol/L 121 L mmol/L
(135-145) (135-145)
Potassium 6.2 H* mmol/L 7.9 H* D mmol/L
(3.5-5.1) (3.5-5.1)
Chloride 87 L mmol/L 91 L mmol/L
(98-107) (98-107)
BUN 81 H mg/dl 84 H mg/dl
(9-20) (9-20)
Creatinine 5.4 H* mg/dL 5.4 H* mg/dL
(0.7-1.3) (0.7-1.3)
Glucose 236 H mg/dl 233 H mg/dl
(70-99) (70-99)
Total Protein 5.8 L g/dl
(6.3-8.2)
Albumin 3.3 L g/dl
(3.5-5.0)
Lipase 21 L U/L
(23-300)
Urine Occult Blood
Urine Bilirubin
Ur Leukocyte Esterase
Urine RBC
Urine WBC
Urine Bacteria
Urine Glucose
Urine Albumin
POC Glucose 216 H mg/dl
(70-99)
02/24/25 02/24/25 02/24/25
02:22 03:19 03:21
WBC
MCHC
RDW
Abs Immat Gran (auto)
Absolute Neuts (auto)
Absolute Monos (auto)
Immature Gran %
Neutrophils %
Lymphocytes %
Sodium
Potassium 7.3 H* mmol/L
(3.5-5.1)
Chloride
BUN
Creatinine
Glucose
Total Protein
Albumin
Lipase
Urine Occult Blood
Urine Bilirubin
Ur Leukocyte Esterase
Urine RBC
Urine WBC
Urine Bacteria
Urine Glucose
Urine Albumin
POC Glucose 224 H mg/dl 202 H mg/dl
(70-99) (70-99)
02/24/25
04:04
WBC
MCHC
RDW
Abs Immat Gran (auto)
Absolute Neuts (auto)
Absolute Monos (auto)
Immature Gran %
Neutrophils %
Lymphocytes %
Sodium
Potassium
Chloride
BUN
Creatinine
Glucose
Total Protein
Albumin
Lipase
Urine Occult Blood 4+ A
(Negative)
Urine Bilirubin 1+ A
(Negative)
Ur Leukocyte Esterase 1+ A
(Negative)
Urine RBC >100 A /HPF
(0-2)
Urine WBC 60-70 A /HPF
(0-5)
Urine Bacteria Many A
(Negative)
Urine Glucose 2+ A
(Negative)
Urine Albumin 2+ A
(Neg - Trace)
POC Glucose
02/23/25 22:52
02/24/25 03:19
Vital Signs
Initial and Last Documented VS:
Initial Vital Signs
Temp Pulse Resp BP Pulse Ox
97.4 F 86 24 104/64 97
02/23/25 22:44 02/23/25 22:44 02/23/25 22:44 02/23/25 22:44 02/23/25 22:44
Last Documented Vital Signs
Temp Pulse Resp BP Pulse Ox
98.1 F 79 19 104/68 94
02/24/25 09:29 02/24/25 09:56 02/24/25 09:56 02/24/25 09:56 02/24/25 09:29
<Jyoti Erickson DO - Last Filed: 02/24/25 02:03>
Orders/Labs/Results
Orders:
Orders
02/23/25 22:52
Complete Blood Count/With Diff Urgent
Comprehensive Metabolic Panel Urgent
Lipase Urgent
02/23/25 23:06
Urinalysis Routine
02/23/25 23:40
Cardiac Monitoring- Treatment ONCE
02/23/25 23:45
EKG [Electrocardiogram (*1)] Urgent
Reason for Study: Abdominal Pain
02/23/25 23:46
EKG- Treatment ONCE
02/23/25 23:56
Basic Metabolic Panel Urgent
02/24/25 00:53
Calcium Gluconate 1,000 mg IV NOW STA
Dextrose 50%-Water [Dextrose 50% Syringe] 12.5 grams IV [id number] PRN
Dextrose 50%-Water [Dextrose 50% Syringe] 25 grams IV NOW STA
Furosemide [Lasix] 40 mg IV NOW STA
Insulin Human Regular [Novolin R] 5 units IV NOW STA
Bedside Glucose PRE IV Insulin- HyperK+ NOW
02/24/25 00:58
Albuterol Nebs [Ventolin Nebules] 2.5 mg INH R NOW STA
02/24/25 02:14
Midodrine [ProAmatine] 5 mg PO NOW STA
02/24/25 02:23
Bedside Glucose POST IV Insulin- HyperK+ Q1HX2,Q2HX2
02/24/25 03:19
Potassium Urgent
Comment: draw 2 hours after regular insulin IV administration
02/24/25 03:39
Straight Cath As Directed
Frequency: One time now
Additional Instructions: Send urine studies as ordered. Record total volume obtained.
02/24/25 03:42
Admit/Transfer Patient As Directed
Co-Sign Provider:
Level of Care: Inpatient admission
Assign to:: IMU- Intermediate Care
Physician / Group: Lan
Diagnosis: JOSEPH, Hyperkalemia, Renal Cell Cancer, Malignant Ascites
Reason for Hospitalization: JOSEPH, Hyperkalemia, Renal Cell Cancer, Malignant Ascites
Expected length of stay greater than two midnights?: Yes
ELOS- Estimated Length of Stay in days: 4
I certify the patient meets the requirements for IP care: Yes
PRN Pain Medication Management As Directed
May give lesser potent ordered pain med per pt: Yes
preference::
Protocol:: Medication orders for pain may be administered in a
manner that supports deferring to patient preference
when the pt is:
- Requesting an ordered lesser potent pain medication.
Least to most potent pain medications are defined
as: acetaminophen < NSAID < tramadol < opioids
(morphine, oxycodone, hydromorphone).
- Requesting a lesser dose of the same medication IF
ORDERED.
- Requesting a less intrusive route of administration
if both routes are prescribed by the provider (PO <
IV).
02/24/25 03:44
Code Status As Directed
Resuscitation Status: Full Code
02/24/25 03:54
Dextrose 50%-Water [Dextrose 50% Syringe] 25 grams IV NOW STA
Insulin Human Regular [Novolin R] 5 units IV NOW STA
Sodium Bicarbonate 50 meq IV NOW STA
02/24/25 03:56
Bedside Glucose PRE IV Insulin- HyperK+ NOW
02/24/25 04:04
Urine Microscopic Routine
02/24/25 04:51
Acetaminophen [Tylenol] 650 mg PO Q4HPRN PRN
Dextrose 50%-Water [Dextrose 50% Syringe] 12.5 grams IV [id number] PRN
Glucagon [GlucaGen] 1 mg IM PRN PRN
Morphine Sulfate Extended Rel. [Ms Contin (Extended Release)] 15 mg PO [id number] PRN severe pains
02/24/25 04:51
Consult Notification Routine
Specialty to Notify: IRAD (Interventional Radiology)
Date consulting provider notified: 02/24/25
Time consulting provider notified: 07:13
Notified:: Provider
IR[facility] CONSULT Routine
Consulting Provider: Aryan Nugent
Was physician already notified: No
Procedure being ordered, including laterality if applicable: Paracentesis
Acknowledgement that appropriate orders are entered: Yes
NEPHROLOGY CONSULT Routine
Consulting Provider: Dwight Velez V.
Was physician already notified: Yes
Reason for consult: JOSEPH, Hyperkalemia, Hyponatremia
Activity As Directed
Activity Level: Ambulate
With Assistance
Bedside Glucose Monitoring As Directed
Frequency: AC&HS
Additional Instructions:: Change to q6h if pt on TPN, tube feeding or not eating
Bladder Scan As Directed
Follow Bladder Retention/Intermittent Cath Algorithm?: Yes
PRN if no void in __ hours: 6
Frequency: Per Retention Algorithm
If Bladder Scan Result >: 400
then:: Straight cath
EKG with chest pain [ECG as needed] As Directed
ECG as needed for:: Chest Pain
I/O [Intake/ Output] As Directed
Frequency: Per unit guidelines
Straight Cath As Directed
Frequency: Per Retention Algorithm
Additional Instructions: straight cath as needed per acute urinary retention algorithm for 24 hrs
Additional Instructions: for bladder scan greater than 400 mL
Vital Signs As Directed
Frequency: Per unit guidelines
Weight As Directed
Frequency: Daily
Bedside Cytology Routine
Source: Peritoneal Fluid
Clinical Impression: Malignant Ascites
History of Malignancy: RCC
Oxygen Therapy [O2 Therapy] [RESP] Routine
Titrate/Wean O2 to maintain O2 sat greater than (%): 94
DX Deep Vein Thrombosis Video Routine
02/24/25 05:26
Bedside Glucose POST IV Insulin- HyperK+ Q1HX2,Q2HX2
02/24/25 06:00
EKG [Electrocardiogram (*1)] IN AM
Reason for Study: Chest Pain
NPO
Allow oral meds: Yes
Allow clear liquids: Sips of Clears
02/24/25 06:13
Basic Metabolic Panel IN AM
Complete Blood Count/No Diff IN AM
LFT [Kxjzz-Kulw-Avjpkqk] IN AM
Magnesium IN AM
Phosphorus IN AM
02/24/25 07:30
Insulin Aspart Corrective Low [Novolog Flexpen-Low Resistance] See Protocol SC AC
02/24/25 08:00
Aspirin Chewable [Low Strength Aspirin] 81 mg PO DAILY
Heparin 5,000 units SC Q8
Midodrine [ProAmatine] 5 mg PO TID@0800,1300,1800
cabozantinib [Cabometyx] 40 mg PO DAILY
02/24/25 08:13
Urine Sodium Routine
Date Specimen was Collected: 02/24/25
Time Specimen was Collected: 08:12
02/24/25 09:44
Body Fluid Albumin Routine
Fluid Source: Peritoneal (Ascites)
Date Specimen was Collected: 02/24/25
Time Specimen was Collected: 09:39
Body Fluid Cell Count Routine
What is the Body Fluid: peritoneal fluid
Date Specimen was Collected: 02/24/25
Time Specimen was Collected: 09:39
Comment: post procedure
Body Fluid LDH Routine
Fluid Source: Peritoneal (Ascites)
Date Specimen was Collected: 02/24/25
Time Specimen was Collected: 09:39
Body Fluid Protein Routine
Fluid Source: Peritoneal (Ascites)
Date Specimen was Collected: 02/24/25
Time Specimen was Collected: 09:39
Fluid Culture with Gram Stain Routine
TOMI Source: Peritoneal Fluid
Specimen Description:
Date Specimen was Collected: 02/24/25
Time Specimen was Collected: 09:39
Comment: Post Procedure
02/24/25 22:00
Tamsulosin [Flomax] 0.4 mg PO HS
Abnormal Lab Results
02/23/25 02/24/25 02/24/25
22:52 00:05 01:06
WBC 13.6 H 10^3/uL
(4.8-10.8)
MCHC 31.8 L g/dL
(33.0-37.0)
RDW 15.1 H %
(11.5-14.5)
Abs Immat Gran (auto) 0.1 H 10^3/uL
(0-0.05)
Absolute Neuts (auto) 10.9 H 10^3/uL
(1.4-6.5)
Absolute Monos (auto) 1.1 H 10^3/uL
(0.1-0.6)
Immature Gran % 0.9 H %
(0-0.5)
Neutrophils % 79.9 H %
(42.2-75.2)
Lymphocytes % 9.3 L %
(20.5-51.1)
Sodium 118 L* mmol/L 121 L mmol/L
(135-145) (135-145)
Potassium 6.2 H* mmol/L 7.9 H* D mmol/L
(3.5-5.1) (3.5-5.1)
Chloride 87 L mmol/L 91 L mmol/L
(98-107) (98-107)
BUN 81 H mg/dl 84 H mg/dl
(9-20) (9-20)
Creatinine 5.4 H* mg/dL 5.4 H* mg/dL
(0.7-1.3) (0.7-1.3)
Glucose 236 H mg/dl 233 H mg/dl
(70-99) (70-99)
Total Protein 5.8 L g/dl
(6.3-8.2)
Albumin 3.3 L g/dl
(3.5-5.0)
Lipase 21 L U/L
(23-300)
Urine Occult Blood
Urine Bilirubin
Ur Leukocyte Esterase
Urine RBC
Urine WBC
Urine Bacteria
Urine Glucose
Urine Albumin
POC Glucose 216 H mg/dl
(70-99)
02/24/25 02/24/25 02/24/25
02:22 03:19 03:21
WBC
MCHC
RDW
Abs Immat Gran (auto)
Absolute Neuts (auto)
Absolute Monos (auto)
Immature Gran %
Neutrophils %
Lymphocytes %
Sodium
Potassium 7.3 H* mmol/L
(3.5-5.1)
Chloride
BUN
Creatinine
Glucose
Total Protein
Albumin
Lipase
Urine Occult Blood
Urine Bilirubin
Ur Leukocyte Esterase
Urine RBC
Urine WBC
Urine Bacteria
Urine Glucose
Urine Albumin
POC Glucose 224 H mg/dl 202 H mg/dl
(70-99) (70-99)
02/24/25
04:04
WBC
MCHC
RDW
Abs Immat Gran (auto)
Absolute Neuts (auto)
Absolute Monos (auto)
Immature Gran %
Neutrophils %
Lymphocytes %
Sodium
Potassium
Chloride
BUN
Creatinine
Glucose
Total Protein
Albumin
Lipase
Urine Occult Blood 4+ A
(Negative)
Urine Bilirubin 1+ A
(Negative)
Ur Leukocyte Esterase 1+ A
(Negative)
Urine RBC >100 A /HPF
(0-2)
Urine WBC 60-70 A /HPF
(0-5)
Urine Bacteria Many A
(Negative)
Urine Glucose 2+ A
(Negative)
Urine Albumin 2+ A
(Neg - Trace)
POC Glucose
02/23/25 22:52
02/24/25 03:19
Vital Signs
Initial and Last Documented VS:
Initial Vital Signs
Temp Pulse Resp BP Pulse Ox
97.4 F 86 24 104/64 97
02/23/25 22:44 02/23/25 22:44 02/23/25 22:44 02/23/25 22:44 02/23/25 22:44
Last Documented Vital Signs
Temp Pulse Resp BP Pulse Ox
98.1 F 79 19 104/68 94
02/24/25 09:29 02/24/25 09:56 02/24/25 09:56 02/24/25 09:56 02/24/25 09:29
<Mai Arguello PA-C - Last Filed: 02/24/25 12:17>
*Pulse Oximetry
SaO2: 97
Oxygen Mode of Delivery: Room air
Patient hypoxic: no
*Critical Care Note
Total Time (30-74mins, 75-104mins- exclusive of procedures): Not Applicable
ED Attending Note
<Mai Arguello PA-C - Last Filed: 02/24/25 12:17>
-
Portions of this chart may have been created with voice recognition software.� Occasional wrong word or��sound alike� substitutions may have occurred due to the inherent limitations of voice recognition software.
<Jyoti Erickson DO - Last Filed: 02/24/25 02:03>
ED Attending Note
Patient seen and examined by attending physician: Yes
I performed a history and physical exam of patient and discussed management with resident, I reviewed resident's note and agree with documented findings and plan of care.: Yes
ED Attending Note:
This is a 59-year-old gentleman with history of metastatic renal cell carcinoma, recently discontinued treatment with onset of rapidly reaccumulating ascites with recent hospitalization here February 05 to February 11 where he underwent paracentesis
that was positive for malignant cells. Also treated for potential SBE. Hospitalized again February 16 to February 17 for rapidly reaccumulating abdominal ascites requiring additional paracentesis. He was also noted to have mild hyponatremia last
week with sodium of 128, creatinine of 1.8. His baseline is 1-1.2.
5.5 L of ascitic fluid removed during paracentesis. Ascites related to portal hypertension consistent with malignant ascites. There was also concern for continued SBE.
During that hospitalization, Jardiance, furosemide, valsartan were all held. He was started on midodrine due to soft blood pressures in the 90s over 50s. Upon discharge home on the , midodrine was added and he was recommended to resume
furosemide 80 mg daily but to continue to hold Jardiance and valsartan hand. He was also placed on a fluid restriction of 1200 mL/day.
Since discharge home on the , patient admits that he was confused as to the instructions, he never started midodrine, he never resumed furosemide nor Jardiance nor valsartan .
He has been drinking fluids well in fact drinking a fair amount of water over the past few days but admits to poor appetite for solids.
He presents with recurrent abdominal distention but has not had a fever, no cough. He admits to mild shortness of breath related to abdominal distention but no chest pain. He has had markedly decreased urine output over the past 24 hours. He
denies urge to urinate. No back pain.
59-year-old gentleman appears somewhat older than stated age, awake and alert, oriented x 3, pleasant, overall nontoxic in appearance. No respiratory distress. Normal pulse ox.
Marked abdominal distention with positive fluid wave. No appreciable tenderness to palpation.
A bedside ultrasound performed by myself shows large amount of abdominal ascites. There is minimal urine within the bladder. Right kidney is unremarkable. Left kidney with very mild hydronephrosis.
Labs reveal significant hyponatremia at 118, acute severe kidney injury with creatinine of 5.4�significant uptrend from 1.5 just 6 days ago.
BUN of 81, significant uptrend from 44 6 days ago.
Potassium is elevated at 6.2.
EKG similar and unchanged from previous. No evidence of peaked T waves. Will repeat BMP to ensure accuracy.
Clinically patient appears perhaps very mildly dehydrated but not significantly so.
Concern for recurrent ascites/malignant ascites with now onset of hepatorenal syndrome.
Will consult nephrology regarding metabolic derangements.
Will plan to admit to hospitalist service.
Discharge Plan
Departure
Patient Disposition: Admit
Date of Disposition: 02/24/25
Time of Disposition: 01:39
Presentation/result/management discussed w/ accepting MD/DO: Hospitalist
Condition: Fair
Discharge Problem:
Hyponatremia, Volume overload, Acute hyperkalemia, Acute renal failure
Interventions
Interventions:
*Risk Screen - Suicide Last Done: 02/24/25 05:07
*General Assessment Last Done: 02/24/25 04:46
*Neglect/Abuse Screening Last Done: 02/23/25 22:44
*ED- Fall Risk Assessment Last Done: 02/24/25 04:46
*ED COVID-19 Vaccine History Last Done: 02/24/25 04:46
*ED Influenza Vaccine History Last Done: 02/24/25 04:46
*Nursing Disposition Last Done: 02/24/25 04:46
FL-Vhyprm-Ftrlhvbizg Assessment Last Done: 02/23/25 23:30
ED-Male Genitourinary Assessment Last Done: 02/23/25 23:31
[2025-02-24] VITALS (51 sets, daily range): BP systolic 77–112; BP diastolic 36–82
[2025-02-24 00:44] LABS: Blood Urea Nitrogen 84 mg/dl (9-20); Calcium 8.5 mg/dl (8.4-10.2); Carbon Dioxide 24 mmol/L (22-30); Chloride 91 mmol/L (98-107); Glucose 233 mg/dl (70-99); Potassium 7.9 mmol/L (3.5-5.1); Sodium 121 mmol/L (135-145); eGFR 11.32
[2025-02-24 01:07] LABS: Glucose - Point of Care 216 mg/dl (70-99)
[2025-02-24] MEDS: DEXTROSE 50% SYRINGE 25 GRAMS IV ×2 (01:08→04:20)
[2025-02-24] MEDS: NOVOLIN R 5 UNITS IV ×2 (01:09→04:20)
[2025-02-24] MEDS: LASIX 40 MG IV (01:12)
[2025-02-24] MEDS: CALCIUM GLUCONATE 1000 MG IV (01:13)
[2025-02-24] MEDS: VENTOLIN NEBULES 2.5 MG INH (01:15)
[2025-02-24 02:24] LABS: Glucose - Point of Care 224 mg/dl (70-99)
[2025-02-24 03:23] LABS: Glucose - Point of Care 202 mg/dl (70-99)
[2025-02-24 03:51] LABS: Potassium 7.3 mmol/L (3.5-5.1)
[2025-02-24 04:20] LABS: Urine Character Slightly Cloudy (Clear)
[2025-02-24 04:20] LABS: Glucose - Point of Care 210 mg/dl (70-99)
[2025-02-24] MEDS: SODIUM BICARBONATE 50 MEQ IV (04:20)
--- NOTE | 2025-02-24 04:42 | HPS.HSE ---
Family Physician
-
Family Physician: Bandar Jimenez MD
Chief Complaint
-
Abd distention / Fatigue
History of Present Illness
Patient is a 59y M with PMH significant for renal cell carcinoma with malignant ascites, DM-II and HFrEF who presents to ED complaining of abdominal distention and general fatigue / malaise. Patient was recently hospitalized 02/05 - 02/11 and
02/16 -02/17 for ascites / distention found to be secondary to malignant ascites. He underwent paracentesis on 02/09 and 02/16. During his most recent visit, patient was advised to continue his Lasix but stop his Jardiance, Aldactone and valsartan.
he states that he felt fairly well upon discharge; however, his symptoms quickly started to return and have been progressive since.
Patient notes increasing abdominal distention and discomfort since discharge.
He states that he has been unable to urinate for the past 3 days. He has had only 'small dribbles' of urine. He also states that he has not moved his bowels in several days.
Patient returned to the ED this evening for further evaluation.
Medical History
Past Medical History
Past Medical History: Reports Other
Additional Past Medical History:
Renal Cell Carcinoma with Malignant Ascites
ASCVD
Chronic HFrEF
DM-II
CKD III
Past Surgical History: Reports Other
Additional Past Surgical History:
PTCA with Stent
AICD Placement
Renal Biopsy
Social History
Tobacco: Non-smoker
Alcohol: None
Drug: None
Family History
Family History: Not pertinent
Allergies / Home Medications
Allergies reflects when Allergies were last updated in [facility].
Home Medications with original date entered in [facility]
Allergy/Medication List:
Allergies
Allergy/AdvReac Type Severity Reaction Status Date / Time
No Known Allergies Allergy Verified 02/23/25 22:47
Home Medications
ergocalciferol (vitamin D2) 1,250 mcg (50,000 unit) capsule 1,250 mcg PO TUTH Supplement 09/24/24
insulin glargine U-300 conc 300 unit/mL (3 mL) subcutaneous pen (Toujeo Max U-300 SoloStar) 20 unit SC HS Diabetes 09/24/24
repaglinide 2 mg tablet 2 mg PO AC Diabetes 09/24/24
atorvastatin 80 mg tablet 80 mg PO QPM High Cholesterol 10/06/24
pantoprazole 40 mg tablet,delayed release 40 mg PO DAILY gerd 10/06/24
insulin aspart U-100 100 unit/mL (3 mL) subcutaneous pen (Novolog FlexPen U-100 Insulin aspart) 10 sliding scale dose SC AC Diabetes 02/05/25
furosemide 80 mg tablet 80 mg PO DAILY #30 tabs 02/11/25
cabozantinib 40 mg tablet (Cabometyx) 40 mg PO DAILY Cancer 02/16/25
morphine 15 mg tablet,extended release 15 mg PO [id number] PRN severe pains 02/16/25
tamsulosin 0.4 mg capsule 0.4 mg PO HS Urinary Issue 02/16/25
aspirin 81 mg chewable tablet 81 mg PO DAILY 02/24/25
empagliflozin 25 mg tablet 25 mg PO DAILY 02/24/25
Review of Systems
-
History Source: Patient
A 12 point ROS was completed and negative except as noted: Yes
Constitutional: Reports Fatigue; Denies Fever or Chills
Respiratory: Denies Cough or Trouble Breathing
Cardiac: Denies Chest Pain or Palpitations
Abdomen/GI: Reports Abdominal Pain (distention > pain), Nausea and Constipated; Denies Vomiting
: Reports Difficulty Voiding; Denies Flank Pain
Musculoskeletal: Denies Edema
Neurological: Denies Dizzy or Headache
Psych: Denies Depression or Anxiety
Physical Exam
Vital Signs
Vital Signs
Temp Pulse Resp BP Pulse Ox
97.4 F 76 20 102/63 97
02/23/25 22:44 02/24/25 02:45 02/24/25 02:45 02/24/25 02:40 02/23/25 23:42
Physical Exam
General: Other (59y M in no acute distress.)
HEENT: Other (Dry MM. Neck supple.)
Respiratory: Other (Decreased BS at bases - otherwise clear.)
Cardiac: S1/S2 and Regular Rhythm; No Murmur
GI: Other (Markedly distended abdomen. No focal tenderness. Pos BS.)
Musculoskeletal: No Clubbing, No Cyanosis and No Edema
Neuro: AO x 3
Laboratory Results
-
02/23/25 22:52
02/24/25 03:19
Laboratory Results
Total Bilirubin 0.5 mg/dl (0.2-1.3) 02/23/25 22:52
AST 20 U/L (17-59) 02/23/25 22:52
ALT 16 U/L (0-50) 02/23/25 22:52
Alkaline Phosphatase 76 U/L (38-126) 02/23/25 22:52
Lipase 21 U/L (23-300) L 02/23/25 22:52
Impression/Plan
-
A/P: Patient is a 59y M with PMH significant for ASCVD, hypertension, DM-II and renal cell cancer with malignant ascites who presents to ED complaining of abdominal distention and decreased urine output.
JOSEPH on CKD III
Hyperkalemia
Hyponatremia
- Admit for further evaluation and treatment.
- Case reviewed with Nephrology - consulted for additional recommendations.
- Marked increased in SCr and K from recent admission.
- Straight cath in the ED for only 50cc of urine. Pham placed for strict I/Os given severe JOSEPH.
- Despite abdominal ascites - suspect that patient is intravascularly volume depleted.
- IVF x several hours and repeat labs for any changes.
- Temporizing measures administered for K elevation. Kayexelate. Follow for effect.
- Hold any diuretics, antihypertensive medications, etc.
- Continue midodrine and adjust IVFs, meds, etc to avoid hypotension / decreased perfusion.
Hypotension
- BP appears fairly stable compared to recent admission - but still low.
- ? decreased perfusion contributing to renal injury.
- Hold diuretics, BP meds, etc.
- IVFs as noted above. Continue midodrine.
- Follow for improvement.
Renal Cell Carcinoma with Malignant Ascites
- Evidence of recurrent ascites on exam.
- ? intravascular volume depletion due to ascites / 3rd spacing of fluid.
- IR consulted for repeat paracentesis. Fluid studies ordered.
- Next PET scheduled for after Thanksgiving.
- Holding Cabometyx acutely pending improvement in metabolic derangements, JOSEPH, etc.
Chronic HFrEF
- Echo done 02/06 with LVEF 15-20%.
- Despite ascites re-accumulation, patient does not appear total body volume overloaded.
- Hold diuretics acutely. Continue to hold Jardiance, ARB, Aldactone.
- Follow I/Os, daily weights, etc.
ASCVD
- Stable. Continue ASA s/p prior coronary stent.
DM-II
- Hold PO diabetic medications.
- Follow glucose and cover with SSI as needed.
- A1C 02/08 was 7.5%.
BPH
- Pham in place. Nephrology in agreement.
- Continue tamsulosin.
DVT Prophylaxis: Subcut Heparin
Code Status: Full
[2025-02-24] MEDS: NSS 1000 IV (05:02)
[2025-02-24] MEDS: TYLENOL 650 MG PO (05:32)
[2025-02-24 05:36] LABS: Glucose - Point of Care 265 mg/dl (70-99)
--- NOTE | 2025-02-24 05:40 | PTCARENOTE ---
Received patient from ED. Patient aao x3, able to make needs known, affect flat but friendly. C/o pain 4-5/10 to abdomen and back. PRN Tylenol administered per orders. NSR on the monitor, positive pulses, trace b/l le edema, ascites noted to
abdomen. Lung sounds cta throughout, pox 93-97%. Abdomen round and distended. Byrnes catheter patent and intact draining small amount of dark yellow urine to byrnes bag. Small scattered open areas, scratches, noted to b/l ankles. Per patient open
areas are from swelling and some scratching. Patient has L ac 20g with NSS at 100ml/hr.
Patient oriented to room and instructed to remain in bed at this time. Call tyler reviewed and instructed patient on use of call tyler as needed. Understanding verbalized.
[2025-02-24 05:41] LABS: Urine Red Blood Cell >100 /HPF (0-2); Urine White Cell 60-70 /HPF (0-5)
[2025-02-24] MEDS: KAYEXALATE SUSPENSION 15 GRAMS PO (05:54)
[2025-02-24 06:25] LABS: Hematocrit 41.5 % (39.0-52.0); Hemoglobin 13.6 g/dL (13.0-18.0); Mean Corp Hgb Conc. 32.8 g/dL (33.0-37.0); Mean Corpuscular Volume 87.4 fL (80.0-94.0); Platelet Count 295 10^3/uL (130-400); Red Cell Dist. Width 15.0 % (11.5-14.5)
[2025-02-24 06:27] LABS: Glucose - Point of Care 238 mg/dl (70-99)
[2025-02-24 07:12] LABS: ALT (SGPT) 15 U/L (0-50); AST (SGOT) 21 U/L (17-59); Albumin 3.2 g/dl (3.5-5.0); Alkaline Phosphatase 61 U/L (38-126); Blood Urea Nitrogen 86 mg/dl (9-20); Calcium 8.6 mg/dl (8.4-10.2); Carbon Dioxide 24 mmol/L (22-30); Chloride 90 mmol/L (98-107); Estimated Creatinine Clearance 16 ml/min; Glucose 228 mg/dl (70-99); Magnesium 2.5 mg/dl (1.6-2.3); Potassium 6.7 mmol/L (3.5-5.1); Sodium 121 mmol/L (135-145); Total Protein 5.6 g/dl (6.3-8.2); eGFR 11.32
--- NOTE | 2025-02-24 07:20 | PTCARENOTE ---
Pt rang call tyler with c/o nausea. Jen Ricardo notified via TC. Recent QT on EKG 420. Zofran administered as ordered. Will administer PO meds when nausea improves. Pt verbalized that his Son Thiago Pennington may also have information regarding his
hospitalization.
[2025-02-24] MEDS: ZOFRAN 4 MG IV (07:33)
--- NOTE | 2025-02-24 07:33 | W.CON.NEPH ---
Consultation
-
Date/Time Consultation Requested: 4:20 AM 02/24/2025
Date/Time Consultation Performed: 7:30 AM 02/24/2025
Requesting Provider: Dr. Montenegro
Performing Provider: Dr. Velez
Reason for Consultation: Acute kidney injury/hyponatremia/hyperkalemia
Medical History
-
Chief Complaint: JOSEPH/Hyperkalemia/hyponatremia
History of Present Illness:
Patient is a 59y M with PMH significant for renal cell carcinoma with malignant ascites, DM-II (on insulin and Jardiance) and HFrEF (on furosemide), CKD 3 (1.5 02/17/25), CAD (with multiple stents),who presented to ED complaining of abdominal
distention and general fatigue / malaise. Patient was recently hospitalized 02/05 - 02/11 and 02/16 -02/17 for ascites / distention found to be secondary to malignant ascites. During that admission we had seen him for acute kidney injury when his
creatinine had spiked to 1.8. His acute kidney injury was suspected to be due to prerenal stimulus from hemodynamic instability as well as the combination of his diuretics. He was eventually discharged back on his Lasix but off Jardiance and
valsartan. He was also hyponatremic at that time. His discharge sodium was 131 on 02/17/2025 .He underwent paracentesis on 02/09 and 02/16. After his discharge , the patient notes increasing abdominal distention and discomfort . He states that he
has been unable to urinate for the past 3 days. He has had only 'small dribbles' of urine. He also states that he has not moved his bowels in several days.
On presentation to the hospital he was profoundly hyponatremic with a serum sodium of 121 hyperkalemic with a potassium of 7.9 and with acute renal failure with a creatinine of 5.4 and nephrology was consulted
Past Medical History
Reports CAD, Metastatic renal cell carcinoma, CHF (HFrEF with EF 15-20%), Hypercholesterolemia, IDDM, [place] (Status post stents) and Other (BPH), AICE,PTCA with stenting), recurrent malignant ascites
Past Surgical History: Other (Stents, defibrillator placement, cardiac catheterization)
Social History
Tobacco: Non-Smoker
Alcohol: None
Drug: None
Personal:
Living: With Family
Family History
no CKD
Allergies / Home Medications
Allergy/AdvReac Type Severity Reaction Status Date / Time
No Known Allergies Allergy Verified 02/23/25 22:47
�Medication �Instructions �Recorded �Confirmed �Type
ergocalciferol (vitamin D2) 1,250 1,250 mcg PO TUTH Supplement 09/24/24 02/24/25 History
mcg (50,000 unit) capsule
insulin glargine U-300 conc 300 20 unit SC HS Diabetes 09/24/24 02/24/25 History
unit/mL (3 mL) subcutaneous pen
(Toujeo Max U-300 SoloStar)
repaglinide 2 mg tablet 2 mg PO AC Diabetes 09/24/24 02/24/25 History
atorvastatin 80 mg tablet 80 mg PO QPM High Cholesterol 10/06/24 02/24/25 History
pantoprazole 40 mg tablet,delayed 40 mg PO DAILY gerd 10/06/24 02/24/25 History
release
insulin aspart U-100 100 unit/mL 10 sliding scale dose SC AC 02/05/25 02/24/25 History
(3 mL) subcutaneous pen (Novolog Diabetes
FlexPen U-100 Insulin aspart)
furosemide 80 mg tablet 80 mg PO DAILY #30 tabs 02/11/25 02/24/25 Rx
cabozantinib 40 mg tablet 40 mg PO DAILY Cancer 02/16/25 02/24/25 History
(Cabometyx)
morphine 15 mg tablet,extended 15 mg PO [id number] PRN severe pains 02/16/25 02/24/25 History
release
tamsulosin 0.4 mg capsule 0.4 mg PO HS Urinary Issue 02/16/25 02/24/25 History
aspirin 81 mg chewable tablet 81 mg PO DAILY 02/24/25 02/24/25 History
empagliflozin 25 mg tablet 25 mg PO DAILY 02/24/25 02/24/25 History
Review of Systems
-
History Source: Patient
All other systems: Negative unless noted
Abdomen/GI: Constipated
: Difficulty Voiding and Other (Decreased urine output)
Physical Exam
Vital Signs
Vital Signs
Temp Pulse Resp BP Pulse Ox
98.6 F 80 19 85/68 94
02/24/25 05:20 02/24/25 07:15 02/24/25 07:15 02/24/25 07:00 02/24/25 07:15
Lab Results
02/24/25 06:13
02/24/25 06:13
WBC 15.0 10^3/uL (4.8-10.8) H 02/24/25 06:13
RBC 4.75 10^6/uL (4.70-6.10) 02/24/25 06:13
Hgb 13.6 g/dL (13.0-18.0) 02/24/25 06:13
Hct 41.5 % (39.0-52.0) 02/24/25 06:13
Plt Count 295 10^3/uL (130-400) 02/24/25 06:13
Sodium 121 mmol/L (135-145) L 02/24/25 06:13
Potassium 6.7 mmol/L (3.5-5.1) H* 02/24/25 06:13
Chloride 90 mmol/L (98-107) L 02/24/25 06:13
Carbon Dioxide 24 mmol/L (22-30) 02/24/25 06:13
BUN 86 mg/dl (9-20) H 02/24/25 06:13
Creatinine 5.4 mg/dL (0.7-1.3) H* 02/24/25 06:13
eGFR 11.32 02/24/25 06:13
Glucose 228 mg/dl (70-99) H 02/24/25 06:13
Calcium 8.6 mg/dl (8.4-10.2) 02/24/25 06:13
Phosphorus 7.7 mg/dl (2.5-4.5) H 02/24/25 06:13
Albumin 3.2 g/dl (3.5-5.0) L 02/24/25 06:13
Physical Exam
General: Awake, Alert, Oriented, AOx3 and No Distress
HEENT: EOMI, Conjunctivae Clear, Dentition Intact and Facial Symmetry
Respiratory: Normal Excursion, Nonlabored Respirations and Other ( Decreased breath sounds)
Cardiac: S1/S2 and Regular Rate/Rhythm
Breast: Deferred by me
Abdomen: Soft, Nontender and Other (Grossly distended with ascites)
Rectal: Deferred by Provider
Genito-urinary: No Costovertebral Tender and Other (byrnes)
Musculoskeletal: No Cyanosis and Edema ( trace)
Skin: No Rash
Neuro: Nonfocal/Grossly Intact
Psych: Mood/afflect pleasant, Insight/judgement good and Appropriate
Data Reviewed
-
Medical Tests (Nuc Med, Echo etc): Other (EKG personally reviewed noticed this normal sinus rhythm at 77 bpm with right bundle branch block anterior septal infarct pattern)
Labs: Labs Reviewed by me (BMP CBC urinalysis)
Old Records: Reviewed (Reviewed previous nephrology consult from date 02/16/2025 for acute renal failure as well as discharge creatinine and sodium level)
Assessment/Plan
-
Impression:
JOSEPH (5.4)
Hyponatremia (121)
Hyperkalemia (7.9)
Hypotension
Right renal cell carcinoma mass
Renal cell carcinoma with recurrent malignant ascites
Chronic congestive heart failure with LVEF of 15 to 20% (weights up 3kg since discharge)
Coronary artery disease with previous stenting procedures
History of hypertension
Type 2 diabetes
BPH
Plan:
Hyponatremia:
- Likely a function of SIADH in setting of malignancy but also may be precipitated by hypotension
- Will provide hypertonic saline
- Repeat urine osmolality
- Fluid restriction
- Repeat labs ordered this afternoon
Acute kidney injury:
- Possibly prerenal he mediated due to ongoing hypotension and/or obstructive
- Byrnes catheter placed
-Would obtain abdominal and pelvic imaging (CT non contrast) to assess for possible obstructive component given underlying malignant ascites and renal cell carcinoma
-Byrnes catheter placed
- If electrolytes do not temporize I may need to perform acute dialysis, discussed with patient (this would be high risk given hemodynamic instability)
- Need to support hemodynamically and maintain MAP of 65 or greater with pressors and/or midodrine support (escalated midodrine)
- Repeat later this afternoon BMP
Hyperkalemia:
- Medical therapy for temporizing including insulin D50
- Kayexalate provided
- Will now implement Lokelma 10 g 3 times daily
- Repeat labs ordered this afternoon
Hypotension:
- Possibly related to compromised effective circulating volume in setting of end-stage cardiomyopathy and hypoalbuminemia with recurrent malignant ascites
- Could also be related to infection given leukocytosis I would, obtain blood cultures
Patient is critically ill with life-threatening hyperkalemia in the setting of acute renal failure and hyponatremia
42 minutes critical care time spent with patient
Total Time Spent with Patient (in minutes): 42 minutes critical care time spent with patient
--- NOTE | 2025-02-24 08:16 | PTCARENOTE ---
Dr. Velez at the bedside. Reviewed the plan of care with the pt and myself. Urine sample obtained at this time. Cloudy sarita urine from Indwelling Pham catheter. IVF capped as ordered.
[2025-02-24 08:38] LABS: Glucose - Point of Care 249 mg/dl (70-99)
--- NOTE | 2025-02-24 08:51 | W.PN.HOSP.TC ---
Today's Communication/Plan
-
Paracentesis today.
Albumin after paracentesis
Monitor kidney function and creatinine
Assessment / Plan
Assessment / Plan
Impression:
Patient is a 59y M with PMH significant for renal cell carcinoma with malignant ascites, DM-II and HFrEF who presents to ED complaining of abdominal distention and general fatigue / malaise. Patient was recently hospitalized 02/05 - 02/11 and
02/16 -02/17 for ascites / distention found to be secondary to malignant ascites. He underwent paracentesis on 02/09 and 02/16. During his most recent visit, patient was advised to continue his Lasix but stop his Jardiance, Aldactone and valsartan.
he states that he felt fairly well upon discharge; however, his symptoms quickly started to return and have been progressive since.
Patient notes increasing abdominal distention and discomfort since discharge.
He states that he has been unable to urinate for the past 3 days. He has had only 'small dribbles' of urine. He also states that he has not moved his bowels in several days.
Patient returned to the ED this evening for further evaluation.
Patient admitted to the hospital, nephrology consulted, IR consult for paracentesis
Assessment/plan:
JOSEPH on CKD Stage III
Admitted for further evaluation and treatment.
Nephrology consulted for recommendations.
Marked increase in SCr and K compared to recent admission.
Urinary retention: Straight cath in ED yielded only 50?mL; Pham placed for strict I/O monitoring due to severe JOSEPH.
Despite abdominal ascites, suspect intravascular volume depletion.
Initiate IV fluids for several hours; repeat labs to monitor changes.
Hyperkalemia management: Temporizing measures administered.
Hold diuretics and antihypertensive medications.
Continue midodrine; adjust IV fluids and medications to avoid hypotension and decreased renal perfusion.
Severe refractory hyperkalemia
s/P (Kayexalate , albuterol, calcium gluconate, Lasix, sodium bicarb).
Monitor potassium response and repeat labs.
If persistent patient will need hemodialysis
Hyponatremia
Improved, monitor sodium levels; adjust fluids as clinically indicated.
Hypotension
BP relatively stable compared to prior admission but remains low.
Possible contribution to renal injury via decreased perfusion.
Hold diuretics and BP medications.
Continue IV fluids and midodrine.
Monitor for improvement.
Renal Cell Carcinoma with Malignant Ascites
Evidence of recurrent ascites on exam.
Suspect intravascular volume depletion due to third-spacing.
IR consulted for repeat paracentesis; fluid studies ordered.
Next PET scan scheduled post-Thanksgiving.
Hold Cabometyx until metabolic derangements and JOSEPH improve.
Chronic systolic CHF
Echo (02/06): LVEF 15�20%.
Ascites.
Hold diuretics acutely; continue to hold Jardiance, ARB, Aldactone.
Monitor I/O and daily weights.
ASCVD
Stable; continue ASA (s/p prior coronary stent).
Type 2 Diabetes Mellitus
Hold oral diabetic medications.
Monitor glucose; cover with SSI as needed.
Last A1C (02/08): 7.5%.
BPH
Pham catheter in place.
Continue tamsulosin.
CODE STATUS: Full code
DVT prophylaxis: Heparin
Diet: NPO for now
Disposition: Paracentesis today
Total time spent on today's encounter was 65 minutes which included time spent in counseling the patient/family regarding diagnosis and treatment plan as listed above, goals of care, and symptom management. Case was discussed with nursing staff,
specialists, and care coordinators/case management. All labs and imaging personally reviewed by me. Remainder the time spent in detailed review of previous records, lab data, imaging, and other medical provider documentation.
Anticipated Discharge: > 48 hours
Subjective/Interval History
-
Date of Service: February 24, 2025
Patient seen and examined at bedside, denies any chest pain, improved shortness of breath, patient was seen before paracentesis.
Objective Data
-
Labs:
Laboratory Results
02/23/25 02/24/25 02/24/25
22:52 00:05 03:19
WBC 13.6 H
Hgb 13.7
Hct 43.1
Plt Count 318 D
Sodium 118 L* 121 L
Potassium 6.2 H* 7.9 H* D 7.3 H*
Chloride 87 L 91 L
Carbon Dioxide 26 24
BUN 81 H 84 H
Creatinine 5.4 H* 5.4 H*
Glucose 236 H 233 H
Calcium 8.7 8.5
Total Bilirubin 0.5
AST 20
ALT 16
Alkaline Phosphatase 76
02/24/25 02/24/25
06:13 16:00
WBC 15.0 H
Hgb 13.6
Hct 41.5
Plt Count 295
Sodium 121 L Pending
Potassium 6.7 H* Pending
Chloride 90 L Pending
Carbon Dioxide 24 Pending
BUN 86 H Pending
Creatinine 5.4 H* Pending
Glucose 228 H Pending
Calcium 8.6 Pending
Total Bilirubin 0.6
AST 21
ALT 15
Alkaline Phosphatase 61
Vital Signs:
Vital Signs
Temp Pulse Resp BP Pulse Ox
98.8 F 80 20 99/70 94
02/24/25 08:06 02/24/25 08:05 02/24/25 08:05 02/24/25 08:05 02/24/25 08:05
I&O
02/23/25 02/24/25 02/25/25
06:59 06:59 06:59
Intake Total 200 / 200
Output Total 40 / 40
Balance 160 / 160
Physical Exam
-
General: Well Developed, Well Nourished, No Apparent Distress and Comfortable
HEENT: Normocephalic, Atraumatic, Moist Mucous Membranes, No Ptosis, PERRLA and Nose Appears Normal
Respiratory: Rales, Rhonchi and Non Labored Respirations
Cardiac: Regular Rhythm and S1/S2
Breast: Deferred by me
GI: Soft, Nontender and Distended
Genito-urinary: No Costovertebral Tender
Musculoskeletal: No Clubbing, No Cyanosis and No Edema
Skin: Warm
Neuro: Awake, Alert, Oriented, AO x 3 and No Motor Deficits
Psych: Calm
Data Reviewed
-
Diagnostic Radiology: Image personally visualized and interpreted and Report Reviewed by me
CT Scan: Image personally visualized and interpreted and Report Reviewed by me
Ultrasound: Image personally visualized and interpreted and Report Reviewed by me
MRI: Image personally visualized and interpreted and Report Reviewed by me
Medical Tests (Nuc Med, Echo etc): Image personally visualized and interpreted and Report Reviewed by me
Labs: Labs Reviewed by me
Old Records: Reviewed
[2025-02-24] MEDS: HEPARIN 5000 UNITS SC ×3 (08:58→23:59)
[2025-02-24] MEDS: LOW STRENGTH ASPIRIN 81 MG PO (08:58)
[2025-02-24] MEDS: SODIUM CHLORIDE 3% 250 IV (08:59)
[2025-02-24 10:59] LABS: Body Fluid Second Tech CF
[2025-02-24 11:08] LABS: Glucose - Point of Care 207 mg/dl (70-99)
[2025-02-24] MEDS: NOVOLOG FLEXPEN-LOW RESISTANCE SC (11:25)
[2025-02-24] MEDS: NOVOLOG FLEXPEN-LOW RESISTANCE 2 UNITS SC (11:29)
[2025-02-24] MEDS: LOKELMA 10 GRAM PO ×3 (11:29→18:20)
[2025-02-24] MEDS: FLEXBUMIN 100 IV (11:30)
--- NOTE | 2025-02-24 14:46 | CM ---
CM met with pt and his 3 sons(Thiago, Konstantin and Kal) bedside
Pt resides with his spouse in a 2SH with 2 GAYATHRI, first floor set up
Sleeps in regular bed and has full bathroom in first floor with walk-in shower
Pt is independent with his ADLs, drives+
Denies use of DMEs and financial insecurities
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
Pt under the care of [facility] and manages oral Cabometyx
PCP- Bandar Jimenez
Rx- [facility]
Pt currently admitted to ICU, nephro following
Call to admissions per request and all sons added as contacts
Thiago Pennington [phone]
Konstantin Pennington [phone]
Kal Pennington [phone]
Discharge Disposition- anticipate home, watch for possible HD needs
[2025-02-24] MEDS: NOVOLOG FLEXPEN-LOW RESISTANCE 1 UNITS SC (16:34)
[2025-02-24 16:37] LABS: Glucose - Point of Care 162 mg/dl (70-99)
[2025-02-24 16:59] LABS: Blood Urea Nitrogen 87 mg/dl (9-20); Calcium 8.4 mg/dl (8.4-10.2); Carbon Dioxide 27 mmol/L (22-30); Chloride 91 mmol/L (98-107); Estimated Creatinine Clearance 16 ml/min; Glucose 163 mg/dl (70-99); Potassium 6.0 mmol/L (3.5-5.1); Sodium 120 mmol/L (135-145); eGFR 11.32
--- NOTE | 2025-02-24 17:23 | PTCARENOTE ---
Dr. Velez TC that recent BMP resulted and virtually unchanged. Also questioing if diet is going to be advanced.
--- NOTE | 2025-02-24 17:24 | W.PN.UPDATE ---
Update Note
Progress Note Update
I reviewed the patient's CAT scan:
There is left pelvicalyceal dilation as well as dilation of the proximal to mid left ureter with normal caliber of the mid to distal left ureter. In this patient, findings raise concern for ureteral metastatic disease and resultant obstruction
JOSEPH could be due to evolving obstruction of the left kidney
I would suggest consulting urology as patient wishes to be very aggressive and may need require left nephrostomy tube
Labs reviewed potassium dropping but hyponatremia persist
Urine output suboptimal so I will attempt to provide some diuresis with IV Lasix 80 mg
[2025-02-24] MEDS: LASIX 80 MG IV (18:12)
--- NOTE | 2025-02-24 20:42 | PTCARENOTE ---
pt tsf to imu room 3345. verbal report received from [facility]. pt is aaox3. family at bedside. satting 92% on RA. NSR on monitor with BBB. denies abdominal pain at this time. abdomen round. safe environment maintained.
[2025-02-24] MEDS: LANTUS 0.08 UNITS SC (21:46)
[2025-02-24] MEDS: FLOMAX 0.4 MG PO (21:46)
[2025-02-24 21:57] LABS: Glucose - Point of Care 229 mg/dl (70-99)
[2025-02-25] VITALS (11 sets, daily range): BP systolic 81–97; BP diastolic 54–76; BMI 28.8
[2025-02-25 05:30] LABS: Blood Urea Nitrogen 89 mg/dl (9-20); Calcium 8.5 mg/dl (8.4-10.2); Carbon Dioxide 27 mmol/L (22-30); Chloride 90 mmol/L (98-107); Estimated Creatinine Clearance 13 ml/min; Glucose 196 mg/dl (70-99); Potassium 5.6 mmol/L (3.5-5.1); Sodium 124 mmol/L (135-145); eGFR 9.97
[2025-02-25] MEDS: LOKELMA 10 GRAM PO ×3 (05:44→17:22)
--- NOTE | 2025-02-25 07:10 | CONS.URO ---
Consultation
-
Date/Time Consultation Performed: 02/25/2025 0645
Performing Provider: Sadi
Reason for Consultation: to determine if PCN tube is indicated
Medical History
History of Present Illness
a/w acute on chronic HFrEF
Renal cell carcinoma on Cabometyx x 2 months, however, held for the past 2 weeks d/t n/v, edema, and abdominal distention
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
ED note: 'to ED complaining of abdominal distention and general fatigue / malaise. Patient was recently hospitalized 02/05 - 02/11 and 02/16 -02/17 for ascites / distention found to be secondary to malignant ascites. He underwent paracentesis on
02/09 and 02/16. During his most recent visit, patient was advised to continue his Lasix but stop his Jardiance, Aldactone and valsartan. he states that he felt fairly well upon discharge; however, his symptoms quickly started to return and have
been progressive since.
Patient notes increasing abdominal distention and discomfort since discharge.
He states that he has been unable to urinate for the past 3 days. He has had only 'small dribbles' of urine. He also states that he has not moved his bowels in several days.'
Past Medical History
Past Medical History: Other (Renal Cell Carcinoma with Malignant Ascites ASCVD Chronic HFrEF DM-II CKD III)
Past Surgical History: Other (PTCA with Stent AICD Placement Renal Biopsy)
Allergies/Home Medications
Allergies
Allergy/AdvReac Type Severity Reaction Status Date / Time
No Known Allergies Allergy Verified 02/23/25 22:47
Home Medications
�Medication �Instructions �Recorded �Confirmed �Type
ergocalciferol (vitamin D2) 1,250 1,250 mcg PO TUTH Supplement 09/24/24 02/24/25 History
mcg (50,000 unit) capsule
insulin glargine U-300 conc 300 20 unit SC HS Diabetes 09/24/24 02/24/25 History
unit/mL (3 mL) subcutaneous pen
(Toujeo Max U-300 SoloStar)
repaglinide 2 mg tablet 2 mg PO AC Diabetes 09/24/24 02/24/25 History
atorvastatin 80 mg tablet 80 mg PO QPM High Cholesterol 10/06/24 02/24/25 History
pantoprazole 40 mg tablet,delayed 40 mg PO DAILY gerd 10/06/24 02/24/25 History
release
insulin aspart U-100 100 unit/mL 10 sliding scale dose SC AC 02/05/25 02/24/25 History
(3 mL) subcutaneous pen (Novolog Diabetes
FlexPen U-100 Insulin aspart)
furosemide 80 mg tablet 80 mg PO DAILY #30 tabs 02/11/25 02/24/25 Rx
cabozantinib 40 mg tablet 40 mg PO DAILY Cancer 02/16/25 02/24/25 History
(Cabometyx)
morphine 15 mg tablet,extended 15 mg PO [id number] PRN severe pains 02/16/25 02/24/25 History
release
tamsulosin 0.4 mg capsule 0.4 mg PO HS Urinary Issue 02/16/25 02/24/25 History
aspirin 81 mg chewable tablet 81 mg PO DAILY Blood Clot 02/24/25 02/24/25 History
Prevention/Tx
empagliflozin 25 mg tablet 25 mg PO DAILY Diabetes 02/24/25 02/24/25 History
Physical Exam
Vital Signs
Vital Signs
Temp Pulse Resp BP Pulse Ox
98.5 F 85 17 81/64 94
02/25/25 03:18 02/25/25 04:30 02/25/25 04:30 02/25/25 04:00 02/25/25 04:30
Lab / Testing Results
Laboratory Results
02/24/25 06:13
02/25/25 04:39
Physical Exam
adult male asleep in bed
Assessment / Plan
-
Metastatic Renal Cell with diffuse Retroperitoneal Adenopathy and Peritoneal Carcinomatosis
Abrupt deterioration of renal function with oliguria
obstructive uropathy does NOT appear to play a significant role in renal failure: on current non-contrasted CT right kidney appears to contrasted CT [large, central-medial solid renal mass w/o hydronephrosis; Pham in empty bladder
ureteral stenting or right PCN tube placement would be unlikely to improve renal function
Data Reviewed
-
CT Scan: Image personally visualized and interpreted
Lab Data: Labs Reviewed
Old Records: Reviewed
[2025-02-25 07:34] LABS: Glucose - Point of Care 188 mg/dl (70-99)
--- NOTE | 2025-02-25 09:00 | PTCARENOTE ---
Patient received from shift commander. Patient resting comfortably in bed. stayed overnight. AAO, VSS. No events noted overnight. No complaints of pain at this time. Request from to have Oncology consulted as they want to switch to
network. Starting antibiotics and drawing blood cultures. No testing scheduled at this time. Call tyler in reach.
[2025-02-25 09:07] LABS: Hematocrit 37.4 % (39.0-52.0); Hemoglobin 12.5 g/dL (13.0-18.0); Mean Corp Hgb Conc. 33.4 g/dL (33.0-37.0); Mean Corpuscular Volume 85.4 fL (80.0-94.0); Nucleated Red Blood Cells % 0 % (-); Platelet Count 327 10^3/uL (130-400); Red Cell Dist. Width 15.0 % (11.5-14.5)
[2025-02-25] MEDS: NOVOLOG FLEXPEN-LOW RESISTANCE 1 UNITS SC (09:13)
[2025-02-25] MEDS: HEPARIN 5000 UNITS SC ×3 (09:13→22:07)
[2025-02-25] MEDS: LOW STRENGTH ASPIRIN 81 MG PO (09:16)
[2025-02-25] MEDS: FLEXBUMIN 100 IV ×3 (09:47→23:31)
[2025-02-25] MEDS: STERILE WATER FOR INJECTION 20 ML IV (09:48)
[2025-02-25] MEDS: ROCEPHIN 2000 MG IV (09:48)
[2025-02-25 12:08] LABS: Glucose - Point of Care 227 mg/dl (70-99)
--- NOTE | 2025-02-25 12:16 | W.PN.NEPH.PH ---
Today's Communication / Plan
-
see plan
Assessment/Plan
-
Impression:
JOSEPH (5.4)
Hyponatremia (121)
Hyperkalemia (7.9)
Hypotension
Right renal cell carcinoma mass
Renal cell carcinoma with recurrent malignant ascites
Chronic congestive heart failure with LVEF of 15 to 20% (weights up 3kg since discharge)
Coronary artery disease with previous stenting procedures
History of hypertension
Type 2 diabetes
BPH
Plan:
JOSEPH-suspecting prerenal , low flow state with soft BPs and low EF, unlikely obst in nature per so no PCN needed
UA UTIS sample, no symp. barely non oliguric with byrnes
cr up today , recheck later today
hyperkalemia-improving with Lokelma, 5.6, low k diet
Hyponatremia: possible high ADH state from above, sodium better at 124 post HTS
will give another bag today too
BP are soft cont IV alb course and high dose midodrine, bld cx pending
no emergent need of HD however has very high risk
His tolerability of dialysis also question with poor cardiac function and low BPs
Await onc eval today for prognosis of his cancer
I am concerned that dialysis might make him more unstable than any benefit
spoke with pt and family in detail
answered all the questions to my best ability
spoke with nursing and primary
high risk encounter
-
-
Date of Service: February 25, 2025
CC / HPI / ROS
-
Chief Complaint:
JOSEPH
History of Present Illness:
cr up at 6, sodium better at 124
k better at 5.6
WBC up at 13.9
bp low
Review of Systems:
no cp or sob
feels better post paracentesis on 02/24
Labs
-
Labs:
WBC 13.9 10^3/uL (4.8-10.8) H 02/25/25 08:57
RBC 4.38 10^6/uL (4.70-6.10) L 02/25/25 08:57
Hgb 12.5 g/dL (13.0-18.0) L 02/25/25 08:57
Hct 37.4 % (39.0-52.0) L 02/25/25 08:57
Plt Count 327 10^3/uL (130-400) 02/25/25 08:57
Sodium 124 mmol/L (135-145) L 02/25/25 04:39
Potassium 5.6 mmol/L (3.5-5.1) H 02/25/25 04:39
Chloride 90 mmol/L (98-107) L 02/25/25 04:39
Carbon Dioxide 27 mmol/L (22-30) 02/25/25 04:39
BUN 89 mg/dl (9-20) H 02/25/25 04:39
Creatinine 6.0 mg/dL (0.7-1.3) H* 02/25/25 04:39
eGFR 9.97 02/25/25 04:39
Glucose 196 mg/dl (70-99) H 02/25/25 04:39
Calcium 8.5 mg/dl (8.4-10.2) 02/25/25 04:39
Phosphorus 7.7 mg/dl (2.5-4.5) H 02/24/25 06:13
Albumin 3.2 g/dl (3.5-5.0) L 02/24/25 06:13
Physical Exam
-
Vital Signs:
Vital Signs
Temp Pulse Resp BP Pulse Ox
98.2 F 82 17 82/59 97
02/25/25 12:02 02/25/25 09:13 02/25/25 04:30 02/25/25 09:13 02/25/25 12:06
Cardiovascular:: Regular rate and rhythm
Respiratory:: Bilateral: CTA
Lung Excursion:: Normal
Abdomen:: Distended (mild), Nontender and Soft
Extremity Edema:: None: Bilateral:
Byrnes Catheter: Yes
[2025-02-25] MEDS: NOVOLOG FLEXPEN-LOW RESISTANCE 3 UNITS SC (12:36)
--- NOTE | 2025-02-25 12:37 | CON.ONC ---
Consultation
-
Date Consultation Requested: 02/25/25
Date Consultation Performed: 02/25/25
Requesting Provider: Dr. Betty Fisher
Performing Provider: kulwant
Reason for Consultation: Refractory metastatic renal cell cancer
Impression
Impression
Metastatic renal cell cancer, refractory with malignant ascites, malignant lymphadenopathy, and carcinomatosis
Acute kidney injury on chronic kidney disease
Chronic congestive heart failure
Plan
Plan
Very challenging situation. Although I agree that the next line of treatment should be WELIREG� (belzutifan) which is NCCN's recommended third line option, the likelihood of effectiveness is low (likely < 10%) and in the light of his pretty
significant comorbidities and refractory nature so far to his cancer to the aforementioned other treatments he has already received, we discussed alternatives to aggressive therapy namely palliative care alone with home hospice. He seemed to
understand the complexity of his medical care in light of multiple serious medical issues namely worsening kidney failure possibly requiring hemodialysis, heart failure, and advanced treatment refractory cancer. He and his family are going to
discuss and will let the primary team know their decision later on. Obviously this is not a decision that needs to be made now/stat but a decision needs to be made somewhat timely as we can decide how to proceed with his medical care.
Patient History
History of Present Illness
Patient is a 59-year-old man with stage IV metastatic renal cell carcinoma with malignant ascites who presented to ER yesterday with worsening abdominal ascites, fatigue. He has had multiple hospitalizations related to malignant ascites. He has
been treated with paracentesis. His oncologic care is by joseline Vu at [facility]. He currently is having worsening kidney failure with creatinine that has risen from 1.5 on 02/17 up to 6.0 today. Nephrology is discussing
hemodialysis. Recent imaging reveals extensive peritoneal carcinomatosis with significant progression from previous imaging evaluations and malignant lymphadenopathy.
Regarding his oncologic care he was treated appropriately with first-line ipilimumab/nivolumab without response and with significant toxicity with colitis. He then was switched to second line cabozantinib without response. Most recently he was
ordered and was supposed to start WELIREG� (belzutifan) although has not yet started this therapy. 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
I saw him with 2 family members although his unfortunately stepped out for little bit. He seems conflicted as he wishes to be aggressive but understands that treatment is becoming more more futile. Basically the consultation turned into a
goals of care conversation.
Past-Medical/Surgical History
PMH:
Renal Cell Carcinoma with Malignant Ascites
ASCVD
Chronic HFrEF
DM-II
CKD III
PSH:
PTCA with Stent
AICD Placement
Renal Biopsy
SH:
Denies tobacco, alcohol, drug use. He is
Patient Medication
�Medication �Instructions �Recorded �Confirmed �Last Taken �Type
ergocalciferol (vitamin D2) 1,250 1,250 mcg PO TUTH Supplement 09/24/24 02/24/25 02/12/25 History
mcg (50,000 unit) capsule
insulin glargine U-300 conc 300 20 unit SC HS Diabetes 09/24/24 02/24/25 02/15/25 History
unit/mL (3 mL) subcutaneous pen
(Toujeo Max U-300 SoloStar)
repaglinide 2 mg tablet 2 mg PO AC Diabetes 09/24/24 02/24/25 02/15/25 History
atorvastatin 80 mg tablet 80 mg PO QPM High Cholesterol 10/06/24 02/24/25 02/15/25 History
pantoprazole 40 mg tablet,delayed 40 mg PO DAILY gerd 10/06/24 02/24/25 02/15/25 History
release
insulin aspart U-100 100 unit/mL 10 sliding scale dose SC AC 02/05/25 02/24/25 02/15/25 History
(3 mL) subcutaneous pen (Novolog Diabetes
FlexPen U-100 Insulin aspart)
furosemide 80 mg tablet 80 mg PO DAILY #30 tabs 02/11/25 02/24/25 02/15/25 Rx
cabozantinib 40 mg tablet 40 mg PO DAILY Cancer 02/16/25 02/24/25 Unknown History
(Cabometyx)
morphine 15 mg tablet,extended 15 mg PO [id number] PRN severe pains 02/16/25 02/24/25 02/15/25 History
release
tamsulosin 0.4 mg capsule 0.4 mg PO HS Urinary Issue 02/16/25 02/24/25 02/15/25 History
aspirin 81 mg chewable tablet 81 mg PO DAILY Blood Clot 02/24/25 02/24/25 Unknown History
Prevention/Tx
empagliflozin 25 mg tablet 25 mg PO DAILY Diabetes 02/24/25 02/24/25 Unknown History
Active Medications
Generic Name Dose Route Start Last Admin
Trade Name Freq PRN Reason Stop Dose Admin
Acetaminophen 650 mg 02/24/25 04:51 02/24/25 05:32
Acetaminophen 325 Mg Tablet PO 03/24/25 04:50 650 mg
Q4HPRN PRN Administration
Mild Pain / Temp > 101
Aspirin 81 mg 02/24/25 08:00 02/25/25 09:16
Aspirin 81 Mg Chewable Tablet PO 03/24/25 07:59 81 mg
DAILY RAYMOND Administration
Atorvastatin Calcium 80 mg 02/25/25 18:00
Atorvastatin (Lipitor) 80 Mg Tablet PO 03/25/25 17:59
QPM RAYMOND
Ceftriaxone Sodium 2,000 mg 02/25/25 10:00 02/25/25 09:48
Ceftriaxone 2,000 Mg/20 Ml Vial IV 2,000 mg
Q24H RAYMOND Administration
Dextrose 12.5 grams 02/24/25 00:53
Dextrose 50% (0.5 Grams/Ml) 50 Ml Syringe IV 03/24/25 00:52
[id number] PRN
hypoglycemia (BG < 70 mg/dL)
Protocol
Dextrose 12.5 grams 02/24/25 04:51
Dextrose 50% (0.5 Grams/Ml) 50 Ml Syringe IV 03/24/25 04:50
[id number] PRN
hypoglycemia
Protocol
Glucagon 1 mg 02/24/25 04:51
Glucagon 1 Mg Vial IM 03/24/25 04:50
PRN PRN
hypoglycemia
Protocol
Heparin Sodium 5,000 units 02/24/25 08:00 02/25/25 09:13
Heparin 5,000 Units/Ml 1 Ml Vial SC 03/24/25 07:59 5,000 units
Q8 RAYMOND Administration
Albumin Human 25 grams in 100 mls @ 60 mls/hr 02/25/25 08:36 02/25/25 09:47
Flexbumin IV 02/26/25 08:35 100 mls
Q8H RAYMOND Administration
Insulin Glargine 10 units/ 0.1 mls @ 0 mls/hr 02/25/25 11:45
Device SC 03/24/25 21:59
HS RAYMOND
As Directed
Insulin Aspart 0 units 02/24/25 07:30 02/25/25 09:13
Insulin Aspart Low Resistance 300 Units/3 Ml Pen.Injctr SC 03/24/25 07:29 1 units
AC RAYMOND Administration
Protocol
Insulin Aspart 3 units 02/25/25 16:30
Insulin Aspart (Novolog) 100 Units/1 Ml 10 Ml Vial SC 03/25/25 16:29
AC RAYMOND
Midodrine 10 mg 02/24/25 08:11 02/25/25 09:13
Midodrine 5 Mg Tablet PO 03/24/25 07:59 10 mg
TID@0800,1300,1800 RAYMOND Administration
Ondansetron HCl 4 mg 02/24/25 07:23 02/24/25 07:33
Ondansetron 4 Mg/2 Ml Vial IV 03/24/25 07:22 4 mg
Q6HPRN PRN Administration
NAUSEA/VOMITING
Pantoprazole Sodium 40 mg 02/26/25 08:00
Pantoprazole 40 Mg Delayed Release Tablet PO 03/26/25 07:59
DAILY RAYMOND
Sodium Chloride 0 flush 02/24/25 06:00
Sodium Chloride 0.9% (Flush) Syringe IV 03/24/25 05:59
PER PROTOCOL RAYMOND
Sodium Zirconium Cyclosilicate 10 gram 02/24/25 10:30 02/25/25 05:44
Sodium Zirconium Cyclosilicate (Lokelma) 10 Gram Powder Packet PO 02/25/25 18:01 10 gram
TID@0600,1400,1800 RAYMOND Administration
Sterile Water 20 ml 02/25/25 10:00 02/25/25 09:48
Sterile Water For Injection 20 Ml Vial IV 03/25/25 09:59 20 ml
Q24H RAYMOND Administration
Tamsulosin HCl 0.4 mg 02/24/25 22:00 02/24/25 21:46
Tamsulosin 0.4 Mg Capsule PO 03/24/25 21:59 0.4 mg
HS RAYMOND Administration
Physical Exam
-
General: Well Developed, Well Nourished and No Apparent Distress; Negative Respiratory Distress
HEENT: Negative Jaundice
Cardiology: S1 and S2
Pulmonary: Clear
GI: Distended and Fluid Wave
Extremities: No C/C/E
Neurology: Non Focal
Labs
Lab Results
WBC 13.9 10^3/uL (4.8-10.8) H 02/25/25 08:57
RBC 4.38 10^6/uL (4.70-6.10) L 02/25/25 08:57
Hgb 12.5 g/dL (13.0-18.0) L 02/25/25 08:57
Hct 37.4 % (39.0-52.0) L 02/25/25 08:57
MCV 85.4 fL (80.0-94.0) 02/25/25 08:57
MCH 28.5 pg (27.0-31.0) 02/25/25 08:57
MCHC 33.4 g/dL (33.0-37.0) 02/25/25 08:57
RDW 15.0 % (11.5-14.5) H 02/25/25 08:57
Plt Count 327 10^3/uL (130-400) 02/25/25 08:57
MPV 9.9 fL (7.4-10.4) 02/25/25 08:57
Abs Immat Gran (auto) 0.1 10^3/uL (0-0.05) H 02/25/25 08:57
Absolute Neuts (auto) 10.6 10^3/uL (1.4-6.5) H 02/25/25 08:57
Absolute Lymphs (auto) 1.4 10^3/uL (1.2-3.4) 02/25/25 08:57
Absolute Monos (auto) 1.4 10^3/uL (0.1-0.6) H 02/25/25 08:57
Absolute Eos (auto) 0.3 10^3/uL (0-0.7) 02/25/25 08:57
Absolute Basos (auto) 0.1 10^3/uL (0-0.2) 02/25/25 08:57
Immature Gran % 0.6 % (0-0.5) H 02/25/25 08:57
Neutrophils % 76.5 % (42.2-75.2) H 02/25/25 08:57
Lymphocytes % 9.7 % (20.5-51.1) L 02/25/25 08:57
Monocytes % 10.3 % (1.7-9.3) H 02/25/25 08:57
Eosinophils % 2.0 % (0-6) 02/25/25 08:57
Basophils % 0.9 % (0-2) 02/25/25 08:57
Creatinine 6.0 mg/dL (0.7-1.3) H* 02/25/25 04:39
Vital Signs
Vital Signs
Temp Pulse Resp BP Pulse Ox
98.2 F 82 17 82/59 97
02/25/25 12:02 02/25/25 09:13 02/25/25 04:30 02/25/25 09:13 02/25/25 12:06
[2025-02-25] MEDS: SODIUM CHLORIDE 3% 250 IV ×2 (14:40→23:30)
[2025-02-25] MEDS: LIPITOR 80 MG PO (17:25)
[2025-02-25] MEDS: NOVOLOG FLEXPEN-LOW RESISTANCE 2 UNITS SC (17:29)
[2025-02-25] MEDS: NOVOLOG FLEXPEN 3 UNITS SC (17:29)
[2025-02-25 17:40] LABS: Glucose - Point of Care 207 mg/dl (70-99)
[2025-02-25 18:03] LABS: Blood Urea Nitrogen 92 mg/dl (9-20); Calcium 8.5 mg/dl (8.4-10.2); Carbon Dioxide 25 mmol/L (22-30); Chloride 88 mmol/L (98-107); Estimated Creatinine Clearance 13 ml/min; Glucose 192 mg/dl (70-99); Potassium 5.4 mmol/L (3.5-5.1); Sodium 120 mmol/L (135-145); eGFR 9.78
--- NOTE | 2025-02-25 18:18 | W.PN.HOSP.TC ---
Addendum entered and electronically signed by Chet Chatman MD 02/25/25 21:15:
Attending Addendum-
I saw and evaluated the patient. I reviewed the resident�s note and agree with findings and plan as documented in the resident�s note. Sub: Seen with 2 sons present. Patient feels greatly improved after paracentesis. Denies fevers chills NV. Full 12
point ROS reviewed and negative except as documented Exam: Vitals reviewed in chart GEN-NAD heart RRR lungs decreased at bases abd distended pos fluid wave NT pos BS LE trace B/L LE edema byrnes in place with minimal urine present
Plan:
#JOSEPH
- prerenal due to third-spacing
- oliguric, cont byrnes temporarily for strict I and O's
- appreciate nephro input
- poor HD candidate
- add albumin to improve renal perfusion
- follow closely
#Hyperkalemia
-trending down
-cont lokelma
-follow closely
#Hyponatremia
- improved
- cont additional 3% NS per nephro
#Hypotension
- from third spacing
- decreased perfusion contributing to renal injury.
- Hold diuretics, BP meds
- start albumin 100gms over 24 hours
- Continue midodrine.
- Follow for improvement.
# Metastatic Renal Cell Carcinoma with Diffuse Retroperitoneal Adenopathy and Peritoneal Carcinomatosis with Recurrent Malignant Ascites
- c/s heme onc- overall seemingly poor prognosis
- paracentesis 02/09-3000mls, 02/16-5500mls
- repeat paracentesis 02/24- 4600mls
- fluid sent for analysis
- start albumin 100mg in 24 hours
- await further recs by heme onc
# SBP
- start Rocephin for coverage
- await fluid cx results
#Chronic HFrEF
- Echo 02/06 with LVEF 15-20%.
- Hold diuretics acutely. Continue to hold Jardiance, ARB, Aldactone.
- Follow I/Os, daily weights, etc.
# CAD
- Stable. Continue ASA s/p prior coronary stent.
# DM-II
- Hold PO meds
- increase lantus add mealtime novolog for better control
- Follow glucose and cover with SSI as needed.
- A1C / was 7.5%.
# BPH
- Continue tamsulosin.
DVT Prophylaxis: Subcut Heparin
Code Status: Full
ACP
Patient consented to discuss, was with sons, time spent explanation of advance directives, changes in health status, patient�s health care wishes if the patient becomes unable to make health decisions, goals of care, code status, and prognosis,
would like to discuss poor prognosis and DNR further with family, continue full code for now- 16 minutes
Time spent coordinating care, review of plan of care with resident, personally reviewed previous records in EMR, med rec, labs, radiology, d/w nursing, nephro and family total time documented is exclusive of any additional time listed that was spent
in advance care planning discussion -�56 minutes
Original Note:
Today's Communication/Plan
-
- Oncology consulted
- Nephrology consulted - hyponatremia correction per nephrology recommendations
- Increased glargine to 10 units, added 3 units aspart with meals
- Will continue to monitor Is and Os
Assessment / Plan
Assessment / Plan
#JOSEPH
- admitted for further evaluation and treatment.
- Nephrology consulted for recommendations.
- Marked increase in SCr and K compared to most recent admission.
- Urinary retention: Straight cath in ED yielded only 50 mL; Byrnes placed for strict I/O monitoring
- Despite abdominal ascites, suspect intravascular volume depletion
- Received IV fluids for several hours yesterday
- Continue hold diuretics and antihypertensive medications per nephrology recs
- Continue midodrine; adjust IV fluids and medications to avoid hypotension and decreased renal perfusion
# possible SBP
- calculated PMNs 721
- known malignant acsites
- started patient on Ceftriaxone 2mg daily
- serum WBC downtrending
- will monitor WBC, temperature and abdominal symptoms
#Severe refractory hyperkalemia
- trend K
- Lokelma 10g
#Hyponatremia
- NA 118 on admission
- Improved, monitor sodium levels
- Will defer to nephrology recommendations
#Hypotension
- BP relatively stable
- Hold diuretics and BP medications per nephrology recommendations
- Continue midodrine.
#Renal Cell Carcinoma with Malignant Ascites
- consulted oncology
- evidence of recurrent ascites on exam
- Suspect intravascular volume depletion due to third-spacing
#Chronic systolic CHF
- Echo (02/06): LVEF 15�20%
- Ascites
- Holding diuretics, continue to hold Jardiance, ARB, Aldactone per nephrology recs
- Monitor I/O and daily weights
#ASCVD
- Stable; continue ASA (s/p prior coronary stent).
#Type 2 Diabetes Mellitus
- Hold oral diabetic medications.
- Monitor glucose; cover with SSI as needed.
- increased glargine to 10 units, added 3units aspart at meals
- Last A1C (02/08): 7.5%.
BPH
- Byrnes catheter in place
- Continue tamsulosin
Anticipated Discharge: > 48 hours
Subjective/Interval History
-
Date of Service: February 25, 2025
Objective Data
-
Labs:
Laboratory Results
02/25/25 02/25/25
08:57 17:38
WBC 13.9 H
Hgb 12.5 L
Hct 37.4 L
Plt Count 327
Sodium 120 L
Potassium 5.4 H
Chloride 88 L
Carbon Dioxide 25
BUN 92 H
Creatinine 6.1 H*
Glucose 192 H
Calcium 8.5
Vital Signs:
Vital Signs
Temp Pulse Resp BP Pulse Ox
98.2 F 75 17 86/56 97
02/25/25 12:02 02/25/25 17:22 02/25/25 04:30 02/25/25 17:22 02/25/25 12:06
I&O
02/24/25 02/25/25 02/26/25
06:59 06:59 06:59
Intake Total 980 / 980
Output Total 530 / 530
Balance 450 / 450
Review of Systems
-
History Source: Patient
Constitutional: Reports No Symptoms
Respiratory: Reports No Symptoms
Cardiac: Reports No Symptoms
Abdomen/GI: Reports Other (Distended, tense)
Genitourinary: Reports Difficulty Voiding
Musculoskeletal: Reports No Symptoms
Skin: Reports No Symptoms
Neuro: Reports No Symptoms
Endocrine: Reports No Symptoms
Hematologic / Lymphatic: Reports No Symptoms
Allergy / Immunology: Reports No Symptoms
Psych: Reports Sad
Physical Exam
-
General: No Apparent Distress
HEENT: Moist Mucous Membranes
Respiratory: Clear to Auscultation
Cardiac: Regular Rhythm
GI: Soft, Nontender and Other (Distended)
Skin: Warm and Dry
Neuro: Awake, Alert and Oriented
Psych: Calm
[2025-02-25] MEDS: FLOMAX 0.4 MG PO (20:39)
[2025-02-25] MEDS: LANTUS 0.1 UNITS SC (22:05)
[2025-02-25 22:16] LABS: Glucose - Point of Care 210 mg/dl (70-99)
[2025-02-25 22:35] LABS: Blood Urea Nitrogen 92 mg/dl (9-20); Calcium 8.2 mg/dl (8.4-10.2); Carbon Dioxide 24 mmol/L (22-30); Chloride 90 mmol/L (98-107); Estimated Creatinine Clearance 13 ml/min; Glucose 203 mg/dl (70-99); Potassium 5.5 mmol/L (3.5-5.1); Sodium 119 mmol/L (135-145); eGFR 9.78
--- NOTE | 2025-02-25 23:17 | W.PN.UPDATE ---
Update Note
Progress Note Update
Nephrology recommended restarting the 3% saline as well as 20mg IV Lasix to help correct he Na.
[2025-02-25] MEDS: LASIX 20 MG IV (23:20)
[2025-02-26] VITALS (15 sets, daily range): BP systolic 77–102; BP diastolic 44–69; BMI 29.6
[2025-02-26 06:06] LABS: ALT (SGPT) < 10 U/L (0-50); AST (SGOT) 14 U/L (17-59); Albumin 2.9 g/dl (3.5-5.0); Alkaline Phosphatase 48 U/L (38-126); Blood Urea Nitrogen 91 mg/dl (9-20); Calcium 8.1 mg/dl (8.4-10.2); Carbon Dioxide 24 mmol/L (22-30); Chloride 94 mmol/L (98-107); Estimated Creatinine Clearance 13 ml/min; Glucose 182 mg/dl (70-99); Hematocrit 33.7 % (39.0-52.0); Hemoglobin 11.0 g/dL (13.0-18.0); Mean Corp Hgb Conc. 32.6 g/dL (33.0-37.0); Mean Corpuscular Volume 90.1 fL (80.0-94.0); Nucleated Red Blood Cells % 0 % (-); Platelet Count 244 10^3/uL (130-400); Potassium 5.0 mmol/L (3.5-5.1); Red Cell Dist. Width 14.9 % (11.5-14.5); Sodium 126 mmol/L (135-145); Total Protein 4.7 g/dl (6.3-8.2); eGFR 9.59
--- NOTE | 2025-02-26 06:20 | PTCARENOTE ---
Caring for pt overnight. aaox3, very quiet & flat, slept the entire shift. Denies pain. Remains RA. NSR BBB. byrnes in place, drained 150cc yellow urine. Labs drawn lastnight at 10p. Na dropped, k went up & cr stayed the same. [employer]ING [employer] aware. Nephrology on
call aware. 3% saline bag ordered and given. Scheduled albumin bag given. Iv lasix X1 given. Bp's remain low but stable overnight. Labs this am have improved except cr. went up. called and was given an update. no other issues, will monitor.
[2025-02-26] MEDS: HEPARIN 5000 UNITS SC ×3 (07:50→23:31)
[2025-02-26] MEDS: LOW STRENGTH ASPIRIN 81 MG PO (07:51)
[2025-02-26] MEDS: PROTONIX 40 MG PO (07:52)
[2025-02-26] MEDS: ZOFRAN 4 MG IV (07:52)
[2025-02-26] MEDS: NOVOLOG FLEXPEN-LOW RESISTANCE 2 UNITS SC ×3 (08:04→18:00)
[2025-02-26] MEDS: NOVOLOG FLEXPEN 3 UNITS SC ×2 (08:05→11:30)
[2025-02-26 08:13] LABS: Glucose - Point of Care 225 mg/dl (70-99)
[2025-02-26] MEDS: ROCEPHIN 2000 MG IV (10:09)
[2025-02-26] MEDS: STERILE WATER FOR INJECTION 20 ML IV (10:10)
--- NOTE | 2025-02-26 11:55 | W.PN.NEPH.PH ---
Today's Communication / Plan
-
see plan
Assessment/Plan
-
Impression:
JOSEPH (5.4)
Hyponatremia (121)
Hyperkalemia (7.9)
Hypotension
Right renal cell carcinoma mass
Renal cell carcinoma with recurrent malignant ascites
Chronic congestive heart failure with LVEF of 15 to 20% (weights up 3kg since discharge)
Coronary artery disease with previous stenting procedures
History of hypertension
Type 2 diabetes
BPH
Plan:
JOSEPH-suspecting prerenal , low flow state with soft BPs and low EF, unlikely obst in nature per so no PCN needed
UA UTIS sample, no symp. oliguric with byrnes
cr up today , recheck later today
hyperkalemia-improving with Lokelma at 5, cont low k diet
Hyponatremia: possible high ADH state from above, sodium better at 126 post HTS
will give another bag today too based on repeat
BP are soft cont IV alb course and high dose midodrine, bld cx neg, check cortisol
no emergent need of HD however has very high risk
His tolerability of dialysis also question with poor cardiac function and low BPs
for paracentesis today
prognosis is seem poor per onc, however family thinks otherwise
I am concerned that dialysis might make him more unstable than any benefit
spoke with pt and family in detail
answered all the questions to my best ability
spoke with nursing
high risk encounter
-
-
Date of Service: February 26, 2025
CC / HPI / ROS
-
Chief Complaint:
JOSEPH
History of Present Illness:
cr up at 6.2, sodium better at 126 this am, down to 119 last night
k better at 5
bp soft on midodirne
Review of Systems:
no cp or sob
abd distended,
Labs
-
Labs:
WBC 10.6 10^3/uL (4.8-10.8) 02/26/25 05:23
RBC 3.74 10^6/uL (4.70-6.10) L 02/26/25 05:23
Hgb 11.0 g/dL (13.0-18.0) L 02/26/25 05:23
Hct 33.7 % (39.0-52.0) L 02/26/25 05:23
Plt Count 244 10^3/uL (130-400) D 02/26/25 05:23
Sodium 126 mmol/L (135-145) L 02/26/25 05:23
Potassium 5.0 mmol/L (3.5-5.1) 02/26/25 05:23
Chloride 94 mmol/L (98-107) L 02/26/25 05:23
Carbon Dioxide 24 mmol/L (22-30) 02/26/25 05:23
BUN 91 mg/dl (9-20) H 02/26/25 05:23
Creatinine 6.2 mg/dL (0.7-1.3) H* 02/26/25 05:23
eGFR 9.59 02/26/25 05:23
Glucose 182 mg/dl (70-99) H 02/26/25 05:23
Calcium 8.1 mg/dl (8.4-10.2) L 02/26/25 05:23
Phosphorus 7.7 mg/dl (2.5-4.5) H 02/24/25 06:13
Albumin 2.9 g/dl (3.5-5.0) L 02/26/25 05:23
Physical Exam
-
Vital Signs:
Vital Signs
Temp Pulse Resp BP Pulse Ox
98.2 F 87 25 92/68 97
02/26/25 11:00 02/26/25 08:00 02/26/25 08:00 02/26/25 07:52 02/26/25 08:53
Cardiovascular:: Regular rate and rhythm
Respiratory:: Bilateral: CTA
Lung Excursion:: Normal
Abdomen:: Distended (mild), Nontender and Soft
Extremity Edema:: None: Bilateral:
Byrnes Catheter: Yes
[2025-02-26 12:09] LABS: Glucose - Point of Care 211 mg/dl (70-99)
--- NOTE | 2025-02-26 12:13 | W.PN.HOSP.TC ---
Addendum entered and electronically signed by Chet Chatman MD 02/26/25 20:59:
Attending Addendum-
I saw and evaluated the patient. I reviewed the resident�s note and agree with findings and plan as documented in the resident�s note. Sub: Seen with sister in law and son present. Patient complains of abd discomfort due to increased fluid
accumulation. Denies fevers chills NV. per 'we want full court press medically' Full 12 point ROS reviewed and negative except as documented Exam: Vitals reviewed in chart GEN-NAD heart RRR lungs decreased at bases abd significantly distended
pos fluid wave NT pos BS LE trace B/L LE edema byrnes in place with minimal urine present
Plan:
#JOSEPH
- prerenal due to third-spacing
- oliguric, cont byrnes temporarily for strict I and O's
- appreciate nephro input
- poor HD candidate
- cont additional 24 hours albumin in attempt to improve renal perfusion
- follow closely
#Hyperkalemia
-trending down
-cont lokelma
-follow closely
#Hyponatremia
- worsened
- cont additional 3% NS per nephro
- repeat BMP q 12 hours
#Hypotension
- from third spacing
- decreased perfusion contributing to renal injury
- diuretics as able
- continue albumin additional 24 hours
- Continue midodrine.
# Metastatic Renal Cell Carcinoma with Diffuse Retroperitoneal Adenopathy and Peritoneal Carcinomatosis with Recurrent Malignant Ascites
- appreciate heme onc, per able to start new meds at recommendation of heme onc-getting delivered to home
- paracentesis 02/09-3000mls, 02/16-5500mls, 02/24- 4600mls
- repeat paracentesis 02/26
- fluid sent for analysis
- cont albumin
- await further recs by heme onc
# SBP
- cont Rocephin for coverage
- send fluid for cell count if PMNs < 250 may stop
- fl cx- no organisms seen @ 48 hours
- cont x 5 days total
#Chronic HFrEF
- Echo 02/06 with LVEF 15-20%.
- Hold diuretics acutely. Continue to hold Jardiance, ARB, Aldactone.
- Follow I/Os, daily weights, etc.
# CAD
- Stable. Continue ASA s/p prior coronary stent.
# DM-II
- Hold PO meds
- increase lantus and mealtime NovoLog for better control
- Follow glucose and cover with SSI as needed.
- A1C 02/08 was 7.5%.
# BPH
- Continue tamsulosin.
DVT Prophylaxis: Subcut Heparin
Code Status: Full->multiple discussion had with - cont full court medical interventions
Time spent coordinating care, review of plan of care with resident, personally reviewed records in EMR, med rec, consults, notes, labs, radiology, d/w nursing family and IR � 55 mins
Original Note:
Today's Communication/Plan
-
- Consulted IR
- Placed orders for repeat therapeutic paracentesis today
- Increased glargine to 12 units, increased aspart to 5 units with meals
- Will continue to follow nephrology recommendations on electrolyte correction
Assessment / Plan
Assessment / Plan
#JOSEPH
- admitted for further evaluation and treatment.
- Nephrology consulted for recommendations.
- Marked increase in SCr and K compared to most recent admission.
- Urinary retention: Straight cath in ED yielded only 50 mL; Byrnes placed for strict I/O monitoring
- Suspect intravascular volume depletion
- Continue following nephrology recs for diuretics and antihypertensive medications
- Continue midodrine; adjust IV fluids and medications to avoid hypotension and decreased renal perfusion
# possible SBP
- calculated PMNs 721
- known malignant acsites
- Continue patient on Ceftriaxone 2mg daily
- serum WBC downtrending
- will monitor WBC, temperature and abdominal symptoms
#Severe refractory hyperkalemia
- trend K
- Lokelma 10g
#Hyponatremia
- NA 118 on admission
- NA decreased to 119 yesterday, nephrology recommended starting 3% saline again. Sodium increased to 126 this morning.
- Will defer to nephrology recommendations
#Hypotension
- BP relatively stable
- Hold diuretics and BP medications per nephrology recommendations
- Continue midodrine.
#Renal Cell Carcinoma with Malignant Ascites
- Ordered IR consult and placed orders for additional paracentesis today
- consulted oncology
- evidence of recurrent ascites on exam
- Suspect intravascular volume depletion due to third-spacing
#Chronic systolic CHF
- Echo (02/06): LVEF 15�20%
- Ascites
- Holding diuretics, continue to hold Jardiance, ARB, Aldactone per nephrology recs
- Monitor I/O and daily weights
#ASCVD
- Stable; continue ASA (s/p prior coronary stent).
#Type 2 Diabetes Mellitus
- Hold oral diabetic medications.
- Monitor glucose; cover with SSI as needed.
- increased glargine to 12 units, increased to 5 units aspart at meals
- Last A1C (02/08): 7.5%.
BPH
- Byrnes catheter in place
- Continue tamsulosin
Anticipated Discharge: > 48 hours
Subjective/Interval History
-
Date of Service: February 26, 2025
Patient seen today sitting up on edge of the bed. Patient states that he is feeling okay but can tell that there is fluid reaccumulating in his abdomen. Right now he is not experiencing any pain but is noticing abdominal distention. Patient
states that is not affecting his breathing right now. Patient denies any chest pain. Patient denies any abdominal pain. Patient still has Byrnes in place.
Objective Data
-
Labs:
Laboratory Results
02/26/25
05:23
WBC 10.6
Hgb 11.0 L
Hct 33.7 L
Plt Count 244 D
Sodium 126 L
Potassium 5.0
Chloride 94 L
Carbon Dioxide 24
BUN 91 H
Creatinine 6.2 H*
Glucose 182 H
Calcium 8.1 L
Total Bilirubin 0.3
AST 14 L
ALT < 10
Alkaline Phosphatase 48
Vital Signs:
Vital Signs
Temp Pulse Resp BP Pulse Ox
98.2 F 87 25 92/68 97
02/26/25 11:00 02/26/25 08:00 02/26/25 08:00 02/26/25 07:52 02/26/25 08:53
I&O
02/25/25 02/26/25 02/27/25
06:59 06:59 06:59
Intake Total 980 / 980 1440 / 1440
Output Total 530 / 530 300 / 300
Balance 450 / 450 1140 / 1140
Review of Systems
-
History Source: Patient
Constitutional: Reports No Symptoms
EENT: Reports No Symptoms Reported
Respiratory: Reports No Symptoms
Cardiac: Reports No Symptoms
Abdomen/GI: Reports Other (Distended)
Genitourinary: Reports Other (Byrnes in place, difficulty with urination and production of urine)
Musculoskeletal: Reports No Symptoms
Skin: Reports No Symptoms
Neuro: Reports No Symptoms
Endocrine: Reports No Symptoms
Hematologic / Lymphatic: Reports No Symptoms
Allergy / Immunology: Reports No Symptoms
Psych: Reports Sad
Physical Exam
-
General: Well Developed and Well Nourished
Respiratory: Clear to Auscultation
Cardiac: Regular Rhythm
GI: Nontender and Other (Distended)
Musculoskeletal: No Edema
Skin: Warm and Dry
Neuro: Awake, Alert and Oriented
Psych: Calm
--- NOTE | 2025-02-26 15:37 | CM ---
F/U: Patient has Kidney cancer, prognosis is poor, not on HD yet, still being monitoried by Nephrology to correct his poor labs, no indication of a plan yet. Patient is ambulatory otherwise. Case Management to follow. PLAN: TBD, Palliative vs. Home
No Needs.
[2025-02-26] MEDS: FLEXBUMIN 50 IV ×2 (15:47→22:30)
[2025-02-26 16:06] LABS: Body Fluid Second Tech DW
--- NOTE | 2025-02-26 16:26 | PTCARENOTE ---
pt returned from [facility] s/p paracentesis. vss. bandaid right abdomen c,d,i. albumin infusing.
[2025-02-26 17:28] LABS: Glucose - Point of Care 206 mg/dl (70-99)
[2025-02-26 17:29] LABS: Blood Urea Nitrogen 93 mg/dl (9-20); Calcium 8.1 mg/dl (8.4-10.2); Carbon Dioxide 23 mmol/L (22-30); Chloride 92 mmol/L (98-107); Estimated Creatinine Clearance 12 ml/min; Glucose 208 mg/dl (70-99); Potassium 5.3 mmol/L (3.5-5.1); Sodium 122 mmol/L (135-145); eGFR 8.90
[2025-02-26] MEDS: LIPITOR 80 MG PO (17:29)
[2025-02-26] MEDS: NOVOLOG FLEXPEN 5 UNITS SC (19:19)
[2025-02-26] MEDS: LOKELMA 10 GRAM PO (19:20)
[2025-02-26] MEDS: SODIUM CHLORIDE 3% 250 IV (19:55)
--- NOTE | 2025-02-26 20:30 | PTCARENOTE ---
repeat Na from this evening 122. 250ml bag of 3% NaCl hung at 19:55 @ 30ml/hr.
[2025-02-26 21:29] LABS: Glucose - Point of Care 181 mg/dl (70-99)
[2025-02-26] MEDS: FLOMAX PO (22:30)
[2025-02-26] MEDS: LANTUS 0.12 UNITS SC (22:30)
[2025-02-27] VITALS (22 sets, daily range): BP systolic 81–106; BP diastolic 50–68; BMI 29.3
[2025-02-27] MEDS: FLEXBUMIN 50 IV (05:43)
[2025-02-27 06:29] LABS: Hematocrit 36.0 % (39.0-52.0); Hemoglobin 11.5 g/dL (13.0-18.0); Mean Corp Hgb Conc. 31.9 g/dL (33.0-37.0); Mean Corpuscular Volume 88.7 fL (80.0-94.0); Nucleated Red Blood Cells % 0 % (-); Platelet Count 272 10^3/uL (130-400); Red Cell Dist. Width 14.9 % (11.5-14.5)
[2025-02-27 06:56] LABS: Blood Urea Nitrogen 95 mg/dl (9-20); Calcium 7.9 mg/dl (8.4-10.2); Carbon Dioxide 21 mmol/L (22-30); Chloride 96 mmol/L (98-107); Estimated Creatinine Clearance 12 ml/min; Glucose 164 mg/dl (70-99); Potassium 5.1 mmol/L (3.5-5.1); Sodium 126 mmol/L (135-145); eGFR 9.23
[2025-02-27] MEDS: LOW STRENGTH ASPIRIN 81 MG PO (07:56)
[2025-02-27] MEDS: HEPARIN 5000 UNITS SC ×3 (07:56→22:06)
[2025-02-27] MEDS: PROTONIX 40 MG PO (07:56)
--- NOTE | 2025-02-27 08:00 | W.PN.NEPH.PH ---
Today's Communication / Plan
-
Consult cardiology in regards to hemodynamic instability with advanced cardiomyopathy
Follow BMP
Assessment/Plan
-
Impression:
JOSEPH (5.4)
Hyponatremia (121)
Hyperkalemia (7.9)
Hypotension
Right renal cell carcinoma mass
Renal cell carcinoma with recurrent malignant ascites
Chronic congestive heart failure with LVEF of 15 to 20% (weights up 3kg since discharge)
Coronary artery disease with previous stenting procedures
History of hypertension
Type 2 diabetes
BPH
Plan:
JOSEPH-suspecting prerenal , low flow state with soft BPs and low EF, unlikely obst in nature per so no PCN needed
I am strongly concerned that patient is having advanced cardiorenal syndrome and needs cardiology consultation for possible inotropic initiation
Unfortunately due to patient's advanced cardiomyopathy and hemodynamic instability he will never be a dialysis candidate
UA UTIS sample, no symp. oliguric with byrnes
cr up today ,
Hyponatremia improved after hypertonic saline infusion
hyperkalemia-improving with Lokelma at 5, cont low k diet
Hyponatremia: possible high ADH state from above, sodium better at 126 post HTS
Status post paracentesis yesterday
BP are soft s/p IV alb course and high dose midodrine, bld cx neg, checked cortisol
prognosis is seem poor per onc, however family thinks otherwise
spoke with nursing
high risk encounter with advancing renal failure and hemodynamic instability
-
-
Date of Service: February 27, 2025
CC / HPI / ROS
-
Chief Complaint:
JOSEPH
History of Present Illness:
JOSEPH worsening .cr up at 6.4, sodium better at 126 this am,
k better at 5.1
bp soft on midodrine
Review of Systems:
no cp or sob
abd distended,
Weight stable
Oliguric via Byrnes catheter 300 cc
Labs
-
Labs:
WBC 11.3 10^3/uL (4.8-10.8) H 02/27/25 06:10
RBC 4.06 10^6/uL (4.70-6.10) L 02/27/25 06:10
Hgb 11.5 g/dL (13.0-18.0) L 02/27/25 06:10
Hct 36.0 % (39.0-52.0) L 02/27/25 06:10
Plt Count 272 10^3/uL (130-400) 02/27/25 06:10
Sodium 126 mmol/L (135-145) L 02/27/25 06:10
Potassium 5.1 mmol/L (3.5-5.1) 02/27/25 06:10
Chloride 96 mmol/L (98-107) L 02/27/25 06:10
Carbon Dioxide 21 mmol/L (22-30) L 02/27/25 06:10
BUN 95 mg/dl (9-20) H 02/27/25 06:10
Creatinine 6.4 mg/dL (0.7-1.3) H* 02/27/25 06:10
eGFR 9.23 02/27/25 06:10
Glucose 164 mg/dl (70-99) H 02/27/25 06:10
Calcium 7.9 mg/dl (8.4-10.2) L 02/27/25 06:10
Phosphorus 7.7 mg/dl (2.5-4.5) H 02/24/25 06:13
Albumin 2.9 g/dl (3.5-5.0) L 02/26/25 05:23
Physical Exam
-
Vital Signs:
Vital Signs
Temp Pulse Resp BP Pulse Ox
98.0 F 82 15 84/64 95
02/27/25 02:49 02/27/25 06:30 02/27/25 06:30 02/27/25 06:30 02/27/25 06:30
Cardiovascular:: Regular rate and rhythm
Respiratory:: Bilateral: CTA
Lung Excursion:: Normal
Abdomen:: Distended (mild), Nontender and Soft
Extremity Edema:: None: Bilateral:
Byrnes Catheter: Yes
[2025-02-27 08:23] LABS: Glucose - Point of Care 166 mg/dl (70-99)
[2025-02-27] MEDS: NOVOLOG FLEXPEN 5 UNITS SC ×3 (08:25→17:17)
[2025-02-27] MEDS: NOVOLOG FLEXPEN-LOW RESISTANCE 1 UNITS SC ×2 (08:25→17:17)
[2025-02-27] MEDS: STERILE WATER FOR INJECTION 20 ML IV (09:01)
[2025-02-27] MEDS: ROCEPHIN 2000 MG IV (09:01)
[2025-02-27] MEDS: ZOFRAN 4 MG IV ×2 (09:07→15:52)
--- NOTE | 2025-02-27 09:10 | PTCARENOTE ---
Resident at bedside and patient started c/o nausea and then quickly vomited a moderate amount of green bile in the trash can. PRN zofran given per MAR. Patient stated that he still feels 'slightly nauseous' after throwing up. HOB >45 degrees and
vomit bag within reach. Care ongoing.
--- NOTE | 2025-02-27 10:34 | W.PN.HOSP.TC ---
Addendum entered and electronically signed by Chet Chatman MD 02/27/25 20:37:
Attending Addendum-
I saw and evaluated the patient. I reviewed the resident�s note and agree with findings and plan as documented in the resident�s note. Sub: Seen with multiple family members present. feels improved s/p paracentesis. Denies fevers chills NV CP.
feels weak and fatigued. minimal urine production. Full 12 point ROS reviewed and negative except as documented Exam: Vitals reviewed in chart GEN-NAD heart RRR lungs decreased at bases abd distended pos fluid wave NT pos BS LE trace B/L LE edema
byrnes in place with minimal urine present
Plan:
#JOSEPH
- prerenal due to third-spacing
- oliguric, cont byrnes per nephro for strict I and O's
- appreciate nephro input
- poor HD candidate
- s/p albumin infusion with minimal improvement
- follow closely
- c/s cards for eval-for RHC today
#Hyperkalemia
-resolved
-follow closely
#Hyponatremia
- improved s/p 3%NS
- follow BMP closely
#Hypotension
- from third spacing
- Continue midodrine.
# Metastatic Renal Cell Carcinoma with Diffuse Retroperitoneal Adenopathy and Peritoneal Carcinomatosis with Recurrent Malignant Ascites
- paracentesis 02/09-3000mls, 02/16-5500mls, 02/24- 4600mls, 02/26-3500mls
- overall poor prognosis, new treatment regimen being entertained, family wants to pursue aggressive treatments
- await further recs by heme onc
# SBP
- cont Rocephin prophylaxis x 5 days, day 3/5
- fl cx- negative
#Chronic HFrEF
- Echo 02/06 with LVEF 15-20%.
- Hold diuretics acutely due to BP. Continue to hold Jardiance, ARB, Aldactone.
- Follow I/Os, daily weights, etc.
- c/s cards to eval volume status and if inotropes would be beneficial
# CAD
- Stable. Continue ASA s/p prior coronary stent.
# DM-II
- Hold PO meds
- better controlled
- cont increased lantus and new addition of mealtime NovoLog
- Follow glucose and cover with SSI as needed.
- A1C 02/08 was 7.5%.
# BPH
- Continue tamsulosin.
DVT Prophylaxis: Subcut Heparin
Code Status: Full->multiple discussion had with - cont any and all aggressive measures
Time spent coordinating care, review of plan of care with resident, personally reviewed records in EMR, med rec, consults, notes, labs, radiology, d/w nursing family cards nephro� 58 mins
Original Note:
Today's Communication/Plan
-
- Consult cardiology
- Will defer to nephrology for continued correction of sodium and diuretic/BP med recs
- POC glucoses slightly improved today with insulin adjustments
Assessment / Plan
Assessment / Plan
#JOSEPH
- admitted for further evaluation and treatment.
- Nephrology consulted for recommendations.
- Marked increase in SCr and K compared to most recent admission.
- Urinary retention: Straight cath in ED yielded only 50 mL; Byrnes placed for strict I/O monitoring
- Suspect intravascular volume depletion
- Continue following nephrology recs for diuretics and antihypertensive medications
- Continue midodrine; adjust IV fluids and medications to avoid hypotension and decreased renal perfusion
#Hypotension
- Cardiology consult for hemodynamic instability with advanced cardiomyopathy
- Defer to nephrology/cardiology regarding diuretic and blood pressure medication adjustments
- Patient continued on midodrine 10 mg 3 times daily
# possible SBP
- calculated PMNs increased today to 1365
- known malignant ascites
- Continue patient on Ceftriaxone 2mg daily
- serum WBC 11.3
- will monitor WBC, temperature and abdominal symptoms
#Severe refractory hyperkalemia
- trend K
- Lokelma 10g
#Hyponatremia
- NA 118 on admission
- 126 today stable from yesterday
- Will defer to nephrology recommendations
#Renal Cell Carcinoma with Malignant Ascites
- Paracentesis yesterday
- consulted oncology
- evidence of recurrent ascites on exam
- Suspect intravascular volume depletion due to third-spacing
#Chronic systolic CHF
- Echo (02/06): LVEF 15�20%
- Ascites
- Holding diuretics, continue to hold Jardiance, ARB, Aldactone per nephrology recs
- Monitor I/O and daily weights
#ASCVD
- Stable; continue ASA (s/p prior coronary stent).
#Type 2 Diabetes Mellitus
- Hold oral diabetic medications.
- Monitor glucose; cover with SSI as needed.
- increased glargine to 12 units, increased to 5 units aspart at meals
- improved POC glucoses today
- Last A1C (02/08): 7.5%.
BPH
- Byrnes catheter in place
- Continue tamsulosin
Anticipated Discharge: > 48 hours
Subjective/Interval History
-
Date of Service: February 27, 2025
Patient seen at bedside this morning. Patient states that he is feeling much better after his paracentesis yesterday. Patient notes no abdominal pain and improvement of his shortness of breath. Patient denies any chest pain, shortness of breath,
abdominal pain although still notes abdominal distention. While talking, his breakfast arrived which prompted immediate vomiting of bilious fluid. Patient denied any nausea prior to this episode of vomiting. Patient does note that he has had
occasional episodes of retching/dry heaving since admission. After cessation of vomiting, patient was feeling well and ready to attempt to eat breakfast.
Objective Data
-
Labs:
Laboratory Results
02/27/25
06:10
WBC 11.3 H
Hgb 11.5 L
Hct 36.0 L
Plt Count 272
Sodium 126 L
Potassium 5.1
Chloride 96 L
Carbon Dioxide 21 L
BUN 95 H
Creatinine 6.4 H*
Glucose 164 H
Calcium 7.9 L
Vital Signs:
Vital Signs
Temp Pulse Resp BP Pulse Ox
97.7 F 83 20 96/59 96
02/27/25 07:58 02/27/25 10:00 02/27/25 10:00 02/27/25 10:00 02/27/25 08:00
I&O
02/26/25 02/27/25 02/28/25
06:59 06:59 06:59
Intake Total 1440 / 1440 740 / 740
Output Total 300 / 300 150 / 150 150 / 150
Balance 1140 / 1140 590 / 590 -150 / -150
Review of Systems
-
History Source: Patient
Constitutional: Reports No Symptoms
EENT: Reports No Symptoms Reported
Respiratory: Reports No Symptoms
Cardiac: Reports No Symptoms
Abdomen/GI: Reports Nausea, Vomiting and Other (Distention)
Genitourinary: Reports Difficulty Voiding (Byrnes catheter in place)
Musculoskeletal: Reports No Symptoms
Skin: Reports No Symptoms
Neuro: Reports No Symptoms
Endocrine: Reports No Symptoms
Hematologic / Lymphatic: Reports No Symptoms
Allergy / Immunology: Reports No Symptoms
Physical Exam
-
General: No Apparent Distress
Respiratory: Other (Clear to auscultation, no wheezes no crackles. Decreased breath sounds in bilateral lower lobes.)
Cardiac: Regular Rhythm
GI: Soft, Nontender and Distended
Musculoskeletal: No Edema
Skin: Warm and Dry
Neuro: Awake, Alert and Oriented
Psych: Calm
[2025-02-27 11:51] LABS: Glucose - Point of Care 249 mg/dl (70-99)
[2025-02-27] MEDS: NOVOLOG FLEXPEN-LOW RESISTANCE 2 UNITS SC (12:10)
--- NOTE | 2025-02-27 12:43 | PTCARENOTE ---
Patient AOx3. Flat and withdrawn. On RA with SpO2 greater than 92%. BP soft, but MAP >65. Scheduled midodrine given per JUN. NSR with BBB and first degree on monitor. Byrnes draining yellow urine. Oliguric. TigerTexted Dr. Velez regarding byrnes
order. He said to keep byrnes in. Asked MD to place new byrnes order. Round, obese, and distended abdomen. Tolerating oral diet. Denies nausea post vomiting episode this AM. Standby assist when OOB. Patient showered independently during shift. Call
tyler within reach, bed in lowest position, and bed of wheels locked.
--- NOTE | 2025-02-27 13:30 | CON.CAR ---
Addendum entered and electronically signed by Savanna Perez MD 02/27/25 16:01:
I saw and evaluated the patient, and I provided the substantive portion of the medical decision making.
I reviewed and agree with the note by Jackelin Tavarez and it accurately reflects our care.
I personally performed the medical decision making of the this encounter and my assessment and plan is below:
59-year-old gentleman with a complex medical history including an ischemic cardiomyopathy with an EF of 15 to 20% followed by Dr. Parrish Esposito at [facility] subcu ICD, CAD with a history of TX, diabetes, renal cell
carcinoma complicated by malignant ascites who presented for evaluation of inability to urinate for 3 days and constipation. He was just discharged last month for a hospitalization for heart failure. At that time he had 2 paracentesis. Since
current mission he has had 2 large-volume paracentesis. Additionally, he has had acute on chronic renal failure. Blood pressure has been low. We are asked to comment on candidacy for ionontropy to see if this would help with renal function. I
spoke frankly with Dr. Velez who states he isn't a candidate for hemodialysis.
He states he has no chest pain or shortness of breath. His and many family members are at the bedside and adds to the history. From discharge to readmission, he had 2 outpatient paracentesis. He states that his labs showed his renal function
was worsening at that time as well. He has no orthopnea unless his ascites causes his abdominal wall to be distended. They are hoping that he can get enough improvement and get to a another trial of chemotherapy for his renal cell carcinoma.
On exam he is chronically ill-appearing in no apparent distress with a regular rate and rhythm with a normal S1-S2 no murmurs or gallops were appreciated lungs are clear to auscultation bilaterally abdomen was soft but distended extremities with
trace lower extremity edema.
Pertinent labs:
Hemoglobin 11.5 platelet count 272 sodium 126 which is up from a kutr of 119 on 02/25/2025 BUN 95 creatinine 6.4 admission creatinine was 5.4, discharge creatinine 02/11/2025 was 1.2, this had risen as an outpatient to 1.8 and 1.5 on 02/17/2025
Assessment:
Acute on chronic renal failure: Unclear etiology. High risk situation with decreasing urine output and rising BUN and creatinine. Cardiorenal versus third spacing from malignant ascites decreasing blood volume resulting in hypotension versus renal
cell carcinoma versus a little of all 3
Ischemic cardiomyopathy with an EF of 15 to 20%
Metastatic renal cell carcinoma with malignant ascites requiring multiple paracentesis
CAD
Diabetes
Plan:
From a cardiovascular perspective, INR Trippi would only be helpful if he was volume overloaded and had decreased output. Will arrange for right heart catheterization today to assess his output and volume status. Can trial a course of INR Trope he
if right heart cath proved this could possibly help. However, I did frankly explained that this would be a temporizing measure. His EF has been 10 to 15% for multiple years and his RV showed some signs of failure last echo. This is not a good
sign. Additionally, his renal cell carcinoma is failing medical therapy and he would not be a candidate for chemotherapy agents with acute renal failure.
I answered all the family's questions at the bedside. Will follow.
Original Note:
Consultation
Consultation Request
Date/Time Consultation Requested: 02/27/25 9:30a
Date/Time Consultation Performed: 02/27/25 1p
Requesting Provider: Dr. Thu Fisher
Performing Provider: SUJIT Church
Reason for Consultation: HFrEF
Medical History
-
Chief Complaint: unable to urinate
History of Present Illness:
Mr. Pennington is a 59 yo male known to cardiologists Dr. Duong/Randi at [facility], with ICM EF 15-20%, BS SQ ICD, CAD with hx TX with LAD 100% acute thrombotic occlusion in prox body (GUERRERO to prox LAD) 2022, DM2, and renal cell carcinoma
with history of chemotherapy (Cabometyx 3 months ago, but stopped due to symptoms), recent admission here at [facility] 10 days ago with acute HFrEF and malignant ascites s/p paracentesis twice during hospitalization, who presents with c/o unable to
urinate for 3 days and constipation. Admitted to the hospitalist service and we are consulted for HFrEF 15-20% and hypotension. He underwent paracentesis with 4600ml removed on 02/24/25 and 3500ml removed on 02/26/25. Currently he denies any
cardiac complaints.
Past Medical History
Past Medical History: Other (as above)
Social History
Tobacco: Non-Smoker
Alcohol: None
Family History
Family History: Reviewed & Not Pertinent
Allergies / Home Medications
Allergy/AdvReac Type Severity Reaction Status Date / Time
No Known Allergies Allergy Verified 02/23/25 22:47
�Medication �Instructions �Recorded �Confirmed �Type
ergocalciferol (vitamin D2) 1,250 1,250 mcg PO TUTH Supplement 09/24/24 02/24/25 History
mcg (50,000 unit) capsule
insulin glargine U-300 conc 300 20 unit SC HS Diabetes 09/24/24 02/24/25 History
unit/mL (3 mL) subcutaneous pen
(Toujeo Max U-300 SoloStar)
repaglinide 2 mg tablet 2 mg PO AC Diabetes 09/24/24 02/24/25 History
atorvastatin 80 mg tablet 80 mg PO QPM High Cholesterol 10/06/24 02/24/25 History
pantoprazole 40 mg tablet,delayed 40 mg PO DAILY gerd 10/06/24 02/24/25 History
release
insulin aspart U-100 100 unit/mL 10 sliding scale dose SC AC 02/05/25 02/24/25 History
(3 mL) subcutaneous pen (Novolog Diabetes
FlexPen U-100 Insulin aspart)
furosemide 80 mg tablet 80 mg PO DAILY #30 tabs 02/11/25 02/24/25 Rx
cabozantinib 40 mg tablet 40 mg PO DAILY Cancer 02/16/25 02/24/25 History
(Cabometyx)
morphine 15 mg tablet,extended 15 mg PO [id number] PRN severe pains 02/16/25 02/24/25 History
release
tamsulosin 0.4 mg capsule 0.4 mg PO HS Urinary Issue 02/16/25 02/24/25 History
aspirin 81 mg chewable tablet 81 mg PO DAILY Blood Clot 02/24/25 02/24/25 History
Prevention/Tx
empagliflozin 25 mg tablet 25 mg PO DAILY Diabetes 02/24/25 02/24/25 History
Review of Systems
-
History Source: Patient
All other systems: Negative unless noted
Physical Exam
Vital Signs
Temp Pulse Resp BP Pulse Ox
98.5 F 76 21 102/64 96
02/27/25 11:16 02/27/25 12:00 02/27/25 12:00 02/27/25 12:00 02/27/25 12:00
Lab Results
02/27/25 06:10
02/27/25 06:10
Physical Exam
General: Well Developed and Other (appears pale and chronically ill)
HEENT: Normocephalic
Respiratory: Non Labored Respirations and Other (diminished bibasilar)
Cardiac: S1/S2 and Regular Rhythm
Breast: Deferred by me
GI: Soft and Distended (ascites)
Rectal: Deferred by Provider
Genito-urinary: Clear Urine
Musculoskeletal: No Clubbing and No Cyanosis
Skin: Warm, Dry and Other (pale)
Neuro: AO x 3
Psych: Calm
Impression / Plan
-
HFrEF - 15-20% on echo 02/09/25.
- acute on chronic.
- unable to tolerating GMDT due to JOSEPH and hypotension.
Hypotension - BP at baseline per patient/family and medical records.
- asymptomatic.
- midodrine added 10mg TID without improvement of BP.
- consider inotropic medication while inpatient.
Ascites - recurrent malignant.
- requiring multiple paracentesis over the last 2 weeks during hospitalizations.
- s/p paracentesis with 4600ml removed on 02/24/25 and 3500ml removed on 02/26/25.
- per hospitalist.
Renal cell carcinoma - right renal cell mass.
- with recurrent malignant ascites.
- oncologist at [facility], previously on chemo - Cabometyx 3 months ago, but stopped due to symptoms/ascites/HFrEF.
- patient's family states oncology prescribed a different oral chemo medication, unsure of name, that arrived in the mail today.
JOSEPH - worsening.
- nephrology managing.
- advanced cardiorenal syndrome and high risk situation, not a candidate for HD per nephrology.
CAD - prior stenting.
- denies chest pain.
- continue asa, statin.
HLD - stable on Lipitor.
ICD - [employer] subcutaneous device.
- stable with normal function.
- managed by [facility] cardiology.
Data Reviewed
-
EKG: Tracing Personally Visualized and interpreted (NSR with RBBB, anteroseptal infarct 77 bpm)
Radiology: Report Reviewed by me
Medical Tests (Nuc Med, Echo etc): Report Reviewed by me (echo 02/09/25: contrast used, EF 15-20%, mild/mod TR PASP 41mmHg)
Labs: Labs Reviewed by me
Old Records: Reviewed
--- NOTE | 2025-02-27 13:49 | CM ---
Renal cancer with malignant ascites. Cardiac consult for hemodynamic instability and advanced cardiomyopathy. IV/Rocephin. Discharge POC: TBD.
--- NOTE | 2025-02-27 15:38 | PTCARENOTE ---
Patients Jessica, requesting to speak to patients doctors that are involved in his care. Resident Dr. Betty Fisher and erp analyst Dr. Perez at bedside.
--- NOTE | 2025-02-27 15:57 | PTCARENOTE ---
Verbal report given to clam bed laborer RN. Patient brought to clam bed laborer by clam bed laborer RNs. VSS.
--- NOTE | 2025-02-27 16:29 | ITS.CL.PN ---
[facility] - Procedure Note
Procedure
Procedure Note:
CARDIAC CATHETERIZATION REPORT
Date of Procedure: 02/27/2025
Referring: Dr. Savanna Perez MD
Indication: Heart failure
PROCEDURE: right heart catheterization
ACCESS: 5F right antecubital vein (closure: manual hemostasis)
CATHETERS: 5F [place]
MODERATE SEDATION: 15 minutes of moderate sedation was utilized. An independent medical i d sales was present to assist with and help manage the patient's level of consciousness and physiologic status.
HEMODYNAMIC DATA
SBP 102/55 (mean 72) mmHg
RA 11 mmHg
RV 42/8 (EDP 12) mmHg
PA 40/18 (mean 27) mmHg
PCWP 13 mmHg
SaO2 93.0%
SvO2 63.5%
Hb 11.9 g/dL
Weight 89.8 kg
CO/CI 5.38/2.62 L/min/m2
SVR 907 dsc*-5
PVR 2.6 Wood units
RADIATION: dose 0 mGy; DAP 0 Gy*cm2; fluoroscopy time 0 min
CONCLUSIONS: mildly elevated biventricular filling pressures, mildly elevated pulmonary artery pressure, and normal cardiac output with low normal SVR
Signed: Gaudencio Pan MD, PhD
--- NOTE | 2025-02-27 16:51 | PTCARENOTE ---
Patient arrived back to IMU from industrial laborer. R brachial dressing C/D/I without swelling. VSS. Care ongoing.
[2025-02-27] MEDS: LIPITOR 80 MG PO (17:00)
[2025-02-27] MEDS: MIRALAX 17 GRAMS PO (17:16)
[2025-02-27 17:19] LABS: Glucose - Point of Care 175 mg/dl (70-99)
[2025-02-27] MEDS: FLOMAX PO (20:25)
[2025-02-27] MEDS: LANTUS 0.12 UNITS SC (22:06)
[2025-02-27 22:19] LABS: Glucose - Point of Care 187 mg/dl (70-99)
--- NOTE | 2025-02-27 23:47 | PTCARENOTE ---
assumed care of patient. pt is AAOx3, flat affect, withdrawn. able to make needs known. at bedside. VSS, BP soft but stable. 93% RA, 2L NC placed for HS. byrnes intact draining sarita urine. able to walk to bathroom by self without issues. no
complaints of pain. belly round, distended. patient admitted to belly feeling like it is getting more full. requesting paracentesis be done again. also asking for a PT consult, and a stool softener be ordered. will relay concerns. notified
covering SALES ORDER ADMINISTRATOR- stool softener ordered for the AM. care ongoing.
[2025-02-28] VITALS (12 sets, daily range): BP systolic 73–101; BP diastolic 42–74; BMI 29.2
[2025-02-28] MEDS: ZOFRAN 4 MG IV (03:40)
[2025-02-28 06:34] LABS: Hematocrit 37.9 % (39.0-52.0); Hemoglobin 12.6 g/dL (13.0-18.0); Mean Corp Hgb Conc. 33.2 g/dL (33.0-37.0); Mean Corpuscular Volume 86.5 fL (80.0-94.0); Nucleated Red Blood Cells % 0 % (-); Platelet Count 337 10^3/uL (130-400); Red Cell Dist. Width 14.6 % (11.5-14.5)
[2025-02-28 06:59] LABS: Blood Urea Nitrogen 98 mg/dl (9-20); Calcium 8.3 mg/dl (8.4-10.2); Carbon Dioxide 20 mmol/L (22-30); Chloride 94 mmol/L (98-107); Estimated Creatinine Clearance 11 ml/min; Glucose 172 mg/dl (70-99); Potassium 5.7 mmol/L (3.5-5.1); Sodium 122 mmol/L (135-145); eGFR 8.29
[2025-02-28 07:22] LABS: Cortisol, Random 26.8 ug/dl
--- NOTE | 2025-02-28 07:24 | PTCARENOTE ---
pt still feeling nauseous intermittently. PRN zofran given. pt reported feeling better after administration. care ongoing.
[2025-02-28] MEDS: PROTONIX 40 MG PO (07:54)
[2025-02-28] MEDS: LOW STRENGTH ASPIRIN 81 MG PO (07:54)
[2025-02-28] MEDS: SENOKOT-S 1 TABLET PO (07:55)
[2025-02-28] MEDS: HEPARIN 5000 UNITS SC ×3 (07:56→23:35)
[2025-02-28 07:59] LABS: Glucose - Point of Care 195 mg/dl (70-99)
[2025-02-28] MEDS: COMPAZINE 5 MG IV (08:13)
--- NOTE | 2025-02-28 09:01 | PTCARENOTE ---
Pt sitting OOB in chair states Compazine helped. Pt has no appetite.
--- NOTE | 2025-02-28 09:16 | W.PN.NEPH.PH ---
Today's Communication / Plan
-
Lokelma provide
Hypertonic saline provided
Midodrine escalated to 15 mg 3 times daily
Assessment/Plan
-
Impression:
JOSEPH (5.4)
Hyponatremia (121)
Hyperkalemia (7.9)
Hypotension
Right renal cell carcinoma mass
Renal cell carcinoma with recurrent malignant ascites
Chronic congestive heart failure with LVEF of 15 to 20% (weights up 3kg since discharge)
Coronary artery disease with previous stenting procedures
History of hypertension
Type 2 diabetes
BPH
Plan:
JOSEPH-suspecting prerenal , low flow state with soft BPs and low EF, unlikely obst in nature per so no PCN needed
Reviewed right heart cath yesterday which had acceptable numbers and wedge pressure of (12) euvolemic
Unfortunately due to patient's advanced cardiomyopathy metastatic cancer with deteriorating functional status and hemodynamic instability he will not be an appropriate dialysis candidate
I will repeat with hypertonic IV fluids today for evolving hyponatremia, hyponatremia of function of decreased renal clearance and escalated ADH in the setting of malignancy and hypotension
Maintain Lokelma and as needed Kayexalate for hyperkalemia in the setting of advancing renal failure
Hypoalbuminemia complicating effective circulating volume and likely also contributing to hypotension
I will escalate midodrine to 15 mg 3 times daily
Renal failure continues to advance with creatinine up t0 7 BUN up to 98
Unfortunately I do not have anything new to offer even though family wants us to be able to come up with something
I would strongly consider transferring to higher level of care
prognosis is seem poor per onc, however family thinks otherwise
high risk encounter with advancing renal failure worsening hyponatremia and hyperkalemia and hemodynamic instability
-
-
Date of Service: February 28, 2025
CC / HPI / ROS
-
Chief Complaint:
JOSEPH
History of Present Illness:
JOSEPH worsening .cr up at 7 , sodium down to 122
k up to 5.7
bp soft on midodrine
Review of Systems:
no cp or sob
abd distended,
Weight stable
Oliguric via Pham catheter 150 cc
Labs
-
Labs:
WBC 14.0 10^3/uL (4.8-10.8) H 02/28/25 06:06
RBC 4.38 10^6/uL (4.70-6.10) L 02/28/25 06:06
Hgb 12.6 g/dL (13.0-18.0) L 02/28/25 06:06
Hct 37.9 % (39.0-52.0) L 02/28/25 06:06
Plt Count 337 10^3/uL (130-400) D 02/28/25 06:06
Sodium 122 mmol/L (135-145) L 02/28/25 06:06
Potassium 5.7 mmol/L (3.5-5.1) H 02/28/25 06:06
Chloride 94 mmol/L (98-107) L 02/28/25 06:06
Carbon Dioxide 20 mmol/L (22-30) L 02/28/25 06:06
BUN 98 mg/dl (9-20) H 02/28/25 06:06
Creatinine 7.0 mg/dL (0.7-1.3) H* 02/28/25 06:06
eGFR 8.29 02/28/25 06:06
Glucose 172 mg/dl (70-99) H 02/28/25 06:06
Calcium 8.3 mg/dl (8.4-10.2) L 02/28/25 06:06
Phosphorus 7.7 mg/dl (2.5-4.5) H 02/24/25 06:13
Albumin 2.9 g/dl (3.5-5.0) L 02/26/25 05:23
Physical Exam
-
Vital Signs:
Vital Signs
Temp Pulse Resp BP Pulse Ox
97.0 F 89 19 87/64 93
02/28/25 03:37 02/28/25 07:54 02/28/25 06:07 02/28/25 07:54 02/27/25 20:27
Cardiovascular:: Regular rate and rhythm
Respiratory:: Bilateral: CTA
Lung Excursion:: Normal
Abdomen:: Distended (mild), Nontender and Soft
Extremity Edema:: None: Bilateral:
Pham Catheter: Yes
--- NOTE | 2025-02-28 10:08 | W.PN.UPDATE ---
Update Note
Progress Note Update
Repeat review of CAT scan for possible obstruction consulted with urology, previously urology had not thought that this would be functionally significant but with second viewing by urology there could be persistent obstruction
As I am unable to define any other etiology for his advancing renal failure we will pursue left PCN for possible obstructive uropathy given his extensive tumor burden and possible obstructive process
[2025-02-28] MEDS: NOVOLOG FLEXPEN-LOW RESISTANCE 1 UNITS SC ×3 (10:14→19:59)
[2025-02-28] MEDS: STERILE WATER FOR INJECTION 20 ML IV (10:19)
[2025-02-28] MEDS: ROCEPHIN 2000 MG IV (10:19)
[2025-02-28] MEDS: NOVOLOG FLEXPEN SC (10:27)
--- NOTE | 2025-02-28 10:27 | PTCARENOTE ---
Pt not eating at this time.
[2025-02-28] MEDS: SODIUM CHLORIDE 3% 250 IV (10:34)
--- NOTE | 2025-02-28 10:36 | W.PN.HOSP.TC ---
Addendum entered and electronically signed by Daniel Augustine MD 02/28/25 10:55:
Per further discussion with interventional radiology and urology the best course of action to start with would be cystoscopy and left ureteral stent placement.
Urology to discuss this with the patient. I will make the patient n.p.o. after midnight.
Original Note:
Today's Communication/Plan
-
Interventional radiology consult for nephrostomy tube
Hold subcutaneous heparin
TRISTAN stockings and SCDs
Potassium lowering treatment
Follow BMP with 3% saline
Continue midodrine
Stop Flomax
Assessment / Plan
Assessment / Plan
59-year-old male with metastatic renal cell carcinoma and refractory malignant ascites, carcinomatosis admitted for abdominal distention and fatigue.
Family at bedside contributing to the history patient denies any abdominal pain, dizziness, shortness of breath
On examination awake and alert able to converse
Cardiovascular system S1-S2 appreciated
Chest decreased breath sounds at bases
Abdomen distended nontender
Bilateral pedal edema
CT of the abdomen and pelvis-subtle right renal mass reported history of renal cell carcinoma. Evidence of extensive peritoneal carcinomatosis significantly increasing. Moderate amount of ascites within the pelvis with thickened from likely
malignant. Lymphadenopathy within the visualized lower chest and within abdomen and pelvis similar appearance to prior CT. Left pelvicalyceal dilatation as well as dilatation of the proximal to mid left ureter with normal caliber and mid to distal
left ureter. Raising concerns for ureteric metastatic disease and resultant obstruction.
# Acute kidney injury on CKD stage III with hyperkalemia
Patient has a Pham catheter for urinary diversion
Decreased urine output
Unlikely prerenal reasons but hypotension may be contributing
At this point we took a relook at the CAT scan- this discussed with urology on-call.
Plan is to proceed with nephrostomy tube on the left to see if this would improve the creatinine.
Interventional radiology consulted
Patient is not a good candidate for hemodialysis
Hyperkalemia-dose of Lokelma
# Hyponatremia-received 3% saline was given. Patient continues to be hyponatremic likely secondary to overall volume overload. 3% saline ordered
# Hypotension-secondary to third spacing, low ejection fraction and hypoalbuminemia-continue midodrine
# Stage IV Metastatic renal cell carcinoma with refractory malignant ascites, carcinomatosis, retroperitoneal adenopathy
Patient follows up with at [facility].
Patient was treated with ipilimumab/nivolumab without response and had colitis.
Then switched to cabozantinib without response
Currently prescribed Welireg-and family just got this filled.
Since patient is getting a nephrostomy tube , to see the renal response, hold off until Sunday to start this.
# Malignant ascites
Paracentesis 02/09/2025 with 3 L, 03-03 with 5.5 L, 02/24/2025 with 4.6 L, 02/26/2025 with 3.5 L
White cell count does qualify for SBP, I think this may all be malignant ascites.
Fluid cultures are negative. If it remains negative in 24 hours consider stopping antibiotics.
# Chronic HFrEF with ejection fraction 15 to 20%
History of AICD placement
Holding diuretics secondary to blood pressure running low
Holding Jardiance, ARB, Bactrim secondary to renal failure
Difficult situation
Intake output charting and daily weights
# Coronary disease-with history of stent-continue aspirin, statin
# Diabetes hemoglobin A1c on 03-03- 7.5%
Continue Accu-Cheks and sliding scale coverage
Lantus insulin and mealtime NovoLog
Hold Jardiance
# Enlarged prostate-hold off on Flomax given hypotension. Patient has a catheter for now
# Hypoalbuminemia
# DVT prophylax-subcutaneous heparin
# Full code
High risk situation with renal failure, malignancy, cardiomyopathy. Prognosis is poor. Discussed with nephrology, nursing. Separately and at bedside
Discussed with family at bedside.
Communicated with nephrology, urology and interventional radiology
Total time spent more than 55 minutes
Anticipated Discharge: > 48 hours
Subjective/Interval History
-
Date of Service: February 28, 2025
Objective Data
-
Labs:
Laboratory Results
02/28/25
06:06
WBC 14.0 H
Hgb 12.6 L
Hct 37.9 L
Plt Count 337 D
Sodium 122 L
Potassium 5.7 H
Chloride 94 L
Carbon Dioxide 20 L
BUN 98 H
Creatinine 7.0 H*
Glucose 172 H
Calcium 8.3 L
Vital Signs:
Vital Signs
Temp Pulse Resp BP Pulse Ox
97.0 F 82 20 87/64 93
02/28/25 03:37 02/28/25 08:00 02/28/25 08:00 02/28/25 07:54 02/27/25 20:27
I&O
02/27/25 02/28/25 03/01/25
06:59 06:59 06:59
Intake Total 740 / 740 960 / 960
Output Total 150 / 150 300 / 300
Balance 590 / 590 660 / 660
--- NOTE | 2025-02-28 11:29 | W.PN.UPDATE ---
Update Note
Progress Note Update
Urology re-consulted this AM due to concerns for worsening ARF.
Cr 7.0 this AM - trending upwards in last few days.
Has required a few paracentesis procedures for malignant ascites this admission.
H/o metastatic right RCC w/ extensive peritoneal carcinomatosis and periportal, periaortic, retrocaval lympadenopathy.
Follows w/ his oncologist Dr. Vu @[facility] for immunotherapy/chemotherapy.
Review of CT imaging demonstrates left pelvicalyceal dilatation down to level of mid left ureter.
Plan:
- NPO@MN
- Hold aspirin 03/01
- To OR in AM 03/01 for cystoscopy + left RGP/stent insertion
D/w Dr. Augustine and Dr. Velez.
Imaging reviewed w/ IR.
Extensive discussion had w/ patient and family at bedside this morning.
[2025-02-28] MEDS: LOKELMA 10 GRAM PO ×2 (13:18→17:28)
[2025-02-28 13:48] LABS: Glucose - Point of Care 170 mg/dl (70-99)
[2025-02-28] MEDS: NOVOLOG FLEXPEN 5 UNITS SC ×2 (14:02→19:59)
[2025-02-28] MEDS: LIPITOR 80 MG PO (17:24)
[2025-02-28 17:25] LABS: Blood Urea Nitrogen 99 mg/dl (9-20); Calcium 8.4 mg/dl (8.4-10.2); Carbon Dioxide 21 mmol/L (22-30); Chloride 93 mmol/L (98-107); Estimated Creatinine Clearance 11 ml/min; Glucose 150 mg/dl (70-99); Potassium 5.6 mmol/L (3.5-5.1); Sodium 120 mmol/L (135-145); eGFR 7.88
[2025-02-28 17:58] LABS: Glucose - Point of Care 160 mg/dl (70-99)
--- NOTE | 2025-02-28 18:39 | PTCARENOTE ---
Dr Jewell TT for Ldocaine jelly for Penis
[2025-02-28] MEDS: SENOKOT-S PO ×2 (20:00→23:57)
[2025-02-28] MEDS: LANTUS 0.08 UNITS SC (21:22)
[2025-02-28] MEDS: LIDOCAINE URO-JET 2% 1 SYRINGE TOPICAL (21:23)
[2025-02-28 21:33] LABS: Glucose - Point of Care 164 mg/dl (70-99)
[2025-02-28] MEDS: LASIX 80 MG IV (23:34)
--- NOTE | 2025-02-28 23:41 | PTCARENOTE ---
pt completed 3% hypertonic saline this afternoon. 1700 BMP drawn with sodium resulting at 120. urine output 7a-7p 100 ml. Urine output 7p-[address] Velez notified. Lasix 80 mg IV x 1 ordered and given. B/p 97/63. BMP ordered for 0600. Pt is
aao x3. Ambulatory. Continuing to monitor.
[2025-03-01] VITALS (19 sets, daily range): BP systolic 84–118; BP diastolic 50–73; BMI 29.5
[2025-03-01] MEDS: COMPAZINE 5 MG IV ×2 (02:09→16:43)
--- NOTE | 2025-03-01 02:15 | PTCARENOTE ---
pt ambulated to bathroom with steady gait. B/p 94/65. 10 ml cloudy sarita/tea colored urine in byrnes bag, 3 hrs after lasix administration. Vomiting after returning to bed. Compazine 5 mg given IV. Abdomen distended with normoactive bowel sounds. Pt
states he is moving his bowels; small amounts of soft to formed in bathroom. Denies abdominal pain at this time. Continuing to monitor.
[2025-03-01 05:23] LABS: Hematocrit 35.3 % (39.0-52.0); Hemoglobin 11.7 g/dL (13.0-18.0); Mean Corp Hgb Conc. 33.1 g/dL (33.0-37.0); Mean Corpuscular Volume 86.7 fL (80.0-94.0); Nucleated Red Blood Cells % 0 % (-); Platelet Count 360 10^3/uL (130-400); Red Cell Dist. Width 14.7 % (11.5-14.5)
[2025-03-01 05:52] LABS: Blood Urea Nitrogen 99 mg/dl (9-20); Calcium 8.5 mg/dl (8.4-10.2); Carbon Dioxide 20 mmol/L (22-30); Chloride 93 mmol/L (98-107); Estimated Creatinine Clearance 10 ml/min; Glucose 150 mg/dl (70-99); Potassium 5.6 mmol/L (3.5-5.1); Sodium 124 mmol/L (135-145); eGFR 6.96
[2025-03-01] MEDS: LOKELMA 10 GRAM PO ×3 (06:34→18:22)
--- NOTE | 2025-03-01 06:39 | PTCARENOTE ---
additional 50 ml cloudy sarita urine via urethral catheter after lasix given overnight. Sodium improved to 124 on morning labs. Potassium remains elevated; scheduled dose Lokelma given at 0600. B/p remains hypotensive 88/63; pt without symptoms of
lightheadedness and is alert and oriented. Continuing to monitor
--- NOTE | 2025-03-01 07:41 | W.PN.NEPH.PH ---
Today's Communication / Plan
-
For cystoscopy today and possible stent placement for left hydro
Maintain Lokelma for hyperkalemia manage
Renal failure continues to escalate
80 mg of IV Lasix last evening without any efficacy
Assessment/Plan
-
Impression:
JOSEPH (5.4)
Hyponatremia (121)
Hyperkalemia (7.9)
Hypotension
Right renal cell carcinoma mass
Renal cell carcinoma with recurrent malignant ascites
Chronic congestive heart failure with LVEF of 15 to 20% (weights up 3kg since discharge)
Coronary artery disease with previous stenting procedures
History of hypertension
Type 2 diabetes
BPH
Plan:
JOSEPH-suspecting prerenal vs obstructive process, low flow state with soft BPs and low EF,
Patient for cystoscopy and stent placement attempt this morning by urology for left hydronephrosis
Reviewed right heart cath yesterday which had acceptable numbers and wedge pressure of (12) euvolemic
Unfortunately due to patient's advanced cardiomyopathy metastatic cancer with deteriorating functional status and hemodynamic instability he will not be an appropriate dialysis candidate
hyponatremia of function of decreased renal clearance and escalated ADH in the setting of malignancy and hypotension
Maintain Lokelma and as needed Kayexalate for hyperkalemia in the setting of advancing renal failure
Hypoalbuminemia complicating effective circulating volume and likely also contributing to hypotension
midodrine to 15 mg 3 times daily
Renal failure continues to advance with creatinine up t0 8.1 BUN up to 99
Unfortunately I do not have anything new to offer even though patients girlfried wants us to be able to come up with something
I did explain to the sons how ill there father is and even if we started dialysis there is no dialysis unit that would ever take him as an outpatient given his unstable hemodynamics and comorbidity
prognosis is poor
high risk encounter with advancing renal failure worsening hyponatremia and hyperkalemia and hemodynamic instability
-
-
Date of Service: March 01, 2025
CC / HPI / ROS
-
Chief Complaint:
JOSEPH
History of Present Illness:
JOSEPH worsening .cr up at 8 , sodium 124 after hypertonic saline given yesterday
k down to 5.6
bp soft on 15 mg TID midodrine
Review of Systems:
no cp or sob
abd distended,
Weight stable
anuric
Labs
-
Labs:
WBC 13.9 10^3/uL (4.8-10.8) H 03/01/25 04:28
RBC 4.07 10^6/uL (4.70-6.10) L 03/01/25 04:28
Hgb 11.7 g/dL (13.0-18.0) L 03/01/25 04:28
Hct 35.3 % (39.0-52.0) L 03/01/25 04:28
Plt Count 360 10^3/uL (130-400) 03/01/25 04:28
Sodium 124 mmol/L (135-145) L 03/01/25 04:28
Potassium 5.6 mmol/L (3.5-5.1) H 03/01/25 04:28
Chloride 93 mmol/L (98-107) L 03/01/25 04:28
Carbon Dioxide 20 mmol/L (22-30) L 03/01/25 04:28
BUN 99 mg/dl (9-20) H 03/01/25 04:28
Creatinine 8.1 mg/dL (0.7-1.3) H* 03/01/25 04:28
eGFR 6.96 03/01/25 04:28
Glucose 150 mg/dl (70-99) H 03/01/25 04:28
Calcium 8.5 mg/dl (8.4-10.2) 03/01/25 04:28
Phosphorus 7.7 mg/dl (2.5-4.5) H 02/24/25 06:13
Albumin 2.9 g/dl (3.5-5.0) L 02/26/25 05:23
Physical Exam
-
Vital Signs:
Vital Signs
Temp Pulse Resp BP Pulse Ox
98.1 F 86 2 85/50 93
03/01/25 07:20 03/01/25 07:26 03/01/25 07:26 03/01/25 07:26 02/28/25 08:00
Cardiovascular:: Regular rate and rhythm
Respiratory:: Bilateral: CTA
Lung Excursion:: Normal
Abdomen:: Distended (mild), Nontender and Soft
Extremity Edema:: None: Bilateral:
Pham Catheter: Yes
[2025-03-01 08:00] LABS: Glucose - Point of Care 163 mg/dl (70-99)
[2025-03-01] MEDS: NOVOLOG FLEXPEN-LOW RESISTANCE 1 UNITS SC ×3 (08:02→18:21)
[2025-03-01] MEDS: SENOKOT-S PO ×2 (08:03→20:05)
[2025-03-01] MEDS: PROTONIX 40 MG PO (08:03)
--- NOTE | 2025-03-01 08:51 | W.SUR.PREOP ---
Pre-Operative Surgical Note
-
I have examined this patient prior to the performance of the scheduled procedure.
The patient's condition is unchanged from the time of the current History and
Physical and the patient is able to undergo the scheduled procedure.
To OR for cystoscopy + left RGP/stent insertion
If Cr does not improve w/ left renal collecting system decompression => unlikely post-renal etiology of ARF
D/w Dr. Velez.
--- NOTE | 2025-03-01 10:01 | W.IMMPOSTOP ---
Addendum entered and electronically signed by Regulo Barcenas MD 03/01/25 10:33:
Per Hospital Medicine and Nephrology - trend Cr s/p stent insertion.
If progression of ARF, advise CTAP w/o IV contrast to assess for obstructive uropathy.
If present despite stent insertion, will require left PCN by IR.
D/w Dr. Augustine.
Original Note:
Surgical Immed Post Op Note
-
Primary Surgeon: Swapna
Pre-op Diagnosis: ARF, metastatic right RCC, left renal collecting system dilatation to mid left ureter (on CT)
Post-op Diagnosis: Same, left mid-ureteral obstruction
Procedure Performed: cystoscopy + left RGP/stent insertion
Anesthesia Type: GETA
Specimen / Cultures: None/None
Estimated Blood Loss: Negligible
Drains: 6Fr x24 cm Contour soft JJ left ureteral stent
Complications: None
Operative Findings: Left RGP => significant 'waist' @mid left ureter w/ evidence of extrinsic compression - no identifiable intraureteral masses noted on contrast studies.
Final KUB and cystoscopy confirming appropriate stent position.
Discussed intraop findings and plan of care w/ Jessica (patient's partner).
[2025-03-01 10:14] LABS: Glucose - Point of Care 168 mg/dl (70-99)
[2025-03-01] MEDS: STERILE WATER FOR INJECTION IV (10:22)
--- NOTE | 2025-03-01 11:44 | PTCARENOTE ---
Pt returned from pacu, s/p cysto with stent placement. Pham was removed in the OR. Urinal provided to patient. Pt was asked to use urinal for any void. VSS. Pt asking for paracentesis. Dr Augustine aware pt back in room and requesting para. Pt
aware of plan for repeat labs this afternoon. Family at bedside.
[2025-03-01 12:30] LABS: Glucose - Point of Care 175 mg/dl (70-99)
--- NOTE | 2025-03-01 12:34 | PTCARENOTE ---
Pt took himself off monitor to go to bathroom. Placed on tele pack to continue to monitor heart rate/rhythm
--- NOTE | 2025-03-01 14:26 | W.PN.HOSP.TC ---
Today's Communication/Plan
-
Repeat BMP later
Bladder scan if patient has no urine output to make sure there is no tension if there is retention may need Pham catheter replaced
If patient is not making any urine may need CT of the abdomen pelvis tomorrow with no contrast
Please call oncology tomorrow to see if patient can be started on Welireg
May need paracentesis again sometime in the upcoming week.
Assessment / Plan
Assessment / Plan
59-year-old male with metastatic renal cell carcinoma and refractory malignant ascites, carcinomatosis admitted for abdominal distention and fatigue.
Family at bedside contributing to the history patient denies any abdominal pain, dizziness, shortness of breath
On examination awake and alert able to converse
Cardiovascular system S1-S2 appreciated
Chest decreased breath sounds at bases
Abdomen distended ,nontender
Mild pedal edema
CT of the abdomen and pelvis-subtle right renal mass reported history of renal cell carcinoma. Evidence of extensive peritoneal carcinomatosis significantly increasing. Moderate amount of ascites within the pelvis with thickened from likely
malignant. Lymphadenopathy within the visualized lower chest and within abdomen and pelvis similar appearance to prior CT. Left pelvicalyceal dilatation as well as dilatation of the proximal to mid left ureter with normal caliber and mid to distal
left ureter. Raising concerns for ureteric metastatic disease and resultant obstruction.
# Acute kidney injury on CKD stage III with hyperkalemia
Decreased urine output to no UOP
Unlikely prerenal reasons but Hypotension may be contributing
Relook at the CAT scan-it was decided to take the patient for cystoscopy and stent placement on the left side which was done by Dr. Barcenas on 03/01/2025
Watch to see if the patient has any urine output
Pham catheter was removed after this procedure
Patient is not a good candidate for hemodialysis per discussion with nephrology
Repeat BMP ordered
If patient does not make any urine may need repeat CT without contrast tomorrow to see if he has hydronephrosis. May need nephrostomy tube if that is the case.
Hyperkalemia-continue potassium binders
# Hyponatremia-received 3% saline was given. Patient continues to be hyponatremic likely secondary to overall volume overload. 3% saline ordered
# Hypotension-secondary to third spacing, low ejection fraction and hypoalbuminemia-continue midodrine
# Stage IV Metastatic renal cell carcinoma with refractory malignant ascites, carcinomatosis, retroperitoneal adenopathy
Patient follows up with at [facility].
Patient was treated with ipilimumab/nivolumab without response and had colitis.
Then switched to cabozantinib without response
Currently prescribed Welireg-and family just got this filled.
Since patient is getting a nephrostomy tube , to see the renal response, Hold off until Sunday to start this.
Have Heme Onc
# Malignant ascites
Paracentesis 02/09/2025 with 3 L, 03-03 with 5.5 L, 02/24/2025 with 4.6 L, 02/26/2025 with 3.5 L
White cell count does qualify for SBP, I think this may all be malignant ascites.
Pt got ceftriaxone for 5 days and now off
Agree that patient has more than 250 PMNs
But- No fevers, Gram stain and fluid cultures are negative. SAAG less than 1.1, total protein close 2 or more than 2.5, elevated LDH in fluid, positive Cytology positive -speaks against SBP
# Chronic HFrEF with ejection fraction 15 to 20%
History of AICD placement
Holding diuretics secondary to blood pressure running low
Holding Jardiance, ARB, Bactrim secondary to renal failure
Difficult situation
Intake output charting and daily weights
# Coronary disease-with history of stent-continue aspirin, statin
# Diabetes hemoglobin A1c on 03-03- 7.5%
Continue Accu-Cheks and sliding scale coverage
Lantus insulin and mealtime NovoLog
Hold Jardiance
# Enlarged prostate-hold off on Flomax given hypotension. Patient has a catheter for now
# Hypoalbuminemia
# DVT prophylax-subcutaneous heparin
# Full code
High risk situation with renal failure, malignancy, cardiomyopathy. Prognosis is poor.
Discussed with spouse and updated. She had a lot of questions .
Communicated with nephrology, urology
Total time spent more than 56 minutes
Anticipated Discharge: > 48 hours
Subjective/Interval History
-
Date of Service: March 01, 2025
Objective Data
-
Labs:
Laboratory Results
03/01/25 03/01/25
04:28 15:49
WBC 13.9 H
Hgb 11.7 L
Hct 35.3 L
Plt Count 360
Sodium 124 L Pending
Potassium 5.6 H Pending
Chloride 93 L Pending
Carbon Dioxide 20 L Pending
BUN 99 H Pending
Creatinine 8.1 H* Pending
Glucose 150 H Pending
Calcium 8.5 Pending
Vital Signs:
Vital Signs
Temp Pulse Resp BP Pulse Ox
97.7 F 86 22 112/71 94
03/01/25 11:15 03/01/25 12:00 03/01/25 12:00 03/01/25 12:00 03/01/25 12:00
I&O
02/28/25 03/01/25 03/02/25
06:59 06:59 06:59
Intake Total 960 / 960 1210 / 1210 390 / 390
Output Total 300 / 300 125 / 125 105 / 105
Balance 660 / 660 1085 / 1085 285 / 285
[2025-03-01] MEDS: HEPARIN 5000 UNITS SC ×2 (15:41→22:00)
[2025-03-01 16:02] LABS: Blood Urea Nitrogen 100 mg/dl (9-20); Calcium 8.5 mg/dl (8.4-10.2); Carbon Dioxide 19 mmol/L (22-30); Chloride 91 mmol/L (98-107); Estimated Creatinine Clearance 10 ml/min; Glucose 187 mg/dl (70-99); Potassium 5.4 mmol/L (3.5-5.1); Sodium 124 mmol/L (135-145); eGFR 7.28
[2025-03-01 17:24] LABS: Glucose - Point of Care 178 mg/dl (70-99)
[2025-03-01] MEDS: NOVOLOG FLEXPEN SC (18:20)
--- NOTE | 2025-03-01 18:20 | PTCARENOTE ---
Pt has been voiding small amounts in bathroom using urinal t/o day as charted. Did bladder scan pt, but only noted ascites with bladder scan. Pt does not feel like he has any more urine, feels full like he needs additional paracentesis. Does not
want st cath/byrnes currently.
[2025-03-01] MEDS: LIPITOR 80 MG PO (18:21)
--- NOTE | 2025-03-01 18:36 | PTCARENOTE ---
called and was updated to events of afternoon.
--- NOTE | 2025-03-01 19:52 | PTCARENOTE ---
During report, pt HR noted in 140s consistently. Pt not not symptomatic. Had gotten himself back to bed. BP had dropped to 84/59 with increased HR. Pt instructed not to go to bathroom without calling given lower bp. HR broke without
intervention and returned to 90s.
[2025-03-01 21:32] LABS: Glucose - Point of Care 183 mg/dl (70-99)
[2025-03-01] MEDS: LANTUS 0.12 UNITS SC (21:56)
[2025-03-02] VITALS (18 sets, daily range): BP systolic 76–113; BP diastolic 53–70; PULSE 85; O2SAT 95; BMI 30.1; BMI 28.6
--- NOTE | 2025-03-02 04:34 | PTCARENOTE ---
Pt noncompliant with BP cuff at times throughout the night. Hypotensive, but denies symptoms. HR remained stable throughout shift. C/o discomfort r/t ascites. Denied additional complaints at this time. Care ongoing.
[2025-03-02] MEDS: COMPAZINE 5 MG IV ×2 (04:56→12:27)
[2025-03-02 05:10] LABS: Hematocrit 34.5 % (39.0-52.0); Hemoglobin 11.7 g/dL (13.0-18.0); Mean Corp Hgb Conc. 33.9 g/dL (33.0-37.0); Mean Corpuscular Volume 85.8 fL (80.0-94.0); Nucleated Red Blood Cells % 0 % (-); Platelet Count 391 10^3/uL (130-400); Red Cell Dist. Width 14.5 % (11.5-14.5)
[2025-03-02] MEDS: LOKELMA 10 GRAM PO ×2 (06:13→10:40)
[2025-03-02 06:17] LABS: Blood Urea Nitrogen 102 mg/dl (9-20); Calcium 8.6 mg/dl (8.4-10.2); Carbon Dioxide 19 mmol/L (22-30); Chloride 91 mmol/L (98-107); Estimated Creatinine Clearance 12 ml/min; Glucose 177 mg/dl (70-99); Potassium 5.4 mmol/L (3.5-5.1); Sodium 123 mmol/L (135-145); eGFR 7.75
--- NOTE | 2025-03-02 07:15 | PTCARENOTE ---
report received. aaox3. vss. nsr. pt ambulating in room w/o difficulty. abdomen round, firm, and full. pt updated on plan of care. call tyler in reach. will monitor.
[2025-03-02 07:29] LABS: Glucose - Point of Care 181 mg/dl (70-99)
[2025-03-02] MEDS: SENOKOT-S 1 TABLET PO ×2 (07:39→19:32)
[2025-03-02] MEDS: HEPARIN 5000 UNITS SC ×3 (07:39→23:06)
[2025-03-02] MEDS: LOW STRENGTH ASPIRIN 81 MG PO (07:39)
[2025-03-02] MEDS: PROTONIX 40 MG PO (07:39)
[2025-03-02] MEDS: NOVOLOG FLEXPEN-LOW RESISTANCE 1 UNITS SC ×2 (07:40→17:39)
[2025-03-02] MEDS: NOVOLOG FLEXPEN 5 UNITS SC ×3 (07:40→17:40)
--- NOTE | 2025-03-02 09:33 | W.PN.UPDATE ---
Update Note
Progress Note Update
03/01: s/p cystoscopy + left RGP/stent insertion (6Fr x 24 cm JJ).
Cr trend: 8.1 (preop) => 7.8 (postop) => 7.4 (POD#1).
Recommendations:
- Maintain left ureteral stent on discharge
- Trend Cr
- Plan for stent exchange q4-6 mo pending clinical course and cancer treatment plan
Urology will sign off - please call w/ questions.
[2025-03-02] MEDS: STERILE WATER FOR INJECTION IV (09:57)
--- NOTE | 2025-03-02 10:02 | W.PN.NEPH.PH ---
Today's Communication / Plan
-
follow BMP
Assessment/Plan
-
Impression:
JOSEPH (5.4)
Hyponatremia (121)
Hyperkalemia (7.9)
Hypotension
Right renal cell carcinoma mass
Renal cell carcinoma with recurrent malignant ascites
Chronic congestive heart failure with LVEF of 15 to 20% (weights up 3kg since discharge)
Coronary artery disease with previous stenting procedures
History of hypertension
Type 2 diabetes
BPH
Plan:
follow BMP
d/w patient and family
he is not a dialysis candidate as it would surely hasten his with HFrEF 15% on high dose midodrine, large volume ascites requiring frequent paracentesis, peritoneal carcinomatosis advancing
ureteral stent per urology
lokelma daily
family asked about PET scan. I see no utility in that at this time. current imaging already shows progression and pt is still planning on trying more chemo regardless.
Given that they still are looking to pursue chemo it seems the only options are transfer to [facility] oncology, or stabilization and discharge with early f/u with [facility] oncology where a discussion about realistic goals of care can be had by his
hspt tutor oncologist.
prognosis is poor
high risk encounter
-
-
Date of Service: March 02, 2025
CC / HPI / ROS
-
Chief Complaint:
JOSEPH
History of Present Illness:
JOSEPH/Cr slightly lower 7.4, BUN up to 102
k down to 5.4
Na stable 123
BP low stable on high dose midodrine
barely nonoliguric
Review of Systems:
no cp or sob
abdominal distention
Labs
-
Labs:
WBC 15.6 10^3/uL (4.8-10.8) H 03/02/25 04:52
RBC 4.02 10^6/uL (4.70-6.10) L 03/02/25 04:52
Hgb 11.7 g/dL (13.0-18.0) L 03/02/25 04:52
Hct 34.5 % (39.0-52.0) L 03/02/25 04:52
Plt Count 391 10^3/uL (130-400) 03/02/25 04:52
Sodium 123 mmol/L (135-145) L 03/02/25 04:52
Potassium 5.4 mmol/L (3.5-5.1) H 03/02/25 04:52
Chloride 91 mmol/L (98-107) L 03/02/25 04:52
Carbon Dioxide 19 mmol/L (22-30) L 03/02/25 04:52
BUN 102 mg/dl (9-20) H* 03/02/25 04:52
Creatinine 7.4 mg/dL (0.7-1.3) H* 03/02/25 04:52
eGFR 7.75 03/02/25 04:52
Glucose 177 mg/dl (70-99) H 03/02/25 04:52
Calcium 8.6 mg/dl (8.4-10.2) 03/02/25 04:52
Phosphorus 7.7 mg/dl (2.5-4.5) H 02/24/25 06:13
Albumin 2.9 g/dl (3.5-5.0) L 02/26/25 05:23
Physical Exam
-
Vital Signs:
Vital Signs
Temp Pulse Resp BP Pulse Ox
98.0 F 94 22 102/67 95
03/02/25 07:45 03/02/25 07:12 03/01/25 12:00 03/02/25 07:12 03/01/25 20:09
Cardiovascular:: Regular rate and rhythm
Respiratory:: Bilateral: Coarse
Lung Excursion:: Normal
Abdomen:: Distended, Nontender and Soft
Bowel Sounds:: Normal
Extremity Edema:: +1: Bilateral:
--- NOTE | 2025-03-02 10:22 | W.PN.HOSP.TC ---
Addendum entered and electronically signed by Jen Burgos MD 03/02/25 14:32:
Attending�addendum:
I saw and evaluated the patient independently. I reviewed and discussed the resident�s note and agree with findings and plan as documented in the resident�s note.� patient seen and examined at bedside, family at bedside, denies any chest pain or
shortness of breath, kidney function slightly improved.
Physical�exam:
GENERAL : Patient is awake, alert, oriented x3
HEENT: Nonicteric sclerae, PERRLA, EOMI. Oropharynx clear. Moist mucous membranes. Conjunctivae appear well perfused.
CHEST: Chest wall is nontender.
HEART: Regular rate and rhythm without murmurs.
LUNGS: Clear to auscultation bilaterally.
ABDOMEN: Distended
RECTAL: Deferred.
MUSCLES/EXTREMITIES: No abnormal range of motion, no swelling.SKIN: No rash, no excessive bruising, petechiae, or purpura.
NEUROLOGIC: Cranial nerves II-XII intact without motor/sensory deficit.
�
Assessment/plan:
Acute kidney injury.
Appreciate urology/nephrology input.
Urine output 155 mL last 24 hours.
Creatinine slightly improved
Hyperkalemia.
Potassium 5.4
Metastatic stage IV renal cell carcinoma.
Oncology consulted.
Patient supposed to started on Welireg
CODE STATUS: Full code
DVT prophylaxis: Heparin.
Diet:Low K diet
Family communication: Discussed with family at bedside, on the phone
Disposition: Paracentesis/ albumin
�
Total time spent on today�s encounter was 60 minutes which included time spent in counseling the patient/family regarding diagnosis and treatment plan as listed above, goals of care, and symptom management. Case was discussed with nursing staff,
specialists, and care coordinators/case management. All labs and imaging personally reviewed by me. Remainder the time spent in detailed review of previous records, lab data, imaging, and other medical provider documentation.
Original Note:
Today's Communication/Plan
-
- Repeat paracentesis today, Gram stain/cultures ordered
- Albumin ordered for s/p paracentesis
- continue to monitor urine output
Assessment / Plan
Assessment / Plan
# Acute kidney injury
- Minimal to no urine output on presentation
- Dr. Barcenas did cystoscopy and stent placement left side 03/01/2025
- Pham catheter removed after stent placement
- Urine output last 24 hours 155 mL
- Patient is not a good candidate for hemodialysis per discussion with nephrology
- Repeat BMP ordered
Hyperkalemia
- Potassium 5.4
- continue Lokelma
# Hyponatremia
- Sodium 123
- Patient continues to be hyponatremic likely secondary to overall volume overload
- 3% saline as per nephrology recommendations
# Hypotension
- secondary to third spacing and hypoalbuminemia
- continue midodrine 15 mg 3 times daily
# Stage IV Metastatic renal cell carcinoma with refractory malignant ascites, carcinomatosis, retroperitoneal adenopathy
- Patient follows with Dr. Vu at [facility]
- Patient was prescribed Welireg prior to admission and family just got this filled. Patient has medication present in the hospital room.
# Malignant ascites
- Paracentesis 02/09/2025 with 3 L, 02/16 with 5.5 L, 02/24/2025 with 4.6 L, 02/26/2025 with 3.5 L
- Consult placed for IR for additional paracentesis today
- Ordered cytology, Gram stain
- Completed 5 days ceftriaxone for SBP prophylaxis given PMN count
- No fevers, Gram stain and fluid cultures previously negative. New Gram stain and fluid culture pending from paracentesis today
# Chronic HFrEF with EF 15 to 20%
- Holding diuretics secondary to hypotension
- Holding Jardiance, ARB secondary to renal failure
- I's and O's
# Coronary disease
- S/p stent placement
- Continue aspirin, statin
# Diabetes hemoglobin A1c on 03-03- 7.5%
- Continue Accu-Cheks and sliding scale coverage
- Lantus insulin and mealtime NovoLog
- Hold Jardiance
# Enlarged prostate
- Holding Flomax given hypotension
# Hypoalbuminemia
- Ordered 50 g albumin s/p paracentesis today
DVT prophylax-subcutaneous heparin
Full code
Anticipated Discharge: > 48 hours
Subjective/Interval History
-
Date of Service: March 02, 2025
Patient seen this morning at the bedside. Family members present. Patient states that he is feeling a little better since his stent placement yesterday, but is experiencing worsening abdominal distention and bloating. Patient feels like he needs
another paracentesis.
Objective Data
-
Labs:
Laboratory Results
03/02/25
04:52
WBC 15.6 H
Hgb 11.7 L
Hct 34.5 L
Plt Count 391
Sodium 123 L
Potassium 5.4 H
Chloride 91 L
Carbon Dioxide 19 L
BUN 102 H*
Creatinine 7.4 H*
Glucose 177 H
Calcium 8.6
Vital Signs:
Vital Signs
Temp Pulse Resp BP Pulse Ox
98.0 F 94 22 102/67 95
03/02/25 07:45 03/02/25 07:12 03/01/25 12:00 03/02/25 07:12 03/01/25 20:09
I&O
03/01/25 03/02/25 03/03/25
06:59 06:59 06:59
Intake Total 1210 / 1210 630 / 630
Output Total 125 / 125 155 / 155
Balance 1085 / 1085 475 / 475
Review of Systems
-
History Source: Patient
Constitutional: Reports No Symptoms
EENT: Reports No Symptoms Reported
Respiratory: Reports No Symptoms
Cardiac: Reports No Symptoms
Abdomen/GI: Reports Nausea, Bloated and Other (Distention, pressure)
Genitourinary: Reports No Symptoms
Musculoskeletal: Reports No Symptoms
Skin: Reports No Symptoms
Neuro: Reports No Symptoms
Endocrine: Reports No Symptoms
Hematologic / Lymphatic: Reports No Symptoms
Allergy / Immunology: Reports No Symptoms
Psych: Reports Sad
Physical Exam
-
General: No Apparent Distress
HEENT: Moist Mucous Membranes
Respiratory: Clear to Auscultation
Cardiac: Regular Rhythm and S1/S2
GI: Nontender and Distended
Musculoskeletal: No Edema
Skin: Warm and Dry
Neuro: Awake, Alert and Oriented
[2025-03-02 11:24] LABS: Glucose - Point of Care 227 mg/dl (70-99)
[2025-03-02] MEDS: NOVOLOG FLEXPEN-LOW RESISTANCE 2 UNITS SC (11:46)
[2025-03-02] MEDS: FLEXBUMIN 100 IV ×2 (14:24→16:01)
[2025-03-02 15:45] LABS: Body Fluid Second Tech DW
--- NOTE | 2025-03-02 16:38 | CM ---
F/U: Patient will get another paracentesis today and watching urine output. MEGAN Franco will arrange Home PT. PLAN: Home with PT.
[2025-03-02 17:15] LABS: Glucose - Point of Care 183 mg/dl (70-99)
[2025-03-02] MEDS: LIPITOR 80 MG PO (17:40)
[2025-03-02 21:18] LABS: Glucose - Point of Care 148 mg/dl (70-99)
[2025-03-02] MEDS: LANTUS 0.12 UNITS SC (21:23)
--- NOTE | 2025-03-02 23:10 | W.PN.ONC2 ---
Today's Communication / Plan
-
Recommend:
- consult IR for Tenckhoff placement for palliation of ascites
- then start Welireg, pt to take own from home. Will not work right away but we will be able to monitor for toxicity while pt in hospital.
- will follow more closely for time being
Impression
Impression
Metastatic renal cell cancer, refractory with malignant ascites, malignant lymphadenopathy, and carcinomatosis
Acute kidney injury on chronic kidney disease
Chronic congestive heart failure
Plan
Plan
Pt with treatment refractory disease and what sounds like considerable toxicity fro first two lines of therapy.
Ascites has been reaccumulating rapidly. Pt/family spoke with primary oncologist Dr. Vu today and report that he suggested Tenckhoff catheter placement to drain ascites for palliation.
Pt was prescribed Welireg and has it with him in pt room but has not yet started it.
Reviewed potential toxicities including anemia (his hgb currently 11.7) and hypoxia (he is on RA). No dosage adjustment required for renal insufficiency.
Recommend:
- consult IR for Tenckhoff placement for palliation of ascites
- then start Welireg, pt to take own from home. Will not work right away but we will be able to monitor for toxicity while pt in hospital.
- will follow more closely for time being
Subjective/Objective
Chief Complaint
Heme/Onc follow up of treatment refractory metastatic renal CA
Subjective
c/o malaise. States feels better this evening because he underwent paracentesis today. Ascites fluid has been accumulating rapidly. Hospital course complicate by progressive renal insufficiency.
Vital Signs:
Vital Signs
Temp Pulse Resp BP Pulse Ox
98.3 F 69 16 102/65 94
03/02/25 23:03 03/02/25 20:00 03/02/25 13:36 03/02/25 19:00 03/02/25 20:08
Lab Results:
Laboratory Data
WBC 15.6 10^3/uL (4.8-10.8) H 03/02/25 04:52
Hgb 11.7 g/dL (13.0-18.0) L 03/02/25 04:52
Plt Count 391 10^3/uL (130-400) 03/02/25 04:52
eGFR 7.75 03/02/25 04:52
Physical Exam
Ill-appearing
Abd distended
[2025-03-03] VITALS (9 sets, daily range): BP systolic 83–110; BP diastolic 46–68
--- NOTE | 2025-03-03 03:01 | PTCARENOTE ---
Pt remains ambulatory in room as needed. Requests to shower, ok to shower order is present in chart, however [employer] suggests bed bath until pt more stable. Pt agreeable at this time. Denies complaints. Care ongoing.
[2025-03-03 05:58] LABS: Hematocrit 33.5 % (39.0-52.0); Hemoglobin 11.2 g/dL (13.0-18.0); Mean Corp Hgb Conc. 33.4 g/dL (33.0-37.0); Mean Corpuscular Volume 84.2 fL (80.0-94.0); Nucleated Red Blood Cells % 0 % (-); Platelet Count 384 10^3/uL (130-400); Red Cell Dist. Width 14.5 % (11.5-14.5)
[2025-03-03 06:22] LABS: Blood Urea Nitrogen 106 mg/dl (9-20); Calcium 8.5 mg/dl (8.4-10.2); Carbon Dioxide 20 mmol/L (22-30); Chloride 89 mmol/L (98-107); Estimated Creatinine Clearance 12 ml/min; Glucose 158 mg/dl (70-99); Potassium 4.9 mmol/L (3.5-5.1); Sodium 120 mmol/L (135-145); eGFR 8.74
--- NOTE | 2025-03-03 07:32 | W.PN.HOSP.TC ---
Addendum entered and electronically signed by Jen Burgos MD 03/03/25 15:49:
Attending�addendum:
I saw and evaluated the patient independently. I reviewed and discussed the resident�s note and agree with findings and plan as documented in the resident�s note.� patient seen and examined at bedside, family at bedside, denies any chest pain or
shortness of breath, kidney function slightly improved.
Physical�exam:
GENERAL : Patient is awake, alert, oriented x3
HEENT: Nonicteric sclerae, PERRLA, EOMI. Oropharynx clear. Moist mucous membranes. Conjunctivae appear well perfused.
CHEST: Chest wall is nontender.
HEART: Regular rate and rhythm without murmurs.
LUNGS: Clear to auscultation bilaterally.
ABDOMEN: Distended
RECTAL: Deferred.
MUSCLES/EXTREMITIES: No abnormal range of motion, no swelling.SKIN: No rash, no excessive bruising, petechiae, or purpura.
NEUROLOGIC: Cranial nerves II-XII intact without motor/sensory deficit.
�
Assessment/plan:
Acute kidney injury.
Appreciate urology/nephrology input.
Creatinine improved
Hyperkalemia.
Improved
Metastatic stage IV renal cell carcinoma.
Oncology consulted.
Patient supposed to started on Welireg
After peritoneal drain
CODE STATUS: Full code
DVT prophylaxis: Heparin.
Diet:Low K diet
Family communication: Discussed with family at bedside, on the phone
Disposition: Peritoneal drain.
�
Total time spent on today�s encounter was 60 minutes which included time spent in counseling the patient/family regarding diagnosis and treatment plan as listed above, goals of care, and symptom management. Case was discussed with nursing staff,
specialists, and care coordinators/case management. All labs and imaging personally reviewed by me. Remainder the time spent in detailed review of previous records, lab data, imaging, and other medical provider documentation.
Original Note:
Today's Communication/Plan
-
- IR consult for peritoneal catheter placement
- Defer to nephrology recs for electrolyte repletion
Assessment / Plan
Assessment / Plan
# Acute kidney injury
- 600 mL urine output in last 24 hours
- Creatinine 6.7 today, improving
- Dr. Barcenas did cystoscopy and stent placement left side 03/01/2025
- Pham catheter removed after stent placement
- Patient is not a good candidate for hemodialysis per discussion with nephrology
- Repeat BMP
Hyperkalemia
- Potassium 4.9
- Will defer to nephro recs
# Hyponatremia
- Sodium 120
- Patient continues to be hyponatremic likely secondary to overall volume overload
- 3% saline as per nephrology recommendations
# Hypotension
- secondary to third spacing and hypoalbuminemia
- continue midodrine 15 mg 3 times daily
# Stage IV Metastatic renal cell carcinoma with refractory malignant ascites, carcinomatosis, retroperitoneal adenopathy
- Patient follows with Dr. Vu at [facility]
- Patient was prescribed Welireg prior to admission and family just got this filled. Patient has medication present in the hospital room.
- Oncology recommends Tenckhoff placement. IR consult placed for today
- Oncology recommends starting Welireg while inpatient and monitoring for toxicity.
# Malignant ascites
- Paracentesis 02/09/2025 with 3 L, 02/16 with 5.5 L, 02/24/2025 with 4.6 L, 02/26/2025 with 3.5 L, 03/02/2025 with 4.9 L
- Ordered cytology, Gram stain on 03/02 fluid
- Completed 5 days ceftriaxone for SBP prophylaxis given PMN count
- No fevers, Gram stain and fluid cultures previously negative. New Gram stain and fluid culture: No organisms seen, fluid culture pending.
# Chronic HFrEF with EF 15 to 20%
- Holding diuretics secondary to hypotension
- Holding Jardiance, ARB secondary to renal failure
- I's and O's
# Coronary disease
- S/p stent placement
- Continue aspirin, statin
# Diabetes hemoglobin A1c on 03-03- 7.5%
- Continue Accu-Cheks and sliding scale coverage
- Lantus insulin and mealtime NovoLog
- Hold Jardiance
# Enlarged prostate
- Holding Flomax given hypotension
# Hypoalbuminemia
- Gave 50 g albumin s/p paracentesis on 03/02
DVT prophylax-subcutaneous heparin
Full code
Anticipated Discharge: 24 - 48 hours
Subjective/Interval History
-
Date of Service: March 03, 2025
Patient seen this morning at the bedside. Patient states he is feeling much better after his paracentesis yesterday. Patient denies chest pain, shortness of breath. Patient notes some nausea, which she has had most mornings. Patient denies any
abdominal pain. Patient states his appetite has not been great, but he is continuing to eat.
Objective Data
-
Labs:
Laboratory Results
03/03/25
05:42
WBC 15.5 H
Hgb 11.2 L
Hct 33.5 L
Plt Count 384
Sodium 120 L
Potassium 4.9
Chloride 89 L
Carbon Dioxide 20 L
BUN 106 H*
Creatinine 6.7 H*
Glucose 158 H
Calcium 8.5
Vital Signs:
Vital Signs
Temp Pulse Resp BP Pulse Ox
97.6 F 61 16 97/65 94
03/03/25 03:16 03/03/25 04:00 03/02/25 13:36 03/03/25 03:00 03/02/25 20:08
I&O
03/02/25 03/03/25 03/04/25
06:59 06:59 06:59
Intake Total 630 / 630 200 / 200
Output Total 155 / 155 600 / 600
Balance 475 / 475 -400 / -400
Review of Systems
-
History Source: Patient
Constitutional: Reports No Symptoms
EENT: Reports No Symptoms Reported
Respiratory: Reports No Symptoms
Cardiac: Reports No Symptoms
Abdomen/GI: Reports Other (Improved but still mild distention)
Breast: Reports No Symptoms
Genitourinary: Reports Other (Patient states more urine output. Urine is red and dark)
Musculoskeletal: Reports No Symptoms
Skin: Reports No Symptoms
Neuro: Reports No Symptoms
Endocrine: Reports No Symptoms
Hematologic / Lymphatic: Reports No Symptoms
Allergy / Immunology: Reports No Symptoms
Physical Exam
-
General: Well Developed, Well Nourished and No Apparent Distress
HEENT: Normocephalic, Atraumatic and Moist Mucous Membranes
Respiratory: Clear to Auscultation
Cardiac: Regular Rhythm
GI: Soft, Nontender and Distended (Improved from yesterday, but still with mild to moderate distention)
Musculoskeletal: No Edema
Skin: Warm and Dry
Neuro: Awake, Alert and Oriented
Psych: Calm
[2025-03-03] MEDS: LOKELMA 10 GRAM PO (09:01)
[2025-03-03 09:02] LABS: Glucose - Point of Care 170 mg/dl (70-99)
[2025-03-03] MEDS: SENOKOT-S 1 TABLET PO (09:02)
[2025-03-03] MEDS: HEPARIN 5000 UNITS SC ×2 (09:02→21:48)
[2025-03-03] MEDS: PROTONIX 40 MG PO (09:02)
[2025-03-03] MEDS: LOW STRENGTH ASPIRIN 81 MG PO (09:02)
--- NOTE | 2025-03-03 10:07 | PTCARENOTE ---
Pt AAOx3 very withdrawn, pale. States he is sleepy. Son her visiting. Encouragement offered. Will support pt with his needs.
--- NOTE | 2025-03-03 10:27 | W.PN.NEPH.PH ---
Today's Communication / Plan
-
3%
Assessment/Plan
-
Impression:
JOSEPH (5.4)
Hyponatremia (121)
Hyperkalemia (7.9)
Hypotension
Right renal cell carcinoma mass
Renal cell carcinoma with recurrent malignant ascites
Chronic congestive heart failure with LVEF of 15 to 20% (weights up 3kg since discharge)
Coronary artery disease with previous stenting procedures
History of hypertension
Type 2 diabetes
BPH
Plan:
follow BMP
d/w patient and family
he is not a dialysis candidate as it would surely hasten his with HFrEF 15% on high dose midodrine, large volume ascites requiring frequent paracentesis, peritoneal carcinomatosis advancing
ureteral stent per urology
lokelma daily
3% today
serial Na
-
-
Date of Service: March 03, 2025
CC / HPI / ROS
-
Chief Complaint:
JOSEPH
History of Present Illness:
JOSEPH/Cr slightly lower 6.7, BUN up to 106
k down to 49
Na lower 120
BP low stable on high dose midodrine
barely nonoliguric
Review of Systems:
no cp or sob
abdominal distention
Labs
-
Labs:
WBC 15.5 10^3/uL (4.8-10.8) H 03/03/25 05:42
RBC 3.98 10^6/uL (4.70-6.10) L 03/03/25 05:42
Hgb 11.2 g/dL (13.0-18.0) L 03/03/25 05:42
Hct 33.5 % (39.0-52.0) L 03/03/25 05:42
Plt Count 384 10^3/uL (130-400) 03/03/25 05:42
Sodium 120 mmol/L (135-145) L 03/03/25 05:42
Potassium 4.9 mmol/L (3.5-5.1) 03/03/25 05:42
Chloride 89 mmol/L (98-107) L 03/03/25 05:42
Carbon Dioxide 20 mmol/L (22-30) L 03/03/25 05:42
BUN 106 mg/dl (9-20) H* 03/03/25 05:42
Creatinine 6.7 mg/dL (0.7-1.3) H* 03/03/25 05:42
eGFR 8.74 03/03/25 05:42
Glucose 158 mg/dl (70-99) H 03/03/25 05:42
Calcium 8.5 mg/dl (8.4-10.2) 03/03/25 05:42
Phosphorus 7.7 mg/dl (2.5-4.5) H 02/24/25 06:13
Albumin 2.9 g/dl (3.5-5.0) L 02/26/25 05:23
Physical Exam
-
Vital Signs:
Vital Signs
Temp Pulse Resp BP Pulse Ox
97.5 F 90 16 94/66 95
03/03/25 07:00 03/03/25 09:56 03/02/25 13:36 03/03/25 09:56 03/03/25 08:00
Cardiovascular:: Regular rate and rhythm
Respiratory:: Bilateral: Coarse
Lung Excursion:: Normal
Abdomen:: Distended, Nontender and Soft
Bowel Sounds:: Normal
Extremity Edema:: +2: Bilateral:
[2025-03-03] MEDS: NOVOLOG FLEXPEN-LOW RESISTANCE 1 UNITS SC (10:55)
[2025-03-03] MEDS: NOVOLOG FLEXPEN 5 UNITS SC ×3 (10:56→17:25)
[2025-03-03] MEDS: SODIUM CHLORIDE 3% 250 IV ×2 (11:15→21:41)
[2025-03-03] MEDS: STERILE WATER FOR INJECTION IV (11:38)
[2025-03-03 11:56] LABS: Glucose - Point of Care 263 mg/dl (70-99)
--- NOTE | 2025-03-03 11:56 | W.PN.ONC ---
Today's Communication / Plan
-
Patient with progressive renal cancer, and rapidly reaccumulating ascites
Frequent paracenteses helps symptoms only temporarily
Family and patient have been in discussions with primary med onc, Dr. Vu, and have been refusing hospice and comfort measures, want to exhaust all options
Discussed current issues including near oliguric renal failure - not a HD candidate, hyponatremia.
Indwelling peritoneal drain (e.g., Tenckhoff, etc), will help manage symptoms, but likely at the cost of worsening renal function and hyponatremia due to volume shifts, which will be more difficult to manage as outpatient (I reminded them that we're
not having good success managing them as inpatient at this point)
Patient/family still wish to proceed with drain placement and plans to start Welireg after drain is in place (waiting to initiate drug to reduce risk of wound healing issues)
Will continue to follow and continue discussions re: realistic GOC
Impression
Impression
Metastatic renal cell cancer, refractory with malignant ascites, malignant lymphadenopathy, and carcinomatosis
Acute kidney injury on chronic kidney disease
Chronic congestive heart failure, EF 10-15%
Hyponatremia
Plan
Plan
Patient with progressive renal cancer, and rapidly reaccumulating ascites
Frequent paracenteses helps symptoms only temporarily
Family and patient have been in discussions with primary med onc, Dr. Vu, and have been refusing hospice and comfort measures, want to exhaust all options
Discussed current issues including near oliguric renal failure - not a HD candidate, hyponatremia.
Indwelling peritoneal drain (e.g., Tenckhoff, etc), will help manage symptoms, but likely at the cost of worsening renal function and hyponatremia due to volume shifts, which will be more difficult to manage as outpatient (I reminded them that we're
not having good success managing them as inpatient at this point)
Patient/family still wish to proceed with drain placement (order to IR placed 03/02) and plans to start Welireg after drain is in place (waiting to initiate drug to reduce risk of wound healing issues)
Will continue to follow and continue discussions re: realistic GOC
Subjective/Objective
Subjective/Objective
some relief from ascites s/p para yesterday
family at bedside and on phone
Vital Signs:
Vital Signs
Temp Pulse Resp BP Pulse Ox
97.5 F 90 16 94/66 95
03/03/25 07:00 03/03/25 09:56 03/02/25 13:36 03/03/25 09:56 03/03/25 08:00
Lab Results:
Laboratory Data
WBC 15.5 10^3/uL (4.8-10.8) H 03/03/25 05:42
Hgb 11.2 g/dL (13.0-18.0) L 03/03/25 05:42
Plt Count 384 10^3/uL (130-400) 03/03/25 05:42
eGFR 8.74 03/03/25 05:42
[2025-03-03] MEDS: NOVOLOG FLEXPEN-LOW RESISTANCE 3 UNITS SC (12:28)
--- NOTE | 2025-03-03 13:11 | W.PN.UPDATE ---
Addendum entered and electronically signed by Jen Burgos MD 03/03/25 13:47:
Instructions for home health:�drain smaller volumes, around 2 liters, to manage symptoms and avoid rapid fluid shifts.�
We can start twice weekly plus as needed, if persistent symptoms then schedule 2 Ls every other day.
Original Note:
Update Note
Progress Note Update
I personally discussed on multiple occasions with the patient's primary oncologist Dr. Boy hood, and discussed with family members at bedside and in the phone and decision made for peritoneal catheter drain and plan to start Welireg after
drain is in place, and monitor for toxicity and side effects.
Appreciate oncology input from Dr. Arti Chowdhury.
Dr. Boy hood agreed to manage post discharge peritoneal drain orders.
manager it security consulted to check insurance coverage of supplies after discharge.
Patient will need to drain twice weekly and as needed for abdominal distention/shortness of breath.
--- NOTE | 2025-03-03 13:42 | VNURNOTE ---
Home Health Liaison met with patient, spouse, sons at bedside to discuss [facility] nurse/therapy, visits, schedule and homebound status. Patient is agreeable and understands that visits at home will be 2-3 x per week to assess and teach medical and
drain management.
Patient is aware that [facility] will contact them for start of care within a few days after discharge from . Provided contact number for [facility].
[facility] referral completed in [facility].
--- NOTE | 2025-03-03 14:56 | PTCARENOTE ---
Pt sleeping at this time
[2025-03-03 15:55] LABS: Blood Urea Nitrogen 102 mg/dl (9-20); Calcium 8.4 mg/dl (8.4-10.2); Carbon Dioxide 21 mmol/L (22-30); Chloride 91 mmol/L (98-107); Estimated Creatinine Clearance 12 ml/min; Glucose 143 mg/dl (70-99); Potassium 4.8 mmol/L (3.5-5.1); Sodium 121 mmol/L (135-145); eGFR 9.06
[2025-03-03] MEDS: HEPARIN SC ×2 (15:55→17:19)
[2025-03-03] MEDS: NOVOLOG FLEXPEN SC (15:58)
--- NOTE | 2025-03-03 16:41 | CM ---
F/U: Today, MEGAN Franco asked to pre-approve Asept Catheter before [facility] places this. The purpose is for ascites drainage. MEGAN Franco eventually found out the reason why [facility] was not completing this process as they had prior to last week. MEGAN Franco spoke
to Director and load dropper who stated this is not a process that we perform so that it is in the hands of the ACUTE CARE SURGEON right now. Dr. Burgos initiated this review with the ACUTE CARE SURGEON. MEGAN met with the 3 sons and stating that this process is
being review before proceeding. When asked if we proceed, shared that pre-approval would likely be the next course to share cost information to the family then MEGAN shared some of the barriers that happen when patient's are at home just so family has
an idea as this is new for all of them. CM waiting for next steps. Family is amendable to [facility] providing support so they were consulted. CM waiting for next steps. PLAN: Home w/ [facility] for & w/ Catheter supplies.
[2025-03-03 16:55] LABS: Glucose - Point of Care 204 mg/dl (70-99)
[2025-03-03] MEDS: LIPITOR 80 MG PO (17:22)
[2025-03-03] MEDS: NOVOLOG FLEXPEN-LOW RESISTANCE 2 UNITS SC (17:22)
--- NOTE | 2025-03-03 17:45 | PTCARENOTE ---
Pt son brought a milk shake pt drank less than 1/4 . Milkshake in freezer.
[2025-03-03] MEDS: SENOKOT-S PO (20:09)
--- NOTE | 2025-03-03 20:30 | PTCARENOTE ---
pt aaox3, pale, no c/o pain. pt NSR, HB=779/68. abdomen round and firm. bladder scan for 238. pt using urinal w/ brown/tea color urine noted. NaCl 3% completed. labs drawn. [id number] -Results reported to Dr. London - see MAR - administered NaCl 3%
infusing.
[2025-03-03 20:41] LABS: Blood Urea Nitrogen 109 mg/dl (9-20); Calcium 8.2 mg/dl (8.4-10.2); Carbon Dioxide 21 mmol/L (22-30); Chloride 90 mmol/L (98-107); Estimated Creatinine Clearance 12 ml/min; Glucose 240 mg/dl (70-99); Potassium 4.9 mmol/L (3.5-5.1); Sodium 120 mmol/L (135-145); eGFR 9.23
[2025-03-03] MEDS: LANTUS 0.12 UNITS SC (21:48)
[2025-03-03 21:59] LABS: Glucose - Point of Care 256 mg/dl (70-99)
[2025-03-04] VITALS (15 sets, daily range): BP systolic 86–115; BP diastolic 57–74; PULSE 89; O2SAT 98; BMI 28.4
[2025-03-04 06:06] LABS: Hematocrit 34.6 % (39.0-52.0); Hemoglobin 11.6 g/dL (13.0-18.0); Mean Corp Hgb Conc. 33.5 g/dL (33.0-37.0); Mean Corpuscular Volume 85.4 fL (80.0-94.0); Nucleated Red Blood Cells % 0 % (-); Platelet Count 384 10^3/uL (130-400); Red Cell Dist. Width 14.5 % (11.5-14.5)
[2025-03-04 06:29] LABS: Blood Urea Nitrogen 106 mg/dl (9-20); Calcium 8.2 mg/dl (8.4-10.2); Carbon Dioxide 19 mmol/L (22-30); Chloride 95 mmol/L (98-107); Estimated Creatinine Clearance 13 ml/min; Glucose 177 mg/dl (70-99); Potassium 5.0 mmol/L (3.5-5.1); Sodium 122 mmol/L (135-145); eGFR 9.97
--- NOTE | 2025-03-04 06:52 | W.PN.HOSP.TC ---
Addendum entered and electronically signed by Jen Burgos MD 03/04/25 13:06:
Attending�addendum:
I saw and evaluated the patient independently. I reviewed and discussed the resident�s note and agree with findings and plan as documented in the resident�s note.� patient seen and examined at bedside, family at bedside, denies any chest pain or
shortness of breath, kidney function slightly improved.
Hyponatremia slightly improved
Physical�exam:
GENERAL : Patient is awake, alert, oriented x3
HEENT: Nonicteric sclerae, PERRLA, EOMI. Oropharynx clear. Moist mucous membranes. Conjunctivae appear well perfused.
CHEST: Chest wall is nontender.
HEART: Regular rate and rhythm without murmurs.
LUNGS: Clear to auscultation bilaterally.
ABDOMEN: Distended
RECTAL: Deferred.
MUSCLES/EXTREMITIES: No abnormal range of motion, no swelling.SKIN: No rash, no excessive bruising, petechiae, or purpura.
NEUROLOGIC: Cranial nerves II-XII intact without motor/sensory deficit.
�
Assessment/plan:
Acute kidney injury.
Appreciate urology/nephrology input.
Creatinine improved
Hyperkalemia.
Improved
Metastatic stage IV renal cell carcinoma.
Oncology consulted.
Patient supposed to started on Welireg
Malignant ascites
Cannot obtain peritoneal drain as cannot confirm if covered by insurance
Discussed with IR and family at bedside, plan for outpatient paracentesis arrangement
Patient may need to paracentesis Sunday
CODE STATUS: Full code
DVT prophylaxis: Heparin.
Diet:Low K diet
Family communication: Discussed with family at bedside, on the phone
Disposition: Monitor creatinine and sodium level, paracentesis Sunday.
�
Total time spent on today�s encounter was 65 minutes which included time spent in counseling the patient/family regarding diagnosis and treatment plan as listed above, goals of care, and symptom management. Case was discussed with nursing staff,
specialists, and care coordinators/case management. All labs and imaging personally reviewed by me. Remainder the time spent in detailed review of previous records, lab data, imaging, and other medical provider documentation.
Addendum Dictated by: Jen Burgos MD
Original Note:
Today's Communication/Plan
-
- Start Welireg today
- Monitor for toxicities
- Discuss outpatient serial paracenteses with IR
Assessment / Plan
Assessment / Plan
# Acute kidney injury
- 450 mL urine output in last 24 hours
- Creatinine 6.0 today, improving
- Dr. Barcenas did cystoscopy and stent placement left side 03/01/2025
- Pham catheter removed after stent placement
- Patient is not a good candidate for hemodialysis per discussion with nephrology
- Repeat BMP
Hyperkalemia
- Potassium 5.0
- Will defer to nephro recs
# Hyponatremia
- Sodium 122
- Patient continues to be hyponatremic likely secondary to overall volume overload
- 3% saline as per nephrology recommendations
# Hypotension
- secondary to third spacing and hypoalbuminemia
- continue midodrine 15 mg 3 times daily
# Stage IV Metastatic renal cell carcinoma with refractory malignant ascites, carcinomatosis, retroperitoneal adenopathy
- Plan to start Welireg today inpatient. Will monitor for toxicities.
- Peritoneal catheter placement not approved. Patient will plan to get serial paracenteses as an outpatient, 2 times weekly
- Patient follows with Dr. Vu at [facility]
- Patient was prescribed Welireg prior to admission. Patient has medication present in the hospital room.
# Malignant ascites
- Paracentesis 02/09/2025 with 3 L, 02/16 with 5.5 L, 02/24/2025 with 4.6 L, 02/26/2025 with 3.5 L, 03/02/2025 with 4.9 L
- Completed 5 days ceftriaxone for SBP prophylaxis given PMN count
- No fevers, Gram stain and fluid cultures previously negative. New Gram stain and fluid culture: No organisms seen, fluid culture with no growth.
# Chronic HFrEF with EF 15 to 20%
- Holding diuretics secondary to hypotension
- Holding Jardiance, ARB secondary to renal failure
- I's and O's
# Coronary disease
- S/p stent placement
- Continue aspirin, statin
# Diabetes hemoglobin A1c on 03-03- 7.5%
- Continue Accu-Cheks and sliding scale coverage
- Lantus insulin and mealtime NovoLog
- Hold Jardiance
# Enlarged prostate
- Holding Flomax given hypotension
# Hypoalbuminemia
- Gave 50 g albumin s/p paracentesis on 03/02
DVT prophylax-subcutaneous heparin
Full code
Anticipated Discharge: > 48 hours
Subjective/Interval History
-
Date of Service: March 04, 2025
Patient seen at the bedside this morning patient is feeling more full and bloated than yesterday. Patient states that he has very little appetite but is still trying to eat food. Patient is still having nausea every morning. Patient denies any
abdominal pain at this time. Patient denies shortness of breath, chest pain.
Objective Data
-
Labs:
Laboratory Results
03/03/25 03/04/25
20:10 05:57
WBC 16.5 H
Hgb 11.6 L
Hct 34.6 L
Plt Count 384
Sodium 120 L 122 L
Potassium 4.9 5.0
Chloride 90 L 95 L
Carbon Dioxide 21 L 19 L
BUN 109 H* 106 H*
Creatinine 6.4 H* 6.0 H*
Glucose 240 H 177 H
Calcium 8.2 L 8.2 L
Vital Signs:
Vital Signs
Temp Pulse Resp BP Pulse Ox
98.1 F 85 18 92/61 96
03/04/25 02:57 03/04/25 05:38 03/04/25 05:44 03/04/25 05:38 03/04/25 05:44
I&O
03/02/25 03/03/25 03/04/25
06:59 06:59 06:59
Intake Total 630 / 630 200 / 200 930 / 930
Output Total 155 / 155 600 / 600 450 / 450
Balance 475 / 475 -400 / -400 480 / 480
Review of Systems
-
History Source: Patient
Constitutional: Reports No Symptoms
EENT: Reports No Symptoms Reported
Respiratory: Reports No Symptoms
Cardiac: Reports No Symptoms
Abdomen/GI: Reports Nausea, Diarrhea and Bloated
Genitourinary: Reports Other (Small amounts of dark red urine, difficult to quantify because of diarrhea)
Musculoskeletal: Reports No Symptoms
Skin: Reports No Symptoms
Neuro: Reports No Symptoms
Endocrine: Reports No Symptoms
Allergy / Immunology: Reports No Symptoms
Physical Exam
-
General: No Apparent Distress and Comfortable
HEENT: Moist Mucous Membranes
Respiratory: Decreased Breath Sounds (Bilateral lung bases)
Cardiac: Regular Rhythm
GI: Nontender and Distended
Musculoskeletal: No Edema
Skin: Warm and Dry
Neuro: Awake, Alert and Oriented
Psych: Calm
[2025-03-04] MEDS: SENOKOT-S PO ×2 (07:28→19:27)
--- NOTE | 2025-03-04 08:10 | CM ---
F/U: Today, MEGAN Franco asked to pre-approve Asept Catheter before I.R places this. The purpose is for ascites drainage. Dr. Burgos initiated this review with the ACCESS SERVICE REPRESENTATIVE to see abotu next steps. CM met with the 3 sons and stating that this process is
being review before proceeding. Family is amendable to [facility] providing support so they were consulted. CM waiting for next steps. PLAN: Home w/ [facility] for & w/ Catheter supplies.
[2025-03-04 08:20] LABS: Glucose - Point of Care 180 mg/dl (70-99)
[2025-03-04] MEDS: PROTONIX 40 MG PO (08:30)
[2025-03-04] MEDS: LOW STRENGTH ASPIRIN 81 MG PO (08:30)
[2025-03-04] MEDS: HEPARIN SC ×3 (08:30→23:21)
--- NOTE | 2025-03-04 08:51 | W.PN.NEPH.PH ---
Today's Communication / Plan
-
Maintain low-carb
Hypertonic saline provided again
Follow-up electrolytes and kidney function
Assessment/Plan
-
Impression:
JOSEPH (5.4)
Hyponatremia (121)
Hyperkalemia (7.9)
Hypotension
Right renal cell carcinoma mass
Renal cell carcinoma with recurrent malignant ascites
Chronic congestive heart failure with LVEF of 15 to 20% (weights up 3kg since discharge)
Coronary artery disease with previous stenting procedures
History of hypertension
Type 2 diabetes
BPH
Plan:
follow BMP
Creatinine at 6 BUN at 106 urine output 450 cc
he is not a dialysis candidate as it would surely hasten his with HFrEF 15% on high dose midodrine, large volume ascites requiring frequent paracentesis, peritoneal carcinomatosis advancing
ureteral stent per urology
lokelma daily for hyperkalemia
3% today again given persistent hyponatremia
serial Na
Patient at high clinical risk given persistent renal failure and persistent hyponatremia and hyperkalemia requiring daily therapy
-
-
Date of Service: March 04, 2025
CC / HPI / ROS
-
Chief Complaint:
JOSEPH
History of Present Illness:
JOSEPH/Cr slightly lower 6 BUN up to 106
k down to 49
Na at 122 despite multiple rounds of hypertonic saline
BP low stable on high dose midodrine
barely nonoliguric
Review of Systems:
no cp or sob
abdominal distention
Nonoliguric with 4 and 50 cc
Labs
-
Labs:
WBC 16.5 10^3/uL (4.8-10.8) H 03/04/25 05:57
RBC 4.05 10^6/uL (4.70-6.10) L 03/04/25 05:57
Hgb 11.6 g/dL (13.0-18.0) L 03/04/25 05:57
Hct 34.6 % (39.0-52.0) L 03/04/25 05:57
Plt Count 384 10^3/uL (130-400) 03/04/25 05:57
Sodium 122 mmol/L (135-145) L 03/04/25 05:57
Potassium 5.0 mmol/L (3.5-5.1) 03/04/25 05:57
Chloride 95 mmol/L (98-107) L 03/04/25 05:57
Carbon Dioxide 19 mmol/L (22-30) L 03/04/25 05:57
BUN 106 mg/dl (9-20) H* 03/04/25 05:57
Creatinine 6.0 mg/dL (0.7-1.3) H* 03/04/25 05:57
eGFR 9.97 03/04/25 05:57
Glucose 177 mg/dl (70-99) H 03/04/25 05:57
Calcium 8.2 mg/dl (8.4-10.2) L 03/04/25 05:57
Phosphorus 7.7 mg/dl (2.5-4.5) H 02/24/25 06:13
Albumin 2.9 g/dl (3.5-5.0) L 02/26/25 05:23
Physical Exam
-
Vital Signs:
Vital Signs
Temp Pulse Resp BP Pulse Ox
97.3 F 100 18 92/61 96
03/04/25 07:45 03/04/25 06:00 03/04/25 05:44 03/04/25 05:38 03/04/25 05:44
Cardiovascular:: Regular rate and rhythm
Respiratory:: Bilateral: Coarse
Lung Excursion:: Normal
Abdomen:: Distended, Nontender and Soft
Bowel Sounds:: Normal
Extremity Edema:: +1: Bilateral:
Pham Catheter: No
[2025-03-04] MEDS: NOVOLOG FLEXPEN 5 UNITS SC ×3 (09:41→17:53)
[2025-03-04] MEDS: NOVOLOG FLEXPEN-LOW RESISTANCE 1 UNITS SC ×2 (09:42→17:53)
[2025-03-04] MEDS: LOKELMA 10 GRAM PO (10:41)
[2025-03-04] MEDS: SODIUM CHLORIDE 3% 250 IV (10:42)
--- NOTE | 2025-03-04 10:43 | W.PN.ONC2 ---
Today's Communication / Plan
-
For Tenckhoff catheter later today and then patient can start Wilrig (he has his supply).
If effective, might take take weeks for this therapy to lead to a palliative effect.
Will follow-up intermittently. Patient will follow-up with Dr. Aron Nettles post D/C.
Impression
Impression
Metastatic renal cell cancer, refractory with malignant ascites, malignant lymphadenopathy, and carcinomatosis
Acute kidney injury on chronic kidney disease
Chronic congestive heart failure, EF 10-15%
Hyponatremia
Plan
Plan
Patient with progressive renal cancer, and rapidly reaccumulating ascites
Frequent paracenteses helps symptoms only temporarily
Family and patient have been in discussions with primary med onc, Dr. Vu, and have been refusing hospice and comfort measures, want to exhaust all options
Discussed current issues including near oliguric renal failure - not a HD candidate, hyponatremia.
Indwelling peritoneal drain (e.g., Tenckhoff, etc), will help manage symptoms, but likely at the cost of worsening renal function and hyponatremia due to volume shifts, which will be more difficult to manage as outpatient (I reminded them that we're
not having good success managing them as inpatient at this point)
Patient/family still wish to proceed with drain placement (order to IR placed 03/02) and plans to start Welireg after drain is in place (waiting to initiate drug to reduce risk of wound healing issues)
Will continue to follow and continue discussions re: realistic GOC
Subjective/Objective
Chief Complaint
ACS Heme Onc
Subjective
Patient is scheduled to get a peritoneal drainage Tenckhoff type catheter for palliation today in IR. Patient has declined hospice care and wishes to continue and the option that may be able to get his RCC under control.
Vital Signs:
Vital Signs
Temp Pulse Resp BP Pulse Ox
97.3 F 100 18 92/61 94
03/04/25 07:45 03/04/25 06:00 03/04/25 05:44 03/04/25 05:38 03/04/25 08:14
Lab Results:
Laboratory Data
WBC 16.5 10^3/uL (4.8-10.8) H 03/04/25 05:57
Hgb 11.6 g/dL (13.0-18.0) L 03/04/25 05:57
Plt Count 384 10^3/uL (130-400) 03/04/25 05:57
eGFR 9.97 03/04/25 05:57
Physical Exam
Cardiology: S1 and S2
Pulmonary: Clear
GI: Distended
Extremities: No C/C/E
[2025-03-04] MEDS: STERILE WATER FOR INJECTION IV (10:56)
[2025-03-04 12:31] LABS: Glucose - Point of Care 239 mg/dl (70-99)
--- NOTE | 2025-03-04 12:46 | VNURNOTE ---
Home health liaison spoke with patient and spouse at bedside. Answered questions about home health visits/ visit frequency. Pet policy and homebound criteria explained. Referral updated in care port.
--- NOTE | 2025-03-04 13:02 | CM ---
F/U: Patient is not getting Asept Catheter, will continue paracentesis 2x a week as an outpatient. Met with the / patient who would like services to support her in monitoring her care overall and guiding her. MEGAN Franco arranged [facility] for
vitals, etc as well as Home PT to support when patient get's week and for all IADL's at home. Palliative Care was discussed as well, would like this knowing that AUTO DAMAGE ADJUSTER/ MD visits first then RN/ANESTHESIA TECHNICIAN then all available for phone call support.
Patient is likely ready Sunday as Hospitalist stated because starting chemo here. CM to follow up when ready. PLAN: [facility] for VN/PT & Palliative Care.
--- NOTE | 2025-03-04 13:37 | PTCARENOTE ---
Pt's assessment as documented. Aox3, flat. NSR with BBC on tele monitor. BP soft, pt asymptomatic. Medications administered as ordered, see JUN. Pt is to begin new home chemo medication today-awaiting verification from pharmacy. Ambulating in room.
Pt refuses to leave BP cuff and pulse ox on. Pt and updated on plan of care. Care as documented- see worklist.
[2025-03-04] MEDS: NOVOLOG FLEXPEN-LOW RESISTANCE 2 UNITS SC (13:50)
[2025-03-04] MEDS: NON-FORMULARY ITEM 120 MG PO (14:39)
[2025-03-04 17:21] LABS: Glucose - Point of Care 152 mg/dl (70-99)
[2025-03-04] MEDS: LIPITOR 80 MG PO (17:54)
--- NOTE | 2025-03-04 20:39 | PTCARENOTE ---
assumed care of patient. pt is AAOx3, flat affect, able to make needs known. sleeping when undisturbed. abdomen distended, firm, round. no complaints of pain at this time. care ongoing.
[2025-03-04] MEDS: LANTUS 0.12 UNITS SC (20:57)
[2025-03-04 21:09] LABS: Glucose - Point of Care 197 mg/dl (70-99)
[2025-03-04] MEDS: COMPAZINE 5 MG IV ×2 (23:21)
[2025-03-05] VITALS (9 sets, daily range): BP systolic 90–111; BP diastolic 59–76; BMI 29.5
[2025-03-05 05:30] LABS: Hematocrit 35.2 % (39.0-52.0); Hemoglobin 11.7 g/dL (13.0-18.0); Mean Corp Hgb Conc. 33.2 g/dL (33.0-37.0); Mean Corpuscular Volume 84.4 fL (80.0-94.0); Nucleated Red Blood Cells % 0 % (-); Platelet Count 426 10^3/uL (130-400); Red Cell Dist. Width 14.6 % (11.5-14.5)
[2025-03-05 05:51] LABS: Blood Urea Nitrogen 108 mg/dl (9-20); Calcium 8.2 mg/dl (8.4-10.2); Carbon Dioxide 19 mmol/L (22-30); Chloride 90 mmol/L (98-107); Estimated Creatinine Clearance 13 ml/min; Glucose 162 mg/dl (70-99); Potassium 5.0 mmol/L (3.5-5.1); Sodium 118 mmol/L (135-145); eGFR 9.59
[2025-03-05] MEDS: SODIUM CHLORIDE 3% 250 IV ×2 (06:16→17:25)
--- NOTE | 2025-03-05 06:20 | PTCARENOTE ---
sodium level critical this AM- 118. notified covering LIQUEFACTION AND REGASIFICATION HELPER- orders entered for 3% NaCl @ 30ml/hr. infusing in left FA.
--- NOTE | 2025-03-05 06:37 | W.PN.HOSP.TC ---
Addendum entered and electronically signed by Jen Burgos MD 03/05/25 13:45:
Attending�addendum:
I saw and evaluated the patient independently. I reviewed and discussed the resident�s note and agree with findings and plan as documented in the resident�s note.� patient seen and examined at bedside, family at bedside, denies any chest pain or
shortness of breath, kidney function slightly worsening today
Worsening hyponatremia
Physical�exam:
GENERAL : Patient is awake, alert, oriented x3
HEENT: Nonicteric sclerae, PERRLA, EOMI. Oropharynx clear. Moist mucous membranes. Conjunctivae appear well perfused.
CHEST: Chest wall is nontender.
HEART: Regular rate and rhythm without murmurs.
LUNGS: Clear to auscultation bilaterally.
ABDOMEN: Distended
RECTAL: Deferred.
MUSCLES/EXTREMITIES: No abnormal range of motion, no swelling.SKIN: No rash, no excessive bruising, petechiae, or purpura.
NEUROLOGIC: Cranial nerves II-XII intact without motor/sensory deficit.
�
Assessment/plan:
Acute kidney injury.
Appreciate urology/nephrology input.
Creatinine slightly worsening
Hyponatremia.
Worsening today
Hyperkalemia.
Improved
Metastatic stage IV renal cell carcinoma.
Oncology consulted.
started on Welireg
Malignant ascites
Cannot obtain peritoneal drain as cannot confirm if covered by insurance
Discussed with IR and family at bedside, plan for outpatient paracentesis arrangement
Patient may need to paracentesis Sunday
CODE STATUS: Full code
DVT prophylaxis: Heparin.
Diet:Low K diet
Family communication: Discussed with family at bedside, on the phone
Disposition: Need to monitor sodium and creatinine level
�
Total time spent on today�s encounter was 65 minutes which included time spent in counseling the patient/family regarding diagnosis and treatment plan as listed above, goals of care, and symptom management. Case was discussed with nursing staff,
specialists, and care coordinators/case management. All labs and imaging personally reviewed by me. Remainder the time spent in detailed review of previous records, lab data, imaging, and other medical provider documentation.
Original Note:
Today's Communication/Plan
-
- Continue Welireg
- Continue monitoring for medication toxicity
- Additional paracentesis likely needed tomorrow
- Hyponatremia management as per nephrology recs
Assessment / Plan
Assessment / Plan
# Acute kidney injury
- 450 mL urine output yesterday, although none documented today
- Creatinine 6.2 today
- Dr. Barcenas did cystoscopy and stent placement left side 03/01/2025
- Pham catheter removed after stent placement
- Patient is not a good candidate for hemodialysis per discussion with nephrology
- Repeat BMP
Hyperkalemia
- Potassium 5.0
- Will defer to nephro recs
# Hyponatremia
- Sodium 118
- Patient continues to be hyponatremic likely secondary to overall volume overload
- 3% saline as per nephrology recommendations
# Hypotension
- secondary to third spacing and hypoalbuminemia
- continue midodrine 15 mg 3 times daily
# Stage IV Metastatic renal cell carcinoma with refractory malignant ascites, carcinomatosis, retroperitoneal adenopathy
- Started Welireg yesterday inpatient. Will monitor for toxicities.
- Peritoneal catheter placement not approved. Patient will plan to get serial paracenteses as an outpatient, 2 times weekly
- Patient follows with Dr. Vu at [facility]
# Malignant ascites
- Paracentesis 02/09/2025 with 3 L, 02/16 with 5.5 L, 02/24/2025 with 4.6 L, 02/26/2025 with 3.5 L, 03/02/2025 with 4.9 L
- Completed 5 days ceftriaxone for SBP prophylaxis given PMN count
- No fevers, Gram stain and fluid cultures previously negative. New Gram stain and fluid culture: No organisms seen, fluid culture with no growth.
# Chronic HFrEF with EF 15 to 20%
- Holding diuretics secondary to hypotension, will defer to nephrology on restarting
- Holding Jardiance, ARB secondary to renal failure
- I's and O's
# Coronary disease
- S/p stent placement
- Continue aspirin, statin
# Diabetes hemoglobin A1c on 03-03- 7.5%
- Continue Accu-Cheks and sliding scale coverage
- Lantus insulin and mealtime NovoLog
- Hold Jardiance
# Enlarged prostate
- Holding Flomax given hypotension
# Hypoalbuminemia
- Gave 50 g albumin s/p paracentesis on 03/02
DVT prophylax-subcutaneous heparin
Full code
Anticipated Discharge: > 48 hours
Subjective/Interval History
-
Date of Service: March 05, 2025
Patient seen at the bedside this morning. Patient was able to start chemotherapy yesterday. Patient states that he feels fine after starting the medication yesterday. Patient does note that his abdomen is more distended than yesterday. PT OT saw
patient yesterday, patient able to tolerate increased mobility per note.
Objective Data
-
Labs:
Laboratory Results
03/05/25
05:08
WBC 18.7 H
Hgb 11.7 L
Hct 35.2 L
Plt Count 426 H
Sodium 118 L*
Potassium 5.0
Chloride 90 L
Carbon Dioxide 19 L
BUN 108 H*
Creatinine 6.2 H*
Glucose 162 H
Calcium 8.2 L
Vital Signs:
Vital Signs
Temp Pulse Resp BP Pulse Ox
97.6 F 87 18 95/69 95
03/05/25 03:20 03/05/25 04:17 03/04/25 20:04 03/05/25 04:17 03/04/25 20:06
I&O
03/03/25 03/04/25 03/05/25
06:59 06:59 06:59
Intake Total 200 / 200 930 / 930 960 / 960
Output Total 600 / 600 450 / 450
Balance -400 / -400 480 / 480 960 / 960
Review of Systems
-
History Source: Patient
Constitutional: Reports No Symptoms
EENT: Reports No Symptoms Reported
Respiratory: Reports No Symptoms
Cardiac: Reports No Symptoms
Abdomen/GI: Reports Bloated and Other (Distended)
Genitourinary: Reports Difficulty Voiding
Musculoskeletal: Reports No Symptoms
Skin: Reports No Symptoms
Neuro: Reports No Symptoms
Endocrine: Reports No Symptoms
Hematologic / Lymphatic: Reports No Symptoms
Allergy / Immunology: Reports No Symptoms
Physical Exam
-
General: No Apparent Distress and Comfortable
HEENT: Normocephalic, Atraumatic and Moist Mucous Membranes
Respiratory: Decreased Breath Sounds (Bilateral bases of lung)
Cardiac: Regular Rhythm
GI: Nontender and Distended
Musculoskeletal: No Edema
Skin: Warm and Dry
Neuro: Awake, Alert and Oriented
Psych: Calm
--- NOTE | 2025-03-05 06:52 | W.PN.UPDATE ---
Update Note
Progress Note Update
Na 118- this morning. Nephrology recommended restarting 3% saline @30ml/hr
--- NOTE | 2025-03-05 08:14 | W.PN.NEPH.PH ---
Today's Communication / Plan
-
lasix salt
Assessment/Plan
-
Impression:
JOSEPH (5.4)
Hyponatremia (121)
Hyperkalemia (7.9)
Hypotension
Right renal cell carcinoma mass
Renal cell carcinoma with recurrent malignant ascites
Chronic congestive heart failure with LVEF of 15 to 20% (weights up 3kg since discharge)
Coronary artery disease with previous stenting procedures
History of hypertension
Type 2 diabetes
BPH
Plan:
follow BMP
he is not a dialysis candidate as it would surely hasten his with HFrEF 15% on high dose midodrine, large volume ascites requiring frequent paracentesis, peritoneal carcinomatosis advancing
ureteral stent per urology
lokelma daily for hyperkalemia
3% today again given persistent hyponatremia
serial Na
add lasix and NaCl
may need to try samsca later if poor response
Patient at high clinical risk given persistent renal failure and persistent hyponatremia and hyperkalemia requiring daily therapy
-
-
Date of Service: March 05, 2025
CC / HPI / ROS
-
Chief Complaint:
JOSEPH
History of Present Illness:
JOSEPH/Cr stable 6.2
k stable 5
Na at 118 and lower despite multiple rounds of hypertonic saline
BP low stable on high dose midodrine
barely nonoliguric
Review of Systems:
no cp or sob
abdominal distention
Labs
-
Labs:
WBC 18.7 10^3/uL (4.8-10.8) H 03/05/25 05:08
RBC 4.17 10^6/uL (4.70-6.10) L 03/05/25 05:08
Hgb 11.7 g/dL (13.0-18.0) L 03/05/25 05:08
Hct 35.2 % (39.0-52.0) L 03/05/25 05:08
Plt Count 426 10^3/uL (130-400) H 03/05/25 05:08
Sodium 118 mmol/L (135-145) L* 03/05/25 05:08
Potassium 5.0 mmol/L (3.5-5.1) 03/05/25 05:08
Chloride 90 mmol/L (98-107) L 03/05/25 05:08
Carbon Dioxide 19 mmol/L (22-30) L 03/05/25 05:08
BUN 108 mg/dl (9-20) H* 03/05/25 05:08
Creatinine 6.2 mg/dL (0.7-1.3) H* 03/05/25 05:08
eGFR 9.59 03/05/25 05:08
Glucose 162 mg/dl (70-99) H 03/05/25 05:08
Calcium 8.2 mg/dl (8.4-10.2) L 03/05/25 05:08
Phosphorus 7.7 mg/dl (2.5-4.5) H 02/24/25 06:13
Albumin 2.9 g/dl (3.5-5.0) L 02/26/25 05:23
Physical Exam
-
Vital Signs:
Vital Signs
Temp Pulse Resp BP Pulse Ox
97.6 F 87 18 90/70 95
03/05/25 07:11 03/05/25 06:15 03/04/25 20:04 03/05/25 06:15 03/04/25 20:06
Cardiovascular:: Regular rate and rhythm
Respiratory:: Bilateral: Coarse
Lung Excursion:: Normal
Abdomen:: Distended, Nontender and Soft
Bowel Sounds:: Normal
Extremity Edema:: +1: Bilateral:
--- NOTE | 2025-03-05 08:19 | PTCARENOTE ---
Pt is AAAOx3 very flat and withdrawn. Pt ambulates in room likes light off. Takes pills without incident. Discharge planning in process.
[2025-03-05] MEDS: LASIX 80 MG IV (08:45)
[2025-03-05] MEDS: HEPARIN SC (08:45)
[2025-03-05] MEDS: SENOKOT-S PO ×2 (08:50→20:33)
[2025-03-05] MEDS: SODIUM CHLORIDE 1 GRAM PO ×2 (08:52→20:33)
[2025-03-05] MEDS: PROTONIX 40 MG PO (08:52)
[2025-03-05] MEDS: LOKELMA 10 GRAM PO (08:52)
[2025-03-05] MEDS: LOW STRENGTH ASPIRIN 81 MG PO (08:52)
[2025-03-05] MEDS: NON-FORMULARY ITEM 3 MG PO (08:58)
--- NOTE | 2025-03-05 09:08 | VATNOTE ---
Upon routine rounds this IV nurse noted left arm to be slightly swollen from hand extending up to upper arm. IV infusing via the left arm but not infiltrated. Line flushed easily with a brisk blood return. IV site removed from left arm and
established on right arm. Primary care RN made aware and recommended peripheral ultrasound to rule out DVT. Primary care RN will point out arm to hospitalist during their routine rounds.
[2025-03-05 09:31] LABS: Glucose - Point of Care 190 mg/dl (70-99)
[2025-03-05] MEDS: NOVOLOG FLEXPEN-LOW RESISTANCE 1 UNITS SC ×2 (09:46→12:44)
[2025-03-05] MEDS: NOVOLOG FLEXPEN 8 UNITS SC ×3 (09:47→17:22)
[2025-03-05 11:18] LABS: Blood Urea Nitrogen 110 mg/dl (9-20); Calcium 8.0 mg/dl (8.4-10.2); Carbon Dioxide 18 mmol/L (22-30); Chloride 90 mmol/L (98-107); Estimated Creatinine Clearance 13 ml/min; Glucose 181 mg/dl (70-99); Potassium 4.9 mmol/L (3.5-5.1); Sodium 117 mmol/L (135-145); eGFR 9.78
[2025-03-05] MEDS: STERILE WATER FOR INJECTION IV (11:27)
[2025-03-05 12:20] LABS: Glucose - Point of Care 185 mg/dl (70-99)
[2025-03-05] MEDS: SAMSCA 30 MG PO (12:41)
--- NOTE | 2025-03-05 15:27 | PTCARENOTE ---
Pt wants IR called in to do tap today , told I did not think that would happen, she wants me to ask MD. TT.
--- NOTE | 2025-03-05 15:41 | PTCARENOTE ---
Pt daron he has urinated 6 times small amts
[2025-03-05 16:42] LABS: Blood Urea Nitrogen 107 mg/dl (9-20); Calcium 8.3 mg/dl (8.4-10.2); Carbon Dioxide 18 mmol/L (22-30); Chloride 89 mmol/L (98-107); Estimated Creatinine Clearance 13 ml/min; Glucose 185 mg/dl (70-99); Potassium 5.5 mmol/L (3.5-5.1); Sodium 115 mmol/L (135-145); eGFR 9.97
[2025-03-05 16:54] LABS: Glucose - Point of Care 242 mg/dl (70-99)
[2025-03-05] MEDS: LIPITOR 80 MG PO (17:22)
[2025-03-05] MEDS: NOVOLOG FLEXPEN-LOW RESISTANCE 2 UNITS SC (17:22)
[2025-03-05] MEDS: HEPARIN 5000 UNITS SC ×2 (17:30→23:42)
--- NOTE | 2025-03-05 17:46 | PTCARENOTE ---
Pt in bed sleeping soundly responds to name and answers questions appropriately. Pt aware there is a specimen cup in BR to void in
[2025-03-05 21:20] LABS: Glucose - Point of Care 208 mg/dl (70-99)
[2025-03-05] MEDS: LANTUS 0.12 UNITS SC (22:01)
[2025-03-05 22:43] LABS: Blood Urea Nitrogen 107 mg/dl (9-20); Calcium 8.2 mg/dl (8.4-10.2); Carbon Dioxide 19 mmol/L (22-30); Chloride 90 mmol/L (98-107); Estimated Creatinine Clearance 13 ml/min; Glucose 163 mg/dl (70-99); Potassium 5.2 mmol/L (3.5-5.1); Sodium 116 mmol/L (135-145); eGFR 9.59
--- NOTE | 2025-03-05 23:18 | PTCARENOTE ---
Assumed care of Pt from day RN. Pt AAOx3, appearing to be withdrawn. Pt stating he is 'tired'. Education on pain management and comfort given. Pt stating he is not in pain ' I just feel pressure and need to be tapped'. Pt repeat labs done showing no
change in trend.
[2025-03-05] MEDS: COMPAZINE 5 MG IV (23:45)
[2025-03-06] VITALS (13 sets, daily range): BP systolic 89–106; BP diastolic 59–73; BMI 30.7
[2025-03-06 04:54] LABS: Hematocrit 33.2 % (39.0-52.0); Hemoglobin 11.1 g/dL (13.0-18.0); Mean Corp Hgb Conc. 33.4 g/dL (33.0-37.0); Mean Corpuscular Volume 84.1 fL (80.0-94.0); Nucleated Red Blood Cells % 0 % (-); Platelet Count 423 10^3/uL (130-400); Red Cell Dist. Width 14.5 % (11.5-14.5)
[2025-03-06 05:22] LABS: Blood Urea Nitrogen 109 mg/dl (9-20); Calcium 8.2 mg/dl (8.4-10.2); Carbon Dioxide 17 mmol/L (22-30); Chloride 89 mmol/L (98-107); Estimated Creatinine Clearance 14 ml/min; Glucose 168 mg/dl (70-99); Potassium 5.3 mmol/L (3.5-5.1); Sodium 116 mmol/L (135-145); eGFR 9.59
[2025-03-06] MEDS: BENADRYL 12.5 MG IV (05:45)
--- NOTE | 2025-03-06 06:06 | PTCARENOTE ---
Pt feeling nausea PERMIT COORDINATOR made aware, Benadryl ordered.
[2025-03-06 08:17] LABS: Glucose - Point of Care 197 mg/dl (70-99)
--- NOTE | 2025-03-06 09:00 | PTCARENOTE ---
Patient received from cage shift manager. Patient resting comfortably in bed. AAO, VSS. No events noted overnight. No complaints of pain at this time, just occasional nausea. Patient set for a paracentesis this AM. Albumin and 3% Na ordered, will get
started once back from procedure. Repeat lab 4 hours after starting 3%. No other testing scheduled at this time. Call tyler in reach.
[2025-03-06] MEDS: SODIUM CHLORIDE 1 GRAM PO ×3 (10:07→21:55)
[2025-03-06] MEDS: PROTONIX 40 MG PO (10:07)
[2025-03-06] MEDS: LOKELMA 10 GRAM PO (10:07)
[2025-03-06] MEDS: LOW STRENGTH ASPIRIN 81 MG PO (10:07)
[2025-03-06] MEDS: SODIUM CHLORIDE 3% 250 IV ×3 (10:10→23:23)
[2025-03-06 10:15] LABS: Body Fluid Second Tech RP
[2025-03-06] MEDS: NOVOLOG FLEXPEN-LOW RESISTANCE 1 UNITS SC (10:16)
[2025-03-06] MEDS: NON-FORMULARY ITEM 120 MG PO (10:17)
[2025-03-06] MEDS: HEPARIN 5000 UNITS SC ×3 (10:17→23:05)
[2025-03-06] MEDS: SENOKOT-S PO (10:19)
[2025-03-06] MEDS: STERILE WATER FOR INJECTION IV (10:20)
[2025-03-06] MEDS: NOVOLOG FLEXPEN SC (10:20)
[2025-03-06] MEDS: FLEXBUMIN 100 IV ×2 (10:33→11:59)
--- NOTE | 2025-03-06 11:43 | W.PN.ONC ---
Today's Communication / Plan
-
No significant change in above stated plan. Prognosis poor.
Impression
Impression
Metastatic renal cell cancer, refractory with malignant ascites, malignant lymphadenopathy, and carcinomatosis
Acute kidney injury on chronic kidney disease, suspect hepato/cardio/renal type picture (liver OK but profound malignant ascites)
Chronic congestive heart failure, EF 10-15%
Hyponatremia
Plan
Plan
Patient with progressive renal cancer, and rapidly reaccumulating ascites
Frequent paracenteses helps symptoms only temporarily
Family and patient have been in discussions with primary med onc, Dr. Vu, and have been refusing hospice and comfort measures, want to exhaust all options
Discussed current issues including near oliguric renal failure - not a HD candidate, hyponatremia.
Indwelling peritoneal drain (e.g., Tenckhoff, etc), will help manage symptoms, but likely at the cost of worsening renal function and hyponatremia due to volume shifts, which will be more difficult to manage as outpatient (I reminded them that we're
not having good success managing them as inpatient at this point)
Patient/family still wish to proceed with drain placement (order to IR placed 03/02) and plans to start Welireg after drain is in place (waiting to initiate drug to reduce risk of wound healing issues)
Will continue to follow and continue discussions re: realistic GOC
Subjective/Objective
Subjective/Objective
He is feeling reasonably well. He denies any pain. He had about 5 L removed today.
Vital Signs:
Vital Signs
Temp Pulse Resp BP Pulse Ox
97.5 F 86 16 98/69 95
03/06/25 08:35 03/06/25 10:14 03/06/25 09:29 03/06/25 10:14 03/06/25 10:50
Lab Results:
Laboratory Data
WBC 20.5 10^3/uL (4.8-10.8) H 03/06/25 04:29
Hgb 11.1 g/dL (13.0-18.0) L 03/06/25 04:29
Plt Count 423 10^3/uL (130-400) H 03/06/25 04:29
eGFR 9.59 03/06/25 04:29
[2025-03-06] MEDS: NOVOLOG FLEXPEN-LOW RESISTANCE 2 UNITS SC ×2 (13:21→18:12)
[2025-03-06] MEDS: NOVOLOG FLEXPEN 4 UNITS SC (13:22)
[2025-03-06 13:27] LABS: Glucose - Point of Care 237 mg/dl (70-99)
--- NOTE | 2025-03-06 13:33 | W.PN.HOSP.TC ---
Addendum entered and electronically signed by Jen Burgos MD 03/06/25 14:20:
Attending�addendum:
I saw and evaluated the patient independently. I reviewed and discussed the resident�s note and agree with findings and plan as documented in the resident�s note.� patient seen and examined at bedside, discussed with in the phone, status post
partial
Worsening hyponatremia
Physical�exam:
GENERAL : Patient is awake, alert, oriented x3
HEENT: Nonicteric sclerae, PERRLA, EOMI. Oropharynx clear. Moist mucous membranes. Conjunctivae appear well perfused.
CHEST: Chest wall is nontender.
HEART: Regular rate and rhythm without murmurs.
LUNGS: Clear to auscultation bilaterally.
ABDOMEN: less Distended
RECTAL: Deferred.
MUSCLES/EXTREMITIES: No abnormal range of motion, no swelling.SKIN: No rash, no excessive bruising, petechiae, or purpura.
NEUROLOGIC: Cranial nerves II-XII intact without motor/sensory deficit.
�
Assessment/plan:
Acute kidney injury.
Appreciate urology/nephrology input.
Persistent hyponatremia.
Appreciate nephrology input
Hyperkalemia.
Improved
Metastatic stage IV renal cell carcinoma.
Oncology consulted.
started on Welireg
Malignant ascites
Status post multiple paracentesis
CODE STATUS: Full code
DVT prophylaxis: Heparin.
Diet:Low K diet
Family communication: Discussed with family at bedside, on the phone
Disposition: Need to monitor sodium and creatinine level
poor prognosis
�
Total time spent on today�s encounter was 65 minutes which included time spent in counseling the patient/family regarding diagnosis and treatment plan as listed above, goals of care, and symptom management. Case was discussed with nursing staff,
specialists, and care coordinators/case management. All labs and imaging personally reviewed by me. Remainder the time spent in detailed review of previous records, lab data, imaging, and other medical provider documentation.
Original Note:
Today's Communication/Plan
-
- S/p paracentesis today
- Fluid analysis pending
- Continue monitoring BMP and CBC
Assessment / Plan
Assessment / Plan
# Acute kidney injury
- Minimal urine output yesterday
- Creatinine 6.2 today
- Dr. Barcenas did cystoscopy and stent placement left side 03/01/2025
- Patient is not a good candidate for hemodialysis per discussion with nephrology
- Repeat BMP
Hyperkalemia
- Will defer to nephro recs
# Hyponatremia
- Sodium 116
- Patient continues to be hyponatremic likely secondary to overall volume overload
- 3% saline as per nephrology recommendations
# Hypotension
- secondary to third spacing and hypoalbuminemia
- continue midodrine 15 mg 3 times daily
# Stage IV Metastatic renal cell carcinoma with refractory malignant ascites, carcinomatosis, retroperitoneal adenopathy
- Started Welireg yesterday inpatient. Will monitor for toxicities.
- Peritoneal catheter placement not approved. Patient will plan to get serial paracenteses as an outpatient, 2 times weekly
- Patient follows with Dr. Vu at [facility]
# Malignant ascites
- Paracentesis 02/09/2025 with 3 L, 02/16 with 5.5 L, 02/24/2025 with 4.6 L, 02/26/2025 with 3.5 L, 03/02/2025 with 4.9 L
- Completed 5 days ceftriaxone for SBP prophylaxis given PMN count
- No fevers, Gram stain and fluid cultures previously negative. New Gram stain and fluid culture: No organisms seen, fluid culture with no growth.
# Chronic HFrEF with EF 15 to 20%
- Holding diuretics secondary to hypotension, will defer to nephrology on restarting
- Holding Jardiance, ARB secondary to renal failure
- I's and O's
# Coronary disease
- S/p stent placement
- Continue aspirin, statin
# Diabetes hemoglobin A1c on 03-03- 7.5%
- Continue Accu-Cheks and sliding scale coverage
- Lantus insulin and mealtime NovoLog
- Hold Jardiance
# Enlarged prostate
- Holding Flomax given hypotension
# Hypoalbuminemia
- Gave 50 g albumin s/p paracentesis on 03/02
DVT prophylax-subcutaneous heparin
Full code
Anticipated Discharge: > 48 hours
Subjective/Interval History
-
Date of Service: March 06, 2025
Patient seen sitting up in bed eating lunch. Patient had paracentesis this morning and feels much better. Patient states that he does not have much of an appetite, still experiencing dry heaving/nausea in the mornings.
Objective Data
-
Labs:
Laboratory Results
03/06/25 03/06/25
04:29 12:00
WBC 20.5 H
Hgb 11.1 L
Hct 33.2 L
Plt Count 423 H
Sodium 116 L* Pending
Potassium 5.3 H Pending
Chloride 89 L Pending
Carbon Dioxide 17 L Pending
BUN 109 H* Pending
Creatinine 6.2 H* Pending
Glucose 168 H Pending
Calcium 8.2 L Pending
Vital Signs:
Vital Signs
Temp Pulse Resp BP Pulse Ox
98.0 F 93 16 104/67 95
03/06/25 12:16 03/06/25 13:19 03/06/25 09:29 03/06/25 13:19 03/06/25 10:50
I&O
03/05/25 03/06/25 03/07/25
06:59 06:59 06:59
Intake Total 960 / 960 740 / 740
Output Total 100 / 100
Balance 960 / 960 640 / 640
Review of Systems
-
History Source: Patient
Constitutional: Reports No Symptoms
EENT: Reports No Symptoms Reported
Respiratory: Reports No Symptoms
Cardiac: Reports No Symptoms
Abdomen/GI: Reports No Symptoms
Genitourinary: Reports No Symptoms
Musculoskeletal: Reports No Symptoms
Skin: Reports No Symptoms
Neuro: Reports No Symptoms
Endocrine: Reports No Symptoms
Hematologic / Lymphatic: Reports No Symptoms
Allergy / Immunology: Reports No Symptoms
Physical Exam
-
General: Comfortable
HEENT: Normocephalic
Respiratory: Decreased Breath Sounds (Bilateral lung bases)
Cardiac: Regular Rhythm
GI: Soft, Nontender and Distended (mild)
Musculoskeletal: No Edema
Skin: Warm and Dry
Neuro: Awake, Alert and Oriented
Psych: Calm
--- NOTE | 2025-03-06 13:39 | W.PN.NEPH.PH ---
Today's Communication / Plan
-
3%
Assessment/Plan
-
Impression:
JOSEPH (5.4)
Hyponatremia (121)
Hyperkalemia (7.9)
Hypotension
Right renal cell carcinoma mass
Renal cell carcinoma with recurrent malignant ascites
Chronic congestive heart failure with LVEF of 15 to 20% (weights up 3kg since discharge)
Coronary artery disease with previous stenting procedures
History of hypertension
Type 2 diabetes
BPH
Plan:
he is not a dialysis candidate as it would surely hasten his with HFrEF 15% on high dose midodrine, large volume ascites requiring frequent paracentesis, peritoneal carcinomatosis advancing
ureteral stent management per urology
lokelma daily for hyperkalemia
add bicarbonate po BID for acidosis and hyperkalemia
3% today again given persistent hyponatremia, needed to increase rate to 40ml/hr to even stop decline of level
serial Na
continue NaCl
no increase in UOP at all with lasix and tolvaptan
albumin with LVP
I had a discussion with Kristan on the phone with the patient. I detailed the problem with the hyponatremia. Tolvaptan had no effect and intravenous Lasix had no effect on urine output and so he clearly did not excrete additional free water.
Hypertonic saline was unable to improve the hyponatremia and increasing the rate only stabilized to the level. He cannot leave the hospital with a sodium level at this level and even if he were to improve it closer to 128 it would most likely fall
after discharge immediately. He is already on salt tablets which I will increase. She says that she believes that having more doctors see him would lead to a solution for his multiple issues. Given his current length of stay that and may be
better achieved with a transfer to [facility], where his primary oncologist is. But both the patient and Kristan automatically dismissed the idea. They were also under the impression that Welirig could cure his cancer.
The patient did ask what his longevity would be if he stopped all his medications with the exception of the new chemotherapy agent. I estimated that that would be measured in a few weeks.
-
-
Date of Service: March 06, 2025
CC / HPI / ROS
-
Chief Complaint:
JOSEPH
History of Present Illness:
JOSEPH/Cr stable 6.2
k 5.3 on daily lokelma
Na at 116 lower despite multiple rounds of hypertonic saline, NaCl, samsca
BP low stable on high dose midodrine
barely nonoliguric
po solid intake low, but po fluids good
s/p LVP 5+L 03/06
Review of Systems:
no cp or sob
abdominal distention
Labs
-
Labs:
WBC 20.5 10^3/uL (4.8-10.8) H 03/06/25 04:29
RBC 3.95 10^6/uL (4.70-6.10) L 03/06/25 04:29
Hgb 11.1 g/dL (13.0-18.0) L 03/06/25 04:29
Hct 33.2 % (39.0-52.0) L 03/06/25 04:29
Plt Count 423 10^3/uL (130-400) H 03/06/25 04:29
eGFR 9.59 03/06/25 04:29
Phosphorus 7.7 mg/dl (2.5-4.5) H 02/24/25 06:13
Albumin 2.9 g/dl (3.5-5.0) L 02/26/25 05:23
Physical Exam
-
Vital Signs:
Vital Signs
Temp Pulse Resp BP Pulse Ox
98.0 F 93 16 104/67 95
03/06/25 12:16 03/06/25 13:19 03/06/25 09:29 03/06/25 13:19 03/06/25 10:50
Cardiovascular:: Regular rate and rhythm
Respiratory:: Bilateral: Coarse
Lung Excursion:: Normal
Abdomen:: Nontender and Soft
Bowel Sounds:: Normal
Extremity Edema:: +1: Bilateral:
--- NOTE | 2025-03-06 15:08 | CM ---
F/U: Patient is s/p paracentesis today, now watching fluid analysis pending, and continue monitoring BMP and CBC. Patient is set up with [facility] so when ready, has all the services he needs. Patient will go for 2x a week
paracentesis. PLAN: [facility].
[2025-03-06 15:20] LABS: Blood Urea Nitrogen 109 mg/dl (9-20); Calcium 7.7 mg/dl (8.4-10.2); Carbon Dioxide 17 mmol/L (22-30); Chloride 88 mmol/L (98-107); Estimated Creatinine Clearance 15 ml/min; Glucose 228 mg/dl (70-99); Potassium 5.1 mmol/L (3.5-5.1); Sodium 114 mmol/L (135-145); eGFR 10.39
[2025-03-06] MEDS: SODIUM BICARBONATE 650 MG PO ×2 (16:44→21:55)
[2025-03-06] MEDS: LIPITOR 80 MG PO (17:19)
[2025-03-06 17:47] LABS: Glucose - Point of Care 228 mg/dl (70-99)
[2025-03-06] MEDS: NOVOLOG FLEXPEN 8 UNITS SC (18:12)
[2025-03-06 21:17] LABS: Blood Urea Nitrogen 111 mg/dl (9-20); Calcium 7.7 mg/dl (8.4-10.2); Carbon Dioxide 18 mmol/L (22-30); Chloride 92 mmol/L (98-107); Estimated Creatinine Clearance 17 ml/min; Glucose 187 mg/dl (70-99); Potassium 5.3 mmol/L (3.5-5.1); Sodium 116 mmol/L (135-145); eGFR 11.84
[2025-03-06 21:47] LABS: Glucose - Point of Care 156 mg/dl (70-99)
[2025-03-06] MEDS: LANTUS 0.12 UNITS SC (21:54)
[2025-03-06] MEDS: SENOKOT-S 1 TABLET PO (21:55)
--- NOTE | 2025-03-06 23:55 | PTCARENOTE ---
Pt had PICC placed on day shift. VAT on nights requesting both right side INT's be taken out and inactive on work list. Documentation done.
[2025-03-07] VITALS (13 sets, daily range): BP systolic 91–122; BP diastolic 54–71; PULSE 93; BMI 29.6
--- NOTE | 2025-03-07 01:29 | PTCARENOTE ---
New order placed for 3% NaCl. Pt made aware, education and emotional support given.
[2025-03-07 05:19] LABS: Hematocrit 32.4 % (39.0-52.0); Hemoglobin 10.5 g/dL (13.0-18.0); Mean Corp Hgb Conc. 32.4 g/dL (33.0-37.0); Mean Corpuscular Volume 87.6 fL (80.0-94.0); Nucleated Red Blood Cells % 0 % (-); Platelet Count 426 10^3/uL (130-400); Red Cell Dist. Width 14.6 % (11.5-14.5)
[2025-03-07 05:50] LABS: ALT (SGPT) < 10 U/L (0-50); AST (SGOT) 19 U/L (17-59); Albumin 2.6 g/dl (3.5-5.0); Alkaline Phosphatase 63 U/L (38-126); Blood Urea Nitrogen 111 mg/dl (9-20); Calcium 7.8 mg/dl (8.4-10.2); Carbon Dioxide 18 mmol/L (22-30); Chloride 93 mmol/L (98-107); Estimated Creatinine Clearance 16 ml/min; Glucose 178 mg/dl (70-99); Potassium 5.5 mmol/L (3.5-5.1); Sodium 118 mmol/L (135-145); Total Protein 4.8 g/dl (6.3-8.2); eGFR 12.72
[2025-03-07 08:00] LABS: Glucose - Point of Care 222 mg/dl (70-99)
[2025-03-07] MEDS: NOVOLOG FLEXPEN 8 UNITS SC ×3 (08:07→17:38)
[2025-03-07] MEDS: NOVOLOG FLEXPEN-LOW RESISTANCE 2 UNITS SC (08:07)
[2025-03-07] MEDS: LOW STRENGTH ASPIRIN 81 MG PO (08:08)
[2025-03-07] MEDS: SENOKOT-S PO ×2 (08:08→20:14)
[2025-03-07] MEDS: SODIUM BICARBONATE 650 MG PO ×3 (08:08→22:50)
[2025-03-07] MEDS: SODIUM CHLORIDE 1 GRAM PO ×3 (08:08→22:50)
[2025-03-07] MEDS: LOKELMA 10 GRAM PO (08:08)
[2025-03-07] MEDS: PROTONIX 40 MG PO (08:08)
[2025-03-07] MEDS: HEPARIN 5000 UNITS SC ×3 (08:08→22:50)
[2025-03-07] MEDS: NON-FORMULARY ITEM 120 MG PO (08:09)
[2025-03-07] MEDS: SODIUM CHLORIDE 3% 250 IV ×3 (08:44→22:47)
--- NOTE | 2025-03-07 08:52 | PTCARENOTE ---
Patient received from shift production associate. Patient resting comfortably in bed. AAO, VSS. No events noted overnight. No complaints of pain at this time, just occasional nausea with some dry heaving this AM. 3% Na ordered and going through PICC. Repeat
lab around 1300. No other testing scheduled at this time. Call tyler in reach.
--- NOTE | 2025-03-07 10:08 | W.PN.NEPH.PH ---
Today's Communication / Plan
-
follow BMP
Assessment/Plan
-
Impression:
JOSEPH (5.4)
Hyponatremia (121)
Hyperkalemia (7.9)
Hypotension
Right renal cell carcinoma mass
Renal cell carcinoma with recurrent malignant ascites
Chronic congestive heart failure with LVEF of 15 to 20% (weights up 3kg since discharge)
Coronary artery disease with previous stenting procedures
History of hypertension
Type 2 diabetes
BPH
Plan:
he is not a dialysis candidate as it would surely hasten his with HFrEF 15% on high dose midodrine, large volume ascites requiring frequent paracentesis, peritoneal carcinomatosis advancing
ureteral stent management per urology
lokelma daily for hyperkalemia
additional lokelma today
continue bicarbonate po BID for acidosis and hyperkalemia
3% today again given persistent hyponatremia, needed to increase rate to 40ml/hr
serial Na
continue NaCl po TID 1gm
no increase in UOP at all with lasix and tolvaptan
d/w patient and jane. Improvement in Cr is certainly helpful, but was not accompanied with increase in UOP. May be able to trial lasix again soon
we discussed that he is getting a great deal of sodium (sodium chloride, sodium bicarbonate, 3%NaCl) in the setting of EF15%. Thus far he has tolerated it but we may come to a point where he may have decompensated HF, hopefully not before Na is
appreciably closer to 128.
He gauges effect of chemo in part by changes in left neck LN over time.
-
-
Date of Service: March 07, 2025
CC / HPI / ROS
-
Chief Complaint:
JOSEPH
History of Present Illness:
JOSEPH/Cr down to 4.9
k 5.5 on daily lokelma
Na up to 118 after higher rate 3%, po salt
BP low stable on high dose midodrine
barely nonoliguric
s/p LVP 5+L 03/06
Review of Systems:
no cp or sob
Labs
-
Labs:
WBC 19.2 10^3/uL (4.8-10.8) H 03/07/25 04:40
RBC 3.70 10^6/uL (4.70-6.10) L 03/07/25 04:40
Hgb 10.5 g/dL (13.0-18.0) L 03/07/25 04:40
Hct 32.4 % (39.0-52.0) L 03/07/25 04:40
Plt Count 426 10^3/uL (130-400) H 03/07/25 04:40
eGFR 12.72 03/07/25 04:40
Phosphorus 7.7 mg/dl (2.5-4.5) H 02/24/25 06:13
Albumin 2.6 g/dl (3.5-5.0) L 03/07/25 04:40
Physical Exam
-
Vital Signs:
Vital Signs
Temp Pulse Resp BP Pulse Ox
96.7 F L 99 16 108/71 97
03/07/25 07:16 03/07/25 08:09 03/06/25 09:29 03/07/25 08:09 03/07/25 06:17
Cardiovascular:: Regular rate and rhythm
Respiratory:: Bilateral: Coarse
Lung Excursion:: Normal
Abdomen:: Distended, Nontender and Soft
Bowel Sounds:: Normal
Extremity Edema:: +3: Bilateral:
--- NOTE | 2025-03-07 12:04 | W.PN.HOSP.TC ---
Addendum entered and electronically signed by Jen Burgos MD 03/07/25 12:28:
Attending�addendum:
I saw and evaluated the patient independently. I reviewed and discussed the resident�s note and agree with findings and plan as documented in the resident�s note.� patient seen and examined at bedside, discussed with at bedside, NA 118, Cr 4.9.
Physical�exam:
GENERAL : Patient is awake, alert, oriented x3
HEENT: Nonicteric sclerae, PERRLA, EOMI. Oropharynx clear. Moist mucous membranes. Conjunctivae appear well perfused.
CHEST: Chest wall is nontender.
HEART: Regular rate and rhythm without murmurs.
LUNGS: Clear to auscultation bilaterally.
ABDOMEN: less Distended
RECTAL: Deferred.
MUSCLES/EXTREMITIES: No abnormal range of motion, no swelling.SKIN: No rash, no excessive bruising, petechiae, or purpura.
NEUROLOGIC: Cranial nerves II-XII intact without motor/sensory deficit.
�
Assessment/plan:
Acute kidney injury.
Appreciate urology/nephrology input.
Cr 4.9.
Persistent hyponatremia.
Appreciate nephrology input
NA 118.
Hyperkalemia.
Improved
Metastatic stage IV renal cell carcinoma.
Oncology consulted.
started on Welireg
Malignant ascites
Status post multiple paracentesis
CODE STATUS: Full code
DVT prophylaxis: Heparin.
Diet:Low K diet
Family communication: Discussed with at bedside.
Disposition: Need to monitor sodium and creatinine level
�
Total time spent on today�s encounter was 60 minutes which included time spent in counseling the patient/family regarding diagnosis and treatment plan as listed above, goals of care, and symptom management. Case was discussed with nursing staff,
specialists, and care coordinators/case management. All labs and imaging personally reviewed by me. Remainder the time spent in detailed review of previous records, lab data, imaging, and other medical provider documentation.
Original Note:
Today's Communication/Plan
-
- Increase sliding scale insulin coverage to moderate
- Cr improved to 4.9 today
- Will defer to nephrology for hyponatremia management
Assessment / Plan
Assessment / Plan
# Acute kidney injury
- Minimal urine output
- Creatinine improved to 4.9 today
- Dr. Barcenas did cystoscopy and stent placement left side 03/01/2025
- Patient is not a good candidate for hemodialysis per discussion with nephrology
- Repeat BMP
Hyperkalemia
- Will defer to nephro recs
# Hyponatremia
- Sodium 118 today
- Patient continues to be hyponatremic likely secondary to overall volume overload
- 3% saline as per nephrology recommendations
# Hypotension
- secondary to third spacing and hypoalbuminemia
- continue midodrine 15 mg 3 times daily
# Stage IV Metastatic renal cell carcinoma with refractory malignant ascites, carcinomatosis, retroperitoneal adenopathy
- Started Welireg inpatient. Will monitor for toxicities.
- Peritoneal catheter placement not approved. Patient will plan to get serial paracenteses as an outpatient, 2 times weekly
- Patient follows with Dr. Vu at [facility]
# Malignant ascites
- Paracentesis 02/09/2025 with 3 L, 02/16 with 5.5 L, 02/24/2025 with 4.6 L, 02/26/2025 with 3.5 L, 03/02/2025 with 4.9 L, 03/06 with 5.1 L
- Completed 5 days ceftriaxone for SBP prophylaxis given PMN count
- No fevers, Gram stain and fluid cultures previously negative. New Gram stain and fluid culture: No organisms seen, fluid culture with no growth.
- Continue Welireg and patient
# Chronic HFrEF with EF 15 to 20%
- Holding diuretics secondary to hypotension, will defer to nephrology on restarting
- Holding Jardiance, ARB secondary to renal failure
- I's and O's
# Coronary disease
- S/p stent placement
- Continue aspirin, statin
# Diabetes hemoglobin A1c on 03-03- 7.5%
- Increased sliding scale to moderate
- Continue Accu-Cheks
- Lantus insulin and mealtime NovoLog
- Hold Jardiance
# Enlarged prostate
- Holding Flomax given hypotension
# Hypoalbuminemia
- Gave 50 g albumin s/p paracentesis on 03/02
DVT prophylax-subcutaneous heparin
Full code
Anticipated Discharge: > 48 hours
Subjective/Interval History
-
Date of Service: March 07, 2025
Patient seen this morning sitting up in bed eating breakfast. Patient states that he feels well after his paracentesis yesterday. Patient notes some new lower extremity swelling bilaterally that he noticed for the first time yesterday. Patient
still with limited appetite.
Objective Data
-
Labs:
Laboratory Results
03/07/25 03/07/25
04:40 13:00
WBC 19.2 H
Hgb 10.5 L
Hct 32.4 L
Plt Count 426 H
Sodium 118 L* Pending
Potassium 5.5 H Pending
Chloride 93 L Pending
Carbon Dioxide 18 L Pending
BUN 111 H* Pending
Creatinine 4.9 H* Pending
Glucose 178 H Pending
Calcium 7.8 L Pending
Total Bilirubin 0.4
AST 19
ALT < 10
Alkaline Phosphatase 63
Vital Signs:
Vital Signs
Temp Pulse Resp BP Pulse Ox
97.3 F 99 16 108/71 97
03/07/25 11:00 03/07/25 08:09 03/06/25 09:29 03/07/25 08:09 03/07/25 06:17
I&O
03/06/25 03/07/25 03/08/25
06:59 06:59 06:59
Intake Total 740 / 740 1480 / 1480 240 / 240
Output Total 100 / 100 0 / 0 50 / 50
Balance 640 / 640 1480 / 1480 190 / 190
Review of Systems
-
History Source: Patient
Constitutional: Reports No Symptoms
EENT: Reports No Symptoms Reported
Respiratory: Reports No Symptoms
Cardiac: Reports No Symptoms
Abdomen/GI: Reports Nausea and Bloated
Genitourinary: Reports Difficulty Voiding
Musculoskeletal: Reports No Symptoms
Skin: Reports No Symptoms
Neuro: Reports No Symptoms
Endocrine: Reports No Symptoms
Hematologic / Lymphatic: Reports No Symptoms
Allergy / Immunology: Reports No Symptoms
Physical Exam
-
General: Well Developed, Well Nourished, No Apparent Distress and Comfortable
HEENT: Normocephalic, Atraumatic and Moist Mucous Membranes
Respiratory: Clear to Auscultation
Cardiac: Regular Rhythm
GI: Soft, Nontender and Distended
Musculoskeletal: Other (Mild bilateral lower extremity edema nonpitting)
Skin: Warm and Dry
Neuro: Awake, Alert and Oriented
Psych: Calm
[2025-03-07 12:06] LABS: Glucose - Point of Care 352 mg/dl (70-99)
[2025-03-07] MEDS: NOVOLOG FLEXPEN-MODERATE RESISTANCE 9 UNITS SC (13:38)
[2025-03-07] MEDS: NOVOLOG FLEXPEN-LOW RESISTANCE SC (13:38)
[2025-03-07 13:47] LABS: Blood Urea Nitrogen 111 mg/dl (9-20); Calcium 7.4 mg/dl (8.4-10.2); Carbon Dioxide 19 mmol/L (22-30); Chloride 92 mmol/L (98-107); Estimated Creatinine Clearance 17 ml/min; Glucose 243 mg/dl (70-99); Potassium 5.4 mmol/L (3.5-5.1); Sodium 116 mmol/L (135-145); eGFR 14.09
[2025-03-07] MEDS: LASIX 80 MG IV (16:13)
[2025-03-07] MEDS: LIPITOR 80 MG PO (17:35)
[2025-03-07] MEDS: NOVOLOG FLEXPEN-MODERATE RESISTANCE SC (17:39)
[2025-03-07 17:48] LABS: Glucose - Point of Care 147 mg/dl (70-99)
[2025-03-07 20:52] LABS: Blood Urea Nitrogen 107 mg/dl (9-20); Calcium 7.5 mg/dl (8.4-10.2); Carbon Dioxide 18 mmol/L (22-30); Chloride 92 mmol/L (98-107); Estimated Creatinine Clearance 17 ml/min; Glucose 200 mg/dl (70-99); Potassium 5.3 mmol/L (3.5-5.1); Sodium 115 mmol/L (135-145); eGFR 14.09
[2025-03-07 21:40] LABS: Glucose - Point of Care 176 mg/dl (70-99)
[2025-03-07] MEDS: LANTUS 0.12 UNITS SC (22:50)
--- NOTE | 2025-03-07 22:50 | PTCARENOTE ---
repeat Na 115 @ 20:00. [employer] MAINTENANCE MANAGER notified. Orders placed for another bag of 3% NaCl @40ml/hr once previous bag finished. 3% bag hung @22:47.
[2025-03-08] VITALS (9 sets, daily range): BP systolic 92–110; BP diastolic 66–75; BMI 30.9
[2025-03-08 04:54] LABS: Hematocrit 30.6 % (39.0-52.0); Hemoglobin 10.2 g/dL (13.0-18.0); Mean Corp Hgb Conc. 33.3 g/dL (33.0-37.0); Mean Corpuscular Volume 84.8 fL (80.0-94.0); Nucleated Red Blood Cells % 0 % (-); Platelet Count 403 10^3/uL (130-400); Red Cell Dist. Width 14.4 % (11.5-14.5)
[2025-03-08] MEDS: SODIUM CHLORIDE 3% 250 IV ×3 (05:08→21:50)
[2025-03-08 05:58] LABS: Blood Urea Nitrogen 107 mg/dl (9-20); Calcium 7.7 mg/dl (8.4-10.2); Carbon Dioxide 19 mmol/L (22-30); Chloride 95 mmol/L (98-107); Estimated Creatinine Clearance 21 ml/min; Glucose 112 mg/dl (70-99); Potassium 5.3 mmol/L (3.5-5.1); Sodium 120 mmol/L (135-145); eGFR 14.87
[2025-03-08] MEDS: SODIUM CHLORIDE 1 GRAM PO ×4 (09:13→21:47)
[2025-03-08] MEDS: SODIUM BICARBONATE 650 MG PO ×3 (09:14→21:47)
[2025-03-08] MEDS: SENOKOT-S 1 TABLET PO (09:14)
[2025-03-08] MEDS: PROTONIX 40 MG PO (09:14)
[2025-03-08] MEDS: LOW STRENGTH ASPIRIN 81 MG PO (09:15)
[2025-03-08] MEDS: HEPARIN 5000 UNITS SC ×3 (09:15→23:33)
[2025-03-08] MEDS: LOKELMA 10 GRAM PO (09:15)
[2025-03-08] MEDS: NOVOLOG FLEXPEN 8 UNITS SC ×3 (09:16→17:47)
[2025-03-08] MEDS: NOVOLOG FLEXPEN-MODERATE RESISTANCE 1 UNITS SC (09:16)
[2025-03-08 09:18] LABS: Glucose - Point of Care 163 mg/dl (70-99)
[2025-03-08] MEDS: NON-FORMULARY ITEM 3 MG PO (10:30)
--- NOTE | 2025-03-08 10:31 | W.PN.NEPH.PH ---
Today's Communication / Plan
-
follow BMP
Assessment/Plan
-
Impression:
JOSEPH (5.4)
Hyponatremia (121)
Hyperkalemia (7.9)
Hypotension
Right renal cell carcinoma mass
Renal cell carcinoma with recurrent malignant ascites
Chronic congestive heart failure with LVEF of 15 to 20% (weights up 3kg since discharge)
Coronary artery disease with previous stenting procedures
History of hypertension
Type 2 diabetes
BPH
Plan:
he is not a dialysis candidate as it would surely hasten his with HFrEF 15% on high dose midodrine, large volume ascites requiring frequent paracentesis, peritoneal carcinomatosis advancing
ureteral stent management per urology
lokelma daily for hyperkalemia
continue bicarbonate po BID for acidosis and hyperkalemia
3% today again given persistent hyponatremia, needed to increase rate to 40ml/hr
serial Na
continue NaCl po QID 1gm
no increase in UOP at all with lasix and tolvaptan so far
d/w patient. labs later today. May consider lasix 100mg IV or more 3%NaCl
-
-
Date of Service: March 08, 2025
CC / HPI / ROS
-
Chief Complaint:
JOSEPH
History of Present Illness:
JOSEPH/Cr down to 4.3
k 5.3 on daily lokelma
Na up to 120 after higher rate 3%, po salt
BP low stable on high dose midodrine
barely nonoliguric
s/p LVP 5+L 03/06
Review of Systems:
no cp or sob
Labs
-
Labs:
WBC 19.5 10^3/uL (4.8-10.8) H 03/08/25 04:39
RBC 3.61 10^6/uL (4.70-6.10) L 03/08/25 04:39
Hgb 10.2 g/dL (13.0-18.0) L 03/08/25 04:39
Hct 30.6 % (39.0-52.0) L 03/08/25 04:39
Plt Count 403 10^3/uL (130-400) H 03/08/25 04:39
Sodium 120 mmol/L (135-145) L 03/08/25 04:39
Potassium 5.3 mmol/L (3.5-5.1) H 03/08/25 04:39
Chloride 95 mmol/L (98-107) L 03/08/25 04:39
Carbon Dioxide 19 mmol/L (22-30) L 03/08/25 04:39
BUN 107 mg/dl (9-20) H* 03/08/25 04:39
Creatinine 4.3 mg/dL (0.7-1.3) H* 03/08/25 04:39
eGFR 14.87 03/08/25 04:39
Glucose 112 mg/dl (70-99) H 03/08/25 04:39
Calcium 7.7 mg/dl (8.4-10.2) L 03/08/25 04:39
Phosphorus 7.7 mg/dl (2.5-4.5) H 02/24/25 06:13
Albumin 2.6 g/dl (3.5-5.0) L 03/07/25 04:40
Physical Exam
-
Vital Signs:
Vital Signs
Temp Pulse Resp BP Pulse Ox
97.1 F 92 16 103/71 95
03/08/25 07:26 03/08/25 09:14 03/06/25 09:29 03/08/25 09:14 03/08/25 01:53
Cardiovascular:: Regular rate and rhythm
Respiratory:: Bilateral: Coarse
Lung Excursion:: Normal
Abdomen:: Nontender and Soft
Bowel Sounds:: Normal
Extremity Edema:: +3: Bilateral:
--- NOTE | 2025-03-08 12:22 | W.PN.HOSP.TC ---
Addendum entered and electronically signed by Edgardo Landis MD 03/08/25 14:03:
Attending�addendum:
I saw and evaluated the patient independently. I reviewed and discussed the resident�s note and agree with findings and plan as documented in the resident�s note.� patient seen and examined at bedside, discussed with and daughter at bedside, NA
120-->118, Cr 4.3-->4.0
Physical�exam:
GENERAL : Patient is awake, alert, oriented x3
HEENT: Nonicteric sclerae, PERRLA, EOMI. Oropharynx clear. Moist mucous membranes. Conjunctivae appear well perfused.
CHEST: Chest wall is nontender.
HEART: Regular rate and rhythm without murmurs.
LUNGS: Decreased breath sounds bilaterally. No wheezes.
ABDOMEN: More distended today, no significant tenderness
RECTAL: Deferred.
MUSCLES/EXTREMITIES: No abnormal range of motion. Bilateral lower extremity edema 2+.
SKIN: No rash, no excessive bruising, petechiae, or purpura.
NEUROLOGIC: Cranial nerves II-XII intact without motor/sensory deficit.
�
Assessment/plan:
Acute kidney injury.
Appreciate urology/nephrology input.
Cr 4.3
Monitor urine output closely
Persistent hyponatremia.
Appreciate nephrology input
NA 118. Some improvement overnight to 120.
Hyperkalemia.
Improved. Latest potassium 5.1
Leukocytosis
Appears to be reactive
No clear signs of infection on my review but will be on the look out especially with his immunocompromise state.
Metastatic stage IV renal cell carcinoma.
Oncology consulted.
started on Welireg. Monitor for side effects of hypoxia, anemia, among other.
Malignant ascites
Status post multiple paracentesis. Patient will require another paracentesis as soon as tomorrow.
Acute on chronic HFrEF
Defer diuresis to nephrology
Has been seen by cardiology prior
CODE STATUS: Full code
DVT prophylaxis: Heparin.
Diet:Low K diet
Family communication: Discussed with and daughter at bedside.
Disposition: Need to monitor sodium and creatinine level. Prognosis guarded overall
Original Note:
Today's Communication/Plan
-
- Cr improved slightly to 4.3 today
- Will defer to nephrology for hyponatremia management
- Plan for paracentesis tomorrow
Assessment / Plan
Assessment / Plan
# Acute kidney injury
- Minimal urine output
- Creatinine improved to 4.3 today
- Dr. Barcenas did cystoscopy and stent placement left side 03/01/2025
- Patient is not a good candidate for hemodialysis per discussion with nephrology
- Repeat BMP
Hyperkalemia
- Will defer to nephro recs
# Hyponatremia
- Sodium 120 today
- Patient continues to be hyponatremic likely secondary to overall volume overload
- 3% saline as per nephrology recommendations
# Hypotension
- secondary to third spacing and hypoalbuminemia
- continue midodrine 15 mg 3 times daily
# Stage IV Metastatic renal cell carcinoma with refractory malignant ascites, carcinomatosis, retroperitoneal adenopathy
- Started [facility] inpatient. Will monitor for toxicities.
- Peritoneal catheter placement not approved. Patient will plan to get serial paracenteses as an outpatient, 2 times weekly
- Patient follows with Dr. Vu at [facility]
# Malignant ascites
- Paracentesis 02/09/2025 with 3 L, 02/16 with 5.5 L, 02/24/2025 with 4.6 L, 02/26/2025 with 3.5 L, 03/02/2025 with 4.9 L, 03/06 with 5.1 L
- Completed 5 days ceftriaxone for SBP prophylaxis given PMN count
- No fevers, Gram stain and fluid cultures previously negative. New Gram stain and fluid culture: No organisms seen, fluid culture with no growth.
- Continue Welireg and patient
# Chronic HFrEF with EF 15 to 20%
- Holding diuretics secondary to hypotension, will defer to nephrology on restarting
- Holding Jardiance, ARB secondary to renal failure
- I's and O's
# Coronary disease
- S/p stent placement
- Continue aspirin, statin
# Diabetes hemoglobin A1c on 03-03- 7.5%
- Increased sliding scale to moderate
- Continue Accu-Cheks
- Lantus insulin and mealtime NovoLog
- Hold Jardiance
# Enlarged prostate
- Holding Flomax given hypotension
# Hypoalbuminemia
- Gave 50 g albumin s/p paracentesis on 03/02
DVT prophylax-subcutaneous heparin
Full code
Anticipated Discharge: > 48 hours
Subjective/Interval History
-
Date of Service: March 08, 2025
Patient seen this morning sitting up in bed. Patient is feeling nauseous and is having dry heaves. Patient feels as though his ascites has increased in the last 2 days and is ready for another paracentesis. Patient also notes increased edema in
his lower extremities. Patient denies any shortness of breath, chest pain.
Objective Data
-
Labs:
Laboratory Results
03/08/25 03/08/25
04:39 12:17
WBC 19.5 H
Hgb 10.2 L
Hct 30.6 L
Plt Count 403 H
Sodium 120 L Pending
Potassium 5.3 H Pending
Chloride 95 L Pending
Carbon Dioxide 19 L Pending
BUN 107 H* Pending
Creatinine 4.3 H* Pending
Glucose 112 H Pending
Calcium 7.7 L Pending
Vital Signs:
Vital Signs
Temp Pulse Resp BP Pulse Ox
96.3 F L 92 16 103/71 95
03/08/25 11:14 03/08/25 09:14 03/06/25 09:29 03/08/25 09:14 03/08/25 01:53
I&O
03/07/25 03/08/25 03/09/25
06:59 06:59 06:59
Intake Total 1480 / 1480 240 / 240
Output Total 0 / 0 200 / 200
Balance 1480 / 1480 40 / 40
Review of Systems
-
History Source: Patient
Constitutional: Reports No Symptoms
EENT: Reports No Symptoms Reported
Respiratory: Reports No Symptoms
Cardiac: Reports No Symptoms
Abdomen/GI: Reports Other (Increased distention)
Genitourinary: Reports Difficulty Voiding
Musculoskeletal: Reports Edema (Bilateral lower extremity edema worsening)
Skin: Reports No Symptoms
Neuro: Reports No Symptoms
Endocrine: Reports No Symptoms
Hematologic / Lymphatic: Reports No Symptoms
Allergy / Immunology: Reports No Symptoms
Physical Exam
-
General: No Apparent Distress
HEENT: Normocephalic and Moist Mucous Membranes
Respiratory: Decreased Breath Sounds (Bilateral lower lobes)
Cardiac: Regular Rhythm
GI: Nontender and Distended
Musculoskeletal: Other (Bilateral lower extremity edema, pitting, 3+)
Skin: Warm and Dry
Neuro: Awake, Alert and Oriented
Psych: Calm
[2025-03-08 12:31] LABS: Glucose - Point of Care 265 mg/dl (70-99)
[2025-03-08 12:51] LABS: Blood Urea Nitrogen 106 mg/dl (9-20); Calcium 7.7 mg/dl (8.4-10.2); Carbon Dioxide 17 mmol/L (22-30); Chloride 94 mmol/L (98-107); Estimated Creatinine Clearance 22 ml/min; Glucose 261 mg/dl (70-99); Potassium 5.1 mmol/L (3.5-5.1); Sodium 118 mmol/L (135-145); eGFR 16.22
[2025-03-08] MEDS: LASIX 100 MG IV (13:21)
[2025-03-08] MEDS: NOVOLOG FLEXPEN-MODERATE RESISTANCE 5 UNITS SC (13:29)
--- NOTE | 2025-03-08 14:09 | PTCARENOTE ---
Pt st in waiting room with keesha johnson an hour. Showered .
[2025-03-08 17:36] LABS: Glucose - Point of Care 231 mg/dl (70-99)
[2025-03-08] MEDS: NOVOLOG FLEXPEN-MODERATE RESISTANCE 3 UNITS SC (17:48)
[2025-03-08] MEDS: LIPITOR 80 MG PO (17:52)
[2025-03-08 18:32] LABS: Blood Urea Nitrogen 103 mg/dl (9-20); Calcium 7.8 mg/dl (8.4-10.2); Carbon Dioxide 17 mmol/L (22-30); Chloride 97 mmol/L (98-107); Estimated Creatinine Clearance 23 ml/min; Glucose 204 mg/dl (70-99); Potassium 5.3 mmol/L (3.5-5.1); Sodium 119 mmol/L (135-145); eGFR 16.72
[2025-03-08] MEDS: SENOKOT-S PO (21:34)
[2025-03-08 21:38] LABS: Glucose - Point of Care 225 mg/dl (70-99)
[2025-03-08] MEDS: LANTUS 0.12 UNITS SC (21:47)
[2025-03-09] VITALS (13 sets, daily range): BP systolic 86–113; BP diastolic 60–73; BMI 32.3
--- NOTE | 2025-03-09 03:52 | SUR.OPER ---
3% hanging per MD orders. Pt continues with significant abdominal distention and discomfort. Denies additional complaints at this time. Call tyler within reach. Care ongoing.
[2025-03-09 04:42] LABS: Hematocrit 29.5 % (39.0-52.0); Hemoglobin 9.8 g/dL (13.0-18.0); Mean Corp Hgb Conc. 33.2 g/dL (33.0-37.0); Mean Corpuscular Volume 86.0 fL (80.0-94.0); Platelet Count 432 10^3/uL (130-400); Red Cell Dist. Width 14.6 % (11.5-14.5)
[2025-03-09 05:13] LABS: Blood Urea Nitrogen 105 mg/dl (9-20); Calcium 8.1 mg/dl (8.4-10.2); Carbon Dioxide 17 mmol/L (22-30); Chloride 96 mmol/L (98-107); Estimated Creatinine Clearance 23 ml/min; Glucose 160 mg/dl (70-99); Potassium 5.7 mmol/L (3.5-5.1); Sodium 120 mmol/L (135-145); eGFR 16.22
[2025-03-09] MEDS: DEXTROSE 50% SYRINGE 25 GRAMS IV (05:58)
[2025-03-09] MEDS: NOVOLIN R 0.05 UNITS IV (06:00)
[2025-03-09 06:09] LABS: Glucose - Point of Care 168 mg/dl (70-99)
--- NOTE | 2025-03-09 06:26 | PTCARENOTE ---
Morning K 5.7, [employer] notified. IV dextrose, insulin given per MAR. Care ongoing.
[2025-03-09 07:10] LABS: Glucose - Point of Care 143 mg/dl (70-99)
[2025-03-09 08:06] LABS: Glucose - Point of Care 138 mg/dl (70-99)
[2025-03-09] MEDS: NOVOLOG FLEXPEN SC ×2 (08:16→12:42)
[2025-03-09] MEDS: NOVOLOG FLEXPEN-MODERATE RESISTANCE SC ×2 (08:16→12:42)
[2025-03-09] MEDS: SODIUM BICARBONATE 650 MG PO ×3 (08:17→21:14)
[2025-03-09] MEDS: SODIUM CHLORIDE 1 GRAM PO ×4 (08:17→21:14)
[2025-03-09] MEDS: LOW STRENGTH ASPIRIN 81 MG PO (08:17)
[2025-03-09] MEDS: HEPARIN 5000 UNITS SC ×3 (08:17→22:08)
[2025-03-09] MEDS: SENOKOT-S 1 TABLET PO (08:17)
[2025-03-09] MEDS: LOKELMA 10 GRAM PO (08:18)
[2025-03-09] MEDS: PROTONIX 40 MG PO (08:18)
[2025-03-09] MEDS: NON-FORMULARY ITEM 120 MG PO (08:19)
[2025-03-09 08:55] LABS: Potassium 5.3 mmol/L (3.5-5.1)
[2025-03-09 10:11] LABS: Glucose - Point of Care 280 mg/dl (70-99)
[2025-03-09 11:51] LABS: Body Fluid Second Tech ASW
[2025-03-09 12:08] LABS: Glucose - Point of Care 214 mg/dl (70-99)
[2025-03-09] MEDS: FLEXBUMIN 100 IV (12:44)
[2025-03-09] MEDS: NOVOLOG FLEXPEN 8 UNITS SC (13:11)
[2025-03-09] MEDS: NOVOLOG FLEXPEN-MODERATE RESISTANCE 3 UNITS SC (13:11)
--- NOTE | 2025-03-09 13:28 | W.PN.NEPH.PH ---
Today's Communication / Plan
-
see plan
Assessment/Plan
-
Impression:
JOSEPH (5.4)
Hyponatremia (121)
Hyperkalemia (7.9)
Hypotension
Right renal cell carcinoma mass
Renal cell carcinoma with recurrent malignant ascites
Chronic congestive heart failure with LVEF of 15 to 20% (weights up 3kg since discharge)
Coronary artery disease with previous stenting procedures
History of hypertension
Type 2 diabetes
BPH
Plan:
he is not a dialysis candidate as it would surely hasten his with HFrEF 15% on high dose midodrine, large volume ascites requiring frequent paracentesis, peritoneal carcinomatosis advancing
ureteral stent management per urology
cr unchanged at 4, UOP lower than his normal however not measured
If family still want to be aggressive would reimage of kidney for hydro, if still persists then PCN needed
d/w primary and
lokelma daily for hyperkalemia
continue bicarbonate po BID for acidosis and hyperkalemia
sodium only upto 120 with 4gm of nacl tabs daily, no response to lasix or samsca
do not think it can be safely managed out pt at this time
3% today again given persistent hyponatremia
serial Na
alb IV post paracentesis 6lit today
sig edema which could be from high salt load and ascites
d/w patient and son at bedside. labs later today.
high risk encounter
-
-
Date of Service: March 09, 2025
CC / HPI / ROS
-
Chief Complaint:
JOSEPH
History of Present Illness:
JOSEPH/Cr down to 4
k 5.3 on daily lokelma
Na up to 120 after higher rate 3%, po salt
BP low stable on high dose midodrine
barely nonoliguric
s/p LVP 6+L 03/09
Review of Systems:
no cp or sob at rest
LE edema
voiding but amount is less than normal per pt
Labs
-
Labs:
WBC 21.7 10^3/uL (4.8-10.8) H 03/09/25 04:17
RBC 3.43 10^6/uL (4.70-6.10) L 03/09/25 04:17
Hgb 9.8 g/dL (13.0-18.0) L 03/09/25 04:17
Hct 29.5 % (39.0-52.0) L 03/09/25 04:17
Plt Count 432 10^3/uL (130-400) H 03/09/25 04:17
eGFR 16.22 03/09/25 04:17
Phosphorus 7.7 mg/dl (2.5-4.5) H 02/24/25 06:13
Albumin 2.6 g/dl (3.5-5.0) L 03/07/25 04:40
Physical Exam
-
Vital Signs:
Vital Signs
Temp Pulse Resp BP Pulse Ox
98.1 F 88 16 101/60 96
03/09/25 11:36 03/09/25 12:00 03/09/25 11:17 03/09/25 12:00 03/09/25 11:17
Cardiovascular:: Regular rate and rhythm
Respiratory:: Bilateral: CTA (decreased)
Lung Excursion:: Normal
Abdomen:: Distended, Nontender and Soft
Extremity Edema:: +3: Bilateral:
Pham Catheter: No
Other Findings::
left neck LN palpable
--- NOTE | 2025-03-09 14:12 | W.PN.UPDATE ---
Update Note
Progress Note Update
59-year-old male with metastatic renal cell carcinoma and refractory malignant ascites, carcinomatosis admitted for abdominal distention and fatigue.
On examination awake and alert able to converse
Cardiovascular system S1-S2 appreciated
Chest decreased breath sounds at bases
Abdomen distended ,nontender
B/L pedal edema
CT of the abdomen and pelvis-subtle right renal mass reported history of renal cell carcinoma. Evidence of extensive peritoneal carcinomatosis significantly increasing. Moderate amount of ascites within the pelvis with thickened from likely
malignant. Lymphadenopathy within the visualized lower chest and within abdomen and pelvis similar appearance to prior CT. Left pelvicalyceal dilatation as well as dilatation of the proximal to mid left ureter with normal caliber and mid to distal
left ureter. Raising concerns for ureteric metastatic disease and resultant obstruction.
# Acute kidney injury on CKD stage III with hyperkalemia
Decreased urine output
S/P cystoscopy and stent placement on the left side which was done by Dr. Barcenas on 03/01/2025
Pham catheter was removed after this procedure
Patient is not a good candidate for hemodialysis per discussion with nephrology
Hyperkalemia-continue potassium binders
Check CT of the abdomen and pelvis without contrast
# Hyponatremia-received 3% saline was given. Patient continues to be hyponatremic likely secondary to overall volume overload. 3% saline ordered, also on salt tablets. Nephrology managing
# Hypotension-secondary to third spacing, low ejection fraction and hypoalbuminemia-continue midodrine
# Stage IV Metastatic renal cell carcinoma with refractory malignant ascites, carcinomatosis, retroperitoneal adenopathy
Patient follows up with at [facility].
Patient was treated with ipilimumab/nivolumab without response and had colitis.
Then switched to cabozantinib without response
Currently prescribed Welireg
Patient had a renal stent placed on 03/01/[address] Barcenas
Creatinine trended down but no urine output.
# Malignant ascites
Paracentesis 02/09/2025 with 3 L, 03-03 with 5.5 L, 02/24/2025 with 4.6 L, 02/26/2025 with 3.5 L, 03/02/2025 with 4.9 L, -5.15 L, again on 03/09/2025
Pt got ceftriaxone for 5 days and now off as all the cultures are negative
No fevers, Gram stain and fluid cultures are negative. SAAG less than 1.1, total protein close 2 or more than 2.5, elevated LDH in fluid, Cytology positive -speaks against SBP
# Chronic HFrEF with ejection fraction 15 to 20%
History of AICD placement
Holding diuretics secondary to blood pressure running low
Holding Jardiance, ARB, secondary to renal failure
Difficult situation
Intake output charting and daily weights
# Coronary disease-with history of stent-continue aspirin, statin
# Diabetes hemoglobin A1c on 03-03- 7.5%
Continue Accu-Cheks and sliding scale coverage
Lantus insulin and mealtime NovoLog 12 units of Lantus at bedtime and NovoLog 10 units AC
Hold Jardiance
# Enlarged prostate-hold off on Flomax given hypotension.
# Hypoalbuminemia
# DVT prophylax-subcutaneous heparin
# Full code
High risk situation with renal failure, malignancy, cardiomyopathy. Prognosis is extremely poor with patient is almost at the end of the line for therapy regimen.
Communicated with nephrology, urology
Discussed with nursing
Discussed with patient's outpatient hematology oncology Dr. Dr. Vu-reviewed patient's condition. He stated that hospice would be the best approach and this has been discussed with the family before.
Welerig would be the last option that the patient has .
time over 50 min
--- NOTE | 2025-03-09 14:21 | W.PN.ONC2 ---
Today's Communication / Plan
-
continue GOC
Impression
Impression
Metastatic renal cell cancer, refractory with malignant ascites, malignant lymphadenopathy, and carcinomatosis
Acute kidney injury on chronic kidney disease
Chronic congestive heart failure, EF 10-15%
Hyponatremia
Plan
Plan
Patient with progressive renal cancer, and rapidly reaccumulating ascites. Indwelling peritoneal drain will help manage symptoms, but may lead to worsening renal function and hyponatremia due to volume shifts
Family and patient have been in discussions with primary med onc, Dr. Vu, and have been refusing hospice and comfort measures, want to exhaust all options
Discussed current issues including near oliguric renal failure - not a HD candidate, hyponatremia.
Continue Welireg
Subjective/Objective
Subjective
afebrile, no hypoxia or hypotension
using senna for bowel regimen
denies pain
Vital Signs:
Vital Signs
Temp Pulse Resp BP Pulse Ox
98.1 F 88 16 101/60 96
03/09/25 11:36 03/09/25 12:00 03/09/25 11:17 03/09/25 12:00 03/09/25 11:17
Lab Results:
Laboratory Data
WBC 21.7 10^3/uL (4.8-10.8) H 03/09/25 04:17
Hgb 9.8 g/dL (13.0-18.0) L 03/09/25 04:17
Plt Count 432 10^3/uL (130-400) H 03/09/25 04:17
eGFR 16.22 03/09/25 04:17
Physical Exam
HEENT: No Jaundice
Pulmonary: Other (unlabored)
GI: Soft and Other
Extremities: Pulses Present
--- NOTE | 2025-03-09 14:39 | W.PN.HOSP.TC ---
Today's Communication/Plan
-
- Paracentesis this morning with albumin
- CT AP noncontrast
- Cr 4.0 today
- Will defer to nephrology for hyponatremia management
Assessment / Plan
Assessment / Plan
# Acute kidney injury
- Minimal urine output
- Creatinine improved to 4.0 today
- Dr. Barcenas did cystoscopy and stent placement left side 03/01/2025
- Patient is not a good candidate for hemodialysis per discussion with nephrology
- Repeat BMP
Hyperkalemia
- Will defer to nephro recs
# Hyponatremia
- Sodium 120 today
- Patient continues to be hyponatremic likely secondary to overall volume overload
- 3% saline as per nephrology recommendations
# Hypotension
- secondary to third spacing and hypoalbuminemia
- continue midodrine 15 mg 3 times daily
# Stage IV Metastatic renal cell carcinoma with refractory malignant ascites, carcinomatosis, retroperitoneal adenopathy
- Started Welireg inpatient. Will monitor for toxicities.
- Peritoneal catheter placement not approved. Patient will plan to get serial paracenteses as an outpatient, 2 times weekly
- Patient follows with Dr. Vu at [facility]
# Malignant ascites
- Paracentesis 02/09/2025 with 3 L, 02/16 with 5.5 L, 02/24/2025 with 4.6 L, 02/26/2025 with 3.5 L, 03/02/2025 with 4.9 L, 03/06 with 5.1 L
- Completed 5 days ceftriaxone for SBP prophylaxis given PMN count
- No fevers, Gram stain and fluid cultures previously negative. New Gram stain and fluid culture: No organisms seen, fluid culture with no growth.
- Continue Welireg and patient
# Chronic HFrEF with EF 15 to 20%
- Holding diuretics secondary to hypotension, will defer to nephrology on restarting
- Holding Jardiance, ARB secondary to renal failure
- I's and O's
# Coronary disease
- S/p stent placement
- Continue aspirin, statin
# Diabetes hemoglobin A1c on 03-03- 7.5%
- Increased sliding scale to moderate
- Continue Accu-Cheks
- Lantus insulin and mealtime NovoLog
- Hold Jardiance
# Enlarged prostate
- Holding Flomax given hypotension
# Hypoalbuminemia
- Gave 50 g albumin s/p paracentesis on 03/02
DVT prophylax-subcutaneous heparin
Full code
Anticipated Discharge: > 48 hours
Subjective/Interval History
-
Date of Service: March 09, 2025
Objective Data
-
Labs:
Laboratory Results
03/09/25 03/09/25 03/09/25
04:17 08:28 16:00
WBC 21.7 H
Hgb 9.8 L
Hct 29.5 L
Plt Count 432 H
Sodium 120 L Pending
Potassium 5.7 H 5.3 H Pending
Chloride 96 L Pending
Carbon Dioxide 17 L Pending
BUN 105 H* Pending
Creatinine 4.0 H Pending
Glucose 160 H Pending
Calcium 8.1 L Pending
Vital Signs:
Vital Signs
Temp Pulse Resp BP Pulse Ox
98.1 F 88 16 101/60 96
03/09/25 11:36 03/09/25 12:00 03/09/25 11:17 03/09/25 12:00 03/09/25 11:17
I&O
03/08/25 03/09/25 03/10/25
06:59 06:59 06:59
Intake Total 240 / 240 240 / 240
Output Total 200 / 200 50 / 50
Balance 40 / 40 190 / 190
Review of Systems
-
History Source: Patient
Constitutional: Reports No Symptoms
EENT: Reports No Symptoms Reported
Respiratory: Reports No Symptoms
Cardiac: Reports No Symptoms
Abdomen/GI: Reports Other (Distention)
Genitourinary: Reports Difficulty Voiding
Musculoskeletal: Reports No Symptoms
Skin: Reports No Symptoms
Neuro: Reports No Symptoms
Endocrine: Reports No Symptoms
Hematologic / Lymphatic: Reports No Symptoms
Allergy / Immunology: Reports No Symptoms
Physical Exam
-
General: Well Developed and No Apparent Distress
Respiratory: Decreased Breath Sounds (Bilateral lung bases)
Cardiac: Regular Rhythm
GI: Nontender and Distended
Musculoskeletal: Other (Bilateral 3+ pitting edema up to thighs)
Skin: Warm and Dry
Psych: Calm
--- NOTE | 2025-03-09 16:11 | CM ---
F/U: Patient going for another paracentesis and his creatine is high so deferring to nephrology now. PLAN: Home w// [facility].
[2025-03-09 16:47] LABS: Glucose - Point of Care 196 mg/dl (70-99)
[2025-03-09] MEDS: SODIUM CHLORIDE 3% 250 IV ×2 (17:06→23:00)
[2025-03-09 17:21] LABS: Blood Urea Nitrogen 104 mg/dl (9-20); Calcium 7.9 mg/dl (8.4-10.2); Carbon Dioxide 17 mmol/L (22-30); Chloride 94 mmol/L (98-107); Estimated Creatinine Clearance 23 ml/min; Glucose 169 mg/dl (70-99); Potassium 5.3 mmol/L (3.5-5.1); Sodium 117 mmol/L (135-145); eGFR 16.72
[2025-03-09] MEDS: LIPITOR 80 MG PO (17:24)
[2025-03-09] MEDS: NOVOLOG FLEXPEN-MODERATE RESISTANCE 1 UNITS SC (18:26)
[2025-03-09] MEDS: NOVOLOG FLEXPEN 10 UNITS SC (18:26)
--- NOTE | 2025-03-09 19:34 | PTCARENOTE ---
Patient went down for Bilateral lower extremity duplex venous ultrasound, CT abdomen and pelvis, and Ultrasound guided diagnostic and therapeutic paracentesis this shift. LE US negative for thrombus. 4700 cc of serosanguineous ascitic fluid was
evacuated during paracentesis per note. 3% Saline ordered again by nephrology. updated by MD Fisher at bedside today. Pt continues to have flat affect, ambulating independently in room, he is withdrawn. RN reviewed plan of care, medications,
and lab work with patient for the shift.
[2025-03-09] MEDS: LASIX 80 MG PO (21:13)
[2025-03-09] MEDS: SENOKOT-S PO (21:15)
[2025-03-09 22:00] LABS: Glucose - Point of Care 140 mg/dl (70-99)
[2025-03-09] MEDS: LANTUS 0.12 UNITS SC (22:08)
[2025-03-10] VITALS (10 sets, daily range): BP systolic 86–110; BP diastolic 52–68; BMI 31.3
[2025-03-10 05:09] LABS: Hematocrit 28.0 % (39.0-52.0); Hemoglobin 9.2 g/dL (13.0-18.0); Mean Corp Hgb Conc. 32.9 g/dL (33.0-37.0); Mean Corpuscular Volume 86.2 fL (80.0-94.0); Platelet Count 379 10^3/uL (130-400); Red Cell Dist. Width 14.8 % (11.5-14.5)
--- NOTE | 2025-03-10 05:14 | PTCARENOTE ---
Pt continues with flat affect, ambulating independently in the room. Denies complaints at this time. 3% saline hanging per MD orders. Call tyler within reach. Pt able to make needs known. Care ongoing.
[2025-03-10 05:42] LABS: Blood Urea Nitrogen 102 mg/dl (9-20); Calcium 8.0 mg/dl (8.4-10.2); Carbon Dioxide 17 mmol/L (22-30); Chloride 100 mmol/L (98-107); Estimated Creatinine Clearance 26 ml/min; Glucose 147 mg/dl (70-99); Potassium 5.4 mmol/L (3.5-5.1); Sodium 121 mmol/L (135-145); eGFR 19.72
[2025-03-10 08:07] LABS: Glucose - Point of Care 186 mg/dl (70-99)
[2025-03-10] MEDS: NOVOLOG FLEXPEN-MODERATE RESISTANCE 1 UNITS SC ×2 (08:15→17:43)
[2025-03-10] MEDS: NOVOLOG FLEXPEN 10 UNITS SC (08:16)
[2025-03-10] MEDS: NON-FORMULARY ITEM 120 MG PO (08:16)
[2025-03-10] MEDS: PROTONIX 40 MG PO (08:17)
[2025-03-10] MEDS: HEPARIN 5000 UNITS SC (08:17)
[2025-03-10] MEDS: SODIUM CHLORIDE 1 GRAM PO ×4 (08:18→21:47)
[2025-03-10] MEDS: LOW STRENGTH ASPIRIN 81 MG PO (08:18)
[2025-03-10] MEDS: SODIUM BICARBONATE 650 MG PO ×3 (08:18→21:47)
[2025-03-10] MEDS: SENOKOT-S 1 TABLET PO (08:18)
[2025-03-10] MEDS: LOKELMA 10 GRAM PO (10:48)
--- NOTE | 2025-03-10 11:31 | W.PN.NEPH.PH ---
Today's Communication / Plan
-
HTS, samsca, labs
Assessment/Plan
-
Impression:
JOSEPH (5.4)
Hyponatremia (121)
Hyperkalemia (7.9)
Hypotension
Right renal cell carcinoma mass
Renal cell carcinoma with recurrent malignant ascites
Chronic congestive heart failure with LVEF of 15 to 20% (weights up 3kg since discharge)
Coronary artery disease with previous stenting procedures
History of hypertension
Type 2 diabetes
BPH
Plan:
he is not a dialysis candidate as it would surely hasten his with HFrEF 15% on high dose midodrine, large volume ascites requiring frequent paracentesis, peritoneal carcinomatosis advancing
ureteral stent management per urology, repeat CT on 03/09 showed no hydro
cr down to 3.4, UOP lower than his normal however not measured -suspect oliguric
some of decrease in cr could be dilutional too
lokelma daily for hyperkalemia
continue bicarbonate po BID for acidosis and hyperkalemia
sodium only upto 121 with 4gm of nacl tabs, HTS daily, no response to lasix or samsca
3% today again given persistent hyponatremia, do not seem ano other option left, will try samsca too
sig edema which could be from high salt load and ascites
d/w patient and at bedside, answered questions. labs later today.
d/w primary and nursing, cont [facility] discussion
high risk encounter
-
-
Date of Service: March 10, 2025
CC / HPI / ROS
-
Chief Complaint:
JOSEPH
History of Present Illness:
JOSEPH/Cr down to 3.4
k 5.4 on daily lokelma
Na up to 121 after higher rate 3%, po salt tabs
BP low stable on high dose midodrine
likely oliguric
s/p LVP 6+L 03/09
Review of Systems:
no cp or sob at rest
LE edema
voiding but amount is less than normal per pt
Labs
-
Labs:
WBC 20.8 10^3/uL (4.8-10.8) H 03/10/25 04:58
RBC 3.25 10^6/uL (4.70-6.10) L 03/10/25 04:58
Hgb 9.2 g/dL (13.0-18.0) L 03/10/25 04:58
Hct 28.0 % (39.0-52.0) L 03/10/25 04:58
Plt Count 379 10^3/uL (130-400) 03/10/25 04:58
Sodium 121 mmol/L (135-145) L 03/10/25 04:58
Potassium 5.4 mmol/L (3.5-5.1) H 03/10/25 04:58
Chloride 100 mmol/L (98-107) 03/10/25 04:58
Carbon Dioxide 17 mmol/L (22-30) L 03/10/25 04:58
BUN 102 mg/dl (9-20) H* 03/10/25 04:58
Creatinine 3.4 mg/dL (0.7-1.3) H 03/10/25 04:58
eGFR 19.72 03/10/25 04:58
Glucose 147 mg/dl (70-99) H 03/10/25 04:58
Calcium 8.0 mg/dl (8.4-10.2) L 03/10/25 04:58
Phosphorus 7.7 mg/dl (2.5-4.5) H 02/24/25 06:13
Albumin 2.6 g/dl (3.5-5.0) L 03/07/25 04:40
Physical Exam
-
Vital Signs:
Vital Signs
Temp Pulse Resp BP Pulse Ox
97.6 F 91 20 88/56 96
03/10/25 08:01 03/10/25 08:00 03/09/25 17:00 03/10/25 08:00 03/10/25 08:03
Cardiovascular:: Regular rate and rhythm
Respiratory:: Bilateral: CTA (decreased)
Lung Excursion:: Normal
Abdomen:: Distended, Nontender and Soft
Extremity Edema:: +3: Bilateral:
Pham Catheter: No
Other Findings::
left neck LN palpable
[2025-03-10 12:26] LABS: Glucose - Point of Care 281 mg/dl (70-99)
[2025-03-10] MEDS: SODIUM CHLORIDE 3% 250 IV ×2 (12:41→20:44)
[2025-03-10] MEDS: SAMSCA 30 MG PO (12:42)
[2025-03-10] MEDS: NOVOLOG FLEXPEN SC ×2 (12:45→17:49)
[2025-03-10] MEDS: NOVOLOG FLEXPEN-MODERATE RESISTANCE 5 UNITS SC (12:46)
--- NOTE | 2025-03-10 12:50 | W.PN.CD ---
Addendum entered and electronically signed by Cj Cortes MD 03/10/25 16:44:
I reviewed and agree with the note by SUJIT Hernandez and it accurately reflects our care.
I saw and evaluated the patient, and I provided the substantive portion of the medical decision making. My assessment and plan is below:
59-year-old gentleman with a complex medical history including an ischemic cardiomyopathy with an EF of 15 to 20% followed by Dr. Parrish Esposito at [facility] ICD, CAD with a history of AZ, diabetes, renal cell
carcinoma complicated by malignant ascites who presented for evaluation of inability to urinate for 3 days and constipation. Unfortunately he is now having progressive oliguric renal failure. Nephrology is following and has determined that he is
not a dialysis candidate. Cardiology is consulted for consideration of inotrope assisted diuresis. We saw him earlier this admission on 02/27/2025 (see note from SUJIT Church and Monae Perez MD) for the same question. He underwent
right heart catheterization at that time which showed PCWP 13 mmHg and CO/CI 5.38/2.62 (weight 198 lb). Since then, creatinine has downtrended from 6.4 to 3.4, but he is still not making much urine and BUN is rising. When I asked him how he feels,
he says he 'does not feel great' because his kidneys are not working and his abdomen keeps filling up with fluid despite serial paracenteses. Physical exam notable for breathing comfortably on room air, anasarcic. Labs notable for NA 121, BUN 102,
creatinine 3.4. TTE 02/06/2025: LVEF 15-20%, mild/mod TR, PASP 41 mmHg.
Unfortunately Mr. Pennington has developed multiorgan failure. He has refractory metastatic renal cancer with malignant ascites and carcinomatosis. He has a progressive oliguric renal failure with rising BUN. He has heart failure with severely
reduced ejection fraction requiring midodrine for blood pressure support. At this time, I do not think that inotropic therapy will change his prognosis, and I worry that the risk outweighs the benefit. He has severe electrolyte derangements with a
sodium of 121, bicarb 17, and potassium 5.4. This in combination with inotrope therapy would put him at elevated risk of a fatal arrhythmia. I explained this to him, his , and his [id number] at bedside. They were understandably
disappointed. Cardiology will be available on an as-needed basis going forward. Please call with any additional questions or concerns.
Original Note:
Today's Communication / Plan
-
Cardiology consulted for the consideration of ionotropic support in the setting of HFrEF and volume overload.
He is down 7 pounds overnight. He had a paracentesis yesterday for 4700 mL.
Lower extremity edema could be from ascites and salt load.
Impression / Plan
-
I/P: 59M with ICM EF 15-20%, BS SQ ICD, CAD with hx AZ with LAD 100% acute thrombotic occlusion in prox body (GUERRERO to prox LAD) 2022, DM2, and renal cell carcinoma with history of chemotherapy with recent admission with malignant ascites and HFrEF
presents with inability to urinate.
Primary Cyber Instructor: Dr. Duong/Randi at [facility]
HFrEF (15-20%), acute on chronic.
- Pitting bilateral lower extremity edema, wearing TEDs, Tubigrips may be better
- With underlying renal disease, fluid mgmt per Nephrology
- Unable to tolerating GMDT due to JOSEPH and hypotension
- RHC 02/27/25: EDP 12mmgHg at 89.8kg/198lb (paracentesis day prior), EDP is low for his degree of LV function, euvolemic would be closer to 15-16mmHg, dry weight 204ish?
Hypotension - BP at baseline per patient/family and medical records.
- Asymptomatic.
- midodrine added 10mg TID without improvement of BP.
Ascites - recurrent malignant.
- Requiring multiple paracentesis over the last 2 weeks during hospitalizations.
- 02/24/25 for 4600mL
- 02/26/25 for 3500mL
- 03/06/25 for 5150mL
- 03/09/2025 for 4700mL
Renal cell carcinoma, right - advancing, malignant lymphadenopathy and carcinomatosis
- with recurrent malignant ascites.
- oncologist at [facility], previously on chemo - Cabometyx 3 months ago, but stopped due to symptoms/ascites/HFrEF.
JOSEPH - worsening.
- nephrology managing, not an HD candidate
- advanced cardiorenal syndrome and high risk situation, not a candidate for HD per nephrology.
Hyponatremia, complicated by HFrEF and JOSEPH, per Nephrology
CAD, prior PCI, chest pain free, on ASA
HLD, stable on Lipitor.
ICD - [place] [employer] SQ, stable with normal function, managed by [facility] cardiology.
SUBJECTIVE:
Abdomen feels improved after paracentesis yesterday. No shortness of breath.
Physical Exam
Vital Signs/Labs
Vital Signs
Temp Pulse Resp BP Pulse Ox
97.6 F 90 20 88/56 96
03/10/25 08:01 03/10/25 12:00 03/09/25 17:00 03/10/25 08:00 03/10/25 08:03
03/09/25 03/10/25 03/11/25
06:59 06:59 06:59
Actual Weight 218 lb 7.649 oz 211 lb 10.3 oz
03/10/25 04:58
Magnesium 2.5 mg/dl (1.6-2.3) H 02/24/25 06:13
Physical Exam
Constitutional: No acute distress and Comfortable
EENT: Anicteric and Moist mucous membranes
Cardiovascular: Rhythm & rate is regular, Pedal edema present and S1S2 is normal
Respiratory: Respiratory effort normal and Lungs clear to auscul.
GI: Normal bowel sounds, Distention present and Other (Round)
Neuro/Psych: AO x 3
Other: Skin (warm and dry without edema)
Data Reviewed
-
Date of Service: March 10, 2025
Labs: Labs Reviewed by me
Old Records: Reviewed
--- NOTE | 2025-03-10 13:10 | W.PN.UPDATE ---
Update Note
Progress Note Update
59-year-old male with metastatic renal cell carcinoma and refractory malignant ascites, carcinomatosis admitted for abdominal distention and fatigue.
On examination awake and alert able to converse
Cardiovascular system S1-S2 appreciated
Chest decreased breath sounds at bases
Abdomen distended ,nontender
B/L LE edema
Echo-severely reduced LV systolic function. EF 15 to 20%. Mild to moderate TR. PA pressure 41 mmHg. PA systolic pressure elevated.
Right heart cath on 02/27/2025-wedge 13 mmHg, RA 11 mmHg RV 42 / 8 mm HG, PA 40/18 mm Hg, cardiac output 5.38, cardiac index 2.62
# Acute kidney injury on CKD stage III with hyperkalemia
Decreased urine output
S/P cystoscopy and stent placement on the left side which was done by Dr. Barcenas on 03/01/2025
Pham catheter was removed after this procedure
Patient is not a good candidate for hemodialysis per discussion with nephrology
Hyperkalemia-continue potassium binders
CT of the abdomen and pelvis without contrast with no Cicero
Functional coronary disease close discussed with family.
We also request cardiology evaluation to see if there is a role for inotropes.
# Hyponatremia-Patient continues to be hyponatremic likely secondary to overall volume overload. 3% saline ordered, also on salt tablets. Nephrology managing
# Hypotension-secondary to third spacing, low ejection fraction and hypoalbuminemia-continue midodrine
# Stage IV Metastatic renal cell carcinoma with refractory malignant ascites, carcinomatosis, retroperitoneal adenopathy
Patient follows up with at [facility].
Patient was treated with ipilimumab/nivolumab without response and had colitis.
Then switched to cabozantinib without response
Currently prescribed Welireg
Patient had a renal stent placed on 03/01/[address] Barcenas
Creatinine trended down but minimal urine output.
# Malignant ascites
Paracentesis 02/09/2025 with 3 L, 03-03 with 5.5 L, 02/24/2025 with 4.6 L, 02/26/2025 with 3.5 L, 03/02/2025 with 4.9 L, -5.15 L, again on 03/09/2025
Pt got ceftriaxone for 5 days and now off as all the cultures are negative
No fevers, Gram stain and fluid cultures are negative. SAAG less than 1.1, total protein close 2 or more than 2.5, elevated LDH in fluid, Cytology positive -speaks against SBP
Will request ID evaluation to rule out SBP. All the cultures have been negative.
# Chronic HFrEF with ejection fraction 15 to 20%
History of AICD placement
Holding diuretics secondary to blood pressure running low
Holding Jardiance, ARB, secondary to renal failure
Difficult situation
Intake output charting and daily weights
# Coronary disease-with history of stent-continue aspirin, statin
# Diabetes hemoglobin A1c on 03-03- 7.5%
Continue Accu-Cheks and sliding scale coverage
Lantus insulin and mealtime NovoLog 12 units of Lantus at bedtime and NovoLog 11 units AC
Hold Jardiance
# Enlarged prostate-hold off on Flomax given hypotension.
# Hypoalbuminemia
# DVT prophylax-subcutaneous heparin
# Full code
High risk situation with renal failure, malignancy, cardiomyopathy. Prognosis is extremely poor with patient is almost at the end of the line for therapy regimen.
I had a very detailed discussion with the patient regarding my conversation with Dr. Vu. When I asked him if Dr. Corrina Pollack has discussed about hospice with him patient said no. Discussed about difficult situation with no urine output and
nephrology discussing that he is not a candidate for dialysis, discussed about poor ejection fraction may be a problem with dialysis. Also reviewed that his sodium is running low. Patient states that he does 'not want to here 'but then
immediately is states that then 'it looks like they want to here.' He asked if this is hospice appropriate but immediately spouse stated that we need to look at all the options before the decision is made. She also answered yes when I asked if
she has power of assistant county attorney. CODE STATUS addressed .
Communicated with nephrology,
Discussed with nursing
Discussed with patient's spouse at bedside
Time spent more than 55 minutes
03/09/25-Discussed with patient's outpatient hematology oncology DrRonnie Vu-reviewed patient's condition. He stated that hospice would be the best approach and this has been discussed with the family before.
Welerig would be the last option that the patient has .
--- NOTE | 2025-03-10 15:11 | W.PN.HOSP.TC ---
Today's Communication/Plan
-
- Will ask cardiology for eval to see if there is any role for inotropic intervention at this point
- Creatinine trending down but with minimal urine output
- Will request ID evaluation to rule out SBP. All cultures have been negative, patient afebrile.
Assessment / Plan
Assessment / Plan
# Acute kidney injury
- Minimal urine output
- Creatinine 3.4
- Dr. Barcenas did cystoscopy and stent placement left side 03/01/2025
- Patient is not a good candidate for hemodialysis per discussion with nephrology
- Repeat BMP
- CT abdomen pelvis Noncon showed patent ureteral stent without hydronephrosis
Hyperkalemia
- Will defer to nephro recs
# Hyponatremia
- Sodium 121 today
- Patient continues to be hyponatremic likely secondary to overall volume overload
- 3% saline as per nephrology recommendations
# Hypotension
- secondary to third spacing and hypoalbuminemia
- continue midodrine 15 mg 3 times daily
# Stage IV Metastatic renal cell carcinoma with refractory malignant ascites, carcinomatosis, retroperitoneal adenopathy
- Started [facility] inpatient. Will monitor for toxicities.
- Peritoneal catheter placement not approved. Patient will plan to get serial paracenteses as an outpatient, 2 times weekly
- Patient follows with Dr. Vu at [facility]
# Malignant ascites
- Paracentesis 02/09/2025 with 3 L, 02/16 with 5.5 L, 02/24/2025 with 4.6 L, 02/26/2025 with 3.5 L, 03/02/2025 with 4.9 L, 03/06 with 5.1 L, 03/09 4.7 L
- Completed 5 days ceftriaxone for SBP prophylaxis given PMN count
- No fevers, Gram stain and fluid cultures previously negative. New Gram stain and fluid culture: No organisms seen, fluid culture with no growth.
- ID consult
# Chronic HFrEF with EF 15 to 20%
- Holding diuretics secondary to hypotension, will defer to nephrology on restarting
- Holding Jardiance, ARB secondary to renal failure
- I's and O's
# Coronary disease
- S/p stent placement
- Continue aspirin, statin
# Diabetes hemoglobin A1c on 03-03- 7.5%
- Increased sliding scale to moderate
- Continue Accu-Cheks
- Lantus insulin and mealtime NovoLog
- Hold Jardiance
# Enlarged prostate
- Holding Flomax given hypotension
# Hypoalbuminemia
- Gave 50 g albumin s/p paracentesis on 03/02
DVT prophylax-subcutaneous heparin
Full code
Anticipated Discharge: > 48 hours
Subjective/Interval History
-
Date of Service: March 10, 2025
Patient seen at the bedside today. Patient states that he is feeling better after his paracentesis yesterday, although swelling of his legs is very uncomfortable and is now up to his abdomen. Patient denies any chest pain or shortness of breath.
Objective Data
-
Labs:
Laboratory Results
03/10/25 03/10/25
04:58 17:00
WBC 20.8 H
Hgb 9.2 L
Hct 28.0 L
Plt Count 379
Sodium 121 L Pending
Potassium 5.4 H Pending
Chloride 100 Pending
Carbon Dioxide 17 L Pending
BUN 102 H* Pending
Creatinine 3.4 H Pending
Glucose 147 H Pending
Calcium 8.0 L Pending
Vital Signs:
Vital Signs
Temp Pulse Resp BP Pulse Ox
97.8 F 90 20 88/56 96
03/10/25 12:01 03/10/25 12:00 03/09/25 17:00 03/10/25 08:00 03/10/25 08:03
I&O
1203/10/25 03/11/25
06:59 06:59 06:59
Intake Total 720 / 720
Output Total 100 / 100
Balance 620 / 620
Physical Exam
-
General: Well Developed, Well Nourished and Other (Uncomfortable)
HEENT: Normocephalic, Atraumatic and Moist Mucous Membranes
Respiratory: Decreased Breath Sounds (Decreased breath sounds at bilateral bases)
Cardiac: Regular Rhythm
GI: Nontender and Distended
Musculoskeletal: No Edema
Skin: Warm and Dry
Neuro: Awake, Alert and Oriented
Psych: Calm
--- NOTE | 2025-03-10 16:15 | CON.ID ---
Consultation
-
Date/Time Consultation Requested: 03/10/2025 1313
Date/Time Consultation Performed: 03/10/2025 1600
Requesting Provider: Dr. Fisher
Performing Provider: Dr. Carolina
Reason for Consultation: Rule out SBP
Chief Complaint / Past History
History of Present Illness
Cong Pennington is a 59-year-old man with a significant past medical history of renal cell carcinoma with malignant ascites being evaluated at the request of Dr. Fisher regarding SBP. History is obtained from chart review, along with patient
interview.
The patient initially presented to [facility] on 02/24/2025 secondary to abdominal distention, generalized fatigue and malaise. It is noted that he had several hospitalizations prior to that for ascites and distention. The patient was
initially started on empiric antibiotics for possible SBP, but these were discontinued after several days when cultures did not reveal any organism.
His hospital course thus far has been significant for multiple paracentesis procedures, all of which have shown no growth. Peritoneal fluid cytology has been found to be positive for renal cell carcinoma.
Patient denies any fevers, although notes occasional chills. He admits to ongoing abdominal distention. He also admits to vomiting in the a.m., but no real nausea. He denies any dysuria.
Past History
Additional Past Medical History:
Metastatic renal cell carcinoma
CAD; Hx [place]
Chronic HFrEF
DM type II
CKD stage III
Additional Past Surgical History:
PCI with stenting
AICD placement
Renal biopsy
Allergy History:
No Known Allergies Allergy (Verified 02/23/25 22:47)
Medications Reviewed: Yes
Current Antibiotics:
None
(Ceftriaxone: 02/25 -02/28)
Social History
Tobacco: Non-Smoker
Alcohol: None
Drug: None
Personal:
Living: With Family
Employment: Employed
Family History
Family History: Not Pertinent
Review of Systems
Vital Signs
Temp Pulse Resp BP Pulse Ox
97.7 F 83 20 110/67 96
03/10/25 16:03 03/10/25 16:00 03/09/25 17:00 03/10/25 14:37 03/10/25 08:03
Physical Exam
Physical Exam
Constitutional: No Acute Distress and Comfortable
Head: Normocephalic
Eyes: Pupils Equal, Pupils Round, No Conjunctival Hemorrhage and Sclera Anicteric
Oral: No Thrush and No Ulcers
Cardiovascular: Regular Rate, S1/S2 and S3/S4
Pulmonary: Clear; Negative Wheezes, Rales or Rhonchi
Gastrointestinal: Soft, Distended, Normal Bowel Sounds, No Rebound and No Guarding
Extremities: Edema; Negative Cyanosis or Erythema
Skin: Warm and Dry; Negative Rash or Jaundice
Neurological: Awake and Alert
Psychological: Calm
Lab / Diagnostic Study Results
03/10/25 04:58
Abs Immat Gran (auto) 0.3 10^3/uL (0-0.05) H 03/08/25 04:39
Absolute Neuts (auto) 16.7 10^3/uL (1.4-6.5) H 03/08/25 04:39
Absolute Lymphs (auto) 0.8 10^3/uL (1.2-3.4) L 03/08/25 04:39
Absolute Monos (auto) 1.6 10^3/uL (0.1-0.6) H 03/08/25 04:39
Absolute Basos (auto) 0.1 10^3/uL (0-0.2) 03/08/25 04:39
Immature Gran % 1.7 % (0-0.5) H 03/08/25 04:39
Neutrophils % 85.3 % (42.2-75.2) H 03/08/25 04:39
Lymphocytes % 3.9 % (20.5-51.1) L 03/08/25 04:39
Monocytes % 8.0 % (1.7-9.3) 03/08/25 04:39
Eosinophils % 0.7 % (0-6) 03/08/25 04:39
Basophils % 0.4 % (0-2) 03/08/25 04:39
Lactic Acid 1.6 mmol/L (0.7-2.0) 02/25/25 08:57
Urine WBC 60-70 /HPF (0-5) A 02/24/25 04:04
Ur Squamous Epith Cells 3-5 /LPF (Few) 02/24/25 04:04
Microbiology Results
Micro:
03/09/25 10:46 Body Fluid Culture - Preliminary
Peritoneal Fluid No Growth After 18-24 Hours
Gram Stain - Preliminary
03/06/25 08:54 Body Fluid Culture - Final
Peritoneal Fluid No Growth After 72 Hours
Gram Stain - Final
03/02/25 13:10 Body Fluid Culture - Final
Peritoneal Fluid No Growth After 72 Hours
Gram Stain - Final
02/25/25 09:32 Blood Culture - Final
Blood/Venous No Growth - Final Report
02/25/25 08:57 Blood Culture - Final
Blood/Venous No Growth - Final Report
02/24/25 11:46 Blood Culture - Final
Blood/Venous No Growth - Final Report
02/26/25 15:04 Body Fluid Culture - Final
Peritoneal Fluid No Growth After 72 Hours
Gram Stain - Final
02/24/25 09:44 Body Fluid Culture - Final
Peritoneal Fluid No Growth After 72 Hours
Gram Stain - Final
Assessment / Plan
Metastatic renal cell carcinoma with malignant ascites (recurrent)
Leukocytosis; suspect reactive
Hyponatremia
Hyperkalemia
Renal insufficiency
Renal cell carcinoma
CAD; Hx [place]
Chronic HFrEF
DM type II
CKD stage III
Recommendations:
To date, no evidence of SBP by cultures. Cytology has indicated malignant ascites, though.
At present, would continue off of antibiotics as doubt peritonitis, whether SBP or otherwise.
Additionally, there is no established role for SBP prophylaxis in patients with malignant ascites.
Continue to monitor white count and temperature curve.
Continue to check fluid cultures when undergoing paracentesis so as not to miss possible developing peritonitis.
--- NOTE | 2025-03-10 16:31 | PTCARENOTE ---
Pt's assessment as documented. Aox3, flat. NSR/ ST on tele monitor. BP soft, pt asymptomatic. Medications administered as ordered, see MAR. Ambulating in room. Pt refuses to leave BP cuff and pulse ox on. Pt and updated on plan of care. Care as
documented- see worklist.
[2025-03-10 17:16] LABS: Glucose - Point of Care 194 mg/dl (70-99)
[2025-03-10] MEDS: LIPITOR 80 MG PO (17:36)
[2025-03-10] MEDS: HEPARIN SC ×2 (17:48→23:27)
--- NOTE | 2025-03-10 17:51 | PTCARENOTE ---
Pt requesting information on hospice care and philosophy. Emotional support provided to pt. Dr. Fisher notified.
[2025-03-10 17:53] LABS: Blood Urea Nitrogen 102 mg/dl (9-20); Calcium 7.8 mg/dl (8.4-10.2); Carbon Dioxide 18 mmol/L (22-30); Chloride 95 mmol/L (98-107); Estimated Creatinine Clearance 26 ml/min; Glucose 219 mg/dl (70-99); Potassium 5.8 mmol/L (3.5-5.1); Sodium 117 mmol/L (135-145); eGFR 19.72
--- NOTE | 2025-03-10 17:55 | PTCARENOTE ---
Critical lab results received. Dr. Fisher and Dr. Hayden notified.
--- NOTE | 2025-03-10 19:01 | W.PN.UPDATE ---
Update Note
Progress Note Update
Earlier this evening, I was alerted by patient's nurse, Isa, that patient was asking for information regarding hospice. After long discussion with patient, he is agreeable to discuss what hospice would look like with hospice team. Hospice
consult placed and palliative care team notified. Further discussions will occur in the morning. Continue exhaustive medical therapy for now.
[2025-03-10] MEDS: SENOKOT-S PO (20:43)
[2025-03-10] MEDS: COMPAZINE 5 MG IV (21:31)
[2025-03-10] MEDS: LANTUS 0.12 UNITS SC (21:47)
[2025-03-10] MEDS: ANESTHETIC LOZENGE 1 LOZENGE PO (21:47)
[2025-03-10 21:55] LABS: Glucose - Point of Care 305 mg/dl (70-99)
[2025-03-11] VITALS (10 sets, daily range): BP systolic 91–118; BP diastolic 58–71; BMI 32.4
--- NOTE | 2025-03-11 02:46 | PTCARENOTE ---
[facility]. Pt aaox3, flat and withdrawn. Denies pain. NSR on the monitor, hr 88. SpO2 96% on RA. 3% saline infusing per order. Pt vomited immediately after drinking some water. PRN Compazine admin for nausea (see MAR).
VS and assessment as documented. Pt resting in bed with call tyler in reach.
[2025-03-11 06:16] LABS: Hematocrit 28.3 % (39.0-52.0); Hemoglobin 9.3 g/dL (13.0-18.0); Mean Corp Hgb Conc. 32.9 g/dL (33.0-37.0); Mean Corpuscular Volume 87.1 fL (80.0-94.0); Nucleated Red Blood Cells % 0 % (-); Platelet Count 414 10^3/uL (130-400); Red Cell Dist. Width 14.6 % (11.5-14.5)
[2025-03-11 06:47] LABS: Blood Urea Nitrogen 102 mg/dl (9-20); Calcium 7.9 mg/dl (8.4-10.2); Carbon Dioxide 18 mmol/L (22-30); Chloride 98 mmol/L (98-107); Estimated Creatinine Clearance 27 ml/min; Glucose 191 mg/dl (70-99); Potassium 5.7 mmol/L (3.5-5.1); Sodium 120 mmol/L (135-145); eGFR 20.44
[2025-03-11 07:21] LABS: Glucose - Point of Care 243 mg/dl (70-99)
[2025-03-11] MEDS: NON-FORMULARY ITEM 120 MG PO (08:15)
[2025-03-11] MEDS: LOW STRENGTH ASPIRIN 81 MG PO (08:19)
[2025-03-11] MEDS: NOVOLOG FLEXPEN 11 UNITS SC (08:20)
[2025-03-11] MEDS: SODIUM CHLORIDE 1 GRAM PO ×4 (08:20→23:02)
[2025-03-11] MEDS: SENOKOT-S 1 TABLET PO (08:20)
[2025-03-11] MEDS: SODIUM BICARBONATE 650 MG PO ×3 (08:20→23:02)
[2025-03-11] MEDS: PROTONIX 40 MG PO (08:20)
[2025-03-11] MEDS: NOVOLOG FLEXPEN-MODERATE RESISTANCE 3 UNITS SC (08:21)
--- NOTE | 2025-03-11 08:48 | PTOTSP ---
SPOKE WITH RN. PATIENT CONTACTED BEDSIDE. PATIENT OBSERVED AMBULATING INDEPENDENTLY IN THE ROOM, STATING THAT HE WAS GOING TO TAKE A SHOWER. WHEN ASKED, PATIENT STATED THAT HE DID NOT NEED ANY FURTHER ACUTE CARE SKILLED P.T. AT THIS TIME. PER RN,
PATIENT ASKING ABOUT HOSPICE SERVICES. WILL DISCHARGE FROM P.T. AT THIS TIME.
[2025-03-11] MEDS: HEPARIN SC ×3 (08:49→23:11)
--- NOTE | 2025-03-11 09:18 | W.PN.NEPH.PH ---
Today's Communication / Plan
-
GOC
Assessment/Plan
-
Impression:
JOSEPH (5.4)
Hyponatremia (121)
Hyperkalemia (7.9)
Hypotension
Right renal cell carcinoma mass
Renal cell carcinoma with recurrent malignant ascites
Chronic congestive heart failure with LVEF of 15 to 20% (weights up 3kg since discharge)
Coronary artery disease with previous stenting procedures
History of hypertension
Type 2 diabetes
BPH
Plan:
he is not a dialysis candidate as it would surely hasten his with HFrEF 15% on high dose midodrine, large volume ascites requiring frequent paracentesis, peritoneal carcinomatosis advancing
ureteral stent management per urology, repeat CT on 03/09 showed no hydro
Continue Lokelma, additional dose today
Follow BMP
Patient is trying to consider his options. He says he will be discussing with his . He definitely does not want to stay in the hospital email engineer.
continue bicarbonate po BID for acidosis and hyperkalemia
-
-
Date of Service: March 11, 2025
CC / HPI / ROS
-
Chief Complaint:
JOSEPH
History of Present Illness:
JOSEPH/Cr down to 3.3
k 5.7 on daily lokelma
Na up to 120 after higher rate 3%, po salt tabs
BP low stable on high dose midodrine
barely oliguric
s/p LVP 6+L 03/09
Review of Systems:
no cp or sob at rest
LE edema
Abdominal distention
Labs
-
Labs:
WBC 20.7 10^3/uL (4.8-10.8) H 03/11/25 05:55
RBC 3.25 10^6/uL (4.70-6.10) L 03/11/25 05:55
Hgb 9.3 g/dL (13.0-18.0) L 03/11/25 05:55
Hct 28.3 % (39.0-52.0) L 03/11/25 05:55
Plt Count 414 10^3/uL (130-400) H 03/11/25 05:55
Sodium 120 mmol/L (135-145) L 03/11/25 05:55
Potassium 5.7 mmol/L (3.5-5.1) H 03/11/25 05:55
Chloride 98 mmol/L (98-107) 03/11/25 05:55
Carbon Dioxide 18 mmol/L (22-30) L 03/11/25 05:55
BUN 102 mg/dl (9-20) H* 03/11/25 05:55
Creatinine 3.3 mg/dL (0.7-1.3) H 03/11/25 05:55
eGFR 20.44 03/11/25 05:55
Glucose 191 mg/dl (70-99) H 03/11/25 05:55
Calcium 7.9 mg/dl (8.4-10.2) L 03/11/25 05:55
Phosphorus 7.7 mg/dl (2.5-4.5) H 02/24/25 06:13
Albumin 2.6 g/dl (3.5-5.0) L 03/07/25 04:40
Physical Exam
-
Vital Signs:
Vital Signs
Temp Pulse Resp BP Pulse Ox
97.7 F 92 20 96/68 96
03/11/25 04:15 03/11/25 06:00 03/09/25 17:00 03/11/25 04:48 03/10/25 23:30
Cardiovascular:: Regular rate and rhythm
Respiratory:: Bilateral: Coarse
Lung Excursion:: Normal
Abdomen:: Nontender and Soft
Bowel Sounds:: Normal
Extremity Edema:: +3: Bilateral:
[2025-03-11] MEDS: LOKELMA 10 GRAM PO ×2 (10:23→20:57)
--- NOTE | 2025-03-11 10:56 | W.PN.ID1 ---
Date of Service
Date of Service: March 11, 2025
Today's Communication
Observe off antibiotics.
Assessment / Plan
Metastatic renal cell carcinoma with malignant ascites (recurrent)
Leukocytosis; suspect reactive
Hyponatremia
Hyperkalemia
Renal insufficiency
Renal cell carcinoma
CAD; Hx [place]
Chronic HFrEF
DM type II
CKD stage III
Recommendations:
To date, no evidence of SBP by cultures. Cytology shows malignant ascites.
Continue off of antibiotics as no evidence peritonitis, whether SBP or otherwise.
No established role for SBP prophylaxis in patients with malignant ascites.
Continue to monitor white count and temperature curve.
Continue to check fluid cultures when undergoing paracentesis so as not to miss possible developing peritonitis.
GOC discussions.
����������������������������������������������������������
Chief Complaint
-: Other (Malignant ascites)
Subjective / Review of Systems
Patient seen and examined. Reports ongoing abdominal discomfort along with nausea and vomiting.
Review of Systems: No Fever and No Chills
Vital Signs / Physical Exam
Vital Signs
Vital Signs
Temp Pulse Resp BP Pulse Ox
97.7 F 95 20 118/71 95
03/11/25 04:15 03/11/25 10:28 03/09/25 17:00 03/11/25 10:25 03/11/25 10:40
Physical Exam
Constitutional: Comfortable and Non-toxic
Eyes: Sclera Anicteric
Cardiovascular: S1/S2; Negative S3/S4
Pulmonary: Non Labored
Gastrointestinal: Distended, Normal Bowel Sounds and Other (Moderately firm/tense secondary to ascites.)
Extremities: Edema; Negative Erythema or Splinter Hemorrhage
Neurological: Awake and Alert
Psychological: Calm
Objective Data
Lab Data
Lab Results
03/11/25 05:55
Estimated Creat Clear 27 ml/min 03/11/25 05:55
Lactic Acid 1.6 mmol/L (0.7-2.0) 02/25/25 08:57
Total Bilirubin 0.4 mg/dl (0.2-1.3) 03/07/25 04:40
AST 19 U/L (17-59) 03/07/25 04:40
ALT < 10 U/L (0-50) 03/07/25 04:40
Alkaline Phosphatase 63 U/L (38-126) 03/07/25 04:40
Most recent labs reviewed.
Micro Results:
03/09/25 10:46 Body Fluid Culture - Preliminary
Peritoneal Fluid No Growth After 18-24 Hours
Gram Stain - Preliminary
03/06/25 08:54 Body Fluid Culture - Final
Peritoneal Fluid No Growth After 72 Hours
Gram Stain - Final
03/02/25 13:10 Body Fluid Culture - Final
Peritoneal Fluid No Growth After 72 Hours
Gram Stain - Final
02/25/25 09:32 Blood Culture - Final
Blood/Venous No Growth - Final Report
02/25/25 08:57 Blood Culture - Final
Blood/Venous No Growth - Final Report
02/24/25 11:46 Blood Culture - Final
Blood/Venous No Growth - Final Report
02/26/25 15:04 Body Fluid Culture - Final
Peritoneal Fluid No Growth After 72 Hours
Gram Stain - Final
02/24/25 09:44 Body Fluid Culture - Final
Peritoneal Fluid No Growth After 72 Hours
Gram Stain - Final
Imaging:
03/09/2025 CT abdomen/pelvis without contrast: Left-sided double-J ureteral stent without evidence of hydronephrosis. Known right renal mass is not well evaluated on noncontrast images although grossly similar appearance to prior. Extensive
retroperitoneal lymphadenopathy which has slightly decreased in size from prior. The mesenteric, abdominal and visualized lower chest lymphadenopathy is overall similar to prior. Extensive peritoneal carcinomatosis, similar to prior. Small volume
abdominal pelvic ascites with associated peritoneal thickening consistent with known malignant ascites.
Care Review
Plan reviewed with: Physician (Hospitalist)
--- NOTE | 2025-03-11 11:03 | HOSPNOTE ---
Spoke with patient and family and discussed hospice and the philosophy. The patient needs some time to think about decisions. I will check on patient tomorrow if any decisions are made. We will continue to follow. If patient is in agreement with
hospice and Asept drain will be needed.
--- NOTE | 2025-03-11 12:36 | W.PN.ONC2 ---
Today's Communication / Plan
-
Palliative care.
Impression
Impression
Metastatic renal cell cancer, refractory with malignant ascites, malignant lymphadenopathy, and carcinomatosis
Acute kidney injury on chronic kidney disease
Chronic congestive heart failure, EF 10-15%
Hyponatremia
Plan
Plan
45 minute family meeting with and son.
Explained futility of his current medical situation with CHF, JOSEPH, and advanced progressive RCC with refractory ascites all impacting each other.
IV NSS will worsen his ascites and potentially his CHF.
Welirig effectiveness < 10-15% in this situation (3rd line without vHL mutation & sever comorbidities)
Okay to place ASCEPT cath for comfort.
Seems to be more agreeable now to home hospice.
He can take his current supply of Welirig but future fills won;t be allowed on hospice (he wants to take just in case he responds).
No need for labs or calt/home NSS - might make things worse.
Updated Primary RN and Med team.
Subjective/Objective
Chief Complaint
ACS Family Meeting requested by
Subjective
Patient weak. Now taking Welrig x 1 week. Still with ascites frequently needs drainage.
Vital Signs:
Vital Signs
Temp Pulse Resp BP Pulse Ox
97.3 F 95 20 118/71 95
03/11/25 07:35 03/11/25 10:28 03/09/25 17:00 03/11/25 10:25 03/11/25 10:40
Lab Results:
Laboratory Data
WBC 20.7 10^3/uL (4.8-10.8) H 03/11/25 05:55
Hgb 9.3 g/dL (13.0-18.0) L 03/11/25 05:55
Plt Count 414 10^3/uL (130-400) H 03/11/25 05:55
eGFR 20.44 03/11/25 05:55
Physical Exam
Lethargic but arousable
Cardiology: S1 and S2
Pulmonary: Clear
GI: Fluid Wave
[2025-03-11] MEDS: NOVOLOG FLEXPEN-MODERATE RESISTANCE 5 UNITS SC ×2 (13:03→17:13)
[2025-03-11 13:04] LABS: Glucose - Point of Care 261 mg/dl (70-99)
[2025-03-11] MEDS: NOVOLOG FLEXPEN SC ×2 (13:13→17:12)
--- NOTE | 2025-03-11 13:22 | PTCARENOTE ---
Pt to IR via stretcher.
--- NOTE | 2025-03-11 13:41 | W.PN.HOSP.TC ---
Addendum entered and electronically signed by Daniel Augustine MD 03/11/25 15:48:
Seen and examined the patient with the resident. Agree with the plan formulated together. See changes in my documentation
59-year-old male with metastatic renal cell carcinoma and refractory malignant ascites, carcinomatosis admitted for abdominal distention and fatigue.
On examination awake and alert able to converse
Cardiovascular system S1-S2 appreciated
Chest decreased breath sounds at bases
Abdomen distended ,nontender
B/L LE edema
Echo-severely reduced LV systolic function. EF 15 to 20%. Mild to moderate TR. PA pressure 41 mmHg. PA systolic pressure elevated.
Right heart cath on 02/27/2025-wedge 13 mmHg, RA 11 mmHg RV 42 / 8 mm HG, PA 40/18 mm Hg, cardiac output 5.38, cardiac index 2.62
# Acute kidney injury on CKD stage III with hyperkalemia
Decreased urine output
S/P cystoscopy and stent placement on the left side which was done by Dr. Barcenas on 03/01/2025
Pham catheter was removed after this procedure
Patient is not a good candidate for hemodialysis per discussion with nephrology
Hyperkalemia-continue potassium binders
CT of the abdomen and pelvis without contrast with no [place]
Cardiology evaluated for inotropes. Recommended against it
# Hyponatremia-Patient continues to be hyponatremic likely secondary to overall volume overload. 3% saline ordered, also on salt tablets. Nephrology managing.
Patient is not able to maintain his sodium
# Hypotension-secondary to third spacing, low ejection fraction and hypoalbuminemia-continue midodrine
# Stage IV Metastatic renal cell carcinoma with refractory malignant ascites, carcinomatosis, retroperitoneal adenopathy
Patient follows up with at [facility].
Patient was treated with ipilimumab/nivolumab without response and had colitis.
Then switched to cabozantinib without response
Currently prescribed Welireg
Patient had a renal stent placed on 03/01/[address] Barcenas
Creatinine trended down but minimal urine output.
# Malignant ascites
Paracentesis 02/09/2025 with 3 L, 03-03 with 5.5 L, 02/24/2025 with 4.6 L, 02/26/2025 with 3.5 L, 03/02/2025 with 4.9 L, -5.15 L, again on 03/09/2025
Pt got ceftriaxone for 5 days and now off as all the cultures are negative
No fevers, Gram stain and fluid cultures are negative. SAAG less than 1.1, total protein close 2 or more than 2.5, elevated LDH in fluid, Cytology positive -speaks against SBP
All the cultures have been negative.
ID eval appreciated
Hold off on AB
# Chronic HFrEF with ejection fraction 15 to 20%
History of AICD placement
Holding diuretics secondary to blood pressure running low
Holding Jardiance, ARB, secondary to renal failure
Difficult situation
Intake output charting and daily weights
# Coronary disease-with history of stent-continue aspirin, statin
# Diabetes hemoglobin A1c on 03-03- 7.5%
Continue Accu-Cheks and sliding scale coverage
Lantus insulin and mealtime NovoLog 15 units of Lantus at bedtime and NovoLog 12 units AC
Hold Jardiance
# Enlarged prostate-hold off on Flomax given hypotension.
# Hypoalbuminemia
# DVT prophylax-subcutaneous heparin
# Full code
CODE STATUS was discussed again with the patient and spouse at bedside
More detailed discussion about edema, ascites, physiology of low sodium, heart failure, hyponatremia.
Patient, spouse, son met with hospice today and he decided not to pursue at as he still wanted to continue with chemo tablet and also to get lab work and corrected sodium.
Patient is aware that he will likely not be able to go home because of the sodium being low. There is no way to maintain his sodium at this point with oral medicines.
Discussed about Chintan bandages for the lower extremities to avoid symptomatic edema
Discussed with infectious disease, nephrology, oncology, nursing
Discussed with hospice nursing
Time spent over 1 hour
Original Note:
Today's Communication/Plan
-
- Paracentesis today
- Hospice consult this morning
Assessment / Plan
Assessment / Plan
# Acute kidney injury
- Minimal urine output
- Creatinine 3.3
- Dr. Barcenas did cystoscopy and stent placement left side 03/01/2025
- Patient is not a good candidate for hemodialysis per discussion with nephrology
- Repeat BMP
- CT abdomen pelvis Noncon showed patent ureteral stent without hydronephrosis
Hyperkalemia
- Will defer to nephro recs
# Hyponatremia
- Sodium 120 today
- Patient continues to be hyponatremic likely secondary to overall volume overload
- 3% saline as per nephrology recommendations
# Hypotension
- secondary to third spacing and hypoalbuminemia
- continue midodrine 15 mg 3 times daily
# Stage IV Metastatic renal cell carcinoma with refractory malignant ascites, carcinomatosis, retroperitoneal adenopathy
- Started Welireg inpatient. Will monitor for toxicities.
- Peritoneal catheter placement not approved. Patient will plan to get serial paracenteses as an outpatient, 2 times weekly
- Patient follows with Dr. Vu at [facility]
- Patient open to talking with hospice this morning.
# Malignant ascites
- Paracentesis 02/09/2025 with 3 L, 02/16 with 5.5 L, 02/24/2025 with 4.6 L, 02/26/2025 with 3.5 L, 03/02/2025 with 4.9 L, 03/06 with 5.1 L, 03/09 4.7 L, repeat today 03/11
- Completed 5 days ceftriaxone for SBP prophylaxis given PMN count
- No fevers, Gram stain and fluid cultures previously negative. Most recent Gram stain and fluid culture: No organisms seen, fluid culture with no growth.
- ID confirmed no treatment of ascites necessary at the moment
# Chronic HFrEF with EF 15 to 20%
- Holding diuretics secondary to hypotension, will defer to nephrology on restarting
- Holding Jardiance, ARB secondary to renal failure
- I's and O's
# Coronary disease
- S/p stent placement
- Continue aspirin, statin
# Diabetes hemoglobin A1c on 03-03- 7.5%
- Increased sliding scale to moderate
- Continue Accu-Cheks
- Lantus insulin and mealtime NovoLog
- Hold Jardiance
# Enlarged prostate
- Holding Flomax given hypotension
# Hypoalbuminemia
- Ordered 25 g albumin s/p paracentesis today
DVT prophylax-subcutaneous heparin
Full code
Anticipated Discharge: > 48 hours
Subjective/Interval History
-
Date of Service: March 11, 2025
Saw patient this morning at bedside. Patient did not sleep well as he is very uncomfortable from the distention and lower extremity swelling. Patient states that he still full he cannot even eat anything because there is no room.
Objective Data
-
Labs:
Laboratory Results
03/11/25 03/11/25
05:55 14:00
WBC 20.7 H
Hgb 9.3 L
Hct 28.3 L
Plt Count 414 H
Sodium 120 L Pending
Potassium 5.7 H Pending
Chloride 98 Pending
Carbon Dioxide 18 L Pending
BUN 102 H* Pending
Creatinine 3.3 H Pending
Glucose 191 H Pending
Calcium 7.9 L Pending
Vital Signs:
Vital Signs
Temp Pulse Resp BP Pulse Ox
98.0 F 95 15 102/66 96
03/11/25 13:25 03/11/25 13:25 03/11/25 13:25 03/11/25 13:25 03/11/25 13:25
I&O
03/10/25 03/11/25 03/12/25
06:59 06:59 06:59
Intake Total 720 / 720 490 / 490
Output Total 100 / 100
Balance 620 / 620 490 / 490
Physical Exam
-
General: Well Developed and Other (Uncomfortable)
HEENT: Normocephalic, Atraumatic and Moist Mucous Membranes
Respiratory: Decreased Breath Sounds (Bilateral lower bases)
Cardiac: Regular Rhythm
GI: Nontender and Distended
Musculoskeletal: Other (3+ pitting edema bilateral lower extremities to abdomen)
Skin: Other (Edematous)
Neuro: Awake, Alert and Oriented
Psych: Calm
[2025-03-11] MEDS: FLEXBUMIN 100 IV (14:39)
[2025-03-11 15:20] LABS: Blood Urea Nitrogen 105 mg/dl (9-20); Calcium 8.0 mg/dl (8.4-10.2); Carbon Dioxide 19 mmol/L (22-30); Chloride 94 mmol/L (98-107); Estimated Creatinine Clearance 26 ml/min; Glucose 206 mg/dl (70-99); Potassium 5.8 mmol/L (3.5-5.1); Sodium 119 mmol/L (135-145); eGFR 19.04
--- NOTE | 2025-03-11 15:37 | PTCARENOTE ---
Pt's assessment as documented. Aox3, flat. NSR on tele monitor. BP soft, pt asymptomatic. Medications administered as ordered, see MAR. Ambulating in room. Reports feeling much improved after paracentesis. Pt and updated on plan of care.
Ringing appropriately, call tyler within reach.
--- NOTE | 2025-03-11 16:01 | CM ---
F/U: Hospitalist Team said that a conversation happened last night while alone with the team. Patient expressed the idea of Hospice. Today, MEGAN Salvador spoke to the patient, and son was present as well as [id number], he was agreeable to talk
to the the Liaison. Conversation happened with [facility] ([facility]) liaison, patient still maybe wanting some aggressive treatment, baudilio after just starting chemo pills. Therefore, patient needs time to think about it. [facility] Yulia will talk to
the patient alone tomorrow morning. If he chooses Hospice, patient CAN GET A ACEPT CATHETER since it would be for hospice, and likely late tomorrow or Sunday for a plan for DC tomorrow, more likely on Sunday. PLAN: Home Hospice?
[2025-03-11 16:03] LABS: Body Fluid Second Tech EYM
[2025-03-11] MEDS: LIPITOR 80 MG PO (17:09)
[2025-03-11 17:23] LABS: Glucose - Point of Care 256 mg/dl (70-99)
[2025-03-11] MEDS: SENOKOT-S PO (20:57)
[2025-03-11] MEDS: LANTUS 0.15 UNITS SC (23:02)
[2025-03-11 23:11] LABS: Glucose - Point of Care 197 mg/dl (70-99)
[2025-03-12] VITALS (8 sets, daily range): BP systolic 85–134; BP diastolic 55–82; BMI 31.5
--- NOTE | 2025-03-12 04:22 | PTCARENOTE ---
Assumed care of pt from martinez JACOBS. Pt aaox3, flat and withdrawn. NSR on the tele monitor. SpO2 96% on RA. Hygiene completed including CHG wipes. Pt resting in bed with call tyler in reach.
[2025-03-12 06:33] LABS: Hematocrit 27.5 % (39.0-52.0); Hemoglobin 9.4 g/dL (13.0-18.0); Mean Corp Hgb Conc. 34.2 g/dL (33.0-37.0); Mean Corpuscular Volume 86.2 fL (80.0-94.0); Platelet Count 429 10^3/uL (130-400); Red Cell Dist. Width 14.6 % (11.5-14.5)
[2025-03-12 07:21] LABS: Blood Urea Nitrogen 107 mg/dl (9-20); Calcium 8.2 mg/dl (8.4-10.2); Carbon Dioxide 19 mmol/L (22-30); Chloride 94 mmol/L (98-107); Estimated Creatinine Clearance 26 ml/min; Glucose 191 mg/dl (70-99); Potassium 6.0 mmol/L (3.5-5.1); Sodium 119 mmol/L (135-145); eGFR 19.72
[2025-03-12 08:23] LABS: Glucose - Point of Care 223 mg/dl (70-99)
[2025-03-12] MEDS: NOVOLOG FLEXPEN-MODERATE RESISTANCE 3 UNITS SC (09:10)
[2025-03-12] MEDS: NOVOLOG FLEXPEN 12 UNITS SC ×2 (09:11→12:32)
[2025-03-12] MEDS: LOW STRENGTH ASPIRIN 81 MG PO (09:12)
[2025-03-12] MEDS: SODIUM CHLORIDE 1 GRAM PO ×3 (09:13→17:07)
[2025-03-12] MEDS: PROTONIX 40 MG PO (09:13)
[2025-03-12] MEDS: SODIUM BICARBONATE 650 MG PO ×2 (09:14→17:06)
[2025-03-12] MEDS: HEPARIN 5000 UNITS SC (09:14)
[2025-03-12] MEDS: SENOKOT-S 1 TABLET PO (09:14)
[2025-03-12] MEDS: NON-FORMULARY ITEM 3 MG PO (09:15)
[2025-03-12] MEDS: LOKELMA PO (09:21)
--- NOTE | 2025-03-12 09:44 | W.PN.NEPH.PH ---
Today's Communication / Plan
-
treat K
Assessment/Plan
-
Impression:
JOSEPH (5.4)
Hyponatremia (121)
Hyperkalemia (7.9)
Hypotension
Right renal cell carcinoma mass
Renal cell carcinoma with recurrent malignant ascites
Chronic congestive heart failure with LVEF of 15 to 20% (weights up 3kg since discharge)
Coronary artery disease with previous stenting procedures
History of hypertension
Type 2 diabetes
BPH
Plan:
he is not a dialysis candidate as it would surely hasten his with HFrEF 15% on high dose midodrine, large volume ascites requiring frequent paracentesis, peritoneal carcinomatosis advancing
ureteral stent management per urology, repeat CT on 03/09 showed no hydro
Continue Lokelma increase to BID
add bumex/metolazone, though I am doubtful they will have much effect and higher doses my suppress BP
for peritoneal catheter
Follow BMP
He has decided on hospice, hoping to go home tomorrow
-
-
Date of Service: March 12, 2025
CC / HPI / ROS
-
Chief Complaint:
JOSEPH
History of Present Illness:
JOSEPH/Cr stable 3.4
Na stable 119, no additional 3% yesterday
K up to 6 despite daily lokelma
BP low stable on high dose midodrine
barely oliguric
Review of Systems:
no cp or sob at rest
LE edema
Abdominal distention
Labs
-
Labs:
WBC 22.3 10^3/uL (4.8-10.8) H 03/12/25 06:01
RBC 3.19 10^6/uL (4.70-6.10) L 03/12/25 06:01
Hgb 9.4 g/dL (13.0-18.0) L 03/12/25 06:01
Hct 27.5 % (39.0-52.0) L 03/12/25 06:01
Plt Count 429 10^3/uL (130-400) H 03/12/25 06:01
Sodium 119 mmol/L (135-145) L* 03/12/25 06:01
Potassium 6.0 mmol/L (3.5-5.1) H 03/12/25 06:01
Chloride 94 mmol/L (98-107) L 03/12/25 06:01
Carbon Dioxide 19 mmol/L (22-30) L 03/12/25 06:01
BUN 107 mg/dl (9-20) H* 03/12/25 06:01
Creatinine 3.4 mg/dL (0.7-1.3) H 03/12/25 06:01
eGFR 19.72 03/12/25 06:01
Glucose 191 mg/dl (70-99) H 03/12/25 06:01
Calcium 8.2 mg/dl (8.4-10.2) L 03/12/25 06:01
Phosphorus 7.7 mg/dl (2.5-4.5) H 02/24/25 06:13
Albumin 2.6 g/dl (3.5-5.0) L 03/07/25 04:40
Physical Exam
-
Vital Signs:
Vital Signs
Temp Pulse Resp BP Pulse Ox
97.6 F 82 15 85/63 96
03/12/25 07:30 03/12/25 09:13 03/11/25 13:25 03/12/25 09:13 03/12/25 04:18
Cardiovascular:: Regular rate and rhythm
Respiratory:: Bilateral: Coarse
Lung Excursion:: Normal
Abdomen:: Distended, Nontender and Soft
Bowel Sounds:: Normal
Extremity Edema:: +3: Bilateral:
--- NOTE | 2025-03-12 10:09 | HOSPNOTE ---
Spoke with patient and discussed hospice and the philosophy. The patient wishes to go home with hospice. The plan is for an Asept drain to be placed in IR, AICD needs to be turned off and the patient would like to go home tomorrow and would like
hospice to come on Sunday morning. Attending and CM updated with plan.
--- NOTE | 2025-03-12 10:19 | W.PN.HOSP.TC ---
Addendum entered and electronically signed by Daniel Augustine MD 03/12/25 14:50:
I saw and evaluated the patient. I reviewed the resident�s note and agree with findings and plan as documented in the resident�s note.
Patient was seen earlier today. Late documentation
Patient's son, and [id number] are at bedside
He stated his night was okay. Did not Chintan bandages and is lower extremities felt better.
After paracentesis his abdomen was feeling better
Awake alert oriented
Abdomen distended
Chest decreased breath sounds bilaterally
Bilateral pedal edema present
Patient has made decision to go home with hospice. He will continue to take Welerig until he runs out.
Patient as well as family are aware about sodium and potassium today and they had questions about it.
He requested to talk to hospice again today and made the decision for home hospice.
I discussed about AICD and he is agreeable to turn that off I have contacted cardiology
Interventional radiology was consulted for peritoneal catheter placement for fluid drainage at home
They will drain fluid here tomorrow through the catheter prior to patient leaving
There is slightly high risk for wound healing with the catheter with this ascites and also poor albumin and Welireg however this will improve the quality of his life being on hospice otherwise will require multiple trips to the radiology department
for drainage of the fluid.
Case discussed with oncology, nephrology, cardiology
Discussed with nursing
Discussed with hospice
time spent over 50 min
Original Note:
Today's Communication/Plan
-
- Patient considering hospice, interested in pursuing comfort at this point. Asked hospice nurse to see him again this morning.
- Will reach out to heme-onc/IR about peritoneal drain placement as prereq for home hospice
Assessment / Plan
Assessment / Plan
# Acute kidney injury
- Minimal urine output
- Creatinine 3.3
- Dr. Barcenas did cystoscopy and stent placement left side 03/01/2025
- Patient is not a good candidate for hemodialysis per discussion with nephrology
- Repeat BMP
- CT abdomen pelvis Noncon showed patent ureteral stent without hydronephrosis
Hyperkalemia
- Will defer to nephro recs
# Hyponatremia
- Sodium 120 today
- Patient continues to be hyponatremic likely secondary to overall volume overload
- 3% saline as per nephrology recommendations
# Hypotension
- secondary to third spacing and hypoalbuminemia
- continue midodrine 15 mg 3 times daily
# Stage IV Metastatic renal cell carcinoma with refractory malignant ascites, carcinomatosis, retroperitoneal adenopathy
- Started Welireg inpatient. Will monitor for toxicities.
- Peritoneal catheter placement not approved. Patient will plan to get serial paracenteses as an outpatient, 2 times weekly
- Patient follows with Dr. Vu at [facility]
- Patient open to talking with hospice this morning.
# Malignant ascites
- Paracentesis 02/09/2025 with 3 L, 02/16 with 5.5 L, 02/24/2025 with 4.6 L, 02/26/2025 with 3.5 L, 03/02/2025 with 4.9 L, 03/06 with 5.1 L, 03/09 4.7 L, repeat today 03/11
- Completed 5 days ceftriaxone for SBP prophylaxis given PMN count
- No fevers, Gram stain and fluid cultures previously negative. Most recent Gram stain and fluid culture: No organisms seen, fluid culture with no growth.
- ID confirmed no treatment of ascites necessary at the moment
# Chronic HFrEF with EF 15 to 20%
- Holding diuretics secondary to hypotension, will defer to nephrology on restarting
- Holding Jardiance, ARB secondary to renal failure
- I's and O's
# Coronary disease
- S/p stent placement
- Continue aspirin, statin
# Diabetes hemoglobin A1c on 03-03- 7.5%
- Increased sliding scale to moderate
- Continue Accu-Cheks
- Lantus insulin and mealtime NovoLog
- Hold Jardiance
# Enlarged prostate
- Holding Flomax given hypotension
# Hypoalbuminemia
DVT prophylax-subcutaneous heparin
Full code
Anticipated Discharge: 24 - 48 hours
Subjective/Interval History
-
Date of Service: March 12, 2025
Patient seen this morning lying in the bedside. Patient states that he is feeling very full and uncomfortable. Patient would like the hospice nurse to come back this morning.
Objective Data
-
Labs:
Laboratory Results
03/12/25 03/12/25
06:01 12:00
WBC 22.3 H
Hgb 9.4 L
Hct 27.5 L
Plt Count 429 H
Sodium 119 L* Pending
Potassium 6.0 H Pending
Chloride 94 L Pending
Carbon Dioxide 19 L Pending
BUN 107 H* Pending
Creatinine 3.4 H Pending
Glucose 191 H Pending
Calcium 8.2 L Pending
Vital Signs:
Vital Signs
Temp Pulse Resp BP Pulse Ox
97.6 F 82 15 85/63 96
03/12/25 07:30 03/12/25 09:13 03/11/25 13:25 03/12/25 09:13 03/12/25 04:18
I&O
03/11/25 03/12/25 03/13/25
06:59 06:59 06:59
Intake Total 490 / 490 300 / 300
Balance 490 / 490 300 / 300
Review of Systems
-
History Source: Patient
Constitutional: Reports No Symptoms
EENT: Reports No Symptoms Reported
Respiratory: Reports No Symptoms
Cardiac: Reports No Symptoms
Abdomen/GI: Reports Nausea, Bloated and Other (Distention)
Genitourinary: Reports Difficulty Voiding
Musculoskeletal: Reports Edema (Bilateral pitting edema)
Skin: Reports No Symptoms
Neuro: Reports No Symptoms
Endocrine: Reports No Symptoms
Hematologic / Lymphatic: Reports No Symptoms
Allergy / Immunology: Reports No Symptoms
Psych: Reports Sad
Physical Exam
-
General: Well Developed, Well Nourished, No Apparent Distress and Comfortable
HEENT: Moist Mucous Membranes
Respiratory: Clear to Auscultation
Cardiac: Regular Rhythm
GI: Nontender and Distended
--- NOTE | 2025-03-12 10:30 | PTCARENOTE ---
PT IS AAOx3 no distress, pt has choosen hospice care at home.
[2025-03-12] MEDS: BUMEX 2 MG PO (10:44)
[2025-03-12] MEDS: ZAROXOLYN 2.5 MG PO (10:45)
--- NOTE | 2025-03-12 11:32 | W.PN.ONC2 ---
Today's Communication / Plan
-
pt plans for home hospice tomorrow - I updated his primary oncologist
Impression
Impression
Metastatic renal cell cancer, refractory with malignant ascites, malignant lymphadenopathy, and carcinomatosis
Acute kidney injury on chronic kidney disease
Chronic congestive heart failure, EF 10-15%
Hyponatremia
Plan
Plan
Pt understands the futility of his current medical situation with CHF, JOSEPH, and advanced progressive RCC with refractory ascites all impacting each other.
IV NSS will worsen his ascites and potentially his CHF.
Welirig effectiveness < 10-15% in this situation (3rd line without vHL mutation & sever comorbidities)
Okay to place abdominal ASCEPT cath for comfort.
He can take his current supply of Welirig but future fills won't be allowed on hospice (he wants to take just in case he responds).
Subjective/Objective
Subjective
increasing abdominal girth
extremely fatigued after shower this morning
Vital Signs:
Vital Signs
Temp Pulse Resp BP Pulse Ox
97.6 F 106 15 85/63 95
03/12/25 07:30 03/12/25 10:00 03/11/25 13:25 03/12/25 09:14 03/12/25 08:00
Lab Results:
Laboratory Data
WBC 22.3 10^3/uL (4.8-10.8) H 03/12/25 06:01
Hgb 9.4 g/dL (13.0-18.0) L 03/12/25 06:01
Plt Count 429 10^3/uL (130-400) H 03/12/25 06:01
eGFR 19.72 03/12/25 06:01
Physical Exam
HEENT: No Jaundice
Pulmonary: Other (unlabored)
GI: Soft and Distended
Extremities: Pulses Present and Edema
Neuro: Non Focal
--- NOTE | 2025-03-12 11:45 | W.PN.ID1 ---
Date of Service
Date of Service: March 12, 2025
Today's Communication
Sign off
Assessment / Plan
Metastatic renal cell carcinoma with malignant ascites (recurrent)
Leukocytosis; suspect reactive
Hyponatremia
Hyperkalemia
Renal insufficiency
Renal cell carcinoma
CAD; Hx RI
Chronic HFrEF
DM type II
CKD stage III
Recommendations:
To date, no evidence of SBP by cultures. Cytology shows malignant ascites.
Continue off of antibiotics as no evidence peritonitis, whether SBP or otherwise.
No established role for SBP prophylaxis in patients with malignant ascites.
Chart reviewed. Tentative plans for transition to hospice.
Little more to offer from a Infectious Diseases standpoint.
Will see again at your request.
����������������������������������������������������������
Chief Complaint
-: Other (Malignant ascites)
Subjective / Review of Systems
Review of Systems: No Fever, No Chills, Abdominal Pain and Nausea
Vital Signs / Physical Exam
Vital Signs
Vital Signs
Temp Pulse Resp BP Pulse Ox
97.6 F 106 15 85/63 95
03/12/25 07:30 03/12/25 10:00 03/11/25 13:25 03/12/25 09:14 03/12/25 08:00
Physical Exam
Constitutional: Comfortable, Chronically Ill and Non-toxic
Pulmonary: Non Labored
Gastrointestinal: Distended
Neurological: Awake and Alert
Psychological: Calm
Objective Data
Lab Data
Lab Results
03/12/25 06:01
Estimated Creat Clear 26 ml/min 03/12/25 06:01
Lactic Acid 1.6 mmol/L (0.7-2.0) 02/25/25 08:57
Total Bilirubin 0.4 mg/dl (0.2-1.3) 03/07/25 04:40
AST 19 U/L (17-59) 03/07/25 04:40
ALT < 10 U/L (0-50) 03/07/25 04:40
Alkaline Phosphatase 63 U/L (38-126) 03/07/25 04:40
Most recent labs reviewed.
Micro Results:
03/11/25 13:40 Body Fluid Culture - Preliminary
Peritoneal Fluid No Growth After 18-24 Hours
Gram Stain - Preliminary
03/09/25 10:46 Body Fluid Culture - Preliminary
Peritoneal Fluid No Growth After 48 Hours
Gram Stain - Preliminary
03/06/25 08:54 Body Fluid Culture - Final
Peritoneal Fluid No Growth After 72 Hours
Gram Stain - Final
03/02/25 13:10 Body Fluid Culture - Final
Peritoneal Fluid No Growth After 72 Hours
Gram Stain - Final
02/25/25 09:32 Blood Culture - Final
Blood/Venous No Growth - Final Report
02/25/25 08:57 Blood Culture - Final
Blood/Venous No Growth - Final Report
02/24/25 11:46 Blood Culture - Final
Blood/Venous No Growth - Final Report
02/26/25 15:04 Body Fluid Culture - Final
Peritoneal Fluid No Growth After 72 Hours
Gram Stain - Final
02/24/25 09:44 Body Fluid Culture - Final
Peritoneal Fluid No Growth After 72 Hours
Gram Stain - Final
Imaging:
03/09/2025 CT abdomen/pelvis without contrast: Left-sided double-J ureteral stent without evidence of hydronephrosis. Known right renal mass is not well evaluated on noncontrast images although grossly similar appearance to prior. Extensive
retroperitoneal lymphadenopathy which has slightly decreased in size from prior. The mesenteric, abdominal and visualized lower chest lymphadenopathy is overall similar to prior. Extensive peritoneal carcinomatosis, similar to prior. Small volume
abdominal pelvic ascites with associated peritoneal thickening consistent with known malignant ascites.
[2025-03-12 12:22] LABS: Glucose - Point of Care 283 mg/dl (70-99)
[2025-03-12] MEDS: NOVOLOG FLEXPEN-MODERATE RESISTANCE 5 UNITS SC (12:31)
--- NOTE | 2025-03-12 14:31 | PTCARENOTE ---
Pt to IR for plurex cath
[2025-03-12] MEDS: COMPAZINE 5 MG IV (14:49)
[2025-03-12] MEDS: FLUSH (NSS) 1 FLUSH IV (14:50)
--- NOTE | 2025-03-12 14:53 | PTCARENOTE ---
Received pt. from IMU, for peritoneal asept catheter placement. Pt c/o nausea. Offered Compazine as ordered. Pt. accepted, compazine given as ordered.
[2025-03-12] MEDS: ANCEF 10 IV (15:22)
[2025-03-12] MEDS: HEPARIN SC ×2 (17:06→22:49)
[2025-03-12] MEDS: LIPITOR 80 MG PO (17:06)
--- NOTE | 2025-03-12 17:22 | PN.IRAD.UPD ---
Update Note - IRAD
- -
2500 Ml bloody peritoneal fluid drained via right ASEPT catheter. Clean,dry dressing placed over site . Patient tolerated procedure well.
--- NOTE | 2025-03-12 17:26 | PN.IRAD.UPD ---
Update Note - IRAD
- -
drainage kit box of 5 sent back to room with patient .
[2025-03-12 17:31] LABS: Glucose - Point of Care 120 mg/dl (70-99)
--- NOTE | 2025-03-12 17:33 | PTCARENOTE ---
Pt back from IR , walked to bed. Feeling nauseated. Asked for a popsicle
[2025-03-12] MEDS: NOVOLOG FLEXPEN-MODERATE RESISTANCE SC (17:34)
[2025-03-12] MEDS: NOVOLOG FLEXPEN SC (17:36)
[2025-03-12 18:21] LABS: Blood Urea Nitrogen 109 mg/dl (9-20); Calcium 8.2 mg/dl (8.4-10.2); Carbon Dioxide 20 mmol/L (22-30); Chloride 94 mmol/L (98-107); Estimated Creatinine Clearance 25 ml/min; Glucose 119 mg/dl (70-99); Potassium 6.0 mmol/L (3.5-5.1); Sodium 118 mmol/L (135-145); eGFR 18.41
[2025-03-12] MEDS: DEXTROSE 50% SYRINGE 25 GRAMS IV ×2 (20:31→23:50)
[2025-03-12] MEDS: SENOKOT-S PO (20:32)
[2025-03-12] MEDS: NOVOLIN R 0.1 UNITS IV ×2 (20:32→23:49)
[2025-03-12] MEDS: BUMEX PO ×2 (22:15→22:32)
[2025-03-12] MEDS: LANTUS 0.15 UNITS SC (22:15)
[2025-03-12] MEDS: SODIUM BICARBONATE PO ×2 (22:15→22:48)
[2025-03-12] MEDS: SODIUM CHLORIDE PO ×2 (22:15→22:48)
[2025-03-12 22:31] LABS: Glucose - Point of Care 164 mg/dl (70-99)
[2025-03-12 23:19] LABS: Blood Urea Nitrogen 108 mg/dl (9-20); Calcium 8.4 mg/dl (8.4-10.2); Carbon Dioxide 21 mmol/L (22-30); Chloride 93 mmol/L (98-107); Estimated Creatinine Clearance 24 ml/min; Glucose 142 mg/dl (70-99); Potassium 6.1 mmol/L (3.5-5.1); Sodium 117 mmol/L (135-145); eGFR 17.81
[2025-03-12 23:44] LABS: Glucose - Point of Care 172 mg/dl (70-99)
[2025-03-13 01:05] VITALS: BP 92/66
[2025-03-13 01:15] LABS: Glucose - Point of Care 181 mg/dl (70-99)
[2025-03-13 02:45] LABS: Potassium 6.2 mmol/L (3.5-5.1)
--- NOTE | 2025-03-13 04:33 | PTCARENOTE ---
Assumed care of pt from dayshikelly RN. Pt aaox3 and flat. NSR on tele monitor with BBB. SpO2 96% on RA. VS and assessment as documented.
Pt more open to talking about his current health status and plan of care this evening. He stated multiple times about how he is ready to go home today. Patient was unable to take any PO meds due to nausea and vomiting. antinausea medication offered,
but pt declined.
At start of shift, IV insulin and IV dextrose given for K of 6. Repeat K post treatment was 6.1 and BOOKING PRIZER made aware. additional IV meds ordered and administered. At 0200 attempted to get blood sugar (per post IV insulin protocol) but pt refused. At
that time patient stated he did not want anymore medications for his K level and BOOKING PRIZER made aware of this. Repeat K 6.2 and BOOKING PRIZER updated. Patient not open to additional medication at this time. Pt agreeable to morning labs at 0600. Pt currently
resting in bed with call tyler in reach.
[2025-03-13] MEDS: COMPAZINE 5 MG IV (06:00)
[2025-03-13 06:03] VITALS: BP 119/101
[2025-03-13 06:36] LABS: Blood Urea Nitrogen 111 mg/dl (9-20); Calcium 8.1 mg/dl (8.4-10.2); Carbon Dioxide 19 mmol/L (22-30); Chloride 93 mmol/L (98-107); Estimated Creatinine Clearance 25 ml/min; Glucose 170 mg/dl (70-99); Potassium 6.5 mmol/L (3.5-5.1); Sodium 115 mmol/L (135-145); eGFR 18.41
--- NOTE | 2025-03-13 06:53 | W.PN.UPDATE ---
Update Note
Progress Note Update
Lab result noted this am: K 6.5 (last 6.2) nA 115 AND BUN 108. Pt elects no intervention at this time since he is going home on Hospice.
--- NOTE | 2025-03-13 08:10 | PTCARENOTE ---
Addendum entered by Isa Barrientos 03/13/25 09:25:
Dr Fisher notified pt refusing care.
Original Note:
Pt refusing accucheck, VS and morning meds at this time.
[2025-03-13] MEDS: NOVOLOG FLEXPEN-MODERATE RESISTANCE SC ×2 (09:11→12:05)
[2025-03-13] MEDS: NOVOLOG FLEXPEN SC ×2 (09:11→12:05)
[2025-03-13] MEDS: HEPARIN SC (09:13)
[2025-03-13] MEDS: BUMEX PO (09:13)
[2025-03-13] MEDS: LOW STRENGTH ASPIRIN PO (09:14)
[2025-03-13] MEDS: PROTONIX PO (09:27)
[2025-03-13] MEDS: SENOKOT-S PO (09:27)
[2025-03-13] MEDS: SODIUM CHLORIDE PO ×2 (09:28→12:05)
[2025-03-13] MEDS: SODIUM BICARBONATE PO (09:28)
[2025-03-13] MEDS: NON-FORMULARY ITEM PO (09:29)
[2025-03-13] MEDS: ZAROXOLYN PO (09:29)
--- NOTE | 2025-03-13 09:29 | PTCARENOTE ---
Pt's requesting to take home pt's Welireg (home med)- medication returned to .
--- NOTE | 2025-03-13 10:16 | PTCARENOTE ---
Pt's code status changed to DNR. Purple bracelet applied. AICD deactivated by rep.
--- NOTE | 2025-03-13 10:52 | PN.IRAD.UPD ---
Update Note - IRAD
- -
Peritoneal Asept catheter drained bedside per . 1000ml of bloody fluid drained. Site cleaned and dressed. RN made aware.
--- NOTE | 2025-03-13 11:59 | CM ---
F/U: Patient will discharge home today. Patient has ACEPT Catheter, PICC was removed, and defibrillator was turned off. Patient will get Catheter supplies from Hospice and be seen tomorrow for visit plus a drain. PLAN: Home Hospice w/ [facility]
[facility] ([facility]).
--- NOTE | 2025-03-13 12:25 | PTCARENOTE ---
Pt for d/c home on hospice. Pt continues to refuse meds/accuchecks/vitals. PICC d/c by IVT. IR nurse at bedside for para. Awaiting d/c order.
--- NOTE | 2025-03-13 12:43 | W.PN.NEPH.PH ---
Today's Communication / Plan
-
home with hospice
Assessment/Plan
-
Impression:
JOSEPH (5.4)
Hyponatremia (121)
Hyperkalemia (7.9)
Hypotension
Right renal cell carcinoma mass
Renal cell carcinoma with recurrent malignant ascites
Chronic congestive heart failure with LVEF of 15 to 20% (weights up 3kg since discharge)
Coronary artery disease with previous stenting procedures
History of hypertension
Type 2 diabetes
BPH
Plan:
labs noted worsening hyponatremia and hyperkalemia
cont lokelma 3x daily, bumex 2mg BID
cont high dose salt tab1gm QID
met acidosis managed with sodium bicarb pills
he is to d/c home today with hospice
-
-
Date of Service: March 13, 2025
CC / HPI / ROS
-
Chief Complaint:
JOSEPH
History of Present Illness:
JOSEPH/Cr up at 3.6
Na down to 115, no additional 3% yesterday
K up to 6.5 despite high dose lokelma
BP low stable on high dose midodrine
barely oliguric
Review of Systems:
no cp or sob at rest
LE edema
Abdominal distention, has drain now
Labs
-
Labs:
WBC 22.3 10^3/uL (4.8-10.8) H 03/12/25 06:01
RBC 3.19 10^6/uL (4.70-6.10) L 03/12/25 06:01
Hgb 9.4 g/dL (13.0-18.0) L 03/12/25 06:01
Hct 27.5 % (39.0-52.0) L 03/12/25 06:01
Plt Count 429 10^3/uL (130-400) H 03/12/25 06:01
Sodium 115 mmol/L (135-145) L* 03/13/25 05:53
Potassium 6.5 mmol/L (3.5-5.1) H* 03/13/25 05:53
Chloride 93 mmol/L (98-107) L 03/13/25 05:53
Carbon Dioxide 19 mmol/L (22-30) L 03/13/25 05:53
BUN 111 mg/dl (9-20) H* 03/13/25 05:53
Creatinine 3.6 mg/dL (0.7-1.3) H 03/13/25 05:53
eGFR 18.41 03/13/25 05:53
Glucose 170 mg/dl (70-99) H 03/13/25 05:53
Calcium 8.1 mg/dl (8.4-10.2) L 03/13/25 05:53
Phosphorus 7.7 mg/dl (2.5-4.5) H 02/24/25 06:13
Albumin 2.6 g/dl (3.5-5.0) L 03/07/25 04:40
Physical Exam
-
Vital Signs:
Vital Signs
Temp Pulse Resp BP Pulse Ox
97.5 F 93 12 119/101 96
03/12/25 23:54 03/13/25 08:00 03/12/25 16:42 03/13/25 06:03 03/13/25 03:25
Cardiovascular:: Regular rate and rhythm
Respiratory:: Bilateral: CTA (decreased)
Lung Excursion:: Normal
Abdomen:: Distended, Nontender and Soft
Bowel Sounds:: Normal
Extremity Edema:: +3: Bilateral:
Pham Catheter: No
--- NOTE | 2025-03-13 13:11 | W.PN.UPDATE ---
Addendum entered and electronically signed by Daniel Augustine MD 03/17/25 18:28:
It is difficult to comment if the patient has acute on chronic CHF when he is also in renal failure.
Original Note:
Update Note
Progress Note Update
Seen and examined the patient earlier today. Sons were at bedside
59-year-old male with metastatic renal cell carcinoma and refractory malignant ascites, carcinomatosis admitted for abdominal distention and fatigue.
On examination awake and alert able to converse
Denies any new complaints today
Abdomen not distended today, bilateral lower extremity edema
Echo-severely reduced LV systolic function. EF 15 to 20%. Mild to moderate TR. PA pressure 41 mmHg. PA systolic pressure elevated.
Right heart cath on 02/27/2025-wedge 13 mmHg, RA 11 mmHg RV 42 / 8 mm HG, PA 40/18 mm Hg, cardiac output 5.38, cardiac index 2.62
# Acute kidney injury on CKD stage III with hyperkalemia
Decreased urine output
S/P cystoscopy and stent placement on the left side which was done by Dr. Barcenas on 03/01/2025
Pham catheter was removed after this procedure
Patient is not a good candidate for hemodialysis per discussion with nephrology
Hyperkalemia-patient did not want to continue with potassium binders
CT of the abdomen and pelvis without contrast with no [place]
# Hyponatremia-Patient continues to be hyponatremic likely secondary to overall volume overload.
# Hypotension-secondary to third spacing, low ejection fraction and hypoalbuminemia
# Stage IV Metastatic renal cell carcinoma with refractory malignant ascites, carcinomatosis, retroperitoneal adenopathy
Patient follows up with at [facility].
Patient was treated with ipilimumab/nivolumab without response and had colitis.
Then switched to cabozantinib without response
Currently prescribed Welireg
Patient had a renal stent placed on 03/01/[address] Barcenas
Creatinine trended down but minimal urine output.
# Malignant ascites
Paracentesis 02/09/2025 with 3 L, 11-25 with 5.5 L, 02/24/2025 with 4.6 L, 02/26/2025 with 3.5 L, 03/02/2025 with 4.9 L, -5.15 L, again on 03/09/2025
Pt got ceftriaxone for 5 days and now off as all the cultures are negative
No fevers, Gram stain and fluid cultures are negative. SAAG less than 1.1, total protein close 2 or more than 2.5, elevated LDH in fluid, Cytology positive -speaks against SBP
# Chronic HFrEF with ejection fraction 15 to 20%
History of AICD placement
As needed diuretics for comfort discussed with the patient
# Coronary disease-with history of stent-
# Diabetes hemoglobin A1c on 03-03- 7.5%
Continue with insulin at home. Patient is aware that he may stop it if he wishes to being on hospice
# Enlarged prostate
# Hypoalbuminemia
# CODE STATUS was addressed with the patient today with sons at bedside. Patient wanted to be DNR. AICD was turned off. Patient also wanted to monitor off
Discussed with nursing. Eno-[id number]-[id number] DNR signed patient agreeable. Sons aware
Medicines for comfort discussed with the patient and family
Morphine and Ativan added for comfort
Labs ordered by nephrology resulted as abnormal this morning but patient did not want any interventions for that
More than 30 minutes spent in discharge including
Final examination of the patient
Summarizing hospital stay
Instructions for continuing care to all relevant caregivers
Preparation of discharge records, prescriptions, and referral forms
[2025-03-13] MEDS: SENOKOT-S 1 TABLET PO (13:24)
--- NOTE | 2025-03-13 13:37 | W.PN.HOSP.TC ---
Today's Communication/Plan
-
- Patient going home today with home hospice
Assessment / Plan
Assessment / Plan
Patient will be discharged home today on hospice.
# Acute kidney injury
- Minimal urine output
- Dr. Barcenas did cystoscopy and stent placement left side 03/01/2025
- Patient is not a good candidate for hemodialysis per discussion with nephrology
- CT abdomen pelvis Noncon showed patent ureteral stent without hydronephrosis
- Discontinued monitoring of BMP
#Hyperkalemia
- Discontinued interventions
# Hyponatremia
- Patient continues to be hyponatremic likely secondary to overall volume overload
- Discontinued interventions
# Hypotension
- secondary to third spacing and hypoalbuminemia
- Discontinued midodrine
# Stage IV Metastatic renal cell carcinoma with refractory malignant ascites, carcinomatosis, retroperitoneal adenopathy
- Started Welire inpatient, patient plans to take remaining pills
- Peritoneal catheter placed yesterday
- Patient follows with Dr. Vu at [facility]
- Patient will be discharged home today with hospice
# Malignant ascites
- Paracentesis 02/09/2025 with 3 L, 02/16 with 5.5 L, 02/24/2025 with 4.6 L, 02/26/2025 with 3.5 L, 03/02/2025 with 4.9 L, 03/06 with 5.1 L, 03/09 4.7 L, 03/11
- Completed 5 days ceftriaxone for SBP prophylaxis given PMN count
- No fevers, Gram stain and fluid cultures previously negative. Most recent Gram stain and fluid culture: No organisms seen, fluid culture with no growth.
- ID confirmed no treatment of ascites necessary at the moment
# Chronic HFrEF with EF 15 to 20%
- Holding diuretics secondary to hypotension, will defer to nephrology on restarting
- Holding Jardiance, ARB secondary to renal failure
# Coronary disease
- S/p stent placement
- Discontinued aspirin and statin on discharge
# Diabetes hemoglobin A1c on 03-03- 7.5%
- Continued patient's home insulin on discharge
# Enlarged prostate
- Discontinued Flomax on discharge
# Hypoalbuminemia
Patient switched CODE STATUS to DNR
Anticipated Discharge: Today
Subjective/Interval History
-
Date of Service: March 13, 2025
Patient seen today sitting up in the chair. Patient is being discharged today with home hospice.
Objective Data
-
Labs:
Laboratory Results
03/13/25 03/13/25
02:09 05:53
Sodium 115 L*
Potassium 6.2 H* 6.5 H*
Chloride 93 L
Carbon Dioxide 19 L
BUN 111 H*
Creatinine 3.6 H
Glucose 170 H
Calcium 8.1 L
Vital Signs:
Vital Signs
Temp Pulse Resp BP Pulse Ox
97.5 F 93 12 119/101 96
03/12/25 23:54 03/13/25 08:00 03/12/25 16:42 03/13/25 06:03 03/13/25 03:25
I&O
03/12/25 03/13/25 03/14/25
06:59 06:59 06:59
Intake Total 300 / 300 605 / 605
Output Total 100 / 100
Balance 300 / 300 505 / 505
Review of Systems
-
History Source: Patient
Constitutional: Reports No Symptoms
EENT: Reports No Symptoms Reported
Respiratory: Reports No Symptoms
Cardiac: Reports No Symptoms
Abdomen/GI: Reports Nausea, Vomiting and Other (Distention)
Genitourinary: Reports Difficulty Voiding
Skin: Reports No Symptoms
Neuro: Reports No Symptoms
Endocrine: Reports No Symptoms
Hematologic / Lymphatic: Reports No Symptoms
Allergy / Immunology: Reports No Symptoms
Psych: Reports Depressed and Sad
Physical Exam
-
General: Well Developed, Well Nourished and No Apparent Distress
GI: Nontender, Distended and Other (Intraperitoneal catheter in place)
Musculoskeletal: Other (Bilateral lower extremity edema)
Neuro: Awake, Alert and Oriented
--- NOTE | 2025-03-13 14:53 | PTCARENOTE ---
Instructions reviewed with pt. Belongings collected from room. D/c off home with family.
--- NOTE | 2025-03-13 17:15 | W.DCSUMMARY ---
Discharge Summary
Discharge Data
Date of Admission: 02/24/25
Date of Discharge: 03/18/25
-
Pending Results: No
Hospital Course
Primary diagnosis: Metastatic renal cell carcinoma with malignant ascites
Secondary diagnosis: JOSEPH, HFrEF, hypertension, hyponatremia, diabetes, hyperkalemia
Hospital course:
Patient is a 59-year-old male with a PMH significant for renal cell carcinoma with malignant ascites, diabetes, HFrEF who presented to [facility] on 02/24/2025 complaining of abdominal distention, urinary retention, general fatigue and malaise. Patient
was recently hospitalized from 02/05-02/11 and 02/16-02/17 for ascites and distention which was found to be secondary to malignant ascites. Patient underwent paracentesis on 02/09 and 02/16.
In the ED, blood work was significant for sodium 121, potassium 7.3, creatinine 5.4, phosphorus 7.7.
Nephrology was consulted and patient was admitted for further workup of his JOSEPH on CKD stage III.
Over the course of admission, multiple specialties were consulted for medical management.
Urology was initially consulted and determined that the JOSEPH was not caused by obstruction, but rather the patient was not producing urine. Urology felt there was no need for intervention at that time, but was later reconsulted and placed a ureteral
stent to help with urine outflow. Urine output seemed to improve at first, but then shortly after ceased altogether.
Nephrology managed patient's hyponatremia throughout the admission. Many interventions were attempted including continual 3% saline infusions, oral salt tabs, Samsca without improvement. Patient's sodium never recovered above 126. Patient was
receiving Lokelma for hyperkalemia.
Patient also experienced hypotension for which she was on midodrine 15 mg 3 times daily. Cardiology was consulted for assessment of patient's HFrEF. Toward the beginning of admission, patient had a right heart cath which showed that the patient
was euvolemic at that time, and there was no role for inotropic intervention. With the interventions attempted to correct patient's sodium, patient became fluid overloaded due to Acute on chronic HFrEF experiencing bilateral lower extremity pitting
edema to the abdomen. Cardiology was reconsulted to assess role for inotropic intervention at this time, for which they said was not feasible. Patient was provided with compression stockings and Chintan bandages to help alleviate the discomfort of the
edema.
Throughout the admission, patient had 6 paracenteses draining a total of 28 L of ascitic fluid. Fluid analysis, culture and cell count were sent on each fluid sample. Initially patient was empirically treated for possible SBP due to elevated PMNs
with 5 days of ceftriaxone. However, it was determined that the PMN elevation in the setting of malignant ascites was less likely SBP. Infectious disease was consulted toward the end of the admission to assess and confirmed there was no role for
antibiotic treatment at this time. We tried to have a peritoneal catheter placed earlier in admission, however we met barriers to placement because the patient was not on hospice. Eventually patient had intraperitoneal catheter placed on 03/12/2025
after patient had decided to pursue home hospice.
Oncology was also involved in patient's care during admission. Patient followed with Dr. Vu at [facility] for oncologic care prior to admission. Patient had been recently prescribed a third line of therapy, Welireg, but had not started the
medication yet. Initially, Dr. Vu and the [place] oncology team both recommended that patient do not start the new drug in the setting of kidney failure. However, after much discussion between patient, patient's and the oncology team,
patient started to take the medication while admitted which he had from home. Toxicities were monitored for under oncology surveillance.
While goals of care conversations occurred throughout the admission, patient and patient's family wanted to exhaust all possible options. After much deliberation, on 03/12/2025, patient decided to pursue home hospice. After the intraperitoneal
drain placement, cardiology deactivated patient's AICD. Hospice medication orders were placed.
Patient was discharged home with hospice.
Imaging:
02/24/2025 CT abdomen pelvis
IMPRESSION: Subtle right renal mass on this unenhanced examination in this patient with reported history of renal cell carcinoma.
There is evidence for extensive peritoneal carcinomatosis, significantly increasing from previous examination. Moderate amount of ascites within the pelvis with thickened rim, in this patient with reported history of malignant ascites.
Lymphadenopathy within the visualized lower chest and within the abdomen and pelvis, similar appearance to prior CT.
There is left pelvicalyceal dilation as well as dilation of the proximal to mid left ureter with normal caliber of the mid to distal left ureter. 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
By unenhanced CT, no significant dilation of the right pelvicalyceal system or ureter.
03/09/2025 CT abdomen pelvis
IMPRESSION:
Left-sided double-J ureteral stent without evidence of hydronephrosis.
Known right renal mass is not well evaluated on noncontrast images although grossly similar appearance to prior.
Extensive retroperitoneal lymphadenopathy which has slightly decreased in size from prior. The mesenteric, abdominal and visualized lower chest lymphadenopathy is overall similar to prior. Extensive peritoneal carcinomatosis, similar to prior.
Small volume abdominal pelvic ascites with associated peritoneal thickening consistent with known malignant ascites.
03/11/2025
Abdominal x-ray
FINDINGS:
There is a nonobstructive bowel gas pattern. No abnormal calcifications. No organomegaly. Left double-J ureteral stent.
No gross osseous abnormalities.
IR:
02/24/2025 paracentesis
FINDINGS: 4600 cc of serosanguineous ascitic fluid was evacuated.
02/26/2025 paracentesis
IMPRESSION: Successful ultrasound-guided paracentesis yielding 3500 mL of ascitic fluid.
03/02/2025 paracentesis
FINDINGS: 4900 cc of serous single ascitic fluid was evacuated.
03/06/2025 paracentesis
FINDINGS: 5150 cc of serosanguineous ascitic fluid was evacuated. Samples sent for analysis as requested.
IMPRESSION: Successful ultrasound guided diagnostic and therapeutic paracentesis.
03/09/2025 paracentesis
FINDINGS: 4700 cc of serosanguineous ascitic fluid was evacuated. Samples sent for analysis as requested.
IMPRESSION: Successful ultrasound guided diagnostic and therapeutic paracentesis.
03/11/2025 paracentesis
FINDINGS: 5500 cc of grossly bloody ascitic fluid was evacuated. Samples sent for analysis as requested.
IMPRESSION: Successful ultrasound guided diagnostic and therapeutic paracentesis.
Discharge Plan
-
Patient Disposition: Home with Hospice
Discharge Diagnosis/Procedures: Metastatic renal cell carcinoma with malignant ascites
Congestive heart failure with reduced ejection fraction
Acute kidney injury
Hyponatremia
Hyperkalemia
Hypotension
Hypoalbuminemia
Diabetes
Coronary artery disease
Diet: No restrictions
Activity: No restrictions
Driving Restrictions: No driving
Bathing Restrictions: None
Other Services: Hospice
Referrals:
Bandar Jimenez MD [Family Provider, Internal Medicine]
Prescriptions:
New
Outpatient paracentesis
1 ea intraperitoneal DIRECTED Qty: 99 0RF
Rx Instructions:
To be done twice weekly at [facility] interventional radiology
Diagnoses: R18.0 - Malignant ascites
albumin, human 25 % [Albutein 25 %] 25 % parenteral solution
50 g IV PRN PRN (Reason: paracentesis more than 5 L) Qty: 50 3RF
sennosides-docusate sodium [Senna Plus] 8.6-50 mg Tablet
1 tab PO BID 30 Days Qty: 60 0RF
bumetanide 1 mg Tablet
2 mg PO BID PRN (Reason: Heart disease/condition) 30 Days Qty: 120 0RF
polyethylene glycol 3350 [Miralax] 17 gram/dose powder
4 g PO DAILY Qty: 119 0RF
morphine 10 mg/5 mL solution
5 mg PO Q4H PRN (Reason: severe pain or shortness of breath) Qty: 100 0RF
lorazepam [Lorazepam Intensol] 2 mg/mL concentrate
0.5 mg PO Q6H PRN (Reason: anxiety) Qty: 30 0RF
Continued
insulin glargine U-300 conc [Toujeo Max U-300 SoloStar] 300 unit/mL (3 mL) Insulin Pen
20 unit SC HS
pantoprazole 40 mg Tablet,Delayed Release (Dr/Ec)
40 mg PO DAILY
insulin aspart U-100 [Novolog FlexPen U-100 Insulin] 100 unit/mL (3 mL) insulin pen
10 sliding scale dose SC AC
Discontinued
repaglinide 2 mg Tablet
2 mg PO AC
ergocalciferol (vitamin D2) 1,250 mcg (50,000 unit) Capsule
1,250 mcg PO TUTH
atorvastatin 80 mg Tablet
80 mg PO QPM
furosemide 80 mg Tablet
80 mg PO DAILY Qty: 30 0RF
Cabometyx 40 mg Tablet
40 mg PO DAILY
tamsulosin 0.4 mg Capsule
0.4 mg PO HS
morphine 15 mg Tablet Extended Release
15 mg PO [id number] PRN (Reason: severe pains)
aspirin 81 mg Tablet,Chewable
81 mg PO DAILY
empagliflozin 25 mg Tablet
25 mg PO DAILY
Discharge Orders:
Discharge Patient (As Directed); Ordered 03/13/25
Ordered By: Daniel Augustine
Discharge Date and Time
Discharge Date/Time: 03/13/25 15:10
Print Language: LEBANESE
--- NOTE | 2025-03-16 15:11 | PN.CDI ---
CDI
- -
CDI:
Physician Documentation Request
Admit Date: 02/24/25 04:08
Dear Doctor Phillip,
Patient was being managed for malignant ascites. Patient has a history of HFrEF.
Discharge summary states 'Toward the beginning of admission, patient had a right heart cath which showed that the patient was euvolemic at that time, and there was no role for inotropic intervention. With the interventions attempted to correct
patient's sodium, patient became fluid overloaded experiencing bilateral lower extremity pitting edema to the abdomen. Cardiology was reconsulted to assess role for inotropic intervention at this time, for which they said was not feasible. Patient
was provided with compression stockings and Chintan bandages to help alleviate the discomfort of the edema.'
Please clarify the diagnosis associated with patients symptoms following attempt to correct sodium.
Fluid volume overload
Acute on chronic HFrEF.
____ Other
Use of terms such as suspected, likely, concern for, or probable (associated with a specific diagnosis that is being evaluated, monitored, or treated as if it exists) are acceptable and can be coded in the inpatient setting, when documented at the
time of discharge.
Thank you,
Anna QUINTANAN
CDI Specialist
tiger text
Please use your independent medical judgment in providing your response.
== END 2025-03-13 15:10 | disposition hospice, home (50) | DRG 656 ==
LOC: IMU 04:08
PROVIDERS: General Practice; Internal Medicine; Nurse Practitioner Family; Physician Assistant; Radiology Diagnostic Radiology; Radiology Vascular & Interventional Radiology; Registered Nurse; Specialist; Student in an Organized Health Care Education/Training Program; Surgery; ADMITTING PHYSICIAN Hospitalist; ATTENDING PHYSICIAN Hospitalist; CONSULT PHYSICIAN Internal Medicine Cardiovascular Disease; CONSULT PHYSICIAN Specialist; EMERGENCY PHYSICIAN Emergency Medicine; FAMILY PHYSICIAN Internal Medicine; OTHER PHYSICIAN Internal Medicine Hematology & Oncology; OTHER PHYSICIAN Internal Medicine Infectious Disease
PROC: 0W9G3ZZ Drainage of Peritoneal Cavity, Percutaneous Approach (ICD-10-PCS; 2025-02-24)
PROC: 4A023N6 Measurement of Cardiac Sampling and Pressure, Right Heart, Percutaneous Approach (ICD-10-PCS; 2025-02-27)
PROC: BT1F1ZZ Fluoroscopy of Left Kidney, Ureter and Bladder using Low Osmolar Contrast (ICD-10-PCS; 2025-03-01)
PROC: 0T778DZ Dilation of Left Ureter with Intraluminal Device, Via Natural or Artificial Opening Endoscopic (ICD-10-PCS; 2025-03-01)
PROC: 3E0 Administration, Physiological Systems and Anatomical Regions, Introduction (ICD-10-PCS; 2025-03-04)
PROC: 02HV33Z Insertion of Infusion Device into Superior Vena Cava, Percutaneous Approach (ICD-10-PCS; 2025-03-06)
PROC: 0W9G30Z Drainage of Peritoneal Cavity with Drainage Device, Percutaneous Approach (ICD-10-PCS; 2025-03-12)
DX: C64.1 Malignant neoplasm of right kidney, except renal pelvis (principal); I50.23 Acute on chronic systolic (congestive) heart failure; R18.0 Malignant ascites; I13.0 Hypertensive heart and chronic kidney disease with heart failure and stage 1 through stage 4 chronic kidney disease, or unspecified chronic kidney disease; N17.9 Acute kidney failure, unspecified; K76.6 Portal hypertension; N13.1 Hydronephrosis with ureteral stricture, not elsewhere classified; C78.6 Secondary malignant neoplasm of retroperitoneum and peritoneum; E87.1 Hypo-osmolality and hyponatremia; E87.20 Acidosis, unspecified; C77.2 Secondary and unspecified malignant neoplasm of intra-abdominal lymph nodes; N18.30 Chronic kidney disease, stage 3 unspecified; E11.22 Type 2 diabetes mellitus with diabetic chronic kidney disease; E87.5 Hyperkalemia; I95.9 Hypotension, unspecified; E86.9 Volume depletion, unspecified; E78.00 Pure hypercholesterolemia, unspecified; I25.5 Ischemic cardiomyopathy; Z66 Do not resuscitate; D72.829 Elevated white blood cell count, unspecified; I25.10 Atherosclerotic heart disease of native coronary artery without angina pectoris; N40.0 Benign prostatic hyperplasia without lower urinary tract symptoms; E88.09 Other disorders of plasma-protein metabolism, not elsewhere classified; I25.2 Old myocardial infarction; Z92.21 Personal history of antineoplastic chemotherapy; Z95.5 Presence of coronary angioplasty implant and graft; Z95.810 Presence of automatic (implantable) cardiac defibrillator; Z79.4 Long term (current) use of insulin; Z79.82 Long term (current) use of aspirin
CPT/HCPCS: 49083; 49418; 71045; 74018; 74176; 74420; 80048; 80053; 80076; 81003; 81015; 82042; 82248; 82533; 82570; 82962; 83605; 83615; 83690; 83735; 83930; 83935; 84100; 84132; 84157; 84300; 85025; 85027; 87015; 87040; 87070; 87205; 88112; 88305; 89051; 93005; 93970; 94640; 96374; 96375; 97116; 97163; 99152; 99153; 99285; A4300; C1769; C1894; P9045; P9047